=== PATIENT | female | born 1940 | race Caucasian/White ===

== ENCOUNTER → 2017-12-03 11:00 | Outpatient (CLI) | payer MEDICARE, OTHER, SELFPAY | PROVIDERS: PCP Family Medicine; Visit Provider Family Medicine | DX: N39.0 Urinary tract infection, site not specified (principal) | CPT/HCPCS: 87077; 87086; 87147; 87186 ==

== ENCOUNTER → 2017-12-15 13:49 | Outpatient (CLI) | payer MEDICARE, OTHER, SELFPAY ==
[2017-12-15 14:23] LABS: Appearance Urine UA CLEAR; Bilirubin Urine UA NEGATIVE (NEGATIVE); Color Urine UA YELLOW; Glucose Urine UA NEGATIVE (Normal); Ketones Urine UA TRACE (NEGATIVE); Leukocyte Esterase Urine UA 3+ (NEGATIVE); Nitrite Urine UA Negative (Negative); Occult Blood Urine UA 3+ (Negative); Protein Urine UA 2+ (Negative); pH Urine UA 5.5 (4.5-8.0)
[2017-12-15 14:34] LABS: Bacteria Urine Many (>30); Culture Indicated Urine Specimen Cultured; RBC Urine 10-30/HPF (0-5/HPF); WBC Urine >100/HPF (0-5/HPF)
== END ==
PROVIDERS: PCP Family Medicine; Visit Provider Family Medicine
DX: R39.9 Unspecified symptoms and signs involving the genitourinary system (principal); Z87.440 Personal history of urinary (tract) infections
CPT/HCPCS: 81001; 87077; 87086; 87186

== ENCOUNTER → 2018-01-12 11:16 | Outpatient (CLI) | payer MEDICARE, OTHER, SELFPAY ==
[2018-01-12 12:25] LABS: Appearance Urine UA CLOUDY; Bilirubin Urine UA NEGATIVE (NEGATIVE); Color Urine UA YELLOW; Glucose Urine UA NEGATIVE (Normal); Ketones Urine UA NEGATIVE (NEGATIVE); Leukocyte Esterase Urine UA 3+ (NEGATIVE); Nitrite Urine UA POSITIVE (Negative); Occult Blood Urine UA 1+ (Negative); Protein Urine UA 1+ (Negative); Specific Gravity Urine UA 1.015 (1.000-1.035)
[2018-01-12 12:37] LABS: RBC Urine 1-5/HPF (0-5/HPF)
[2018-01-12 12:38] LABS: Amorphous Sediment Urine 1+; Bacteria Urine Many (>30); Culture Indicated Urine Specimen Cultured; Squamous Epithelial Cell Urine 0-1 /HPF; WBC Urine >100/HPF (0-5/HPF)
== END ==
PROVIDERS: PCP Family Medicine; Visit Provider Family Medicine
DX: R30.0 Dysuria (principal)
CPT/HCPCS: 81001; 87077; 87086; 87186

== ENCOUNTER → 2018-01-22 10:24 | Outpatient (CLI) | payer MEDICARE, OTHER, SELFPAY ==
[2018-01-22 10:34] LABS: Bacteria Urine None Seen
[2018-01-22 11:56] LABS: Appearance Urine UA CLEAR; Bilirubin Urine UA NEGATIVE (NEGATIVE); Color Urine UA YELLOW; Glucose Urine UA NEGATIVE (Normal); Ketones Urine UA NEGATIVE (NEGATIVE); Leukocyte Esterase Urine UA TRACE (NEGATIVE); Nitrite Urine UA NEGATIVE (Negative); Occult Blood Urine UA TRACE-LYSED (Negative); Protein Urine UA NEGATIVE (Negative); Specific Gravity Urine UA 1.025 (1.000-1.035); Urobilinogen Urine UA 0.2 E.U./dL (0.2); pH Urine UA 5.5 (4.5-8.0)
[2018-01-22 12:06] LABS: Culture Indicated Urine Specimen Cultured; RBC Urine 1-5/HPF (0-5/HPF); Squamous Epithelial Cell Urine 1-5 /HPF; WBC Urine 5-10/HPF (0-5/HPF)
== END ==
PROVIDERS: PCP Family Medicine; Visit Provider Family Medicine
DX: R30.0 Dysuria (principal)
CPT/HCPCS: 81001; 87077; 87086; 87186

== ENCOUNTER → 2018-01-29 09:13 | Outpatient (CLI) | payer MEDICARE, OTHER, SELFPAY ==
--- NOTE | 2018-01-29 | DI.MG.S_ITS ---
BILATERAL DIGITAL SCREENING MAMMOGRAM 3D/2D WITH CAD: 01/29/2018 Comparison is made to exams dated: 01/18/2017 mammogram and 05/16/2015 mammogram - [facility]. There are scattered fibroglandular elements in both breasts. Current study was also evaluated with a Computer Aided Detection (CAD) system. No significant masses, calcifications, or other findings are seen in either breast. There has been no significant interval change. IMPRESSION: NEGATIVE There is no mammographic evidence of malignancy. A 1 year screening mammogram is recommended. This exam was interpreted at Station ID: [id number]. NOTE: For mammograms, a report in lay terms will be sent to the patient. Approximately 15% of breast malignancies will not be visualized mammographically. In the management of a palpable breast mass, a negative mammogram must not discourage biopsy of a clinically suspicious lesion. Electronically Signed By: Lesly [email or web address]/[email or web address]:01/29/2018 09:56:18 copy to: Maine Sim M.D., [facility] [employer], ph: [phone], fax: [phone] letter sent: Normal Exam ACR BI-RADS Category 1: Negative [id number]
== END ==
PROVIDERS: PCP Family Medicine; Visit Provider Internal Medicine Hematology & Oncology
DX: Z12.31 Encounter for screening mammogram for malignant neoplasm of breast (principal)
CPT/HCPCS: 77063; 77067

== ENCOUNTER → 2018-01-31 16:24 | Outpatient (CLI) | payer MEDICARE, OTHER, SELFPAY ==
[2018-01-31 17:04] LABS: Bilirubin Urine UA NEGATIVE (NEGATIVE); Color Urine UA YELLOW; Glucose Urine UA NEGATIVE (Normal); Ketones Urine UA TRACE (NEGATIVE); Leukocyte Esterase Urine UA 1+ (NEGATIVE); Nitrite Urine UA POSITIVE (Negative); Occult Blood Urine UA 3+ (Negative); Protein Urine UA 2+ (Negative); Specific Gravity Urine UA 1.025 (1.000-1.035); pH Urine UA 5.5 (4.5-8.0)
[2018-01-31 17:12] LABS: Appearance Urine UA Slightly Cloudy
[2018-01-31 17:13] LABS: Bacteria Urine Many (>30); Culture Indicated Urine Specimen Cultured; RBC Urine 30-100/HPF (0-5/HPF); Squamous Epithelial Cell Urine 0-1 /HPF; WBC Urine >100/HPF (0-5/HPF)
== END ==
PROVIDERS: PCP Family Medicine; Visit Provider Family Medicine
DX: N39.0 Urinary tract infection, site not specified (principal)
CPT/HCPCS: 81001; 87077; 87086; 87186

== ENCOUNTER → 2018-02-21 19:01 | Outpatient (CLI) | payer MEDICARE, OTHER, SELFPAY | PROVIDERS: PCP Family Medicine; Visit Provider Physician Assistant | DX: N39.41 Urge incontinence (principal) | CPT/HCPCS: 87077; 87086; 87186 ==

== ENCOUNTER 2018-07-07 09:00 | Outpatient (RCR) | payer MEDICARE, OTHER, SELFPAY ==
--- NOTE | 2018-05-26 13:13 | PT.OIE ---
Current Diagnoses Urge incontinence (05/26/18) Past Medical History (Last Reviewed 12/03/17 @ 10:37 by Maine Sim MD) Lymphoma (Chronic) Heart murmur, systolic (Chronic) Cataract (Chronic) Fecal incontinence (Chronic 2004) Frequent UTI (Chronic) GERD (gastroesophageal reflux disease) (Chronic) Hearing loss (Chronic) Hypertension (Chronic) Migraines (Chronic) Urinary incontinence (Chronic 2013) Chicken pox (Resolved) Past Surgical History (Last Reviewed 12/03/17 @ 10:37 by Maine Sim MD) History of dilation and curettage (Resolved) Provider Visit Care Team Role Provider Type Maine Sim MD Primary Care Provider Physician Specialty: Family Practice Address: [address] [place] [address], [id number] Email: [email or web address] Tina Andre MD Attending Provider Non-Staff Specialty: Urology Address: [address] [place] [address], [id number] Email: Physical Therapy Initial Evaluation PT-OP-A Visit Information Start: 05/26/18 10:43 Freq: Status: Active Protocol: Document 05/26/18 10:44 [facility] (Rec: 05/26/18 11:14 [facility] [email or web address]) Out-Patient Physical Therapy Visit Information Visit Information Visit Type Initial Evaluation Visit Note 78 year old female who presents with urinary urgency and incontinence. She has a hx of frequent UTI's but from November to 2017 had 6 UTI's. She have been treated with different anitbiotics. She has had urinary urgency and incontinence in the past and has done PT which helped at that time. Visit Start Time 09:45 Visit Stop Time 10:30 Total Visit Minutes 45 Visit Number 1 Evaluation Information Evaluation Date 05/26/18 PT-OP-B Current Condition Start: 05/26/18 10:43 Freq: Status: Active Protocol: Document 05/26/18 10:44 [facility] (Rec: 05/26/18 11:14 [facility] [email or web address]) Current Condition History of Current Condition Onset Date December 04 2007 Current Complaints urinary urgency and urinary leakage without warning History of Current Condition 78 year old female who presents with urinary urgency and incontinence. She has a hx of frequent UTI's but from November to January 2018 had 6 UTI's. She has been treated with different antibiotics each incident. She has had urinary urgency and incontinence in the past and has done PT which helped at that time. Pt wears pads and changes them 1-2 xms per day, wakes up 2 xms at night to void. Drinks 1 diet coke per day, 3 cups of tea, 2-3 glasses of water. Hx of urethral burning but after this last antibiotic and with estrogen cream this has been gone now for approximatly 2 weeks. 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 Treatment Goals Patient/Caregiver Goals Goals include eliminating urge incontinence Current Functional Impairments (Reported) Functional Limitations- Recreation/ limited in recreational Hobbies activities as she feels she needs to be near a bathroom PT-OP-F Manual Assessment Start: 05/26/18 10:43 Freq: Status: Active Protocol: Document 05/26/18 10:44 [facility] (Rec: 05/26/18 11:14 [facility] [email or web address]) Manual Assessments Soft Tissue Assessment Soft Tissue Mobility Assessment levator ani tightness on the left lateral wall, piriformis tightness L>R, gluteal tightness L>R, paraspinal tightness B PT-OP-I Pelvic Floor Start: 05/26/18 10:43 Freq: Status: Active Protocol: Document 05/26/18 10:44 [facility] (Rec: 05/26/18 11:14 [facility] [email or web address]) Pelvic Floor Assessment Urine Pelvic Floor Surgery No Urinary Symptoms Urge Sensation Hesitancy Dribbling After Urination Incomplete Emptying Leakage Size Medium Leakage Cause Urge Leaks Per Day 1-3 Voiding Frequency every 2 hours Nocturia yes wakes 2 times per night Pads Used In 24 Hours 3 Urine Pad Type Maxi Pad Pelvic Clock Pelvic Clock 12-3 Atrophy Pelvic Clock 3-6 Guarding Tightness Pelvic Clock 6-9 Atrophy Pelvic Clock 9-12 Atrophy Pelvic Clock Other tightness and guarding on the left lateral wall of the levator ani Contraction Ability Voluntary Contraction Weak Voluntary Relaxation Moderate Manual Muscle Testing Left 3 Manual Muscle Testing Right 3 Manual Muscle Testing Anterior 3 Manual Muscle Testing Posterior 3 Muscle Endurance (Seconds) 5 Comments Pelvic Floor Comments difficutly fully relaxing the left lateral wall of the levator ani PT-OP-Q Treatments Start: 05/26/18 10:43 Freq: Status: Active Protocol: Document 05/26/18 10:44 [facility] (Rec: 05/26/18 11:14 [facility] [email or web address]) Self-Care/Home Management Treatment Education Patient Education Home Exercise Program Other Education Bladder retraining and urge deference technique began today, discussed bladder irritants and toileting strategies to help fully empty the bladder with voiding. PT-OP-T Assessment and Plan Start: 05/26/18 10:43 Freq: Status: Active Protocol: Document 05/26/18 10:44 [facility] (Rec: 05/26/18 11:14 [facility] [email or web address]) Physical Therapy Assessment Rehab Potential Rehabilitation Potential Good Evaluation Complexity Number of Personal Factors/Comorbidities 0 Number of Body Systems Impaired 1-2 Clinical Presentation at Evaluation Stable Impairments Impairments Activity Tolerance Soft Tissue Mobility Strength Other Impairments urinary urgency and incontinence Goals Three Impairment tightness in the left lateral wall of the levator ani and L> R hip muscles Short Term Goal (STG) Ami is educated on stretches for the hip ER and educated on relaxed tone of the pelvic floor musculature to help fully empty her bladder with voiding STG Duration 4 weeks Two Impairment urininary urgency and urge incontinence Short Term Goal (STG) Ami is instruced in the urge deferance technique and bladder retraining to help reduce urgency STG Duration 2 weeks Hospitality Associate Goal (LTG) reduce leakage from 3-4 times per day to 1 or less LTG Duration 8 weeks One Impairment pelvic floor weakness and decreased endurance Alf Goal (LTG) Improve strength of the levator ani from 3/5 to 4/5 or better on MMT and increase endurance contractions to 10 second hold in supine LTG Duration 8 weeks Assessment Summary Assessment Ami is a 78 year old female who presents with onset of urinary urgency and incontinence following a 3 month period where she was being treated for UTI's. She had 6 UTI's from November - January and was treated with several different antibiotics. She began experiencing urethral buring as well during this time but this has subsided. She has had PT in the past for urinary urgency which helped but since having her infections her symptoms have returned. With examination she is able to facilitate all parts of her levator ani but is limited in strength and endurance. She also has muscle guarding on the left lateral wall of the levator ani. She reports hip and LBP and is tight with her hip rotators L>R. We discussed toileting strategies today to improve her ability to fully empty her bladder, she was educated with bladder retraining and urge deference technique, and reviewed bladder irritants. Treatment will emphasize endurance training for her levator ani, relaxed awareness of the pelvic floor expecially with toileting, hip stretches, EMG biofeedback, bladder retraining. Ami is a good candidate for PT Physical Therapy Plan Frequency and Duration Frequency of Treatment 1x/Week Duration of Treatment 8 weeks Plan of Care Start Date 05/26/18 Plan of Care End Date 07/21/18 Therapeutic Interventions Therapeutic Interventions Home Exercise Program Manual Therapy Neuromuscular Re-education Self-Care/Home Management Therapeutic Exercises
--- NOTE | 2018-05-26 13:13 | PT.OPPOC ---
Current Diagnoses Urge incontinence (05/26/18) Provider Visit Care Team Role Provider Type Maine Sim MD Primary Care Provider Physician Specialty: Family Practice Address: [address] [place] [address], [id number] Email: [email or web address] Tina Andre MD Attending Provider Non-Staff Specialty: Urology Address: [address] [place] [address], [address] Email: Plan Of Care PT-OP-T Assessment and Plan Start: 05/26/18 10:43 Freq: Status: Active Protocol: Document 05/26/18 10:44 [facility] (Rec: 05/26/18 11:14 [facility] [email or web address]) Physical Therapy Assessment Rehab Potential Rehabilitation Potential Good Evaluation Complexity Number of Personal Factors/Comorbidities 0 Number of Body Systems Impaired 1-2 Clinical Presentation at Evaluation Stable Impairments Impairments Activity Tolerance Soft Tissue Mobility Strength Other Impairments urinary urgency and incontinence Goals Three Impairment tightness in the left lateral wall of the levator ani and L> R hip muscles Short Term Goal (STG) Ami is educated on stretches for the hip ER and educated on relaxed tone of the pelvic floor musculature to help fully empty her bladder with voiding STG Duration 4 weeks Two Impairment urininary urgency and urge incontinence Short Term Goal (STG) Ami is instruced in the urge deferance technique and bladder retraining to help reduce urgency STG Duration 2 weeks Penitentiary Goal (LTG) reduce leakage from 3-4 times per day to 1 or less LTG Duration 8 weeks One Impairment pelvic floor weakness and decreased endurance Warehouse Insulation Worker Goal (LTG) Improve strength of the levator ani from 3/5 to 4/5 or better on MMT and increase endurance contractions to 10 second hold in supine LTG Duration 8 weeks Assessment Summary Assessment Ami is a 78 year old female who presents with onset of urinary urgency and incontinence following a 3 month period where she was being treated for UTI's. She had 6 UTI's from November - January and was treated with several different antibiotics. She began experiencing urethral buring as well during this time but this has subsided. She has had PT in the past for urinary urgency which helped but since having her infections her symptoms have returned. With examination she is able to facilitate all parts of her levator ani but is limited in strength and endurance. She also has muscle guarding on the left lateral wall of the levator ani. She reports hip and LBP and is tight with her hip rotators L>R. We discussed toileting strategies today to improve her ability to fully empty her bladder, she was educated with bladder retraining and urge deference technique, and reviewed bladder irritants. Treatment will emphasize endurance training for her levator ani, relaxed awareness of the pelvic floor expecially with toileting, hip stretches, EMG biofeedback, bladder retraining. Ami is a good candidate for PT Physical Therapy Plan Frequency and Duration Frequency of Treatment 1x/Week Duration of Treatment 8 weeks Plan of Care Start Date 05/26/18 Plan of Care End Date 07/21/18 Therapeutic Interventions Therapeutic Interventions Home Exercise Program Manual Therapy Neuromuscular Re-education Self-Care/Home Management Therapeutic Exercises Plan of Care Dates Plan of Care Start Date 05/26/18 Plan of Care End Date 07/21/18 Please Sign and Return: I have reviewed this Plan of Care and certify that the skilled therapy services above are required to meet the patient?s needs. Physician Signature Date Printed Name and Credentials Clinical Instructor Signature Printed Name and Credentials
--- NOTE | 2018-06-02 11:41 | PT.OTN ---
Current Diagnoses Urge incontinence (06/02/18) Physical Therapy Treatment Note PT-OP-A Visit Information Start: 05/26/18 10:43 Freq: Status: Active Protocol: Document 05/31/18 13:00 [facility] (Rec: 06/02/18 11:40 [facility] [email or web address]) Out-Patient Physical Therapy Visit Information Visit Information Visit Type Treatment Note Visit Note pt reports she had a really busy day yesterday and did experience a lot of urgency Visit Start Time 13:00 Visit Stop Time 13:45 Total Visit Minutes 45 Visit Number 2 Evaluation Information Evaluation Date 05/26/18 PT-OP-B Current Condition Start: 05/26/18 10:43 Freq: Status: Active Protocol: Document 05/26/18 10:44 [facility] (Rec: 05/26/18 11:14 [facility] [email or web address]) Current Condition History of Current Condition Onset Date December 04 2007 Current Complaints urinary urgency and urinary leakage without warning History of Current Condition 78 year old female who presents with urinary urgency and incontinence. She has a hx of frequent UTI's but from November to January 2018 had 6 UTI's. She has been treated with different antibiotics each incident. She has had urinary urgency and incontinence in the past and has done PT which helped at that time. Pt wears pads and changes them 1-2 xms per day, wakes up 2 xms at night to void. Drinks 1 diet coke per day, 3 cups of tea, 2-3 glasses of water. Hx of urethral burning but after this last antibiotic and with estrogen cream this has been gone now for approximatly 2 weeks. 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 Treatment Goals Patient/Caregiver Goals Goals include eliminating urge incontinence Current Functional Impairments (Reported) Functional Limitations- Recreation/ limited in recreational Hobbies activities as she feels she needs to be near a bathroom PT-OP-F Manual Assessment Start: 05/26/18 10:43 Freq: Status: Active Protocol: Document 05/26/18 10:44 [facility] (Rec: 05/26/18 11:14 [facility] [email or web address]) Manual Assessments Soft Tissue Assessment Soft Tissue Mobility Assessment levator ani tightness on the left lateral wall, piriformis tightness L>R, gluteal tightness L>R, paraspinal tightness B PT-OP-I Pelvic Floor Start: 05/26/18 10:43 Freq: Status: Active Protocol: Document 05/26/18 10:44 [facility] (Rec: 05/26/18 11:14 [facility] [email or web address]) Pelvic Floor Assessment Urine Pelvic Floor Surgery No Urinary Symptoms Urge Sensation Hesitancy Dribbling After Urination Incomplete Emptying Leakage Size Medium Leakage Cause Urge Leaks Per Day 1-3 Voiding Frequency every 2 hours Nocturia yes wakes 2 times per night Pads Used In 24 Hours 3 Urine Pad Type Maxi Pad Pelvic Clock Pelvic Clock 12-3 Atrophy Pelvic Clock 3-6 Guarding Tightness Pelvic Clock 6-9 Atrophy Pelvic Clock 9-12 Atrophy Pelvic Clock Other tightness and guarding on the left lateral wall of the levator ani Contraction Ability Voluntary Contraction Weak Voluntary Relaxation Moderate Manual Muscle Testing Left 3 Manual Muscle Testing Right 3 Manual Muscle Testing Anterior 3 Manual Muscle Testing Posterior 3 Muscle Endurance (Seconds) 5 Comments Pelvic Floor Comments difficutly fully relaxing the left lateral wall of the levator ani PT-OP-Q Treatments Start: 05/26/18 10:43 Freq: Status: Active Protocol: Document 05/31/18 13:00 [facility] (Rec: 06/02/18 11:40 [facility] [email or web address]) Therapeutic Exercises Supine Exercises 5 Supine Exercise Name pelvic floor relaxation on EMG biofeedback 4 Supine Exercise Name ball squeeze Reps/Minutes 3 x 10 reps 3 Supine Exercise Name roll outs with theraband Reps/Minutes 3 x 10 2 Supine Exercise Name quick flicks Reps/Minutes x 10 reps 1 Supine Exercise Name pelvic floor long holds 10 second hold 10 second relaxation Reps/Minutes 3 x 10 reps Sidelying Exercises 1 Sidelying Exercise Name sidelying clam shells Self-Care/Home Management Treatment Education Patient Education Home Exercise Program Other Education urge deference technique, bladder retraining, pelvic floor relaxation PT-OP-T Assessment and Plan Start: 05/26/18 10:43 Freq: Status: Active Protocol: Document 05/31/18 13:00 [facility] (Rec: 06/02/18 11:40 [facility] [email or web address]) Physical Therapy Assessment Assessment Summary Assessment good tolerance today for additional exercises, reviewed urge deference technique, and bladder irritants Physical Therapy Plan Frequency and Duration Frequency of Treatment 1x/Week Duration of Treatment 8 weeks Plan of Care Start Date 05/26/18 Plan of Care End Date 07/21/18 Therapeutic Interventions Therapeutic Interventions Home Exercise Program Manual Therapy Neuromuscular Re-education Self-Care/Home Management Therapeutic Exercises Next Visit Focus/Plan Next Note Type Treatment Note Next Visit Plan work on progressing exercises and begin low back relaxation exercises next visit
--- NOTE | 2018-06-02 11:48 | PT.OTN ---
Current Diagnoses Urge incontinence (06/02/18) Physical Therapy Treatment Note PT-OP-A Visit Information Start: 05/26/18 10:43 Freq: Status: Active Protocol: Document 06/02/18 11:41 [facility] (Rec: 06/02/18 11:46 [facility] [email or web address]) Out-Patient Physical Therapy Visit Information Visit Information Visit Type Treatment Note Visit Note Junior reports yesterday she had no leaks or urgency. She is not sure what the difference is between the two days Visit Start Time 09:45 Visit Stop Time 10:30 Total Visit Minutes 45 Visit Number 3 Evaluation Information Evaluation Date 05/26/18 PT-OP-B Current Condition Start: 05/26/18 10:43 Freq: Status: Active Protocol: Document 05/26/18 10:44 [facility] (Rec: 05/26/18 11:14 [facility] [email or web address]) Current Condition History of Current Condition Onset Date December 04 2007 Current Complaints urinary urgency and urinary leakage without warning History of Current Condition 78 year old female who presents with urinary urgency and incontinence. She has a hx of frequent UTI's but from November to January 2018 had 6 UTI's. She has been treated with different antibiotics each incident. She has had urinary urgency and incontinence in the past and has done PT which helped at that time. Pt wears pads and changes them 1-2 xms per day, wakes up 2 xms at night to void. Drinks 1 diet coke per day, 3 cups of tea, 2-3 glasses of water. Hx of urethral burning but after this last antibiotic and with estrogen cream this has been gone now for approximatly 2 weeks. 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 Treatment Goals Patient/Caregiver Goals Goals include eliminating urge incontinence Current Functional Impairments (Reported) Functional Limitations- Recreation/ limited in recreational Hobbies activities as she feels she needs to be near a bathroom PT-OP-C Subjective Start: 05/26/18 10:43 Freq: Status: Active Protocol: Document 06/02/18 11:41 [facility] (Rec: 06/02/18 11:46 [facility] [email or web address]) OP-PT Subjective Patient Comments Patient Comments junior reports yesterday she experienced no leaks or urgency. She is not sure what the difference is between the two days. PT-OP-F Manual Assessment Start: 05/26/18 10:43 Freq: Status: Active Protocol: Document 05/26/18 10:44 [facility] (Rec: 05/26/18 11:14 [facility] [email or web address]) Manual Assessments Soft Tissue Assessment Soft Tissue Mobility Assessment levator ani tightness on the left lateral wall, piriformis tightness L>R, gluteal tightness L>R, paraspinal tightness B PT-OP-I Pelvic Floor Start: 05/26/18 10:43 Freq: Status: Active Protocol: Document 05/26/18 10:44 [facility] (Rec: 05/26/18 11:14 [facility] [email or web address]) Pelvic Floor Assessment Urine Pelvic Floor Surgery No Urinary Symptoms Urge Sensation Hesitancy Dribbling After Urination Incomplete Emptying Leakage Size Medium Leakage Cause Urge Leaks Per Day 1-3 Voiding Frequency every 2 hours Nocturia yes wakes 2 times per night Pads Used In 24 Hours 3 Urine Pad Type Maxi Pad Pelvic Clock Pelvic Clock 12-3 Atrophy Pelvic Clock 3-6 Guarding Tightness Pelvic Clock 6-9 Atrophy Pelvic Clock 9-12 Atrophy Pelvic Clock Other tightness and guarding on the left lateral wall of the levator ani Contraction Ability Voluntary Contraction Weak Voluntary Relaxation Moderate Manual Muscle Testing Left 3 Manual Muscle Testing Right 3 Manual Muscle Testing Anterior 3 Manual Muscle Testing Posterior 3 Muscle Endurance (Seconds) 5 Comments Pelvic Floor Comments difficutly fully relaxing the left lateral wall of the levator ani PT-OP-Q Treatments Start: 05/26/18 10:43 Freq: Status: Active Protocol: Document 06/02/18 11:41 [facility] (Rec: 06/02/18 11:46 [facility] [email or web address]) Therapeutic Exercises Supine Exercises 5 Supine Exercise Name pelvic floor relaxation on EMG biofeedback 4 Supine Exercise Name ball squeeze Reps/Minutes 3 x 10 reps 3 Supine Exercise Name roll outs with theraband Reps/Minutes 3 x 10 2 Supine Exercise Name quick flicks Reps/Minutes x 10 reps 1 Supine Exercise Name pelvic floor long holds 10 second hold 10 second relaxation Reps/Minutes 3 x 10 reps Sidelying Exercises 1 Sidelying Exercise Name sidelying clam shells Reps/Minutes 2 x 15 Other Exercises 3 Other Exercise Name TA facilitation and relaxation Reps/Minutes 10 second holds with 10 second relaxation 2 Other Exercise Name atlib pose 1 Other Exercise Name quadraped cat cow Reps/Minutes x 10 reps PT-OP-T Assessment and Plan Start: 05/26/18 10:43 Freq: Status: Active Protocol: Document 06/02/18 11:41 [facility] (Rec: 06/02/18 11:46 [facility] [email or web address]) Physical Therapy Assessment Assessment Summary Assessment much improved facilitation of the pelvic floor to 10.6 uv average and 46.7 uv max. Resting tone initially is at 0 .0 uv Physical Therapy Plan Frequency and Duration Frequency of Treatment 1x/Week Duration of Treatment 8 Plan of Care Start Date 05/26/18 Plan of Care End Date 07/21/18 Therapeutic Interventions Therapeutic Interventions Home Exercise Program Manual Therapy Neuromuscular Re-education Self-Care/Home Management Therapeutic Exercises Next Visit Focus/Plan Next Note Type Treatment Note Next Visit Plan continue to progress exercises as tolerated, work on diaphragmatic breathing
--- NOTE | 2018-06-07 14:57 | PT.OTN ---
Current Diagnoses Urge incontinence (06/07/18) Physical Therapy Treatment Note PT-OP-A Visit Information Start: 05/26/18 10:43 Freq: Status: Active Protocol: Document 06/07/18 10:40 [facility] (Rec: 06/07/18 10:41 [facility] [id number]) Out-Patient Physical Therapy Visit Information Visit Information Visit Type Treatment Note Visit Start Time 09:45 Visit Stop Time 10:30 Total Visit Minutes 45 Visit Number 4 PT-OP-B Current Condition Start: 05/26/18 10:43 Freq: Status: Active Protocol: Document 05/26/18 10:44 [facility] (Rec: 05/26/18 11:14 [facility] [email or web address]) Current Condition History of Current Condition Onset Date December 04 2007 Current Complaints urinary urgency and urinary leakage without warning History of Current Condition 78 year old female who presents with urinary urgency and incontinence. She has a hx of frequent UTI's but from November to January 2018 had 6 UTI's. She has been treated with different antibiotics each incident. She has had urinary urgency and incontinence in the past and has done PT which helped at that time. Pt wears pads and changes them 1-2 xms per day, wakes up 2 xms at night to void. Drinks 1 diet coke per day, 3 cups of tea, 2-3 glasses of water. Hx of urethral burning but after this last antibiotic and with estrogen cream this has been gone now for approximatly 2 weeks. 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 Treatment Goals Patient/Caregiver Goals Goals include eliminating urge incontinence Current Functional Impairments (Reported) Functional Limitations- Recreation/ limited in recreational Hobbies activities as she feels she needs to be near a bathroom PT-OP-C Subjective Start: 05/26/18 10:43 Freq: Status: Active Protocol: Document 06/07/18 10:41 [facility] (Rec: 06/07/18 10:41 [facility] [id number]) OP-PT Subjective Patient Comments Patient Comments pt reports she has had no urinary leakage or urgency symptoms this past week Patient Reported Progress Improving PT-OP-F Manual Assessment Start: 05/26/18 10:43 Freq: Status: Active Protocol: Document 05/26/18 10:44 [facility] (Rec: 05/26/18 11:14 [facility] [email or web address]) Manual Assessments Soft Tissue Assessment Soft Tissue Mobility Assessment levator ani tightness on the left lateral wall, piriformis tightness L>R, gluteal tightness L>R, paraspinal tightness B PT-OP-I Pelvic Floor Start: 05/26/18 10:43 Freq: Status: Active Protocol: Document 05/26/18 10:44 [facility] (Rec: 05/26/18 11:14 [facility] [email or web address]) Pelvic Floor Assessment Urine Pelvic Floor Surgery No Urinary Symptoms Urge Sensation Hesitancy Dribbling After Urination Incomplete Emptying Leakage Size Medium Leakage Cause Urge Leaks Per Day 1-3 Voiding Frequency every 2 hours Nocturia yes wakes 2 times per night Pads Used In 24 Hours 3 Urine Pad Type Maxi Pad Pelvic Clock Pelvic Clock 12-3 Atrophy Pelvic Clock 3-6 Guarding Tightness Pelvic Clock 6-9 Atrophy Pelvic Clock 9-12 Atrophy Pelvic Clock Other tightness and guarding on the left lateral wall of the levator ani Contraction Ability Voluntary Contraction Weak Voluntary Relaxation Moderate Manual Muscle Testing Left 3 Manual Muscle Testing Right 3 Manual Muscle Testing Anterior 3 Manual Muscle Testing Posterior 3 Muscle Endurance (Seconds) 5 Comments Pelvic Floor Comments difficutly fully relaxing the left lateral wall of the levator ani PT-OP-Q Treatments Start: 05/26/18 10:43 Freq: Status: Active Protocol: Document 06/07/18 09:45 [facility] (Rec: 06/07/18 14:57 [facility] [email or web address]) Therapeutic Exercises Supine Exercises 5 Supine Exercise Name pelvic floor relaxation on EMG biofeedback 4 Supine Exercise Name ball squeeze Reps/Minutes 3 x 10 reps 3 Supine Exercise Name roll outs with theraband Reps/Minutes 3 x 10 2 Supine Exercise Name quick flicks Reps/Minutes x 10 reps 1 Supine Exercise Name pelvic floor long holds 10 second hold 10 second relaxation Reps/Minutes 3 x 10 reps Sidelying Exercises 1 Sidelying Exercise Name sidelying clam shells Reps/Minutes 2 x 15 Other Exercises 3 Other Exercise Name TA facilitation and relaxation Reps/Minutes 10 second holds with 10 second relaxation 2 Other Exercise Name talib pose 1 Other Exercise Name quadraped cat cow Reps/Minutes x 10 reps PT-OP-T Assessment and Plan Start: 05/26/18 10:43 Freq: Status: Active Protocol: Document 06/07/18 09:45 [facility] (Rec: 06/07/18 14:57 [facility] [email or web address]) Physical Therapy Assessment Assessment Summary Assessment decreased symptoms overall , today she seemed tired and pelvic floor was not as strong with contractions as it was last week. She had mentioned she stayed up all night to get ready for her dinner green party. Ami is doing well with her home program. Begin working on sit-stand with pelvic floor contraction next visit Physical Therapy Plan Frequency and Duration Frequency of Treatment 1x/Week Duration of Treatment 8 Plan of Care Start Date 05/26/18 Plan of Care End Date 07/21/18 Therapeutic Interventions Therapeutic Interventions Home Exercise Program Manual Therapy Neuromuscular Re-education Self-Care/Home Management Therapeutic Exercises Next Visit Focus/Plan Next Note Type Treatment Note Next Visit Plan continue to progress exercises as tolerated, work on diaphragmatic breathing, progress to sit-stand
--- NOTE | 2018-06-09 13:35 | PT.OTN ---
Current Diagnoses Urge incontinence (06/09/18) Physical Therapy Treatment Note PT-OP-A Visit Information Start: 05/26/18 10:43 Freq: Status: Active Protocol: Document 06/09/18 13:31 [facility] (Rec: 06/09/18 13:35 [facility] [email or web address]) Out-Patient Physical Therapy Visit Information Visit Information Visit Type Treatment Note Visit Start Time 09:00 Visit Stop Time 09:45 Total Visit Minutes 45 Visit Number 5 Evaluation Information Evaluation Date 05/26/18 PT-OP-B Current Condition Start: 05/26/18 10:43 Freq: Status: Active Protocol: Document 05/26/18 10:44 AM[facility] (Rec: 05/26/18 11:14 [facility] [email or web address]) Current Condition History of Current Condition Onset Date December 04 2007 Current Complaints urinary urgency and urinary leakage without warning History of Current Condition 78 year old female who presents with urinary urgency and incontinence. She has a hx of frequent UTI's but from November to January 2018 had 6 UTI's. She has been treated with different antibiotics each incident. She has had urinary urgency and incontinence in the past and has done PT which helped at that time. Pt wears pads and changes them 1-2 xms per day, wakes up 2 xms at night to void. Drinks 1 diet coke per day, 3 cups of tea, 2-3 glasses of water. Hx of urethral burning but after this last antibiotic and with estrogen cream this has been gone now for approximatly 2 weeks. 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 PT-OP-F Manual Assessment Start: 05/26/18 10:43 Freq: Status: Active Protocol: Document 05/26/18 10:44 [facility] (Rec: 03/07/19 11:14 [facility] [email or web address]) Manual Assessments Soft Tissue Assessment Soft Tissue Mobility Assessment levator ani tightness on the left lateral wall, piriformis tightness L>R, gluteal tightness L>R, paraspinal tightness B PT-OP-I Pelvic Floor Start: 05/26/18 10:43 Freq: Status: Active Protocol: Document 05/26/18 10:44 [facility] (Rec: 05/26/18 11:14 [facility] [email or web address]) Pelvic Floor Assessment Urine Pelvic Floor Surgery No Urinary Symptoms Urge Sensation Hesitancy Dribbling After Urination Incomplete Emptying Leakage Size Medium Leakage Cause Urge Leaks Per Day 1-3 Voiding Frequency every 2 hours Nocturia yes wakes 2 times per night Pads Used In 24 Hours 3 Urine Pad Type Maxi Pad Pelvic Clock Pelvic Clock 12-3 Atrophy Pelvic Clock 3-6 Guarding Tightness Pelvic Clock 6-9 Atrophy Pelvic Clock 9-12 Atrophy Pelvic Clock Other tightness and guarding on the left lateral wall of the levator ani Contraction Ability Voluntary Contraction Weak Voluntary Relaxation Moderate Manual Muscle Testing Left 3 Manual Muscle Testing Right 3 Manual Muscle Testing Anterior 3 Manual Muscle Testing Posterior 3 Muscle Endurance (Seconds) 5 Comments Pelvic Floor Comments difficutly fully relaxing the left lateral wall of the levator ani PT-OP-Q Treatments Start: 05/26/18 10:43 Freq: Status: Active Protocol: Document 06/09/18 13:31 AM[facility] (Rec: 06/09/18 13:35 [facility] [email or web address]) Therapeutic Exercises Supine Exercises 5 Supine Exercise Name pelvic floor relaxation on EMG biofeedback 4 Supine Exercise Name ball squeeze Reps/Minutes 3 x 10 reps 3 Supine Exercise Name roll outs with theraband Reps/Minutes 3 x 10 2 Supine Exercise Name quick flicks Reps/Minutes x 10 reps 1 Supine Exercise Name pelvic floor long holds 10 second hold 10 second relaxation Reps/Minutes 3 x 10 reps Sidelying Exercises 1 Sidelying Exercise Name sidelying clam shells Reps/Minutes 2 x 15 Standing Exercises 2 Standing Exercise Name sit to stand Reps/Minutes 2 x 10 reps 1 Standing Exercise Name standing hip abduction Reps/Minutes 2 x 10 reps Other Exercises 3 Other Exercise Name TA facilitation and relaxation Reps/Minutes 10 second holds with 10 second relaxation 2 Other Exercise Name talib pose 1 Other Exercise Name quadraped cat cow Reps/Minutes x 10 reps PT-OP-T Assessment and Plan Start: 05/26/18 10:43 Freq: Status: Active Protocol: Document 06/09/18 13:31 AM[facility] (Rec: 06/09/18 13:35 [facility] [email or web address]) Physical Therapy Assessment Assessment Summary Assessment Good tolerance today for adding in standing hip exercises. No leaks other than a few drops in a week or sudden urges so Ami is making steady progress Physical Therapy Plan Frequency and Duration Frequency of Treatment 1x/Week Duration of Treatment 8 Plan of Care Start Date 05/26/18 Plan of Care End Date 07/21/18 Therapeutic Interventions Therapeutic Interventions Home Exercise Program Manual Therapy Neuromuscular Re-education Self-Care/Home Management Therapeutic Exercises Next Visit Focus/Plan Next Note Type Treatment Note Next Visit Plan continue working on diaphragmatic breathing and relaxation exercises for the bladder as well as pelvic floor strengthening
--- NOTE | 2018-06-20 15:25 | PT.OTN ---
Current Diagnoses Urge incontinence (06/20/18) Physical Therapy Treatment Note PT-OP-A Visit Information Start: 05/26/18 10:43 Freq: Status: Active Protocol: Document 06/20/18 08:45 BS (Rec: 06/20/18 12:20 BS [email or web address]) Out-Patient Physical Therapy Visit Information Visit Information Visit Type Treatment Note Visit Start Time 08:15 Visit Stop Time 09:05 Total Visit Minutes 50 Visit Number 6 PT-OP-B Current Condition Start: 05/26/18 10:43 Freq: Status: Active Protocol: Document 05/26/18 10:44 [facility] (Rec: 05/26/18 11:14 [facility] [email or web address]) Current Condition History of Current Condition Onset Date December 04 2007 Current Complaints urinary urgency and urinary leakage without warning History of Current Condition 78 year old female who presents with urinary urgency and incontinence. She has a hx of frequent UTI's but from November to January 2018 had 6 UTI's. She has been treated with different antibiotics each incident. She has had urinary urgency and incontinence in the past and has done PT which helped at that time. Pt wears pads and changes them 1-2 xms per day, wakes up 2 xms at night to void. Drinks 1 diet coke per day, 3 cups of tea, 2-3 glasses of water. Hx of urethral burning but after this last antibiotic and with estrogen cream this has been gone now for approximatly 2 weeks. 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 Will see urologist 06/21/18. PT-OP-F Manual Assessment Start: 05/26/18 10:43 Freq: Status: Active Protocol: Document 05/26/18 10:44 [facility] (Rec: 05/26/18 11:14 [facility] [email or web address]) Manual Assessments Soft Tissue Assessment Soft Tissue Mobility Assessment levator ani tightness on the left lateral wall, piriformis tightness L>R, gluteal tightness L>R, paraspinal tightness B PT-OP-I Pelvic Floor Start: 05/26/18 10:43 Freq: Status: Active Protocol: Document 05/26/18 10:44 AMH (Rec: 05/26/18 11:14 [facility] [email or web address]) Pelvic Floor Assessment Urine Pelvic Floor Surgery No Urinary Symptoms Urge Sensation Hesitancy Dribbling After Urination Incomplete Emptying Leakage Size Medium Leakage Cause Urge Leaks Per Day 1-3 Voiding Frequency every 2 hours Nocturia yes wakes 2 times per night Pads Used In 24 Hours 3 Urine Pad Type Maxi Pad Pelvic Clock Pelvic Clock 12-3 Atrophy Pelvic Clock 3-6 Guarding Tightness Pelvic Clock 6-9 Atrophy Pelvic Clock 9-12 Atrophy Pelvic Clock Other tightness and guarding on the left lateral wall of the levator ani Contraction Ability Voluntary Contraction Weak Voluntary Relaxation Moderate Manual Muscle Testing Left 3 Manual Muscle Testing Right 3 Manual Muscle Testing Anterior 3 Manual Muscle Testing Posterior 3 Muscle Endurance (Seconds) 5 Comments Pelvic Floor Comments difficutly fully relaxing the left lateral wall of the levator ani PT-OP-Q Treatments Start: 05/26/18 10:43 Freq: Status: Active Protocol: Document 06/20/18 08:45 BS (Rec: 06/20/18 12:20 BS [email or web address]) Therapeutic Exercises Supine Exercises 5 Supine Exercise Name pelvic floor relaxation on EMG biofeedback 4 Supine Exercise Name ball squeeze Reps/Minutes 3 x 10 reps Comments Hooklying 2 Supine Exercise Name quick flicks Reps/Minutes x15 reps 1 Supine Exercise Name pelvic floor long holds 5 second hold 10 second relaxation Reps/Minutes x20 reps Sidelying Exercises 1 Sidelying Exercise Name sidelying clam shells Reps/Minutes x20 each side Standing Exercises 2 Standing Exercise Name sit to stand Reps/Minutes 2x10 Other Exercises 1 Other Exercise Name quadraped cat cow Reps/Minutes x5 Comments VCs for correct form PT-OP-T Assessment and Plan Start: 05/26/18 10:43 Freq: Status: Active Protocol: Document 06/20/18 08:45 BS (Rec: 06/20/18 12:20 BS [email or web address]) Physical Therapy Assessment Assessment Summary Assessment Pt tolerated session well. She has difficulty maintaining pelvic floor contraction >5 seconds as shown on Biofeedback. Pt is making progress with no reports of leakage episodes since last visit. Physical Therapy Plan Frequency and Duration Frequency of Treatment 1x/Week Duration of Treatment 8 Plan of Care Start Date 05/26/18 Plan of Care End Date 07/21/18 Therapeutic Interventions Therapeutic Interventions Home Exercise Program Manual Therapy Neuromuscular Re-education Self-Care/Home Management Therapeutic Exercises Next Visit Focus/Plan Next Note Type Treatment Note Next Visit Plan Continue progress of pelvic floor strengthening in standing and with movement.
--- NOTE | 2018-06-22 14:38 | PT.OTN ---
Current Diagnoses Urge incontinence (06/22/18) Physical Therapy Treatment Note PT-OP-A Visit Information Start: 05/26/18 10:43 Freq: Status: Active Protocol: Document 06/22/18 08:22 BS (Rec: 06/22/18 08:25 BS [id number]) Out-Patient Physical Therapy Visit Information Visit Information Visit Type Treatment Note Visit Start Time 08:20 Visit Stop Time 09:00 Total Visit Minutes 40 Visit Number 7 PT-OP-B Current Condition Start: 05/26/18 10:43 Freq: Status: Active Protocol: Document 05/26/18 10:44 AM[facility] (Rec: 05/26/18 11:14 [facility] [email or web address]) Current Condition History of Current Condition Onset Date December 04 2007 Current Complaints urinary urgency and urinary leakage without warning History of Current Condition 78 year old female who presents with urinary urgency and incontinence. She has a hx of frequent UTI's but from November to January 2018 had 6 UTI's. She has been treated with different antibiotics each incident. She has had urinary urgency and incontinence in the past and has done PT which helped at that time. Pt wears pads and changes them 1-2 xms per day, wakes up 2 xms at night to void. Drinks 1 diet coke per day, 3 cups of tea, 2-3 glasses of water. Hx of urethral burning but after this last antibiotic and with estrogen cream this has been gone now for approximatly 2 weeks. 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 She continues to notice improvements and feels that she is almost back to normal. PT-OP-F Manual Assessment Start: 05/26/18 10:43 Freq: Status: Active Protocol: Document 05/26/18 10:44 AMH (Rec: 05/26/18 11:14 [facility] [email or web address]) Manual Assessments Soft Tissue Assessment Soft Tissue Mobility Assessment levator ani tightness on the left lateral wall, piriformis tightness L>R, gluteal tightness L>R, paraspinal tightness B PT-OP-I Pelvic Floor Start: 05/26/18 10:43 Freq: Status: Active Protocol: Document 05/26/18 10:44 AMH (Rec: 05/26/18 11:14 [facility] [email or web address]) Pelvic Floor Assessment Urine Pelvic Floor Surgery No Urinary Symptoms Urge Sensation Hesitancy Dribbling After Urination Incomplete Emptying Leakage Size Medium Leakage Cause Urge Leaks Per Day 1-3 Voiding Frequency every 2 hours Nocturia yes wakes 2 times per night Pads Used In 24 Hours 3 Urine Pad Type Maxi Pad Pelvic Clock Pelvic Clock 12-3 Atrophy Pelvic Clock 3-6 Guarding Tightness Pelvic Clock 6-9 Atrophy Pelvic Clock 9-12 Atrophy Pelvic Clock Other tightness and guarding on the left lateral wall of the levator ani Contraction Ability Voluntary Contraction Weak Voluntary Relaxation Moderate Manual Muscle Testing Left 3 Manual Muscle Testing Right 3 Manual Muscle Testing Anterior 3 Manual Muscle Testing Posterior 3 Muscle Endurance (Seconds) 5 Comments Pelvic Floor Comments difficutly fully relaxing the left lateral wall of the levator ani PT-OP-Q Treatments Start: 05/26/18 10:43 Freq: Status: Active Protocol: Document 06/22/18 08:22 BS (Rec: 06/22/18 08:36 BS [id number]) Therapeutic Exercises Supine Exercises 6 Supine Exercise Name pelvic floor hold 10, relax 10 Reps/Minutes x10 reps 5 Supine Exercise Name pelvic floor relaxation on EMG biofeedback 2 Supine Exercise Name quick flicks Reps/Minutes x15 reps 1 Supine Exercise Name pelvic floor long holds 5 second hold 10 second relaxation Reps/Minutes x 15 reps Standing Exercises 2 Standing Exercise Name sit to stand Reps/Minutes x15 1 Standing Exercise Name standing hip abduction Reps/Minutes x12 each side PT-OP-T Assessment and Plan Start: 05/26/18 10:43 Freq: Status: Active Protocol: Document 06/22/18 08:22 BS (Rec: 06/22/18 11:37 BS [id number]) Physical Therapy Assessment Assessment Summary Assessment Pt continues to make improvements and has not had an incontinent epsiode for 2 weeks. Discussed incorporating pelvic floor contractions with daily activity. Physical Therapy Plan Frequency and Duration Frequency of Treatment 1x/Week Duration of Treatment 8 Plan of Care Start Date 05/26/18 Plan of Care End Date 07/21/18 Therapeutic Interventions Therapeutic Interventions Home Exercise Program Manual Therapy Neuromuscular Re-education Self-Care/Home Management Therapeutic Exercises Next Visit Focus/Plan Next Note Type Progress Note Next Visit Plan Continue pelvic floor progression with sitting, standing, dynamic activities.
--- NOTE | 2018-06-28 14:02 | PT.OTN ---
Current Diagnoses Urge incontinence (06/28/18) Physical Therapy Treatment Note PT-OP-A Visit Information Start: 05/26/18 10:43 Freq: Status: Active Protocol: Document 06/28/18 13:55 [facility] (Rec: 06/28/18 14:01 [facility] [email or web address]) Out-Patient Physical Therapy Visit Information Visit Information Visit Type Progress Note Visit Start Time 09:00 Visit Stop Time 09:45 Total Visit Minutes 45 Visit Number 8 Evaluation Information Evaluation Date 05/26/18 PT-OP-B Current Condition Start: 05/26/18 10:43 Freq: Status: Active Protocol: Document 05/26/18 10:44 [facility] (Rec: 05/26/18 11:14 [facility] [email or web address]) Current Condition History of Current Condition Onset Date December 04 2007 Current Complaints urinary urgency and urinary leakage without warning History of Current Condition 78 year old female who presents with urinary urgency and incontinence. She has a hx of frequent UTI's but from November to January 2018 had 6 UTI's. She has been treated with different antibiotics each incident. She has had urinary urgency and incontinence in the past and has done PT which helped at that time. Pt wears pads and changes them 1-2 xms per day, wakes up 2 xms at night to void. Drinks 1 diet coke per day, 3 cups of tea, 2-3 glasses of water. Hx of urethral burning but after this last antibiotic and with estrogen cream this has been gone now for approximatly 2 weeks. 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 Patient Reported Progress Improving PT-OP-F Manual Assessment Start: 05/26/18 10:43 Freq: Status: Active Protocol: Document 05/26/18 10:44 [facility] (Rec: 05/26/18 11:14 [facility] [email or web address]) Manual Assessments Soft Tissue Assessment Soft Tissue Mobility Assessment levator ani tightness on the left lateral wall, piriformis tightness L>R, gluteal tightness L>R, paraspinal tightness B PT-OP-I Pelvic Floor Start: 05/26/18 10:43 Freq: Status: Active Protocol: Document 05/26/18 10:44 [facility] (Rec: 05/26/18 11:14 [facility] [email or web address]) Pelvic Floor Assessment Urine Pelvic Floor Surgery No Urinary Symptoms Urge Sensation Hesitancy Dribbling After Urination Incomplete Emptying Leakage Size Medium Leakage Cause Urge Leaks Per Day 1-3 Voiding Frequency every 2 hours Nocturia yes wakes 2 times per night Pads Used In 24 Hours 3 Urine Pad Type Maxi Pad Pelvic Clock Pelvic Clock 12-3 Atrophy Pelvic Clock 3-6 Guarding Tightness Pelvic Clock 6-9 Atrophy Pelvic Clock 9-12 Atrophy Pelvic Clock Other tightness and guarding on the left lateral wall of the levator ani Contraction Ability Voluntary Contraction Weak Voluntary Relaxation Moderate Manual Muscle Testing Left 3 Manual Muscle Testing Right 3 Manual Muscle Testing Anterior 3 Manual Muscle Testing Posterior 3 Muscle Endurance (Seconds) 5 Comments Pelvic Floor Comments difficutly fully relaxing the left lateral wall of the levator ani PT-OP-Q Treatments Start: 05/26/18 10:43 Freq: Status: Active Protocol: Document 06/28/18 13:55 [facility] (Rec: 06/28/18 14:01 [facility] [email or web address]) Therapeutic Exercises Supine Exercises 7 Supine Exercise Name templates for eccentric control and coordination Comments with EMG biofeedback game for home exercise program 6 Supine Exercise Name pelvic floor hold 10, relax 10 Reps/Minutes x10 reps 5 Supine Exercise Name pelvic floor relaxation on EMG biofeedback 3 Supine Exercise Name roll outs with theraband Reps/Minutes 3 x 10 2 Supine Exercise Name quick flicks Reps/Minutes x15 reps Self-Care/Home Management Treatment Education Patient Education Home Exercise Program PT-OP-T Assessment and Plan Start: 05/26/18 10:43 Freq: Status: Active Protocol: Document 06/28/18 13:55 [facility] (Rec: 06/28/18 14:01 [facility] [email or web address]) Physical Therapy Assessment Assessment Summary Assessment Good overall improvements with decreased leakage and ability to discontinue her medication for bladder urgency. We worked today on eccentric control and coordination and incorporating pelvic floor into daily activities. Physical Therapy Plan Frequency and Duration Frequency of Treatment 1x/Week Duration of Treatment 8 Plan of Care Start Date 05/26/18 Plan of Care End Date 07/21/18 Therapeutic Interventions Therapeutic Interventions Home Exercise Program Manual Therapy Neuromuscular Re-education Self-Care/Home Management Therapeutic Exercises Next Visit Focus/Plan Next Note Type Treatment Note Next Visit Plan work on strengthening in upright positions and pelvic floor progression
--- NOTE | 2018-06-28 14:03 | PT.OTN ---
Current Diagnoses Urge incontinence (06/28/18) Physical Therapy Treatment Note PT-OP-A Visit Information Start: 05/26/18 10:43 Freq: Status: Active Protocol: Document 06/28/18 13:55 [facility] (Rec: 06/28/18 14:01 [facility] [email or web address]) Out-Patient Physical Therapy Visit Information Visit Information Visit Type Progress Note Visit Start Time 09:00 Visit Stop Time 09:45 Total Visit Minutes 45 Visit Number 8 Evaluation Information Evaluation Date 05/26/18 PT-OP-B Current Condition Start: 05/26/18 10:43 Freq: Status: Active Protocol: Document 05/26/18 10:44 [facility] (Rec: 05/26/18 11:14 [facility] [email or web address]) Current Condition History of Current Condition Onset Date December 04 2007 Current Complaints urinary urgency and urinary leakage without warning History of Current Condition 78 year old female who presents with urinary urgency and incontinence. She has a hx of frequent UTI's but from November to January 2018 had 6 UTI's. She has been treated with different antibiotics each incident. She has had urinary urgency and incontinence in the past and has done PT which helped at that time. Pt wears pads and changes them 1-2 xms per day, wakes up 2 xms at night to void. Drinks 1 diet coke per day, 3 cups of tea, 2-3 glasses of water. Hx of urethral burning but after this last antibiotic and with estrogen cream this has been gone now for approximatly 2 weeks. 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 Patient Reported Progress Improving PT-OP-F Manual Assessment Start: 05/26/18 10:43 Freq: Status: Active Protocol: Document 05/26/18 10:44 [facility] (Rec: 05/26/18 11:14 [facility] [email or web address]) Manual Assessments Soft Tissue Assessment Soft Tissue Mobility Assessment levator ani tightness on the left lateral wall, piriformis tightness L>R, gluteal tightness L>R, paraspinal tightness B PT-OP-I Pelvic Floor Start: 05/26/18 10:43 Freq: Status: Active Protocol: Document 05/26/18 10:44 [facility] (Rec: 05/26/18 11:14 [facility] [email or web address]) Pelvic Floor Assessment Urine Pelvic Floor Surgery No Urinary Symptoms Urge Sensation Hesitancy Dribbling After Urination Incomplete Emptying Leakage Size Medium Leakage Cause Urge Leaks Per Day 1-3 Voiding Frequency every 2 hours Nocturia yes wakes 2 times per night Pads Used In 24 Hours 3 Urine Pad Type Maxi Pad Pelvic Clock Pelvic Clock 12-3 Atrophy Pelvic Clock 3-6 Guarding Tightness Pelvic Clock 6-9 Atrophy Pelvic Clock 9-12 Atrophy Pelvic Clock Other tightness and guarding on the left lateral wall of the levator ani Contraction Ability Voluntary Contraction Weak Voluntary Relaxation Moderate Manual Muscle Testing Left 3 Manual Muscle Testing Right 3 Manual Muscle Testing Anterior 3 Manual Muscle Testing Posterior 3 Muscle Endurance (Seconds) 5 Comments Pelvic Floor Comments difficutly fully relaxing the left lateral wall of the levator ani PT-OP-Q Treatments Start: 05/26/18 10:43 Freq: Status: Active Protocol: Document 06/28/18 13:55 [facility] (Rec: 06/28/18 14:01 [facility] [email or web address]) Therapeutic Exercises Supine Exercises 7 Supine Exercise Name templates for eccentric control and coordination Comments with EMG biofeedback game for home exercise program 6 Supine Exercise Name pelvic floor hold 10, relax 10 Reps/Minutes x10 reps 5 Supine Exercise Name pelvic floor relaxation on EMG biofeedback 3 Supine Exercise Name roll outs with theraband Reps/Minutes 3 x 10 2 Supine Exercise Name quick flicks Reps/Minutes x15 reps Self-Care/Home Management Treatment Education Patient Education Home Exercise Program PT-OP-T Assessment and Plan Start: 05/26/18 10:43 Freq: Status: Active Protocol: Document 06/28/18 13:55 [facility] (Rec: 06/28/18 14:01 [facility] [email or web address]) Physical Therapy Assessment Assessment Summary Assessment Good overall improvements with decreased leakage and ability to discontinue her medication for bladder urgency. We worked today on eccentric control and coordination and incorporating pelvic floor into daily activities. Physical Therapy Plan Frequency and Duration Frequency of Treatment 1x/Week Duration of Treatment 8 Plan of Care Start Date 05/26/18 Plan of Care End Date 07/21/18 Therapeutic Interventions Therapeutic Interventions Home Exercise Program Manual Therapy Neuromuscular Re-education Self-Care/Home Management Therapeutic Exercises Next Visit Focus/Plan Next Note Type Treatment Note Next Visit Plan work on strengthening in upright positions and pelvic floor progression
--- NOTE | 2018-07-05 09:54 | PT.OTN ---
Current Diagnoses Urge incontinence (07/05/18) Physical Therapy Treatment Note PT-OP-A Visit Information Start: 05/26/18 10:43 Freq: Status: Active Protocol: Document 07/05/18 09:51 [facility] (Rec: 07/05/18 09:54 [facility] [email or web address]) Out-Patient Physical Therapy Visit Information Visit Information Visit Type Treatment Note Visit Start Time 09:00 Visit Stop Time 09:45 Total Visit Minutes 45 Visit Number 10 PT-OP-B Current Condition Start: 05/26/18 10:43 Freq: Status: Active Protocol: Document 05/26/18 10:44 [facility] (Rec: 05/26/18 11:14 [facility] [email or web address]) Current Condition History of Current Condition Onset Date December 04 2007 Current Complaints urinary urgency and urinary leakage without warning History of Current Condition 78 year old female who presents with urinary urgency and incontinence. She has a hx of frequent UTI's but from November to January 2018 had 6 UTI's. She has been treated with different antibiotics each incident. She has had urinary urgency and incontinence in the past and has done PT which helped at that time. Pt wears pads and changes them 1-2 xms per day, wakes up 2 xms at night to void. Drinks 1 diet coke per day, 3 cups of tea, 2-3 glasses of water. Hx of urethral burning but after this last antibiotic and with estrogen cream this has been gone now for approximatly 2 weeks. 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 Treatment Goals Patient/Caregiver Goals Goals include eliminating urge incontinence Current Functional Impairments (Reported) Functional Limitations- Recreation/ limited in recreational Hobbies activities as she feels she needs to be near a bathroom PT-OP-C Subjective Start: 05/26/18 10:43 Freq: Status: Active Protocol: Document 07/05/18 09:51 [facility] (Rec: 07/05/18 09:54 [facility] [email or web address]) OP-PT Subjective Patient Comments Patient Comments Continues to do well, eccentric control exercises are difficult to perform but she is working on them for home Patient Reported Progress Improving PT-OP-F Manual Assessment Start: 05/26/18 10:43 Freq: Status: Active Protocol: Document 05/26/18 10:44 [facility] (Rec: 05/26/18 11:14 [facility] [email or web address]) Manual Assessments Soft Tissue Assessment Soft Tissue Mobility Assessment levator ani tightness on the left lateral wall, piriformis tightness L>R, gluteal tightness L>R, paraspinal tightness B PT-OP-I Pelvic Floor Start: 05/26/18 10:43 Freq: Status: Active Protocol: Document 05/26/18 10:44 [facility] (Rec: 05/26/18 11:14 [facility] [email or web address]) Pelvic Floor Assessment Urine Pelvic Floor Surgery No Urinary Symptoms Urge Sensation Hesitancy Dribbling After Urination Incomplete Emptying Leakage Size Medium Leakage Cause Urge Leaks Per Day 1-3 Voiding Frequency every 2 hours Nocturia yes wakes 2 times per night Pads Used In 24 Hours 3 Urine Pad Type Maxi Pad Pelvic Clock Pelvic Clock 12-3 Atrophy Pelvic Clock 3-6 Guarding Tightness Pelvic Clock 6-9 Atrophy Pelvic Clock 9-12 Atrophy Pelvic Clock Other tightness and guarding on the left lateral wall of the levator ani Contraction Ability Voluntary Contraction Weak Voluntary Relaxation Moderate Manual Muscle Testing Left 3 Manual Muscle Testing Right 3 Manual Muscle Testing Anterior 3 Manual Muscle Testing Posterior 3 Muscle Endurance (Seconds) 5 Comments Pelvic Floor Comments difficutly fully relaxing the left lateral wall of the levator ani PT-OP-Q Treatments Start: 05/26/18 10:43 Freq: Status: Active Protocol: Document 07/05/18 09:51 [facility] (Rec: 07/05/18 09:54 [facility] [email or web address]) Therapeutic Exercises Supine Exercises 7 Supine Exercise Name templates for eccentric control and coordination Comments with EMG biofeedback game for home exercise program 6 Supine Exercise Name pelvic floor hold 10, relax 10 Reps/Minutes x10 reps 5 Supine Exercise Name pelvic floor relaxation on EMG biofeedback 4 Supine Exercise Name ball squeeze Reps/Minutes 3 x 10 reps Comments Hooklying 3 Supine Exercise Name roll outs with theraband Reps/Minutes 3 x 10 2 Supine Exercise Name quick flicks Reps/Minutes x15 reps 1 Supine Exercise Name pelvic floor long holds 5 second hold 10 second relaxation Reps/Minutes x 15 reps Standing Exercises 2 Standing Exercise Name sit to stand Reps/Minutes x15 1 Standing Exercise Name standing hip abduction Reps/Minutes x12 each side Other Exercises 3 Other Exercise Name TA facilitation and relaxation Reps/Minutes 10 second holds with 10 second relaxation 2 Other Exercise Name talib pose 1 Other Exercise Name quadraped cat cow Reps/Minutes x5 Comments VCs for correct form PT-OP-T Assessment and Plan Start: 05/26/18 10:43 Freq: Status: Active Protocol: Document 07/05/18 09:51 [facility] (Rec: 07/05/18 09:54 [facility] [email or web address]) Physical Therapy Assessment Assessment Summary Assessment continues to demonstrate improved endurance of the pelvic floor with decreased symptoms overall. Physical Therapy Plan Frequency and Duration Frequency of Treatment 2x/Week Duration of Treatment 8 Plan of Care Start Date 05/26/18 Plan of Care End Date 07/21/18 Therapeutic Interventions Therapeutic Interventions Home Exercise Program Manual Therapy Neuromuscular Re-education Self-Care/Home Management Therapeutic Exercises Next Visit Focus/Plan Next Note Type Treatment Note Next Visit Plan continue for 1 additional treatment and then DC home. Review all established ther ex
--- NOTE | 2018-07-07 10:02 | PT.OTN ---
Current Diagnoses Urge incontinence (07/07/18) Physical Therapy Treatment Note PT-OP-A Visit Information Start: 05/26/18 10:43 Freq: Status: Active Protocol: Document 07/07/18 09:52 [facility] (Rec: 07/07/18 10:01 [facility] [email or web address]) Out-Patient Physical Therapy Visit Information Visit Information Visit Type Treatment Note Visit Start Time 09:10 Visit Stop Time 09:45 Total Visit Minutes 35 Visit Number 11 Evaluation Information Evaluation Date 05/26/18 PT-OP-B Current Condition Start: 05/26/18 10:43 Freq: Status: Active Protocol: Document 05/26/18 10:44 [facility] (Rec: 05/26/18 11:14 [facility] [email or web address]) Current Condition History of Current Condition Onset Date December 04 2007 Current Complaints urinary urgency and urinary leakage without warning History of Current Condition 78 year old female who presents with urinary urgency and incontinence. She has a hx of frequent UTI's but from November to January 2018 had 6 UTI's. She has been treated with different antibiotics each incident. She has had urinary urgency and incontinence in the past and has done PT which helped at that time. Pt wears pads and changes them 1-2 xms per day, wakes up 2 xms at night to void. Drinks 1 diet coke per day, 3 cups of tea, 2-3 glasses of water. Hx of urethral burning but after this last antibiotic and with estrogen cream this has been gone now for approximatly 2 weeks. 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 Treatment Goals Patient/Caregiver Goals Goals include eliminating urge incontinence Current Functional Impairments (Reported) Functional Limitations- Recreation/ limited in recreational Hobbies activities as she feels she needs to be near a bathroom PT-OP-C Subjective Start: 05/26/18 10:43 Freq: Status: Active Protocol: Document 07/05/18 09:51 [facility] (Rec: 07/05/18 09:54 [facility] [email or web address]) OP-PT Subjective Patient Comments Patient Comments Continues to do well, eccentric control exercises are difficult to perform but she is working on them for home Patient Reported Progress Improving PT-OP-F Manual Assessment Start: 05/26/18 10:43 Freq: Status: Active Protocol: Document 05/26/18 10:44 [facility] (Rec: 03/07/19 11:14 [facility] [email or web address]) Manual Assessments Soft Tissue Assessment Soft Tissue Mobility Assessment levator ani tightness on the left lateral wall, piriformis tightness L>R, gluteal tightness L>R, paraspinal tightness B PT-OP-I Pelvic Floor Start: 05/26/18 10:43 Freq: Status: Active Protocol: Document 07/07/18 09:52 [facility] (Rec: 07/07/18 10:01 [facility] [email or web address]) Pelvic Floor Assessment Urine Pelvic Floor Surgery No Other Leakage Causes No longer experiencing leakage Leaks Per Day 0 Voiding Frequency every 2 hours Nocturia 1 Pads Used In 24 Hours 0 Pelvic Clock Pelvic Clock Other no longer tightness or guarding and improved muscle tone Contraction Ability Voluntary Contraction Moderate Voluntary Relaxation Moderate Manual Muscle Testing Left 4 Manual Muscle Testing Right 4 Manual Muscle Testing Anterior 4 Manual Muscle Testing Posterior 4 Muscle Endurance (Seconds) 10 Comments Pelvic Floor Comments Able to fully relax the levator ani now for improved voiding ability PT-OP-Q Treatments Start: 05/26/18 10:43 Freq: Status: Active Protocol: Document 07/07/18 09:52 [facility] (Rec: 07/07/18 10:01 [facility] [email or web address]) Therapeutic Exercises Supine Exercises 7 Supine Exercise Name templates for eccentric control and coordination Comments with EMG biofeedback game for home exercise program 1 Supine Exercise Name pelvic floor long holds 5 second hold 10 second relaxation Reps/Minutes x 15 reps Sidelying Exercises 1 Sidelying Exercise Name sidelying clam shells Reps/Minutes x20 each side Standing Exercises 2 Standing Exercise Name sit to stand Reps/Minutes x15 1 Standing Exercise Name standing hip abduction Reps/Minutes x12 each side Other Exercises 2 Other Exercise Name talib pose 1 Other Exercise Name quadraped cat cow Reps/Minutes x5 Comments VCs for correct form PT-OP-T Assessment and Plan Start: 05/26/18 10:43 Freq: Status: Active Protocol: Document 07/07/18 09:52 [facility] (Rec: 07/07/18 10:01 [facility] [email or web address]) Physical Therapy Assessment Assessment Summary Assessment Overall Ami has made great progress with pelvic floor strengthening and relaxed awareness of the pelvic floor. She has been able to tolerate strengthening her pelvic floor in upright positions for dynamic stabilization. She is no longer experiencing urgency or leakage. At this point in time she will be discharged to a independent home program. Physical Therapy Plan Discharge Physical Therapy Discharge Reasons Goals Met Discharge Comments DC to a independent home exercise program
== END 2018-07-08 12:11 ==
LOC: PHYS 09:00
PROVIDERS: PCP Family Medicine; Visit Provider Urology
DX: N39.41 Urge incontinence (principal)
CPT/HCPCS: 97110; 97161; 97535

== ENCOUNTER → 2018-07-20 15:55 | Outpatient (CLI) | payer MEDICARE, OTHER, SELFPAY | PROVIDERS: PCP Family Medicine; Visit Provider Nurse Practitioner Family | DX: N39.0 Urinary tract infection, site not specified (principal) | CPT/HCPCS: 87077; 87086; 87186 ==

== ENCOUNTER → 2018-07-29 11:27 | Outpatient (CLI) | payer MEDICARE, OTHER, SELFPAY | PROVIDERS: PCP Family Medicine; Visit Provider Nurse Practitioner | DX: R30.0 Dysuria (principal) | CPT/HCPCS: 87077; 87086; 87186 ==

== ENCOUNTER → 2018-08-25 10:19 | Outpatient (CLI) | payer MEDICARE, OTHER, SELFPAY | PROVIDERS: PCP Family Medicine; Visit Provider Nurse Practitioner | DX: N39.0 Urinary tract infection, site not specified (principal) | CPT/HCPCS: 87077; 87086 ==

== ENCOUNTER → 2018-09-27 09:51 | Outpatient (CLI) | payer MEDICARE, OTHER, SELFPAY | PROVIDERS: PCP Family Medicine; Visit Provider Obstetrics & Gynecology | DX: N39.0 Urinary tract infection, site not specified (principal) | CPT/HCPCS: 87077; 87086; 87186 ==

== ENCOUNTER → 2018-10-11 08:54 | Outpatient (CLI) | payer MEDICARE, OTHER, SELFPAY | PROVIDERS: PCP Family Medicine; Visit Provider Obstetrics & Gynecology | DX: N39.0 Urinary tract infection, site not specified (principal) | CPT/HCPCS: 87077; 87086; 87186 ==

== ENCOUNTER → 2018-11-01 13:42 | Outpatient (CLI) | payer MEDICARE, OTHER, SELFPAY ==
--- NOTE | 2018-11-01 | DI.ECHO.S_ITS ---
[facility] +---------+ : : [address] : [address] : : : : [id number] : : : : Phone: [phone]+ Echocardiogram Report + + :Name: SHERIN PACHECO Study Date: 11/01/2018 Height: 65 in : :[facility] Weight: 183 lb : : Gender: Female BSA: 1.9 m2 : :: 1940 Age: 78 yrs BP: 120/62 mmHg: :Reason For Study: Aortic valve stenosis : : Performed By: Josefina Barker : :Referring: ABDIRASHID OLSEN : + + Interpretation Summary 1) Normal left ventricular thickness, size, wall motion, diastolic function, and systolic function (EF 60-65%). 2) Mildly increased right ventricular size with borderline reduced function. 3) There is moderate to severe aortic stenosis (valve area 1.0cm2, mean gradient 23mmHg, severity ratio 0.25). 4) Compared to the Echo done 05/31/2017, aortic stenosis has progressed from moderate to moderate-severe on this study. Procedure: A two-dimensional transthoracic echocardiogram with color flow and Doppler was performed. The study quality was technically adequate. Comparison is made with the echocardiogram of 05-31-17. The patient was in normal sinus rhythm during the exam. Left Ventricle: The left ventricle is normal in size, wall thickness, and systolic function without any focal wall motion abnormalities. The ejection fraction is estimated to be 60-65%. Diastolic parameters suggest a relaxation abnormality of the left ventricle, consistent with probable normal filling pressures. Right Ventricle: The right ventricle is mildly dilated. Right ventricular systolic function is borderline reduced. Atria: The left atrial size is normal. Right atrial size is normal. The interatrial septum is intact with no evidence for an atrial septal defect. Mitral Valve: The mitral valve is normal in structure and function. There is trace mitral regurgitation. Aortic Valve: The calculated aortic valve area is 1.0 cm2. The peak aortic velocity is 3.2 m/sec. The peak aortic velocity on the previous exam was 1.9 m/sec. The aortic valve mean gradient is 23 mmHg. Severity ratio is 0.25. There is moderate to severe aortic stenosis. There is trace aortic regurgitation. Tricuspid Valve: The tricuspid valve leaflets are thin and pliable. There is mild tricuspid regurgitation. The right ventricular systolic pressure is estimated to be at least 30 mmHg based on an estimated right atrial pressure of 3 mm Hg. Pulmonic Valve: The pulmonic valve is not well seen, but is grossly normal. There is trace pulmonic regurgitation. Great Vessels: The aortic root is normal size. The dimensions of the ascending aorta are normal. The aortic arch is normal in size. The IVC is of normal diameter and collapses greater than 50% with a sniff. This suggests a low right atrial pressure of 3 mm Hg. Pericardium/ Pleura There is no pericardial effusion. There is no pleural effusion. MMode/2D Measurements & Calculations LVIDd: 4.5 cm LVOT diam: 2.2 cm LVIDs: 2.7 cm Ao root diam: 2.7 cm FS: 41.5 % Aortic Jxn: 2.3 cm IVSd: 0.93 cm asc Aorta Diam: 3.3 cm LVPWd: 0.84 cm Ao Arch Diam (Prox Trans): 2.5 cm LV beasley. diameter/BSA (cm/m^2): 2.4 LV sys. diameter/BSA (cm/m^2): 1.4 LA dimension: 4.2 cm RA long axis: 4.8 cm LA A2 area: 17.4 cm2 RA area: 15.9 cm2 LA A4 area: 16.9 cm2 RA vol: 44.5 ml LA length (vol): 5.0 cm RA : 23.4 ml/m2 LA vol: 50.0 ml IVC diam: 1.8 cm LA vol index: 26.3 ml/m2 RVDd major: 5.8 cm RVD1 (basal): 4.4 cm RVD2 (mid): 4.0 cm Doppler Measurements & Calculations Ao V2 max: 325.3 cm/sec LVOT Max Cuate: 83.3 cm/sec Ao V2 mean: 221.8 cm/sec LV V1 max P.8 mmHg Ao max P.3 mmHg LV V1 VTI: 19.6 cm Ao mean P.9 mmHg AGUILAR(I,D): 0.94 cm2 Ao V2 VTI: 78.7 cm AGUILAR(V,D): 0.97 cm2 sev ratio: 0.25 AGUILAR indexed to BSA (cm^2/m^2): 0.49 MV E max cuate: 64.2 cm/sec TR max cuate: 258.1 cm/sec MV A max cuate: 101.5 cm/sec TR max P.6 mmHg MV E/A: 0.63 PA V2 max: 100.9 cm/sec Med Peak E' Cuate: 4.5 cm/sec PA V2 mean: 58.0 cm/sec E/E' med: 14.2 PA mean P.7 mmHg Lat Peak E' Cuate: 4.5 cm/sec PA Accel Time: 0.11 sec E/E' lat: 14.2 E/e' average: 14.2 MV dec time: 0.16 sec MV P1/2t: 49.4 msec MV P1/2t max cuate: 64.5 cm/sec SV(LVOT): 74.1 ml MVA(P1/2t): 4.5 cm2 Reading Physician:05:17 PM
== END ==
PROVIDERS: PCP Family Medicine; Visit Provider Internal Medicine Cardiovascular Disease
DX: I08.2 Rheumatic disorders of both aortic and tricuspid valves (principal)
CPT/HCPCS: 93306

== ENCOUNTER → 2018-12-03 13:28 | Outpatient (CLI) | payer MEDICARE, OTHER, SELFPAY | PROVIDERS: PCP Family Medicine; Visit Provider Physician Assistant | DX: N30.01 Acute cystitis with hematuria (principal) | CPT/HCPCS: 87077; 87086; 87186 ==

== ENCOUNTER → 2018-12-16 16:55 | Outpatient (CLI) | payer MEDICARE, OTHER, SELFPAY | PROVIDERS: PCP Family Medicine; Visit Provider Obstetrics & Gynecology | DX: N39.0 Urinary tract infection, site not specified (principal) | CPT/HCPCS: 87077; 87086; 87186 ==

== ENCOUNTER → 2018-12-20 12:13 | Outpatient (CLI) | payer MEDICARE, OTHER, SELFPAY | PROVIDERS: PCP Family Medicine; Visit Provider Obstetrics & Gynecology | DX: N39.0 Urinary tract infection, site not specified (principal); R82.90 Unspecified abnormal findings in urine | CPT/HCPCS: 87086 ==

== ENCOUNTER → 2019-02-09 09:51 | Outpatient (CLI) | payer MEDICARE, OTHER, SELFPAY ==
--- NOTE | 2019-02-09 | DI.MG.S_ITS ---
BILATERAL DIGITAL SCREENING MAMMOGRAM 3D/2D WITH CAD: 02/09/2019 CLINICAL: Routine screening. Family history of breast cancer. Comparison is made to exams dated: 01/29/2018 mammogram, 01/18/2017 mammogram - [facility], 04/07/2017 breast MRI - [facility], and 05/16/2015 mammogram - [facility]. There are scattered fibroglandular elements in both breasts. Current study was also evaluated with a Computer Aided Detection (CAD) system. There are benign post operative findings in the right breast. No significant masses, calcifications, or other findings are seen in either breast. There has been no significant interval change. IMPRESSION: There is no mammographic evidence of malignancy. A 1 year screening mammogram is recommended. This exam was interpreted at Station ID: [id number]. NOTE: For mammograms, a report in lay terms will be sent to the patient. Approximately 15% of breast malignancies will not be visualized mammographically. In the management of a palpable breast mass, a negative mammogram must not discourage biopsy of a clinically suspicious lesion. Electronically Signed By: Florencio Meier M.D. [facility] [place]inda[place]02/09/2019 13:34:32 copy to: Maine Sim M.D., [facility] [employer], ph: [phone], fax: [phone] letter sent: Normal Exam ACR BI-RADS Category 2: Benign Finding(s) 3342I
[2019-02-09 12:07] LABS: Appearance Urine UA CLOUDY; Bilirubin Urine UA NEGATIVE (NEGATIVE); Color Urine UA YELLOW; Glucose Urine UA NEGATIVE (Negative); Ketones Urine UA TRACE (NEGATIVE); Leukocyte Esterase Urine UA 2+ (NEGATIVE); Nitrite Urine UA NEGATIVE (Negative); Occult Blood Urine UA 2+ (Negative); Protein Urine UA TRACE (Negative); Urobilinogen Urine UA 0.2 E.U./dL (0.2)
[2019-02-09 12:08] LABS: pH Urine UA 5.5 (4.5-8.0)
[2019-02-09 12:29] LABS: Bacteria Urine Many (>30); Culture Indicated Urine Specimen Cultured; RBC Urine 5-10/HPF (0-5/HPF); WBC Urine >100/HPF (0-5/HPF)
== END ==
PROVIDERS: Obstetrics & Gynecology; PCP Family Medicine; Visit Provider Internal Medicine Hematology & Oncology
DX: Z12.31 Encounter for screening mammogram for malignant neoplasm of breast (principal); Z80.3 Family history of malignant neoplasm of breast; N39.41 Urge incontinence; R30.0 Dysuria; R30.9 Painful micturition, unspecified
CPT/HCPCS: 77063; 77067; 81001; 87077; 87086; 87186

== ENCOUNTER → 2019-03-23 15:05 | Outpatient (CLI) | payer MEDICARE, OTHER, SELFPAY ==
[2019-03-23 19:10] LABS: Appearance Urine UA SL CLOUDY; Bilirubin Urine UA NEGATIVE (NEGATIVE); Color Urine UA YELLOW; Glucose Urine UA NEGATIVE (Negative); Ketones Urine UA NEGATIVE (NEGATIVE); Leukocyte Esterase Urine UA 2+ (NEGATIVE); Nitrite Urine UA NEGATIVE (Negative); Occult Blood Urine UA TRACE-LYSED (Negative); Protein Urine UA NEGATIVE (Negative); Specific Gravity Urine UA <=1.005 (1.000-1.035); Urobilinogen Urine UA 0.2 E.U./dL (0.2)
[2019-03-23 19:13] LABS: pH Urine UA 6.5 (4.5-8.0)
[2019-03-23 19:19] LABS: Bacteria Urine Many (>30); Culture Indicated Urine Specimen Cultured; RBC Urine 1-5/HPF (0-5/HPF); WBC Urine 1-5/HPF (0-5/HPF)
== END ==
PROVIDERS: PCP Family Medicine; Visit Provider Obstetrics & Gynecology
DX: N39.0 Urinary tract infection, site not specified (principal)
CPT/HCPCS: 81001; 87077; 87086; 87186

== ENCOUNTER → 2019-11-20 12:13 | Outpatient (CLI) | payer MEDICARE, OTHER, SELFPAY ==
--- NOTE | 2019-11-20 | DI.US.S_ITS ---
PROCEDURE: US RENAL COMPLETE INDICATIONS: chronic cystitis TECHNIQUE: Real-time scanning was performed of the kidneys and bladder, with image documentation. COMPARISON: None. FINDINGS: Kidneys: Kidneys are normal in size. Right kidney measures 11.4 cm long; left kidney measures 11.3 cm long. Right renal cortical thickness is 1.6 cm; left renal cortical thickness is 1.5 cm. Renal cortical echotexture is normal. No hydronephrosis or nephrolithiasis. No suspicious solid mass lesions. Bladder: Pre-void bladder volume is 149 mL. Post-void residual is 21 mL. Pre-void images demonstrate no intraluminal masses or stones. On pre-void images, bilateral ureteral jets are noted with color Doppler interrogation. (Of note, ureteral jets may not be detectable in up to 25% of cases due to insufficient differences in specific gravity between ureteral and bladder urine). Miscellaneous: No free pelvic fluid. IMPRESSION: Normal appearance of the kidneys. Dictated by: Marcos CAMERON Interpreted: Antoni Ly MD on 11/20/2019 at 16:56 Approved by: Antoni Ly M.D. on 11/20/2019 at 17:14
== END ==
PROVIDERS: PCP Family Medicine; Referring Provider Urology; Visit Provider Urology
DX: N30.20 Other chronic cystitis without hematuria (principal)
CPT/HCPCS: 76770

== ENCOUNTER → 2019-12-31 16:00 | Outpatient (CLI) | payer MEDICARE, OTHER, SELFPAY | PROVIDERS: PCP Family Medicine; Visit Provider Physician Assistant | DX: R30.0 Dysuria (principal) | CPT/HCPCS: 87077; 87086; 87186 ==

== ENCOUNTER → 2020-02-20 16:17 | Outpatient (CLI) | payer MEDICARE, OTHER, SELFPAY ==
--- NOTE | 2020-02-20 | DI.MG.S_ITS ---
BILATERAL DIGITAL SCREENING MAMMOGRAM 3D/2D WITH CAD: 02/20/2020 CLINICAL: Routine screening. Family history of breast cancer. Comparison is made to exams dated: 02/09/2019 mammogram, 01/29/2018 mammogram, 01/18/2017 mammogram, and 05/16/2015 mammogram - [facility]. There are scattered fibroglandular elements in both breasts. Current study was also evaluated with a Computer Aided Detection (CAD) system. There are benign post operative findings in the right breast. No significant masses, calcifications, or other findings are seen in either breast. There has been no significant interval change. IMPRESSION: BENIGN There is no mammographic evidence of malignancy. A 1 year screening mammogram is recommended. This exam was interpreted at Station ID: [id number]. NOTE: For mammograms, a report in lay terms will be sent to the patient. Approximately 15% of breast malignancies will not be visualized mammographically. In the management of a palpable breast mass, a negative mammogram must not discourage biopsy of a clinically suspicious lesion. Electronically Signed By: Florencio hummel/linda:02/20/2020 18:07:04 copy to: SANDRO FERRARA letter sent: Normal Exam ACR BI-RADS Category 2: Benign Finding(s) 3342F
== END ==
PROVIDERS: PCP Family Medicine; Referring Provider Family Medicine; Visit Provider Family Medicine
DX: Z12.31 Encounter for screening mammogram for malignant neoplasm of breast (principal); Z80.3 Family history of malignant neoplasm of breast
CPT/HCPCS: 77063; 77067

== ENCOUNTER 2020-05-18 12:18 | Emergency (ER) | payer MEDICARE, OTHER, SELFPAY ==
[2020-05-18] VITALS (28 sets, daily range): BP systolic 124–149; BP diastolic 53–70; PULSE 78–99; RESP 10–26; TEMP 37.4; O2SAT 92–96; BMI 28.6
--- NOTE | 2020-05-18 12:42 | DI.RAD.S_ITS ---
PROCEDURE: XR CHEST 1V INDICATIONS: Flu like symptoms TECHNIQUE: One view of the chest was acquired. COMPARISON: [facility], , CHEST 2 VIEW, 08/20/2011, 12:32. FINDINGS: Surgical changes and devices: None. Lungs and pleura: Lungs are clear. No pleural effusions or pneumothorax. Mediastinum: Mediastinal contours appear normal. Heart size is normal. Bones and chest wall: No suspicious bony lesions. Overlying soft tissues appear unremarkable. IMPRESSION: No acute process. Dictated by: Nelly Wall M.D. on 05/18/2020 at 12:15 Approved by: Nelly Wall M.D. on 05/18/2020 at 12:15
--- NOTE | 2020-05-18 12:50 | ED_ITS ---
HPI - Nausea/Vomiting/Diarrhea General Chief complaint: Nausea/Vomiting/Diarrhea Stated complaint: vomitting, throwing up, headache, Time Seen by Provider: 05/18/20 12:30 Source: patient Mode of arrival: Ambulatory Limitations: no limitations History of Present Illness HPI Narrative: Patient is an 80-year-old female. Here for evaluation of headache, nausea, vomiting this morning, diarrhea and generally not feeling well for the past 4 days. She states that 7 days ago she received her 1st dose of the COVID vaccine however the symptoms and brought her in today started 2 days later. She states she has been very fatigued and tired for the past couple days and spent most of the time in bed. Has had decreased oral intake. No recent travel. Related Data Home Medications Medication Instructions Recorded Confirmed ASPIRIN (Aspirin EC) 81 mg PO Q DAY #0 11/05/10 01/29/20 VITAMIN D (Vitamin D3) 1,000 unit PO QDAY #0 12/21/11 01/29/20 estradiol VAG 2XW #43 gram 07/29/18 01/29/20 omeprazole magnesium 20 mg 10 mg PO DAILY tab 08/25/18 01/29/20 tablet,delayed release systane See Rx Instructions .ROUTE 08/25/18 01/29/20 .COMPLEX PRN rosuvastatin 20 mg tablet 40 mg PO DAILY tab 11/25/18 01/29/20 gabapentin 300 mg capsule 300 mg PO BEDTIME 12/31/19 01/29/20 nitrofurantoin macrocrystal 50 mg 50 mg PO BEDTIME 01/29/20 01/29/20 capsule prednisone 1 mg tablet 2 mg PO DAILY 01/29/20 01/29/20 Previous Rx's Medication Instructions Recorded clobetasol 0.025 % topical cream 1 applictn TOP QAM AND QPM PRN #60 08/25/18 gram lisinopril 20 mg tablet See Rx Instructions .ROUTE 03/25/20 .COMPLEX #15 tab Allergies Allergy/AdvReac Type Severity Reaction Status Date / Time codeine AdvReac Mild NAUSEA Verified 05/18/20 12:28 Review of Systems Constitutional Constitutional: Reports chills, Reports fatigue, Denies fever(s) and Reports headache(s) ENT Ears, Nose, Mouth, and Throat: Reports headache(s) Cardiovascular Cardiovascular: Denies chest pain and Reports dyspnea Respiratory Respiratory: Reports cough and Reports dyspnea Gastrointestinal Gastrointestinal: Denies abdominal pain, Reports diarrhea, Reports nausea and Denies vomiting Genitourinary Genitourinary: Denies dysuria Genitourinary: Denies dysuria Musculoskeletal Musculoskeletal: Denies arthralgias, Denies back pain, Reports myalgias and Reports myalgias Integumentary/Breasts Skin/Breast: Denies rash Neurologic Neurologic: Denies behavioral changes and Reports headache(s) Psychiatric Psychiatric: Denies behavioral changes Endocrine Endocrine: Reports fatigue Hematologic/Lymphatic On Anticoagulants: No Allergic/Immunologic Allergic/Immunologic: Denies urticaria Patient History Medical History Aortic stenosis B-cell lymphoma Cataract Chicken pox Fecal incontinence (2004) Frequent UTI GERD (gastroesophageal reflux disease) Hearing loss Heart murmur, systolic Hypertension Migraines Pelvic relaxation Polymyalgia rheumatica Urinary incontinence (2013) Surgical History (Updated 01/29/20 @ 13:37 by Maine Sim MD) History of dilation and curettage S/P implantation of urinary electronic stimulator device Family History Father Luigi's disease, pulmonary Mother Heart disease Sister No problems noted. Grandmother No problems noted. Social History marital status: number of children: 2 household members: spouse lives independently: Yes caregiver/support person: No housing: house pets and animals: Yes education level: college occupational status: employed current occupational exposures/hazards: No seatbelt use: always working smoke detector in home: Yes fire extinguisher in home: Yes carbon monox detector in home: Yes Smoking Status: Never smoker second hand exposure: No alcohol intake: current substance use type: does not use during the past year weight has: increased > 10 lbs well-balanced diet: daily or most days caffeine: Yes eating out: 1-3 times/week Smoking Status: Never smoker Substance Use Type: does not use Exam Initial Vital Signs Initial Vital Signs: Vital Signs Temperature 99.4 F 05/18/20 12:26 Pulse Rate 94 H 05/18/20 12:26 Respiratory Rate 20 05/18/20 12:26 Blood Pressure 149/70 H 05/18/20 12:26 Pulse Oximetry 94 05/18/20 12:26 Const General: cooperative and comfortable Limitations: mental status not altered HENMT Head: normal to inspection and normocephalic Resp Effort & Inspection: normal respiratory effort Auscultation: clear to auscultation bilaterally Cardio Rate: regular rate Heart Sounds: murmur GI Inspection: non-distended Palpation: soft Skin Lesions: no lesions Rashes: no rashes Neuro General: patient alert and patient awake Cognition: normal cognition Speech: speech normal Extrem General: normal to inspection and capillary refill normal Psych Appearance: grossly normal and well kempt Scores GCS Luther coma scale eye opening: Spontaneous Luther coma scale verbal response: Orientated Luther coma scale motor response: Obey commands [place] coma scale total score: 15 Course Orders Ordered: ED Orders 05/18/20 12:36 COVID19 Stat Complete Blood Count AUTO DIFF Stat Comprehensive Metabolic Panel Stat Lipase Stat NT-proBNP (BNP-Adult 18+) Stat Troponin & CK Cardiac Panel Stat 05/18/20 12:42 XR chest 1V Stat 05/18/20 13:57 Partial Thromboplastin Time Stat Prothrombin Time INR Stat 05/18/20 16:45 Urine Microscopic Stat Discontinued Medications Sodium Chloride (Normal Saline 0.9%) 1,000 mls @ 250 mls/hr IV BOLUS ONE Stop: 05/18/20 16:42 Last Infusion: 05/18/20 16:24 Dose: 0 mls/hr Documented by: FRANCISCO JAVIER Infusion: 05/18/20 14:59 Dose: 250 mls/hr Documented by: Infusion: 05/18/20 14:27 Dose: 1,000 mls/hr Documented by: FRANCISCO JAVIER Admin: 05/18/20 13:12 Dose: 250 mls/hr Documented by: FRANCISCO JAVIER Sodium Chloride (Normal Saline 0.9%) 500 mls @ 1,000 mls/hr IV BOLUS ONE Stop: 05/18/20 16:54 Last Infusion: 05/18/20 18:32 Dose: 0 mls/hr Documented by: FRANCISCO JAVIER Admin: 05/18/20 16:28 Dose: 1,000 mls/hr Documented by: FRANCISCO JAVIER Ondansetron HCl (Ondansetron 4 Mg/2 Ml Inj) 4 mg IV NOW ONE Stop: 05/18/20 12:40 Last Admin: 05/18/20 13:12 Dose: 4 mg Documented by: FRANCISCO JAVIER Vital Signs Vital signs: Vital Signs - 8 hr 05/18/20 12:26 05/18/20 12:30 05/18/20 12:31 Temperature 99.4 F Pulse Rate 94 H 92 H Respiratory Rate 20 17 Blood Pressure 149/70 H 135/62 Pulse Oximetry 94 93 05/18/20 12:45 05/18/20 13:00 05/18/20 13:15 Temperature Pulse Rate 85 82 81 Respiratory Rate 13 13 14 Blood Pressure 134/63 Pulse Oximetry 92 94 94 05/18/20 13:30 05/18/20 13:45 05/18/20 14:00 Temperature Pulse Rate 79 80 79 Respiratory Rate 13 18 13 Blood Pressure 124/58 L 135/65 Pulse Oximetry 93 95 94 05/18/20 14:15 05/18/20 14:30 05/18/20 14:45 Temperature Pulse Rate 87 83 81 Respiratory Rate 26 H 13 12 Blood Pressure 138/62 133/61 Pulse Oximetry 95 94 95 05/18/20 15:00 05/18/20 15:15 05/18/20 15:30 Temperature Pulse Rate 84 83 80 Respiratory Rate 14 23 20 Blood Pressure 136/62 124/53 L Pulse Oximetry 95 95 93 05/18/20 15:45 05/18/20 16:00 05/18/20 16:15 Temperature Pulse Rate 80 84 78 Respiratory Rate 15 23 13 Blood Pressure 142/62 H Pulse Oximetry 93 96 96 05/18/20 16:30 05/18/20 16:45 05/18/20 17:00 Temperature Pulse Rate 79 90 99 H Respiratory Rate 10 L 20 14 Blood Pressure 132/60 Pulse Oximetry 95 94 95 05/18/20 17:01 05/18/20 17:15 05/18/20 17:30 Temperature Pulse Rate 98 H 84 84 Respiratory Rate 20 12 12 Blood Pressure 132/61 139/63 Pulse Oximetry 95 96 93 MDM - Nausea/Vomiting/Diarrhea Medical Records Attestation: I reviewed the patient's medical records. Lab Data Attestation: I reviewed the patient's lab results. Result diagrams: 05/18/20 12:36 05/18/20 12:36 Labs: Lab Results 05/18/20 05/18/20 05/18/20 Range/Units 12:36 12:36 12:36 WBC 5.0 (4.5-11.0) X10^3/uL RBC 4.17 (4.0-5.2) X10^6/uL Hgb 13.0 (12.0-16.0) g/dL Hct 38.7 (36-46) % MCV 92.8 (80-100) fL MCH 31.2 (26-34) PG MCHC 33.7 (30-36) % RDW 14.5 (11.6-14.8) % Plt Count 117 L (150-400) X10^3/uL Neut % (Auto) 77.5 H (50-75) % Lymph % (Auto) 14.4 L (25-40) % Hudspeth % (Auto) 7.6 (3-14) % Eos % (Auto) 0.0 L (2-4) % Baso % (Auto) 0.5 (0-2) % Neut # (Auto) 3900 (8520-9376) /uL Lymph # (Auto) 700 L (3118-0884) /uL [place]ud[place] # (Auto) 400 (0-900) /uL Eos # (Auto) 0 (0-450) /uL Baso # (Auto) 0 (0-100) /uL PT (10.1-12.7) SECONDS INR (0.9-1.3) APTT (26.4-36.2) SECONDS Sodium 133 L (137-145) mmol/L Potassium 4.0 (3.4-5.1) mmol/L Chloride 104 (98-107) mmol/L Carbon Dioxide 17 L (22-32) mmol/L BUN 15 (7-17) mg/dL Creatinine 0.49 L (0.52-1.04) mg/dL Estimated GFR > 60.0 (>60) mL/min BUN/Creatinine Ratio 30.6 H (6-22) Glucose 107 (80-110) mg/dL Calcium 8.9 (8.4-10.2) mg/dL Total Bilirubin 0.9 (0.2-1.3) mg/dL AST 63 H (14-36) IU/L ALT 45 H (<35) IU/L Alkaline Phosphatase 59 (38-126) U/L Total Creatine Kinase 63 (30-135) U/L CK-MB (CK-2) TNP CK-MB (CK-2) Rel Index TNP Troponin I < 0.012 (0.01-0.034) ng/mL NT-Pro-B Natriuret Pep 112 (<450) pg/mL Total Protein 7.4 (6.3-8.2) g/dL Albumin 4.3 (3.5-5.0) g/dL Globulin 3.1 (1.7-4.1) g/dL Albumin/Globulin Ratio 1.4 (1.0-2.8) Lipase 51 (23-300) U/L Urine RBC (0-5/HPF) Urine WBC (0-5/HPF) Ur Squamous Epith Cells (0-5/HPF) Urine Bacteria (None) Urine Mucus (Negative) Ur Culture Indicated? SARS-CoV-2 (PCR) (Negative) 05/18/20 05/18/20 05/18/20 Range/Units 12:36 13:57 16:45 WBC (4.5-11.0) X10^3/uL RBC (4.0-5.2) X10^6/uL Hgb (12.0-16.0) g/dL Hct (36-46) % MCV (80-100) fL MCH (26-34) PG MCHC (30-36) % RDW (11.6-14.8) % Plt Count (150-400) X10^3/uL Neut % (Auto) (50-75) % Lymph % (Auto) (25-40) % [place]udspeth % (Auto) (3-14) % Eos % (Auto) (2-4) % Baso % (Auto) (0-2) % Neut # (Auto) (0704-5012) /uL Lymph # (Auto) (9130-8495) /uL [place]speth # (Auto) (0-900) /uL Eos # (Auto) (0-450) /uL Baso # (Auto) (0-100) /uL PT 14.0 H (10.1-12.7) SECONDS INR 1.2 (0.9-1.3) APTT 31 (26.4-36.2) SECONDS Sodium (137-145) mmol/L Potassium (3.4-5.1) mmol/L Chloride (98-107) mmol/L Carbon Dioxide (22-32) mmol/L BUN (7-17) mg/dL Creatinine (0.52-1.04) mg/dL Estimated GFR (>60) mL/min BUN/Creatinine Ratio (6-22) Glucose (80-110) mg/dL Calcium (8.4-10.2) mg/dL Total Bilirubin (0.2-1.3) mg/dL AST (14-36) IU/L ALT (<35) IU/L Alkaline Phosphatase (38-126) U/L Total Creatine Kinase (30-135) U/L CK-MB (CK-2) CK-MB (CK-2) Rel Index Troponin I (0.01-0.034) ng/mL NT-Pro-B Natriuret Pep (<450) pg/mL Total Protein (6.3-8.2) g/dL Albumin (3.5-5.0) g/dL Globulin (1.7-4.1) g/dL Albumin/Globulin Ratio (1.0-2.8) Lipase (23-300) U/L Urine RBC 5-10/hpf H (0-5/HPF) Urine WBC 0-1/hpf (0-5/HPF) Ur Squamous Epith Cells 1-5 /hpf (0-5/HPF) Urine Bacteria None seen (None) Urine Mucus 1+ H (Negative) Ur Culture Indicated? Cult not indicated SARS-CoV-2 (PCR) Positive H (Negative) Urine Dip Bedside Urine Glucose Negative Bedside Urine Bilirubin - Negative Bedside Urine Ketone +/- 5 Urine Specific Horton 1.025 Bedside Urine Occult Blood ++ Bedside Urine pH 6.0 Bedside Urine Protein + 30 Bedside Urine Urobilinogen +/- 1mg Bedside Urine Nitrite - Negative Bedside Urine Leukocytes - Negative Esterase Imaging Data Chest x-ray: Radiologist's Impression: [address] [id number] ReportSigned Patient: Ami Johnson MMR#: [id number]: 9Acct:[id number]/Sex: 80 / FDate of Service: 05/18/20Loc: EDAccession Number: [id number] Procedure: XR chest 1V Ordering Provider: Lanker,Cesar D.O. PROCEDURE: XR CHEST 1V INDICATIONS: Flu like symptoms TECHNIQUE: One view of the chest was acquired. COMPARISON: [facility], , CHEST 2 VIEW, 08/20/2011, 12:32. FINDINGS: Surgical changes and devices: None. Lungs and pleura: Lungs are clear. No pleural effusions or pneumothorax. Mediastinum: Mediastinal contours appear normal. Heart size is normal. Bones and chest wall: No suspicious bony lesions. Overlying soft tissues appear unremarkable. IMPRESSION: No acute process. Dictated by: Nelly Wall M.D. on 05/18/2020 at 12:15 Approved by: Nelly Wall M.D. on 05/18/2020 at 12:15 ECG Data Attestation: I personally reviewed and interpreted this ECG as follows: Prior ECG tracings: not available for review Interpretation: Sinus rhythm Ventricular rate of 91 Normal axis Normal QRS Normal QTC Nonspecific ST T wave changes MDM Narrative Medical decision making narrative: Patient arrived with multiple symptoms started 2 days after receiving her COVID-19 vaccination. Her chest x-ray shows no infiltrates. Patient was not tachypneic. Not in respiratory distress. Oxyg en saturations above 93%. Her COVID-19 test was positive today. I explained to them that this was unlikely related to the vaccine that she received at the beginning of the week. I suspect that she was exposed sometime prior to that. The rest of her workup here in the ER was unremarkable. I do feel that discharge home is appropriate for her although she was given strict return precautions about chest pain and shortness of breath. We did discuss quarantine. I also had a discussion with her regarding this as well. They expressed understanding agreement. Discharge Plan Departure Patient Disposition: Home Clinical Impression: COVID-19 Instructions: DI for COVID-19 (Suspected or Confirmed ), How to Care for Someone with COVID-19 Activity Restrictions/Additional Instructions: Continue all of your medications as directed. Recommend you contact your primary provider on Wednesday for follow-up. Return to the emergency department for any chest pain or shortness of breath or any other worsening symptoms. Current guidelines are is that your to quarantine herself for the next 10 days and be symptom-free for 24 hours. Prescriptions: No Action prednisone 1 mg tablet 2 mg PO DAILY RF: 0 nitrofurantoin macrocrystal 50 mg capsule 50 mg PO BEDTIME RF: 0 gabapentin 300 mg capsule 300 mg PO BEDTIME RF: 0 ASPIRIN (Aspirin EC) 81 mg PO Q DAY Qty: 0 RF: 0 VITAMIN D (Vitamin D3) 1,000 unit PO QDAY Qty: 0 RF: 0 lisinopril 20 mg tablet See Rx Instructions .ROUTE .COMPLEX Qty: 15 RF: 0 estradiol 0.01 % (0.1 mg/gram) cream VAG 2XW Qty: 43 RF: 0 rosuvastatin 20 mg tablet 40 mg PO DAILY RF: 0 Prilosec OTC 20 mg tablet,delayed release (DR/EC) 10 mg PO DAILY RF: 0 systane See Rx Instructions .ROUTE .COMPLEX PRNRF: 0 clobetasol 0.025 % cream 1 applictn TOP QAM AND QPM PRN (Reason: dermatitis versus psoraisis) Qty: 60 RF: 2 Referrals: Maine Sim MD [Primary Care Provider] -
[2020-05-18 12:57] LABS: Add Manual Diff / Slide Review NO; Basophils Absolute Auto 0 /uL (0-100); Basophils Percent Auto 0.5 % (0-2); Eosinophils Absolute Auto 0 /uL (0-450); Hematocrit 38.7 % (36-46); Lymphocytes Absolute Auto 700 /uL (1100-4500); Lymphocytes Percent Auto 14.4 % (25-40); Mean Corpuscular HGB Conc 33.7 % (30-36); Mean Corpuscular Hemoglobin 31.2 PG (26-34); Mean Corpuscular Volume 92.8 fL (80-100); Monocytes Absolute Auto 400 /uL (0-900); Monocytes Percent Auto 7.6 % (3-14); Neutrophils Absolute Auto 3900 /uL (1500-7000); Neutrophils Percent Auto 77.5 % (50-75); Platelet Count 117 X10^3/uL (150-400); Red Blood Cell Count 4.17 X10^6/uL (4.0-5.2); Red Cell Distribution Width 14.5 % (11.6-14.8)
[2020-05-18 13:00] LABS: Creatine Kinase 63 U/L (30-135)
[2020-05-18 13:01] LABS: Alanine Aminotransferase 45 IU/L (<35); Albumin 4.3 g/dL (3.5-5.0); Albumin Globulin Ratio 1.4 (1.0-2.8); Alkaline Phosphatase 59 U/L (38-126); Aspartate Aminotransferase 63 IU/L (14-36); BUN Creatinine Ratio 30.6 (6-22); Bilirubin Total 0.9 mg/dL (0.2-1.3); Blood Urea Nitrogen 15 mg/dL (7-17); Calcium 8.9 mg/dL (8.4-10.2); Carbon Dioxide 17 mmol/L (22-32); Chloride 104 mmol/L (98-107); Estimated Glomerular Filt Rate > 60.0 mL/min (>60); Globulin 3.1 g/dL (1.7-4.1); Glucose 107 mg/dL (80-110); Lipase 51 U/L (23-300); Sodium 133 mmol/L (137-145); Total Protein 7.4 g/dL (6.3-8.2)
[2020-05-18 13:03] LABS: HEMOLYSIS 61 (0-50)
[2020-05-18 13:06] LABS: COVID19 -Nasal RAPID POSITIVE (Negative)
[2020-05-18] MEDS: ONDANSETRON 4 MG/2 ML INJ IV (13:12)
[2020-05-18] MEDS: SODIUM CHLORIDE 0.9% 1,000 ML 250 ML IV (13:12)
[2020-05-18 13:13] LABS: NT-proBNP (BNP-Adult 18+) 112 pg/mL (<450); Troponin I < 0.012 ng/mL (0.01-0.034)
[2020-05-18 14:13] LABS: INR 1.2 (0.9-1.3)
[2020-05-18 14:15] LABS: PTT Partial Thromboplastin Tim 31 SECONDS (26.4-36.2)
--- NOTE | 2020-05-18 14:26 | PC.NURSE ---
patient attempted to give urine sample. unable to uninate. provider nitified and gave verbal to increase NS to 1000ml\hr for half hour to total 500ml bolus then continue at 250/hr
[2020-05-18] MEDS: SODIUM CHLORIDE 0.9% 500 ML 1000 ML IV (16:28)
[2020-05-18 17:19] LABS: Bacteria Urine None Seen
[2020-05-18 17:38] LABS: Culture Indicated Urine Cult Not Indicated; Mucus Urine 1+ (Negative); RBC Urine 5-10/HPF (0-5/HPF); Squamous Epithelial Cell Urine 1-5 /HPF (0-5/HPF); WBC Urine 0-1/HPF (0-5/HPF)
== END 2020-05-18 18:52 | disposition home or self-care (01) ==
PROVIDERS: Emergency Provider Emergency Medicine; PCP Family Medicine
DX: U07.1 COVID-19 (principal); R11.2 Nausea with vomiting, unspecified; R51.9 Headache, unspecified
CPT/HCPCS: 36415; 71045; 80053; 81003; 81015; 82550; 83690; 83880; 84484; 85025; 85610; 85730; 87635; 93005; 99283; C9803; J2405

== ENCOUNTER 2020-05-20 12:52 | Inpatient (IN) | payer MEDICARE, OTHER, SELFPAY ==
[2020-05-20] VITALS (8 sets, daily range): BP systolic 121–143; BP diastolic 58–65; PULSE 76–82; RESP 14–30; TEMP 36.2–36.3; O2SAT 87–96; BMI 29.1; BMI 27.6
--- NOTE | 2020-05-20 13:10 | DI.RAD.S_ITS ---
PROCEDURE: XR CHEST 1V INDICATIONS: SHORTNESS OF BREATH COVID+ TECHNIQUE: One view of the chest was acquired. COMPARISON: [facility], CR, XR CHEST 1V, 05/18/2020, 12:54. FINDINGS: Surgical changes and devices: None. Lungs and pleura: Mild pulmonary vascular congestion is seen. Ill-defined airspace opacities are seen scattered in bilateral mid to lower lung jiménez concerning for developing infiltrates. No pleural effusions or pneumothorax. Mediastinum: Tortuous thoracic aorta is seen. Heart size is enlarged. Bones and chest wall: No suspicious bony lesions. Overlying soft tissues appear unremarkable. IMPRESSION: Findings are suggestive of scattered bilateral pulmonary infiltrates. No pneumothorax. Dictated by: Presley Calles M.D. on 05/20/2020 at 14:12 Approved by: Presley Calles M.D. on 05/20/2020 at 14:13
[2020-05-20 13:34] LABS: Add Manual Diff / Slide Review NO; Basophils Absolute Auto 0 /uL (0-100); Basophils Percent Auto 0.4 % (0-2); Eosinophils Absolute Auto 0 /uL (0-450); Hematocrit 36.8 % (36-46); Hemoglobin 12.5 g/dL (12.0-16.0); Lymphocytes Absolute Auto 900 /uL (1100-4500); Lymphocytes Percent Auto 27.7 % (25-40); Mean Corpuscular HGB Conc 34.1 % (30-36); Mean Corpuscular Hemoglobin 31.2 PG (26-34); Mean Corpuscular Volume 91.6 fL (80-100); Monocytes Absolute Auto 300 /uL (0-900); Neutrophils Absolute Auto 2100 /uL (1500-7000); Neutrophils Percent Auto 62.9 % (50-75); Platelet Count 116 X10^3/uL (150-400); Red Blood Cell Count 4.02 X10^6/uL (4.0-5.2); Red Cell Distribution Width 14.4 % (11.6-14.8); White Blood Cell Count 3.4 X10^3/uL (4.5-11.0)
[2020-05-20] MEDS: SODIUM CHLORIDE 0.9% 1,000 ML 125 ML IV (13:37)
[2020-05-20 13:41] LABS: D Dimer 226 ng/mL (<230)
[2020-05-20 13:43] LABS: Lactate (Lactic Acid) 1.2 mmol/L (0.7-2.1)
--- NOTE | 2020-05-20 13:52 | ED.GENADULT ---
HPI - General Adult General Chief complaint: Upper Respiratory Symptoms Stated complaint: COVID+ Time Seen by Provider: 05/20/20 13:09 Source: patient and family Mode of arrival: Ambulatory Limitations: no limitations History of Present Illness HPI narrative: Patient is an 80-year-old female. I evaluated her here in the emergency department approximately 48 hours ago where she was diagnosed with COVID. At that time she was not hypoxic. Her chest x-ray was unremarkable. Patient was discharged home with return precautions. She states that since she was here she feels like she has gone downhill. She does report shortness of breath. States she has not been able to eat or drink because of nausea. Denies any chest pain. States she is very fatigued and cannot get up and walk around. She is here with her to his asymptomatic. One week ago she did receive her 1st dose of COVID-19 vaccine. Related Data Home Medications Medication Instructions Recorded Confirmed ASPIRIN (Aspirin EC) 81 mg PO Q DAY #0 11/05/10 01/29/20 VITAMIN D (Vitamin D3) 1,000 unit PO QDAY #0 12/21/11 01/29/20 estradiol VAG 2XW #43 gram 07/29/18 01/29/20 omeprazole magnesium 20 mg 10 mg PO DAILY tab 08/25/18 01/29/20 tablet,delayed release systane See Rx Instructions .ROUTE 08/25/18 01/29/20 .COMPLEX PRN rosuvastatin 20 mg tablet 40 mg PO DAILY tab 11/25/18 01/29/20 gabapentin 300 mg capsule 300 mg PO BEDTIME 12/31/19 01/29/20 nitrofurantoin macrocrystal 50 mg 50 mg PO BEDTIME 01/29/20 01/29/20 capsule prednisone 1 mg tablet 2 mg PO DAILY 01/29/20 01/29/20 Previous Rx's Medication Instructions Recorded clobetasol 0.025 % topical cream 1 applictn TOP QAM AND QPM PRN #60 08/25/18 gram lisinopril 20 mg tablet See Rx Instructions .ROUTE 03/25/20 .COMPLEX #15 tab Allergies Allergy/AdvReac Type Severity Reaction Status Date / Time codeine AdvReac Mild NAUSEA Verified 05/18/20 12:28 Review of Systems Constitutional Constitutional: Reports chills, Reports fatigue, Reports fever(s) (Subjective) and Reports headache(s) ENT Ears, Nose, Mouth, and Throat: Denies dizziness and Reports headache(s) Cardiovascular Cardiovascular: Denies chest pain and Reports dyspnea Respiratory Respiratory: Reports cough and Reports dyspnea Gastrointestinal Gastrointestinal: Denies abdominal pain, Reports nausea and Denies vomiting Genitourinary Genitourinary: Denies dysuria Genitourinary: Denies dysuria Musculoskeletal Musculoskeletal: Denies arthralgias, Reports myalgias and Denies myalgias Integumentary/Breasts Skin/Breast: Denies rash Neurologic Neurologic: Denies behavioral changes, Denies confusion, Denies vertigo, Denies dizziness and Reports headache(s) Psychiatric Psychiatric: Denies behavioral changes and Denies confusion Endocrine Endocrine: Reports fatigue Hematologic/Lymphatic On Anticoagulants: No Allergic/Immunologic Allergic/Immunologic: Denies urticaria Patient History Medical History Aortic stenosis B-cell lymphoma Cataract Chicken pox Fecal incontinence (2004) Frequent UTI GERD (gastroesophageal reflux disease) Hearing loss Heart murmur, systolic Hypertension Migraines Pelvic relaxation Polymyalgia rheumatica Urinary incontinence (2013) Surgical History History of dilation and curettage S/P implantation of urinary electronic stimulator device Family History Father Luigi's disease, pulmonary Mother Heart disease Sister No problems noted. Grandmother No problems noted. Social History marital status: number of children: 2 household members: spouse lives independently: Yes caregiver/support person: No housing: house pets and animals: Yes education level: college occupational status: employed current occupational exposures/hazards: No seatbelt use: always working smoke detector in home: Yes fire extinguisher in home: Yes carbon monox detector in home: Yes Smoking Status: Never smoker second hand exposure: No alcohol intake: current substance use type: does not use during the past year weight has: increased > 10 lbs well-balanced diet: daily or most days caffeine: Yes eating out: 1-3 times/week Smoking Status: Never smoker Substance Use Type: does not use Exam Initial Vital Signs Initial Vital Signs: Vital Signs Pulse Rate 80 05/20/20 13:07 Respiratory Rate 14 05/20/20 13:07 Pulse Oximetry 88 L 05/20/20 13:07 Const General: ill appearing Limitations: mental status not altered HENMT Head: normal to inspection and normocephalic Resp Effort & Inspection: not labored and tachypneic Auscultation: clear to auscultation bilaterally Cardio Rate: regular rate Rhythm: regular rhythm GI Inspection: non-distended Palpation: soft Skin Lesions: no lesions Rashes: no rashes Neuro General: patient alert and patient awake Cognition: normal cognition Speech: speech normal Extrem General: capillary refill normal Psych Appearance: grossly normal and well kempt Course Orders Ordered: ED Orders 05/20/20 13:10 XR chest 1V Stat EKG-12 Lead Stat 05/20/20 13:25 C-Reactive Protein Quant Stat Complete Blood Count AUTO DIFF Stat Comprehensive Metabolic Panel Stat D Dimer Stat Ferritin Stat Lactate (Lactic Acid) Stat Lactate Dehydrogenase Stat NT-proBNP (BNP-Adult 18+) Stat Procalcitonin Stat Troponin & CK Cardiac Panel Stat 05/20/20 13:40 Arterial Blood Gas Stat Acetaminophen (Acetaminophen 325 Mg Tablet) 650 mg PO Q6HR PRN PRN Reason: Fever/Mild Pain (1-3) Aspirin (Aspirin Ec 81 Mg Tablet) 81 mg PO DAILY [facility] Bisacodyl (Bisacodyl 5 Mg Tablet) 10 mg PO DAILY PRN PRN Reason: Constipation Clopidogrel Bisulfate (Clopidogrel 75 Mg Tablet) 75 mg PO DAILY [facility] Dexamethasone (Dexamethasone 10 Mg/Ml Vial) 6 mg IV DAILY [facility] Enoxaparin Sodium (Enoxaparin 40 Mg/0.4 Ml Syringe) 40 mg SUBCUT BID [facility] Gabapentin (Gabapentin 300 Mg Capsule) 300 mg PO BEDTIME [facility] Dextrose/Sodium Chloride (Dextrose 5%-0.45% Ns) 1,000 mls @ 100 mls/hr IV CONT [facility] Remdesivir 100 mg/ Sodium (Chloride) 250 mls @ 250 mls/hr IV 1700 [facility] Remdesivir 200 mg/ Sodium (Chloride) 250 mls @ 250 mls/hr IV NOW ONE Stop: 05/20/20 18:14 Lisinopril (Lisinopril 10 Mg Tablet) 10 mg PO DAILY [facility] Oxycodone HCl (Oxycodone Ir 5 Mg Tablet) 5 mg PO Q6HR PRN PRN Reason: Pain, Moderate (4-6) Pantoprazole Sodium (Pantoprazole 40 Mg Vial) 40 mg IV DAILY [facility] Rosuvastatin Calcium (Rosuvastatin 10 Mg Tablet) 40 mg PO DAILY [facility] Sennosides (Sennosides 8.6 Mg Tablet) 17.2 mg PO BEDTIME [facility]IAG[facility] Discontinued Medications Dexamethasone (Dexamethasone 10 Mg/Ml Vial) 6 mg IV DAILY [facility] Enoxaparin Sodium (Enoxaparin 40 Mg/0.4 Ml Syringe) 40 mg SUBCUT DAILY [facility] Enoxaparin Sodium (Enoxaparin 40 Mg/0.4 Ml Syringe) 40 mg SUBCUT BID [facility] Sodium Chloride (Normal Saline 0.9%) 1,000 mls @ 125 mls/hr IV CONT THIAGO Last Admin: 05/20/20 13:37 Dose: 125 mls/hr Documented by: IRMA Remdesivir 200 mg/ Sodium (Chloride) 250 mls @ 250 mls/hr IV NOW ONE Stop: 05/20/20 16:15 Prednisone (Prednisone 1 Mg Tablet) 2 mg PO DAILY [facility] Vital Signs Vital signs: Vital Signs - 8 hr 05/20/20 13:07 05/20/20 13:16 05/20/20 13:24 Temperature 97.4 F L Pulse Rate 80 82 76 Respiratory Rate 14 24 16 Blood Pressure 142/65 H 133/60 Pulse Oximetry 88 L 87 L 93 05/20/20 13:30 05/20/20 14:00 Temperature Pulse Rate 77 76 Respiratory Rate 18 15 Blood Pressure Pulse Oximetry 93 96 Medical Decision Making Medical Records Medical records reviewed: Yes I reviewed the patient's medical records. Lab Data Lab results reviewed: Yes I reviewed the patient's lab results. Result diagrams: 05/20/20 13:25 05/20/20 13:25 Labs: Lab Results 05/20/20 05/20/20 05/20/20 Range/Units 13:25 13:25 13:25 WBC 3.4 L (4.5-11.0) X10^3/uL RBC 4.02 (4.0-5.2) X10^6/uL Hgb 12.5 (12.0-16.0) g/dL Hct 36.8 (36-46) % MCV 91.6 (80-100) fL MCH 31.2 (26-34) PG MCHC 34.1 (30-36) % RDW 14.4 (11.6-14.8) % Plt Count 116 L (150-400) X10^3/uL Neut % (Auto) 62.9 (50-75) % Lymph % (Auto) 27.7 (25-40) % Mccracken % (Auto) 9.0 (3-14) % Eos % (Auto) 0.0 L (2-4) % Baso % (Auto) 0.4 (0-2) % Neut # (Auto) 2100 (9433-8910) /uL Lymph # (Auto) 900 L (3396-4749) /uL Mccracken # (Auto) 300 (0-900) /uL Eos # (Auto) 0 (0-450) /uL Baso # (Auto) 0 (0-100) /uL PT (10.1-12.7) SECONDS INR (0.9-1.3) D-Dimer 226 (<230) ng/mL ABG pH (7.35-7.45) ABG pCO2 (35-45) mmHg ABG pO2 (80-100) mmHg ABG HCO3 (22-26) mmol/L ABG Total CO2 (21-31) mmol/L ABG O2 Saturation (95-100) % ABG Base Excess (-2-2) mmol/L FiO2 Sodium (137-145) mmol/L Potassium (3.4-5.1) mmol/L Chloride (98-107) mmol/L Carbon Dioxide (22-32) mmol/L BUN (7-17) mg/dL Creatinine (0.52-1.04) mg/dL Estimated GFR (>60) mL/min BUN/Creatinine Ratio (6-22) Glucose (80-110) mg/dL Lactate (0.7-2.1) mmol/L Calcium (8.4-10.2) mg/dL Ferritin (11-264) ng/mL Total Bilirubin (0.2-1.3) mg/dL AST (14-36) IU/L ALT (<35) IU/L Alkaline Phosphatase (38-126) U/L Lactate Dehydrogenase (313-618) U/L Total Creatine Kinase (30-135) U/L CK-MB (CK-2) CK-MB (CK-2) Rel Index Troponin I (0.01-0.034) ng/mL C-Reactive Protein (<1.0) mg/dL NT-Pro-B Natriuret Pep (<450) pg/mL Total Protein (6.3-8.2) g/dL Albumin (3.5-5.0) g/dL Globulin (1.7-4.1) g/dL Albumin/Globulin Ratio (1.0-2.8) Procalcitonin 0.06 (<0.5) ng/mL 05/20/20 05/20/20 05/20/20 Range/Units 13:25 13:25 13:25 WBC (4.5-11.0) X10^3/uL RBC (4.0-5.2) X10^6/uL Hgb (12.0-16.0) g/dL Hct (36-46) % MCV (80-100) fL MCH (26-34) PG MCHC (30-36) % RDW (11.6-14.8) % Plt Count (150-400) X10^3/uL Neut % (Auto) (50-75) % Lymph % (Auto) (25-40) % Mccracken % (Auto) (3-14) % Eos % (Auto) (2-4) % Baso % (Auto) (0-2) % Neut # (Auto) (3926-0422) /uL Lymph # (Auto) (1156-4822) /uL Mccracken # (Auto) (0-900) /uL Eos # (Auto) (0-450) /uL Baso # (Auto) (0-100) /uL PT 14.2 H (10.1-12.7) SECONDS INR 1.2 (0.9-1.3) D-Dimer (<230) ng/mL ABG pH (7.35-7.45) ABG pCO2 (35-45) mmHg ABG pO2 (80-100) mmHg ABG HCO3 (22-26) mmol/L ABG Total CO2 (21-31) mmol/L ABG O2 Saturation (95-100) % ABG Base Excess (-2-2) mmol/L FiO2 Sodium 132 L (137-145) mmol/L Potassium 4.6 (3.4-5.1) mmol/L Chloride 103 (98-107) mmol/L Carbon Dioxide 18 L (22-32) mmol/L BUN 14 (7-17) mg/dL Creatinine 0.46 L (0.52-1.04) mg/dL Estimated GFR > 60.0 (>60) mL/min BUN/Creatinine Ratio 30.4 H (6-22) Glucose 95 (80-110) mg/dL Lactate 1.2 (0.7-2.1) mmol/L Calcium 8.2 L (8.4-10.2) mg/dL Ferritin 248 (11-264) ng/mL Total Bilirubin 1.1 (0.2-1.3) mg/dL AST 71 H (14-36) IU/L ALT 40 H (<35) IU/L Alkaline Phosphatase 52 (38-126) U/L Lactate Dehydrogenase 996 H (313-618) U/L Total Creatine Kinase 86 (30-135) U/L CK-MB (CK-2) TNP CK-MB (CK-2) Rel Index TNP Troponin I 0.014 (0.01-0.034) ng/mL C-Reactive Protein 2.5 H (<1.0) mg/dL NT-Pro-B Natriuret Pep 221 (<450) pg/mL Total Protein 7.0 (6.3-8.2) g/dL Albumin 4.1 (3.5-5.0) g/dL Globulin 2.9 (1.7-4.1) g/dL Albumin/Globulin Ratio 1.4 (1.0-2.8) Procalcitonin (<0.5) ng/mL 05/20/20 05/20/20 Range/Units 13:25 13:40 WBC (4.5-11.0) X10^3/uL RBC (4.0-5.2) X10^6/uL Hgb (12.0-16.0) g/dL Hct (36-46) % MCV (80-100) fL MCH (26-34) PG MCHC (30-36) % RDW (11.6-14.8) % Plt Count (150-400) X10^3/uL Neut % (Auto) (50-75) % Lymph % (Auto) (25-40) % Mccracken % (Auto) (3-14) % Eos % (Auto) (2-4) % Baso % (Auto) (0-2) % Neut # (Auto) (3846-6294) /uL Lymph # (Auto) (7108-5121) /uL Mccracken # (Auto) (0-900) /uL Eos # (Auto) (0-450) /uL Baso # (Auto) (0-100) /uL PT (10.1-12.7) SECONDS INR (0.9-1.3) D-Dimer (<230) ng/mL ABG pH 7.47 H (7.35-7.45) ABG pCO2 28.7 L (35-45) mmHg ABG pO2 56 L (80-100) mmHg ABG HCO3 21 L (22-26) mmol/L ABG Total CO2 22 (21-31) mmol/L ABG O2 Saturation 91 L (95-100) % ABG Base Excess -3.0 L (-2-2) mmol/L FiO2 21 Sodium (137-145) mmol/L Potassium (3.4-5.1) mmol/L Chloride (98-107) mmol/L Carbon Dioxide (22-32) mmol/L BUN (7-17) mg/dL Creatinine (0.52-1.04) mg/dL Estimated GFR (>60) mL/min BUN/Creatinine Ratio (6-22) Glucose (80-110) mg/dL Lactate (0.7-2.1) mmol/L Calcium (8.4-10.2) mg/dL Ferritin 256 (11-264) ng/mL Total Bilirubin (0.2-1.3) mg/dL AST (14-36) IU/L ALT (<35) IU/L Alkaline Phosphatase (38-126) U/L Lactate Dehydrogenase (313-618) U/L Total Creatine Kinase (30-135) U/L CK-MB (CK-2) CK-MB (CK-2) Rel Index Troponin I (0.01-0.034) ng/mL C-Reactive Protein (<1.0) mg/dL NT-Pro-B Natriuret Pep (<450) pg/mL Total Protein (6.3-8.2) g/dL Albumin (3.5-5.0) g/dL Globulin (1.7-4.1) g/dL Albumin/Globulin Ratio (1.0-2.8) Procalcitonin (<0.5) ng/mL Imaging Data Chest x-ray: Radiologist's Impression: [address] [id number] ReportSigned Patient: Ami Johnson MMR#: [id number]: 9Acct:[id number]/Sex: 80 / FDate of Service: 05/20/20Loc: EDAccession Number: [id number] Procedure: XR chest 1V Ordering Provider: Cesar Chadwick D.O. PROCEDURE: XR CHEST 1V INDICATIONS: SHORTNESS OF BREATH COVID+ TECHNIQUE: One view of the chest was acquired. COMPARISON: [facility], , XR CHEST 1V, 05/18/2020, 12:54. FINDINGS: Surgical changes and devices: None. Lungs and pleura: Mild pulmonary vascular congestion is seen. Ill-defined airspace opacities are seen scattered in bilateral mid to lower lung jiménez concerning for developing infiltrates. No pleural effusions or pneumothorax. Mediastinum: Tortuous thoracic aorta is seen. Heart size is enlarged. Bones and chest wall: No suspicious bony lesions. Overlying soft tissues appear unremarkable. IMPRESSION: Findings are suggestive of scattered bilateral pulmonary infiltrates. No pneumothorax. Dictated by: Presley Calles M.D. on 05/20/2020 at 14:12 Approved by: Presley Calles M.D. on 05/20/2020 at 14:13 ECG Data Attestation: I personally reviewed and interpreted this ECG as follows: Prior ECG tracings: not available for review Interpretation: Sinus rhythm Ventricular rate is 77 Normal axis Normal QRS Normal QTC No ST T wave changes MDM Narrative Medical decision making narrative: Patient is noted to be COVID positive. She is hypoxic upon arrival in this improved with 2 L of oxygen by nasal cannula. She feels very weak. She now has infiltrates on her chest x-ray that were not there a couple days ago. She denies any chest pain. Patient is elderly is asymptomatic. She is 1 week status post her 1st COVID-19 vaccine. Given her hypoxia and respiratory distress and H and chest x-ray findings patient does require admission to the hospital for further evaluation and treatment. Discussed the case with Dr. Tello who is on-call for her primary provider who will admit for further evaluation treatment. I did discuss the admission with the patient her . They expressed understanding and agreement. Discharge Plan Departure Patient Disposition: Admitted As Inpatient Clinical Impression: COVID-19, Hypoxia Admit Date/Time: 05/20/20 14:45 Admit Provider: Dada Tello
[2020-05-20 13:58] LABS: Alanine Aminotransferase 40 IU/L (<35); Albumin 4.1 g/dL (3.5-5.0); Albumin Globulin Ratio 1.4 (1.0-2.8); Alkaline Phosphatase 52 U/L (38-126); Aspartate Aminotransferase 71 IU/L (14-36); BUN Creatinine Ratio 30.4 (6-22); Bilirubin Total 1.1 mg/dL (0.2-1.3); Blood Urea Nitrogen 14 mg/dL (7-17); C-Reactive Protein Quant 2.5 mg/dL (<1.0); Calcium 8.2 mg/dL (8.4-10.2); Carbon Dioxide 18 mmol/L (22-32); Chloride 103 mmol/L (98-107); Creatine Kinase 86 U/L (30-135); Estimated Glomerular Filt Rate > 60.0 mL/min (>60); Globulin 2.9 g/dL (1.7-4.1); Glucose 95 mg/dL (80-110); Lactate Dehydrogenase 996 U/L (313-618); Sodium 132 mmol/L (137-145)
[2020-05-20 13:59] LABS: HEMOLYSIS 110 (0-50)
[2020-05-20 14:00] LABS: Potassium 4.6 mmol/L (3.4-5.1); Procalcitonin 0.06 ng/mL (<0.5)
[2020-05-20 14:04] LABS: NT-proBNP (BNP-Adult 18+) 221 pg/mL (<450)
[2020-05-20 14:16] LABS: Troponin I 0.014 ng/mL (0.01-0.034)
[2020-05-20 14:30] LABS: Ferritin 248 ng/mL (11-264)
[2020-05-20 14:35] LABS: Fractionated Inspired Oxygen 21; HCO3 ABG 21 mmol/L (22-26); Oxygen Saturation ABG 91 % (95-100); PCO2 ABG 28.7 mmHg (35-45); TCO2 ABG 22 mmol/L (21-31); pH ABG 7.47 (7.35-7.45)
[2020-05-20 14:36] LABS: PO2 ABG 56 mmHg (80-100)
--- NOTE | 2020-05-20 15:44 | PC.NURSE ---
patient report was given at 1447 to elroy in acute care and stated that the next nurse would call down when ready in 15 minutes. At 1545 Mallory called down to the ER and requested report for the patient. Report was given to WILIAM Tejada and the patient was taken upstairs.
--- NOTE | 2020-05-20 16:31 | P.HP_ITS ---
History of Present Illness History of Present Illness Date Patient Seen: 05/20/20 Time Patient Seen: 17:12 Chief complaint: COVID+ Narrative: 80-year-old female with a history of coronary artery disease aortic stenosis hypertension B-cell lymphoma and hyperlipidemia presents to the hospital with shortness of breath and COVID positive. Patient states she got her COVID vaccine on Wednesday last week. On Wednesday she began to feel little bit ill with achiness in flu like symptoms such as fatigue tiredness. She was not sure why she was feeling so crummy. As she did not expect to have much of a reaction with her 1st vaccine. Patient's symptom progressed worse and then she began to have increasing weakness. Lack of appetite had a number of days of diarrhea chills achiness and began to have a cough and shortness of breath. Patient was seen and evaluated in the emergency department on the patient workup included laboratory testing x-ray testing and COVID testing. Patient was COVID positive within normal x-ray normal oxygenation and was discharged home and encouraged to follow-up symptoms worsened. Patient presented again to the emergency department today. Patient states she has not had anything to eat or drink for 48 hours. She is weak and tired. She is having shortness of breath and cough. She is no longer having diarrhea. She says she is so weak she has a hard time getting out of bed. She feels chills. She is not sure she has had fevers. She says it has been a number of days that she has had any of her home medication. Patient denies any acute chest pain. Patient denies any lower extremity edema. In the emergency department she had a reward cup and evaluation. She had normal laboratory testing as far as cardiac enzymes go electrolyte panel liver panel. Patient had procalcitonin negative was elevated CRP which was elevated elevated LDH. Ferritin is normal COVID test is positive. Chest x-ray was change from previous chest x-ray which shows bilateral pulmonary infiltrates scattered. Patient was hypoxic and had saturations of 86-88% on room air. ABG was done which will showed a slightly elevated pH which is 7.47 pCO2 28.7 and PO2 56. Patient was admitted to the hospital for further workup and management of her COVID infection. Patient History Medical History Aortic stenosis B-cell lymphoma Cataract Chicken pox Fecal incontinence (2004) Frequent UTI GERD (gastroesophageal reflux disease) Hearing loss Heart murmur, systolic Hypertension Migraines Pelvic relaxation Polymyalgia rheumatica Urinary incontinence (2013) Surgical History History of dilation and curettage S/P implantation of urinary electronic stimulator device Family & Social History Family History Father Luigi's disease, pulmonary Mother Heart disease Sister No problems noted. Grandmother No problems noted. Social History: household members spouse lives independently Yes caregiver/support person No Safety & Behavioral: Feels Safe in Current Yes Environment Been Physically Hurt or No Threatened By a Person Tobacco & Substance use: Smoking Status Never smoker alcohol intake current Substance Use Type does not use Meds Home Medications and Allergies Home Medications Medication Instructions Recorded Confirmed Type ASPIRIN (Aspirin EC) 81 mg PO Q DAY #0 11/05/10 01/29/20 History VITAMIN D (Vitamin D3) 1,000 unit PO QDAY #0 12/21/11 01/29/20 History estradiol VAG 2XW #43 gram 07/29/18 01/29/20 History clobetasol 0.025 % topical cream 1 applictn TOP QAM AND QPM PRN #60 08/25/18 01/29/20 Rx gram omeprazole magnesium 20 mg 10 mg PO DAILY tab 08/25/18 01/29/20 History tablet,delayed release systane See Rx Instructions .ROUTE 08/25/18 01/29/20 History .COMPLEX PRN rosuvastatin 20 mg tablet 40 mg PO DAILY tab 11/25/18 01/29/20 History gabapentin 300 mg capsule 300 mg PO BEDTIME 12/31/19 01/29/20 History nitrofurantoin macrocrystal 50 mg 50 mg PO BEDTIME 01/29/20 01/29/20 History capsule prednisone 1 mg tablet 2 mg PO DAILY 01/29/20 01/29/20 History lisinopril 20 mg tablet See Rx Instructions .ROUTE 03/25/20 Rx .COMPLEX #15 tab Allergies Allergy/AdvReac Type Severity Reaction Status Date / Time codeine AdvReac Mild NAUSEA Verified 05/18/20 12:28 Exam Vital Signs (past 8 hours): - 05/20/20 13:07 05/20/20 13:16 05/20/20 13:24 Temperature 97.4 F L Pulse Rate 80 82 76 Respiratory Rate 14 24 16 Blood Pressure 142/65 H 133/60 Pulse Oximetry 88 L 87 L 93 05/20/20 13:30 05/20/20 14:00 Temperature Pulse Rate 77 76 Respiratory Rate 18 15 Blood Pressure Pulse Oximetry 93 96 Oxygen Delivery Method Room Air Narrative Exam Narrative: Gen.: Alert good historian quite weak and tell HEENT: Pupils equal round and reactive or mucosa is dry neck is supple Cardio: S1-S2 regular rate and rhythm systolic murmur present Respiratory: Mild increased work of breathing no respiratory rhonchi or wheezes Abdomen: Soft nontender no rebound or guarding no liver spleen enlargement no ap preciable hernias Extremities: Full range of motion no appreciable weakness no cyanosis or edema. Neurologic: Grossly intact. Objective Labs Result Diagrams: 05/20/20 13:25 05/20/20 13:25 Labs: Laboratory Results - last 24 hr 05/20/20 05/20/20 05/20/20 13:25 13:25 13:25 WBC 3.4 L RBC 4.02 Hgb 12.5 Hct 36.8 MCV 91.6 MCH 31.2 MCHC 34.1 RDW 14.4 Plt Count 116 L Neut % (Auto) 62.9 Lymph % (Auto) 27.7 [place] % (Auto) 9.0 Eos % (Auto) 0.0 L Baso % (Auto) 0.4 Neut # (Auto) 2100 Lymph # (Auto) 900 L [place] # (Auto) 300 Eos # (Auto) 0 Baso # (Auto) 0 D-Dimer 226 ABG pH ABG pCO2 ABG pO2 ABG HCO3 ABG Total CO2 ABG O2 Saturation ABG Base Excess FiO2 Sodium Potassium Chloride Carbon Dioxide BUN Creatinine Estimated GFR BUN/Creatinine Ratio Glucose Lactate Calcium Ferritin Total Bilirubin AST ALT Alkaline Phosphatase Lactate Dehydrogenase Total Creatine Kinase CK-MB (CK-2) CK-MB (CK-2) Rel Index Troponin I C-Reactive Protein NT-Pro-B Natriuret Pep Total Protein Albumin Globulin Albumin/Globulin Ratio Procalcitonin 0.06 05/20/20 05/20/20 05/20/20 13:25 13:25 13:40 WBC RBC Hgb Hct MCV MCH MCHC RDW Plt Count Neut % (Auto) Lymph % (Auto) [place] % (Auto) Eos % (Auto) Baso % (Auto) Neut # (Auto) Lymph # (Auto) [place] # (Auto) Eos # (Auto) Baso # (Auto) D-Dimer ABG pH 7.47 H ABG pCO2 28.7 L ABG pO2 56 L ABG HCO3 21 L ABG Total CO2 22 ABG O2 Saturation 91 L ABG Base Excess -3.0 L FiO2 21 Sodium 132 L Potassium 4.6 Chloride 103 Carbon Dioxide 18 L BUN 14 Creatinine 0.46 L Estimated GFR > 60.0 BUN/Creatinine Ratio 30.4 H Glucose 95 Lactate 1.2 Calcium 8.2 L Ferritin 248 Total Bilirubin 1.1 AST 71 H ALT 40 H Alkaline Phosphatase 52 Lactate Dehydrogenase 996 H Total Creatine Kinase 86 CK-MB (CK-2) TNP CK-MB (CK-2) Rel Index TNP Troponin I 0.014 C-Reactive Protein 2.5 H NT-Pro-B Natriuret Pep 221 Total Protein 7.0 Albumin 4.1 Globulin 2.9 Albumin/Globulin Ratio 1.4 Procalcitonin Assessment & Plan Assessment & Plan narrative: COVID pneumonia severe. Patient meets criteria for severe COVID pneumonia. Patient has saturations below 88% on room air. She has an elevated LDH increased respiratory rate and decreased PO2 on ABG patient also has an elevated CRP and a chest x-ray showing diffuse pulmonary infiltrates. Patient will be admitted to the ICU negative pressure flow room with contact precautions. We will proceed with initial laboratory workup including CBC CMP PT INR procalcitonin CRP ferritin and LDH cardiac enzymes because of her risk factors. D-dimer PT and INR. She will be placed on remdesivir 200 mg IV initially and 100 mg daily after that. Patient will be placed on IV dexamethasone 6 mg a day. Patient had initial ABG on presentation to the hospital. Will hold off on further ABGs in this is a decline in respiratory sta tus. She will be placed on 2 L of oxygen to maintain saturations greater than 90%. Will go gentle on IV fluids I think she is quite dry she has not had anything to eat or drink for at least the past 48 hours and before that had significant amount of diarrhea. Will try to keep her a little bit dry as per the recommendations. Will order CBC and basic metabolic profile tomorrow. Will hold off on further diagnostic imaging unless is a significant decline. She will be placed on high risk DVT prophylaxis of 0.5 milligram/kilogram twice a day. We will hold off on convalescent plasma at this point as the data and information on this is controversial. Her current Linda score is 22 which puts her at low risk for intubation. Coronary artery disease with recent stenting. Patient had a stent placed in March of this year. She is currently on aspirin and Plavix. These will be continued she will also be on Lovenox for DVT prophylaxis. Have to keep a close eye on her risk of bleeding. She will be placed on a proton pump inhibitor prophylactically. Her cardiac enzyme troponin are normal at this point will monitor her for closely further cardiac decline. Aortic stenosis mild. Patient has a long history of breathlessness. Recent echocardiogram shows no significant worsening of her could aortic stenosis and this is stable. Hyperlipidemia. Patient will be continued on her Crestor due to recent 8 angiogram and cardiac catheterization and stent placement this medication is important we will continue this Hypertension. Patient's blood pressure is currently normal. She is on lisinopril at home we will continue with this medication. She is not on a beta- celeste despite being on coronary artery disease and that would be something we would want to consider placing her on while she is here in the hospital. Code status. Patient states she is a do not intubate and do not resuscitate. This was reviewed in detail at the beginning of this hospital admission. Patient states that she does not want advanced life saving measures if the COVID virus progresses to significant pneumonia requiring mechanical intubation she would prefer not to be intubated. Approximately 1 hour and 40 minutes was spent evaluating patient reviewing chart medical records laboratory testing writing orders and documenting patient care.
[2020-05-20 16:33] LABS: INR 1.2 (0.9-1.3); Prothrombin Time 14.2 SECONDS (10.1-12.7)
[2020-05-20 17:10] LABS: Ferritin 256 ng/mL (11-264)
[2020-05-20] MEDS: DEXTROSE 5%-0.45% NS 1,000 ML 100 ML IV (17:47)
[2020-05-20] MEDS: REMDESIVIR 200 MG in SODIUM CHLORIDE 0.9% 210 ML 250 ML IV (17:47)
[2020-05-20] MEDS: DEXAMETHASONE 10 MG/ML VIAL 6 MG IV (17:47)
--- NOTE | 2020-05-20 19:11 | PC.NURSE ---
Admission Note: Pt is A and O x4. Pt reports generalized achiness, rates her pain as mild. Resistant to rating pain on a pain scale.Pt arrives on 2 L NC with SPO2 94%. Unable to deep breathe without triggering coughing. Pt with RR mid 20s on arrival, up to 30s with exertion. Pt helped OOB to commode with O2 requirements up to 5 L NC. Pt with desaturation to 84%, but quickly recovered to 90% with increased NC O2. Eventually O2 recovered to 95%. MD notified, RT consulted. Pt arrives in SR with occasional PVCs. Pt with strong murmur. Pt reports that murmur is not new. Pt states that she had 2 stents placed this March at [facility]. Pt denies chest pain or pressure. Pt denies nausea, reports that she has poor appetite. Pt reports that she had diarrhea for 3 days last week, ending on Wednesday, but has not had a bowel movement. Pt voided 300 ml dark maria ines urine this shift. Call light in reach. Pt is using appropriately to call for assistance. Bed alarm on and functioning. Will continue to monitor, notify MD with changes.
[2020-05-20] MEDS: DEXTROSE 5%-0.9% NS 1,000 ML 100 ML IV (20:49)
[2020-05-20] MEDS: ENOXAPARIN 40 MG/0.4 ML SYRINGE SUBCUT (20:49)
[2020-05-20] MEDS: GABAPENTIN 300 MG CAPSULE PO (20:49)
[2020-05-21] VITALS (10 sets, daily range): BP systolic 113–133; BP diastolic 55–60; PULSE 61–70; RESP 16–33; TEMP 36.1–37; O2SAT 92–95
[2020-05-21] MEDS: ACETAMINOPHEN 325 MG TABLET 650 MG PO ×2 (03:20→08:22)
--- NOTE | 2020-05-21 03:31 | PC.NURSE ---
Pt alert and oriented x4. Voiding to bed au without issues. Pt on 5L O2 NC with sats of 92%. Pt becomes short of breath and desats to mid 80's with activity. Dry cough. Pt reports shortness of breath when trying to take deep breaths. Pt proning for three hours overnight at this time, o2 sats running at 96-98% on 5L while proning. Pt reports proning is very uncomfortable at this time and will try again later. Educated pt on the importance of proning, pt verbalized understanding. Mild generalized pain, administered tylenol.
[2020-05-21] MEDS: DEXTROSE 5%-0.9% NS 1,000 ML 100 ML IV (06:21)
--- NOTE | 2020-05-21 07:27 | PM.PN.1 ---
Subjective Subjective Date Patient Seen: 05/21/20 Time Patient Seen: 08:05 Interval history: The pt reports that she slept relatively well overnight. She feels minimally improved this morning. She was able to sleep prone for around 3 hours last night, but found she had significant back pain when doing so. As per nursing, the pt had great difficulty getting the bedside commode due to fatigue and SOB, and so she used a bedpan overnight. Exam Vital Signs (past 8 hours): - 05/21/20 00:30 05/21/20 04:00 05/21/20 05:14 Temperature 97.6 F 98.6 F Pulse Rate 63 66 62 Respiratory Rate 26 H 33 H 21 Blood Pressure 119/56 L 116/55 L Pulse Oximetry 93 95 94 Oxygen Delivery Method Nasal Cannula Oxygen Flow Rate 5 Narrative Exam Narrative: Gen: NAD, laying comfortably in bed, breathing easily at rest Neck: no LAD CV: RRR, grade 2/6 systolic murmur Resp: clear to auscultation bilaterally, no wheezes or crackles, after one deep breath with brief tachypnea Abd: soft, nontender, nondistended Ext: no edema Objective Labs Result Diagrams: 05/20/20 13:25 05/20/20 13:25 Labs: Laboratory Results - last 24 hr 05/20/20 05/20/20 05/20/20 13:25 13:25 13:25 WBC 3.4 L RBC 4.02 Hgb 12.5 Hct 36.8 MCV 91.6 MCH 31.2 MCHC 34.1 RDW 14.4 Plt Count 116 L Neut % (Auto) 62.9 Lymph % (Auto) 27.7 [place] % (Auto) 9.0 Eos % (Auto) 0.0 L Baso % (Auto) 0.4 Neut # (Auto) 2100 Lymph # (Auto) 900 L [place] # (Auto) 300 Eos # (Auto) 0 Baso # (Auto) 0 PT INR D-Dimer 226 ABG pH ABG pCO2 ABG pO2 ABG HCO3 ABG Total CO2 ABG O2 Saturation ABG Base Excess FiO2 Sodium Potassium Chloride Carbon Dioxide BUN Creatinine Estimated GFR BUN/Creatinine Ratio Glucose Lactate Calcium Ferritin Total Bilirubin AST ALT Alkaline Phosphatase Lactate Dehydrogenase Total Creatine Kinase CK-MB (CK-2) CK-MB (CK-2) Rel Index Troponin I C-Reactive Protein NT-Pro-B Natriuret Pep Total Protein Albumin Globulin Albumin/Globulin Ratio Procalcitonin 0.06 05/20/20 05/20/20 05/20/20 13:25 13:25 13:25 WBC RBC Hgb Hct MCV MCH MCHC RDW Plt Count Neut % (Auto) Lymph % (Auto) [place] % (Auto) Eos % (Auto) Baso % (Auto) Neut # (Auto) Lymph # (Auto) [place] # (Auto) Eos # (Auto) Baso # (Auto) PT 14.2 H INR 1.2 D-Dimer ABG pH ABG pCO2 ABG pO2 ABG HCO3 ABG Total CO2 ABG O2 Saturation ABG Base Excess FiO2 Sodium 132 L Potassium 4.6 Chloride 103 Carbon Dioxide 18 L BUN 14 Creatinine 0.46 L Estimated GFR > 60.0 BUN/Creatinine Ratio 30.4 H Glucose 95 Lactate 1.2 Calcium 8.2 L Ferritin 248 Total Bilirubin 1.1 AST 71 H ALT 40 H Alkaline Phosphatase 52 Lactate Dehydrogenase 996 H Total Creatine Kinase 86 CK-MB (CK-2) TNP CK-MB (CK-2) Rel Index TNP Troponin I 0.014 C-Reactive Protein 2.5 H NT-Pro-B Natriuret Pep 221 Total Protein 7.0 Albumin 4.1 Globulin 2.9 Albumin/Globulin Ratio 1.4 Procalcitonin 05/20/20 05/20/20 13:25 13:40 WBC RBC Hgb Hct MCV MCH MCHC RDW Plt Count Neut % (Auto) Lymph % (Auto) [place] % (Auto) Eos % (Auto) Baso % (Auto) Neut # (Auto) Lymph # (Auto) [place] # (Auto) Eos # (Auto) Baso # (Auto) PT INR D-Dimer ABG pH 7.47 H ABG pCO2 28.7 L ABG pO2 56 L ABG HCO3 21 L ABG Total CO2 22 ABG O2 Saturation 91 L ABG Base Excess -3.0 L FiO2 21 Sodium Potassium Chloride Carbon Dioxide BUN Creatinine Estimated GFR BUN/Creatinine Ratio Glucose Lactate Calcium Ferritin 256 Total Bilirubin AST ALT Alkaline Phosphatase Lactate Dehydrogenase Total Creatine Kinase CK-MB (CK-2) CK-MB (CK-2) Rel Index Troponin I C-Reactive Protein NT-Pro-B Natriuret Pep Total Protein Albumin Globulin Albumin/Globulin Ratio Procalcitonin [facility] Medical History Aortic stenosis B-cell lymphoma Cataract Chicken pox Fecal incontinence (2004) Frequent UTI GERD (gastroesophageal reflux disease) Hearing loss Heart murmur, systolic Hypertension Migraines Pelvic relaxation Polymyalgia rheumatica Urinary incontinence (2013) Surgical History History of dilation and curettage S/P implantation of urinary electronic stimulator device Family History Father Luigi's disease, pulmonary Mother Heart disease Sister No problems noted. Grandmother No problems noted. Social History marital status: number of children: 2 household members: spouse lives independently: Yes caregiver/support person: No housing: house pets and animals: Yes education level: college occupational status: employed current occupational exposures/hazards: No seatbelt use: always working smoke detector in home: Yes fire extinguisher in home: Yes carbon monox detector in home: Yes Smoking Status: Never smoker second hand exposure: No alcohol intake: current substance use type: does not use during the past year weight has: increased > 10 lbs well-balanced diet: daily or most days caffeine: Yes eating out: 1-3 times/week Assessment & Plan Assessment & Plan narrative: 80yo woman with PMR, aortic stenosis, HTN, urinary incontinence, B-cell lymphoma, CAD s/p cardiac stenting 03/2019 here with worsening SOB and fatigue in the setting of being COVID+. Pt with acute respiratory failure with hypoxia requiring oxygen supplementation. 1) COVID pneumonia: Meeting criteria for severe infection due to SaO2 < 94 on room air - currently maintaining around 94% on 5L O2, RR up to 33 this morning. ABG last completed yesterday showed decresaed PO2. CXR yesterday showed diffuse pulmonary infiltrates but no localized consolidation suggestive of overlying bacterial pneumonia. LDH and CRP initially elevated, with normal d-dimer. - Lab work from this morning pending - Continue daily CBC and BMP, with additional labs if worsening symptoms - Continue ICU care with negative pressure room and contact precautions - Continue Remdesivir 100mg daily, Dexamethasone 6mg daily - Continue oxygen, titrate as needed to keep saturations > 90% - Proning as able - Continue gentle mIVF at 100cc/hr until improved PO intake - High risk DVT prophylaxis with Lovenox BID dosing - Will continue to hold convalescent plasma for now 2) CAD with recent stenting: - Continue ASA and Plavix - Continue PPI due to addition of Lovenox as above and risk for bleed - Monitor closely for cardiac symptoms 3) Aortic stenosis: Recent echo stable 4) Hyperlipidemia: - Continue Rosuvastatin 5) HTN: Normotensive - Continue Lisinopril 6) PMR: - Hold prednisone for now, on dexamethasone as above DVT PPX: Lovenox as above Diet: Regular Code: discussed with the pt again today. Pt desires DNR status. Dispo: Pending improvement in respiratory status, stabilization. Anticipate after hospitalization may need brief stay in SNF to help regain strength.
[2020-05-21] MEDS: PANTOPRAZOLE 40 MG VIAL IV (08:20)
[2020-05-21] MEDS: ENOXAPARIN 40 MG/0.4 ML SYRINGE SUBCUT ×2 (08:22→21:12)
[2020-05-21] MEDS: ASPIRIN EC 81 MG TABLET PO (08:23)
[2020-05-21] MEDS: lisinopriL 10 MG TABLET PO (08:23)
[2020-05-21] MEDS: ROSUVASTATIN 10 MG TABLET 40 MG PO (08:23)
[2020-05-21] MEDS: CLOPIDOGREL 75 MG TABLET PO (08:23)
[2020-05-21] MEDS: DEXAMETHASONE 10 MG/ML VIAL 6 MG IV (08:24)
--- NOTE | 2020-05-21 08:29 | DIET.PN ---
Dietary Progress Note RD sending ONS Ensure Max c lunches to support PRO needs c low sugar, low carb formula until d/c
--- NOTE | 2020-05-21 09:06 | CM.DANOTE ---
DCP/Assessment: Reviewed chart. Patient is a 80yr old female admitted to [facility] with symptoms related to recent COVID positive diagnosis. PCP listed is Dr. Sim. Primary payor is 1)Medicare 2)[facility]. Patient currently with COVID and in precautions. Per notes, patient resides with spouse in [place]. Patient I in ADL's prior to admit. Currently, patient requiring 02 and appears weak due to respiratory status. CM team to follow closely throughout hospitalization. P: Pending. EMMA Patel Discharge Planning/Care Management CM Discharge Assessment Start: 05/21/20 08:53 Freq: Status: Active Protocol: Document 05/21/20 08:54 KJS (Rec: 05/21/20 09:06 KJS [id number]) Discharge Planning Assessment Assigned Assistant Auditor EMMA Patel Contact Information Reji De La Rosa (spouse) #[phone] Advance Directives? Yes Advance Directives on File No History Provided By Medical Record Prior Living Arrangements House Household Members spouse Type of transporation used prior to Drives own vehicle admit Comment Per records patient is I in ADL's prior to admit. Independent with ADL's Yes Is patient alert and oriented? Yes Caregiver for Another No Comment No DME used prior to admit per EMR Comment D/C needs currently pending. Transportation Arrangement TBD Review Status In Process Next Review Type Continued Stay Review
[2020-05-21 11:03] LABS: Hematocrit 34.6 % (36-46); Hemoglobin 11.7 g/dL (12.0-16.0); Mean Corpuscular HGB Conc 33.8 % (30-36); Mean Corpuscular Hemoglobin 30.7 PG (26-34); Mean Corpuscular Volume 90.9 fL (80-100); Platelet Count 114 X10^3/uL (150-400); Red Cell Distribution Width 14.3 % (11.6-14.8)
[2020-05-21 11:07] LABS: Add Manual Diff / Slide Review YES; White Blood Cell Count 1.7 X10^3/uL (4.5-11.0)
[2020-05-21 11:20] LABS: BUN Creatinine Ratio 31.4 (6-22); Blood Urea Nitrogen 11 mg/dL (7-17); Calcium 8.1 mg/dL (8.4-10.2); Carbon Dioxide 21 mmol/L (22-32); Chloride 109 mmol/L (98-107); Estimated Glomerular Filt Rate > 60.0 mL/min (>60); Glucose 225 mg/dL (80-110); HEMOLYSIS < 15 (0-50); Potassium 3.4 mmol/L (3.4-5.1); Sodium 136 mmol/L (137-145)
[2020-05-21 11:36] LABS: Neutrophils Absolute Manual 1122 /uL (3000-5900); Total Cells Counted 50
[2020-05-21 11:38] LABS: Anisocytosis 1+
--- NOTE | 2020-05-21 11:50 | CM.DANOTE ---
DCP ASSESSMENT: Patient is an 80 year-old female admitted to the hospital for COVID-19. PCP is [place] Sim. Primary payer is Medicare and [facility]. Patient is a DNR status. Daughter Marilynn Salas is her DPOA. CATERING ATTENDANT student met with patient telephonically this date due to COVID restrictions. She reported she lives at home independently with her Estrella Mendoza . She is independent with ADL?s: Mobility and driving at base-line. She reported both her and her are very independent. Patient anticipates returning home at time of D/C if she returns to base-line functioning and prefers to be COVID negative. will be able to provide transportation at time of D/C at this time unclear at this time if is COVID positive, per patient he has not been able to reach today. PLAN: Potential D/C home when patient is medically stable and if close to baseline ADL function. CM Team to continue to follow patient closely. EMMA Patel MSW Student Discharge Planning/Care Management CM Discharge Assessment Start: 05/21/20 08:53 Freq: Status: Active Protocol: Document 05/21/20 08:54 KJS (Rec: 05/21/20 09:06 KJS [id number]) Discharge Planning Assessment Assigned Decorative Greens Cutter EMMA Patel Contact Information Reji De La Rosa (spouse) ph# Advance Directives? Yes Advance Directives on File No History Provided By Medical Record Prior Living Arrangements House Household Members spouse Type of transporation used prior to Drives own vehicle admit Comment Per records patient is I in ADL's prior to admit. Independent with ADL's Yes Is patient alert and oriented? Yes Caregiver for Another No Comment No DME used prior to admit per EMR Comment D/C needs currently pending. Transportation Arrangement TBD Review Status In Process Next Review Type Continued Stay Review
[2020-05-21] MEDS: REMDESIVIR 100 MG in SODIUM CHLORIDE 0.9% 230 ML 250 ML IV (16:06)
[2020-05-21] MEDS: SODIUM CHLORIDE 0.9% 1,000 ML 100 ML IV (17:43)
[2020-05-21] MEDS: GABAPENTIN 300 MG CAPSULE PO (21:12)
[2020-05-21] MEDS: SENNOSIDES 8.6 MG TABLET 17.2 MG PO (21:12)
[2020-05-22] VITALS (14 sets, daily range): BP systolic 106–175; BP diastolic 54–86; PULSE 61–81; RESP 22–35; TEMP 36.1–36.7; O2SAT 87–96
--- NOTE | 2020-05-22 01:18 | PC.NURSE ---
Evening/Bulk Tank Driver Note Patient A&O, VSS, 93% 5L NC. Patient encouraged to prone through out evening shift and declined, O2 sats maintained through out shift. Patient intolerant to activity and becomes SOB with minimal activity and hypoxic at 87% and tachypneic with RR in the 30's. Is able to raise hips in bed and lower briefs for use of bedpan. Recovers from SOB after a few minutes to 93% on 5L NC. At 0100 able to left semi prone patient, unable to tolerate prone position. This RN at bedside with patient for 15min post repositioning for comfort and deep breathing cues. Pillows placed for comfort and patient tolerant of semi prone position, O2 sats 93% 5L NC, RR 20. Will continue to monitor and update oncoming RN Ronda.
[2020-05-22] MEDS: SODIUM CHLORIDE 0.9% 1,000 ML 100 ML IV (03:25)
[2020-05-22 05:00] LABS: Add Manual Diff / Slide Review NO; Basophils Absolute Auto 0 /uL (0-100); Basophils Percent Auto 0.1 % (0-2); Eosinophils Absolute Auto 0 /uL (0-450); Hematocrit 35.4 % (36-46); Hemoglobin 11.9 g/dL (12.0-16.0); Lymphocytes Absolute Auto 900 /uL (1100-4500); Lymphocytes Percent Auto 17.8 % (25-40); Mean Corpuscular HGB Conc 33.6 % (30-36); Mean Corpuscular Hemoglobin 30.9 PG (26-34); Mean Corpuscular Volume 91.8 fL (80-100); Monocytes Absolute Auto 400 /uL (0-900); Monocytes Percent Auto 7.6 % (3-14); Neutrophils Absolute Auto 3900 /uL (1500-7000); Neutrophils Percent Auto 74.5 % (50-75); Platelet Count 125 X10^3/uL (150-400); Red Blood Cell Count 3.85 X10^6/uL (4.0-5.2); White Blood Cell Count 5.2 X10^3/uL (4.5-11.0)
[2020-05-22 05:12] LABS: BUN Creatinine Ratio 31.7 (6-22); Blood Urea Nitrogen 13 mg/dL (7-17); Calcium 8.1 mg/dL (8.4-10.2); Carbon Dioxide 23 mmol/L (22-32); Chloride 112 mmol/L (98-107); Estimated Glomerular Filt Rate > 60.0 mL/min (>60); Glucose 108 mg/dL (80-110); HEMOLYSIS < 15 (0-50); Potassium 3.4 mmol/L (3.4-5.1); Sodium 139 mmol/L (137-145)
--- NOTE | 2020-05-22 08:52 | PM.PN.1 ---
Subjective Subjective Date Patient Seen: 05/22/20 Time Patient Seen: 07:55 Interval history: The pt reports that she is still feeling very SOB. She denies any additional complaints this morning. She is frustrated that she is not improving. She was able to tolerate small amounts of PO yesterday. She is primarily concerned about the health of her . He is older, and she is concerned that he has COVID as well. As per nursing, the pt has been more tachypneic this morning. She desats with any movement, including getting onto the bedpan. She was placed on high flow NC oxygen this morning as a result, currently at 5L on such. She did not tolerate proning last night. This morning, she was able to move to prone position which did help her O2 saturation significantly. Exam Vital Signs (past 8 hours): - 05/22/20 04:00 05/22/20 07:30 05/22/20 08:15 Temperature 97.5 F L 97.8 F Pulse Rate 68 73 68 Respiratory Rate 26 H 35 H 22 Blood Pressure 106/54 L 175/76 H 132/63 Pulse Oximetry 93 88 L 96 05/22/20 08:40 Temperature Pulse Rate Respiratory Rate Blood Pressure Pulse Oximetry 92 Oxygen Delivery Method High Flow Nasal Cannula Oxygen Flow Rate 5 Narrative Exam Narrative: Gen: laying prone in bed, speaking minimally, is tachypneic with speech CV: RRR, grade 2/6 systolic murmur Resp: breath sounds diffusely more coarse than yesterday without defined crackles, no wheezes Ext: no edema Objective Labs Result Diagrams: 05/22/20 04:10 05/22/20 04:10 Labs: Laboratory Results - last 24 hr 05/21/20 05/21/20 05/22/20 10:30 10:30 01:00 WBC 1.7 L* RBC 3.80 L Hgb 11.7 L Hct 34.6 L MCV 90.9 MCH 30.7 MCHC 33.8 RDW 14.3 Plt Count 114 L Neut % (Auto) Not Reportable Lymph % (Auto) Not Reportable [place] % (Auto) Not Reportable Eos % (Auto) Not Reportable Baso % (Auto) Not Reportable Neut # (Auto) Lymph # (Auto) Not Reportable [place] # (Auto) Not Reportable Eos # (Auto) Baso # (Auto) Not Reportable Total Counted 50 Seg Neutrophils % 58.0 Band Neutrophils % 8.0 H Lymphocytes % (Manual) 26.0 Atypical Lymphs % 6.0 H Monocytes % (Manual) 2.0 Neutrophils # (Manual) 1122 L RBC Morphology See below Anisocytosis 1+ H Sodium 136 L Potassium 3.4 D Chloride 109 H Carbon Dioxide 21 L BUN 11 Creatinine 0.35 L Estimated GFR > 60.0 BUN/Creatinine Ratio 31.4 H Glucose 225 H D Calcium 8.1 L Nasal Screen MRSA (PCR) Negative for mrsa 05/22/20 05/22/20 04:10 04:10 WBC 5.2 D RBC 3.85 L Hgb 11.9 L Hct 35.4 L MCV 91.8 MCH 30.9 MCHC 33.6 RDW 14.0 Plt Count 125 L Neut % (Auto) 74.5 Lymph % (Auto) 17.8 L [place] % (Auto) 7.6 Eos % (Auto) 0.0 L Baso % (Auto) 0.1 Neut # (Auto) 3900 Lymph # (Auto) 900 L [place] # (Auto) 400 Eos # (Auto) 0 Baso # (Auto) 0 Total Counted Seg Neutrophils % Band Neutrophils % Lymphocytes % (Manual) Atypical Lymphs % Monocytes % (Manual) Neutrophils # (Manual) RBC Morphology Anisocytosis Sodium 139 Potassium 3.4 Chloride 112 H Carbon Dioxide 23 BUN 13 Creatinine 0.41 L Estimated GFR > 60.0 BUN/Creatinine Ratio 31.7 H Glucose 108 D Calcium 8.1 L Nasal Screen MRSA (PCR) [facility] Medical History Aortic stenosis B-cell lymphoma Cataract Chicken pox Fecal incontinence (2004) Frequent UTI GERD (gastroesophageal reflux disease) Hearing loss Heart murmur, systolic Hypertension Migraines Pelvic relaxation Polymyalgia rheumatica Urinary incontinence (2013) Surgical History History of dilation and curettage S/P implantation of urinary electronic stimulator device Family History Father Luigi's disease, pulmonary Mother Heart disease Sister No problems noted. Grandmother No problems noted. Social History marital status: number of children: 2 household members: spouse lives independently: Yes caregiver/support person: No housing: house pets and animals: Yes education level: college occupational status: employed current occupational exposures/hazards: No seatbelt use: always working smoke detector in home: Yes fire extinguisher in home: Yes carbon monox detector in home: Yes Smoking Status: Never smoker second hand exposure: No alcohol intake: current substance use type: does not use during the past year weight has: increased > 10 lbs well-balanced diet: daily or most days caffeine: Yes eating out: 1-3 times/week Assessment & Plan Assessment & Plan narrative: 80yo woman with PMR, aortic stenosis, HTN, urinary incontinence, B-cell lymphoma, CAD s/p cardiac stenting 03/2019 here with worsening SOB and fatigue in the setting of being COVID+. Pt with acute respiratory failure with hypoxia requiring oxygen supplementation. 1) COVID pneumonia: Meeting criteria for severe infection due to SaO2 < 94 on room air - currently maintaining around 92% on 5L high flow NC O2, still quite tachypneic with talking or any movement. CXR at admission showed diffuse pulmonary infiltrates but no localized consolidation suggestive of overlying bacterial pneumonia. LDH and CRP initially elevated, with normal d-dimer. - Continue daily CBC, BMP. If not able to wean down further off high flow NC this morning, will obtain LFTs, CPK, LDH, CRP, and d-dimer. - Continue ICU care with negative pressure room and contact precautions - Continue Remdesivir 100mg daily, Dexamethasone 6mg daily - Continue oxygen, titrate as needed to keep saturations > 90% - Proning as able - Lidocaine patch today to help with back pain with proning - D/C IVF as lung sounds more coarse, concerning for developing fluid overload. Goal to keep pt more on the dry side. - High risk DVT prophylaxis with Lovenox BID dosing - Will continue to hold convalescent plasma for now 2) CAD with recent stenting: - Continue ASA and Plavix - Continue PPI due to addition of Lovenox as above and risk for bleed - Monitor closely for cardiac symptoms 3) Aortic stenosis: Recent echo stable 4) Hyperlipidemia: - Continue Rosuvastatin 5) HTN: Normotensive - Continue Lisinopril 6) PMR: - Hold prednisone for now, on dexamethasone as above DVT PPX: Lovenox as above Diet: Regular Code: DNR. Pt does not desire intubation. Dispo: Pending improvement in respiratory status, stabilization. Anticipate after hospitalization may need brief stay in SNF to help regain strength.
[2020-05-22] MEDS: PANTOPRAZOLE 40 MG VIAL IV (08:57)
[2020-05-22] MEDS: ENOXAPARIN 40 MG/0.4 ML SYRINGE SUBCUT ×2 (08:57→21:46)
[2020-05-22] MEDS: ROSUVASTATIN 10 MG TABLET 40 MG PO (08:57)
[2020-05-22] MEDS: DEXAMETHASONE 10 MG/ML VIAL 6 MG IV (08:57)
[2020-05-22] MEDS: CLOPIDOGREL 75 MG TABLET PO (08:57)
[2020-05-22] MEDS: ACETAMINOPHEN 325 MG TABLET 650 MG PO (08:57)
[2020-05-22] MEDS: LIDOCAINE PATCH 1 EACH ADH..PATCH TOP (08:58)
[2020-05-22] MEDS: lisinopriL 10 MG TABLET PO (08:58)
[2020-05-22] MEDS: ASPIRIN EC 81 MG TABLET PO (08:58)
--- NOTE | 2020-05-22 14:37 | PC.NURSE ---
Pt desatted to 82% on 5L NC. Transitioned to high flow nasal cannula. Highest titration was 12L but able to quickly wean to 5L. Pt unable to tolerate minimal activity without significant shortness of breath and desats. Placed mullins catheter. Pt has tolerated proning well and able to do so with min 1PA. Placed lidocaine patch to back and administered tylenol this AM for pt c/o discomfort with proning. SPO2 on 5L while prone 92-95%. Call light in easy reach.
[2020-05-22] MEDS: REMDESIVIR 100 MG in SODIUM CHLORIDE 0.9% 230 ML 250 ML IV (17:17)
[2020-05-22] MEDS: GABAPENTIN 300 MG CAPSULE PO (21:46)
[2020-05-22] MEDS: SENNOSIDES 8.6 MG TABLET 17.2 MG PO (21:46)
--- NOTE | 2020-05-22 22:21 | PC.NURSE ---
Patient prone from [id number], supine for dinner and declined to return to prone directly after. Patient spO2 90-92% on 5L HFNC while supine, HOB elevated 30. 2130 patient agreed to prone for bedtime. Turning was poorly tolerated, RR in upper 40's for several minutes, but spO2 remained >90%. Once settled, spO2 95%.
[2020-05-23] VITALS (11 sets, daily range): BP systolic 126–172; BP diastolic 60–70; PULSE 56–70; RESP 19–30; TEMP 35.5–36.4; O2SAT 91–98
--- NOTE | 2020-05-23 01:44 | PC.NURSE ---
04/24/2020 0040 At 0000 pt repositioned self with 2 RN assist from prone to supine in order to have BM on bedpan. Pt was anxious, tachypneic (RR 35) and SpO2 dropped to 83% at lowest on 5L high flow NC. Coughing initiated with exertion. With 15 min of rest and verbal reassurance from RN, pt became calm, RR 22 and Spo2 return to 87%. After small BM at 0040, per pt request, pt placed in supine right laying position. High flow O2 increased from 5L to 6L resulting in an increased SpO2 from 87% to 95%. Pt is calm and resting quietly now.
[2020-05-23] MEDS: PANTOPRAZOLE 40 MG TABLET PO (04:19)
[2020-05-23 05:11] LABS: Add Manual Diff / Slide Review NO; Basophils Absolute Auto 0 /uL (0-100); Basophils Percent Auto 0.1 % (0-2); Eosinophils Absolute Auto 0 /uL (0-450); Hematocrit 35.6 % (36-46); Hemoglobin 12.4 g/dL (12.0-16.0); Lymphocytes Absolute Auto 1100 /uL (1100-4500); Lymphocytes Percent Auto 17.4 % (25-40); Mean Corpuscular HGB Conc 34.8 % (30-36); Mean Corpuscular Hemoglobin 31.3 PG (26-34); Monocytes Absolute Auto 500 /uL (0-900); Monocytes Percent Auto 8.1 % (3-14); Neutrophils Absolute Auto 4600 /uL (1500-7000); Neutrophils Percent Auto 74.4 % (50-75); Platelet Count 152 X10^3/uL (150-400); Red Blood Cell Count 3.95 X10^6/uL (4.0-5.2); White Blood Cell Count 6.2 X10^3/uL (4.5-11.0)
[2020-05-23 05:32] LABS: BUN Creatinine Ratio 36.4 (6-22); Blood Urea Nitrogen 16 mg/dL (7-17); Calcium 8.5 mg/dL (8.4-10.2); Carbon Dioxide 26 mmol/L (22-32); Chloride 109 mmol/L (98-107); Estimated Glomerular Filt Rate > 60.0 mL/min (>60); Glucose 102 mg/dL (80-110); HEMOLYSIS < 15 (0-50); Potassium 3.3 mmol/L (3.4-5.1); Sodium 138 mmol/L (137-145)
--- NOTE | 2020-05-23 05:43 | PC.NURSE ---
0430: Pt SpO2 83% and tachypneic post repositioning from R supine to L supine. 0445: RT called to bedside b/c pt does not return to >90% after rest. Increased O2 from 6L to 10L NC and non-rebreather applied. RT instructs RN to pre oxygenate pt prior to any movement of pt. 0455: With 10L and non-rebreather pt's SpO2 increased to 96% and tachypnea resolved. 05:20: With non-rebreather removed, SpO2 at 89% with 10L with pt at rest and sleeping. 0530: Pt proned and SpO2 increased to 97% on 10L.
--- NOTE | 2020-05-23 06:51 | PC.NURSE ---
This shift pt expresses fear and anxiety r/t her SOB with exertion and having an upset stomach throughout the night with partial resolution with BM. Denies pain/CP/chills. Pt slept from 0000 to 0400 on 6L high flow NC. Upon repositioning pt at 0430, pt became more tachypneic (RR 45) and dropped to 83%. Proning resolved the tachynea and SpO2 returned to 96%. Pt sleeping and will continue to monitor.
[2020-05-23] MEDS: ENOXAPARIN 40 MG/0.4 ML SYRINGE SUBCUT ×2 (08:34→20:57)
[2020-05-23] MEDS: DEXAMETHASONE 10 MG/ML VIAL 6 MG IV (08:34)
[2020-05-23] MEDS: ASPIRIN EC 81 MG TABLET PO (08:34)
[2020-05-23] MEDS: ROSUVASTATIN 10 MG TABLET 40 MG PO (08:34)
[2020-05-23] MEDS: lisinopriL 10 MG TABLET PO (08:34)
[2020-05-23] MEDS: CLOPIDOGREL 75 MG TABLET PO (08:34)
[2020-05-23] MEDS: ACETAMINOPHEN 325 MG TABLET 650 MG PO (08:35)
[2020-05-23] MEDS: LIDOCAINE PATCH 1 EACH ADH..PATCH TOP (08:35)
--- NOTE | 2020-05-23 08:57 | DI.RAD.S_ITS ---
PROCEDURE: XR CHEST 1V INDICATIONS: worsening respiratory status with COVID, increased crackles TECHNIQUE: One view of the chest was acquired. COMPARISON: [facility], CR, XR CHEST 1V, 05/20/2020, 13:24. FINDINGS: Surgical changes and devices: None. Lungs and pleura: Bilateral patchy airspace opacities in both lungs appear slightly more prominent when compared to the radiographs from 05/20/2020. No pleural effusions or pneumothorax. Mediastinum: Mediastinal contours appear normal. Heart size is normal. Mild aortic atherosclerotic calcifications. Bones and chest wall: No suspicious bony lesions. Overlying soft tissues appear unremarkable. IMPRESSION: Mild mildly increased patchy bilateral airspace opacities when compared to the prior radiographs. Dictated by: Fer Forrest M.D. on 05/23/2020 at 9:48 Approved by: Fer Forrest M.D. on 05/23/2020 at 9:49
--- NOTE | 2020-05-23 09:14 | P.PN_ITS ---
Subjective Subjective Date Patient Seen: 05/23/20 Time Patient Seen: 08:10 Interval history: The pt reports feeling very concerned about her breathing. She is severely SOB with any movement, which makes her feel very anxious. She denies any other complaints this morning. No chest pain. As per nursing, the pt continues to desat with movement. When prone, she is 92- 94% on 6L high flow NC. When sitting, she requires up to 12L high flow, sometimes with nonrebreather on top as well. The pt tolerated the prone position relatively well yesterday. She had mild nausea overnight. She did have a mild bloody nose this morning. Exam Vital Signs (past 8 hours): - 05/23/20 04:00 05/23/20 07:57 Temperature 96.4 F L Pulse Rate 70 Respiratory Rate 30 H Blood Pressure 138/64 Pulse Oximetry 93 97 Oxygen Delivery Method High Flow Nasal Cannula Oxygen Flow Rate 6 Narrative Exam Narrative: Gen: sitting in bed, speaking minimally and very tachypneic with any speech CV: RRR, grade 2/6 systolic murmur Resp: breath sounds diffusely more coarse than yesterday with fine crackles bilateral bases, no wheezes, tachypneic Ext: no edema Objective Labs Result Diagrams: 05/23/20 04:05 05/23/20 04:05 Labs: Laboratory Results - last 24 hr 05/23/20 05/23/20 04:05 04:05 WBC 6.2 RBC 3.95 L Hgb 12.4 Hct 35.6 L MCV 90.0 MCH 31.3 MCHC 34.8 RDW 14.0 Plt Count 152 Neut % (Auto) 74.4 Lymph % (Auto) 17.4 L [place] % (Auto) 8.1 Eos % (Auto) 0.0 L Baso % (Auto) 0.1 Neut # (Auto) 4600 Lymph # (Auto) 1100 [place] # (Auto) 500 Eos # (Auto) 0 Baso # (Auto) 0 Sodium 138 Potassium 3.3 L Chloride 109 H Carbon Dioxide 26 BUN 16 Creatinine 0.44 L Estimated GFR > 60.0 BUN/Creatinine Ratio 36.4 H Glucose 102 Calcium 8.5 PFSH Medical History Aortic stenosis B-cell lymphoma Cataract Chicken pox Fecal incontinence (2004) Frequent UTI GERD (gastroesophageal reflux disease) Hearing loss Heart murmur, systolic Hypertension Migraines Pelvic relaxation Polymyalgia rheumatica Urinary incontinence (2013) Surgical History History of dilation and curettage S/P implantation of urinary electronic stimulator device Family History Father Luigi's disease, pulmonary Mother Heart disease Sister No problems noted. Grandmother No problems noted. Social History marital status: number of children: 2 household members: spouse lives independently: Yes caregiver/support person: No housing: house pets and animals: Yes education level: college occupational status: employed current occupational exposures/hazards: No seatbelt use: always working smoke detector in home: Yes fire extinguisher in home: Yes carbon monox detector in home: Yes Smoking Status: Never smoker second hand exposure: No alcohol intake: current substance use type: does not use during the past year weight has: increased > 10 lbs well-balanced diet: daily or most days caffeine: Yes eating out: 1-3 times/week Assessment & Plan Assessment & Plan narrative: 80yo woman with PMR, aortic stenosis, HTN, urinary incontinence, B-cell lymphoma, CAD s/p cardiac stenting 03/2019 here with worsening SOB and fatigue in the setting of being COVID+. Pt with acute respiratory failure with hypoxia requiring oxygen supplementation. 1) COVID pneumonia: Meeting criteria for severe infection due to SaO2 < 94 on room air - currently maintaining around 90% on 10L high flow NC O2 when seated and 92-94% on 6L when prone, still quite tachypneic with talking or any movement. CXR at admission showed diffuse pulmonary infiltrates but no localized consolidation suggestive of overlying bacterial pneumonia. Lungs with worsening coarseness and now more defined crackles on exam as well. LDH and CRP initially elevated, with normal d-dimer at admission. - Continue daily CBC, BMP - LFTs, CPK, LDH, CRP, and d-dimer, PT/PTT today due to worsening respiratory status - CXR this morning due to crackles on exam concerning for superimposed bacterial infection - Start empiric treatment with ceftriaxone and azithromycin - Sputum culture if able - Continue ICU care with negative pressure room and contact precautions - Continue Remdesivir 100mg daily, Dexamethasone 6mg daily - Continue oxygen, titrate as needed to keep saturations > 90% - Proning as able - Lidocaine patch today to help with back pain with proning - High risk DVT prophylaxis with Lovenox BID dosing - Will continue to hold convalescent plasma for now - PICC line placement today to help with access - Ativan PRN to help with anxiety from SOB - Discussed BiPAP with the pt today, if needed. She is agreeable to trial if necessary. Again confirmed pt is DNR/DNI. - Zofran PRN for nausea 2) CAD with recent stenting: Pt with slight nose bleed this morning. - Hold Aspirin today due to slight bleed, on multiple blood thinners - Continue Plavix - Continue PPI due to addition of Lovenox as above and risk for bleed - Monitor closely for cardiac symptoms 3) Aortic stenosis: Recent echo stable 4) Hyperlipidemia: - Continue Rosuvastatin 5) HTN: Normotensive - Continue Lisinopril 6) PMR: - Hold prednisone for now, on dexamethasone as above DVT PPX: Lovenox as above Diet: Regular Code: DNR. Pt does not desire intubation. Dispo: Pending improvement in respiratory status, stabilization. Anticipate after hospitalization will likely need stay in SNF to help regain strength.
[2020-05-23 10:28] LABS: INR 1.2 (0.9-1.3); Prothrombin Time 13.3 SECONDS (10.1-12.7)
[2020-05-23 10:31] LABS: D Dimer 240 ng/mL (<230); PTT Partial Thromboplastin Tim 36 SECONDS (26.4-36.2)
[2020-05-23 10:36] LABS: Alanine Aminotransferase 52 IU/L (<35); Albumin 3.3 g/dL (3.5-5.0); Albumin Globulin Ratio 1.3 (1.0-2.8); Alkaline Phosphatase 68 U/L (38-126); Aspartate Aminotransferase 93 IU/L (14-36); Bilirubin Total 0.5 mg/dL (0.2-1.3); Bilirubin Unconjugated 0.6 mg/dL (0.0-1.1); C-Reactive Protein Quant 1.1 mg/dL (<1.0); Creatine Kinase 55 U/L (30-135); Globulin 2.6 g/dL (1.7-4.1); HEMOLYSIS < 15 (0-50); Lactate Dehydrogenase 1032 U/L (313-618); Total Protein 5.9 g/dL (6.3-8.2)
[2020-05-23] MEDS: CEFTRIAXONE 1 GM/50 ML FROZ.PIGGY IV (11:11)
[2020-05-23] MEDS: AZITHROMYCIN 500 MG in DEXTROSE 5% IN WATER 250 ML IV (12:13)
--- NOTE | 2020-05-23 14:19 | PC.NURSE ---
Addendum entered by Caity Arceo R.N. 05/23/20 14:55: Add, Should read HFNC @ 15L, Pt has tolerated weaning a little bit with attempts at proning, tolerating being on side with lidocaine patch to back, declined pain control this shift. Poor PO intake. Doing better with meal shakes. Original Note: Am shift Pt remains anxious, with SOB with any activity. She is using the HFNC @ 5L and Spo2 97% at rest. Lungs are coarse and nonproductive cough persists. Pt not very toleratant of proning, she has been able to tolerate laying to her L side for the latter half of AM shift. Prince remains patent with good output. IV to L hand with some weeping ruthie IV site, and positional for use with IV ABX. PICC to be placed by DI later today.
--- NOTE | 2020-05-23 16:01 | DI.RAD.S_ITS ---
PROCEDURE: XR CHEST FOR PICC 1V INDICATIONS: new PICC placement COMPARISON: [facility], CR, XR CHEST 1V, 05/23/2020, 9:01. [facility], CR, XR CHEST 1V, 05/20/2020, 13:24. FINDINGS: PICC was placed by the intravenous therapy team from the right side. Fluoroscopic spot film demonstrates the tip of PICC projecting to the area of the distal SVC. IMPRESSION: Tip of PICC projects to the area of distal SVC. There currently is a generalized pneumonia pattern, possibly atypical or viral in origin. Dictated by: Antoni Ly M.D. on 05/23/2020 at 16:36 Approved by: Antoni Ly M.D. on 05/23/2020 at 16:36
[2020-05-23] MEDS: INSULIN ASPART 100 UNIT/ML INSULN PEN SUBCUT (17:20)
[2020-05-23] MEDS: POTASSIUM CHLORIDE 40 MEQ in SODIUM CHLORIDE 0.9% 500 ML 130 ML IV (17:21)
[2020-05-23] MEDS: REMDESIVIR 100 MG in SODIUM CHLORIDE 0.9% 230 ML 250 ML IV (17:25)
[2020-05-23] MEDS: SODIUM CHLORIDE 0.9% 250 ML 21 ML IV (17:57)
[2020-05-23] MEDS: SODIUM CHLORIDE 0.9% FLUSH 10 ML IV (18:57)
[2020-05-23 20:58] LABS: PCO2 ABG 32.2 mmHg (35-45); PO2 ABG 88 mmHg (80-100); pH ABG 7.45 (7.35-7.45)
[2020-05-23] MEDS: GABAPENTIN 300 MG CAPSULE PO (20:58)
[2020-05-23] MEDS: SENNOSIDES 8.6 MG TABLET 17.2 MG PO (20:58)
[2020-05-23 20:59] LABS: Fractionated Inspired Oxygen 55; HCO3 ABG 22 mmol/L (22-26); Oxygen Saturation ABG 97 % (95-100); TCO2 ABG 23 mmol/L (21-31)
--- NOTE | 2020-05-23 22:15 | PC.NURSE ---
Pt able to turn side to side but no prone. O2 sats maintained at 94% on 45L 55% heated hiflo. Has non productive cough, encouraged to use IS as tolerated. Poor PO intake.
[2020-05-24] VITALS (46 sets, daily range): BP systolic 128–157; BP diastolic 60–70; PULSE 54–77; RESP 17–37; TEMP 36.1–36.9; O2SAT 89–98
[2020-05-24] MEDS: LORazepam 0.5 MG TABLET PO ×2 (01:05→20:45)
--- NOTE | 2020-05-24 02:08 | PC.NURSE ---
Addendum entered by Gisela Holloway 05/24/20 06:24: 0500: Pt has been sleeping since 0200 and woke up during 0500 blood draw. Pt requests to be supine and quickly her SpO2 drops to 83% and RR 36. Pt pulled up higher in bed and placed L side laying and now maintains SpO2 93%. High flow NC has been at 46L and 56% during this entire shift mechanic. Original Note: 2300: At start of shift pt appears anxious fatigued. Pt denies pain but reports continued difficulty breathing. Pt destats into elver low 80s and becomes tachypneic upon repositioning (Supine L to R side laying at 0030). Pt reports concerns over SOB w/ exertion, needing to set up meals on wheels for her 83y.o. spouse at home and contacting her insurance to manage due payments. Pt verbally reassured through education about her dx and tx. This Rn will inform day shift of possible need for case management to help with pt's non medical needs. 0200: Pt given PO ativan 0.5mg for anxiety and placed into prone position, resulting in SpO2 going from 84% to 98% and pt reports less work to breath.
[2020-05-24 05:10] LABS: Add Manual Diff / Slide Review NO; Basophils Absolute Auto 0 /uL (0-100); Basophils Percent Auto 0.7 % (0-2); Eosinophils Absolute Auto 0 /uL (0-450); Eosinophils Percent Auto 0.1 % (2-4); Hematocrit 33.9 % (36-46); Hemoglobin 11.6 g/dL (12.0-16.0); Lymphocytes Absolute Auto 700 /uL (1100-4500); Lymphocytes Percent Auto 18.7 % (25-40); Mean Corpuscular HGB Conc 34.2 % (30-36); Mean Corpuscular Hemoglobin 31.1 PG (26-34); Monocytes Absolute Auto 300 /uL (0-900); Monocytes Percent Auto 8.7 % (3-14); Neutrophils Absolute Auto 2800 /uL (1500-7000); Neutrophils Percent Auto 71.8 % (50-75); Platelet Count 161 X10^3/uL (150-400); Red Blood Cell Count 3.72 X10^6/uL (4.0-5.2); White Blood Cell Count 3.8 X10^3/uL (4.5-11.0)
[2020-05-24 05:18] LABS: BUN Creatinine Ratio 43.2 (6-22); Blood Urea Nitrogen 16 mg/dL (7-17); Calcium 8.3 mg/dL (8.4-10.2); Carbon Dioxide 27 mmol/L (22-32); Chloride 108 mmol/L (98-107); Estimated Glomerular Filt Rate > 60.0 mL/min (>60); Glucose 115 mg/dL (80-110); HEMOLYSIS < 15 (0-50); Potassium 3.7 mmol/L (3.4-5.1); Sodium 140 mmol/L (137-145)
[2020-05-24] MEDS: PANTOPRAZOLE 40 MG TABLET PO (06:30)
--- NOTE | 2020-05-24 08:49 | RT ---
pt asleep, water level good, no distress noted.
--- NOTE | 2020-05-24 09:14 | DIET.PN ---
Addendum entered by Sangeetha Gamboa 05/24/20 16:35: modified pts diet to Easy Chew per nursing request. Original Note: Dietary Progress Note Pt having increasing difficulty c POs secondary to O2 desaturation. Sending ONS Glucerna at breakfast and dinner, ONS Ensure Max c lunch. Nursing encouraging pt to sip ONS throughout day to support nutrition needs c less work of chewing.
[2020-05-24] MEDS: ROSUVASTATIN 10 MG TABLET 40 MG PO (09:49)
[2020-05-24] MEDS: lisinopriL 10 MG TABLET PO (09:50)
[2020-05-24] MEDS: DEXAMETHASONE 10 MG/ML VIAL 6 MG IV (09:50)
[2020-05-24] MEDS: LIDOCAINE PATCH 1 EACH ADH..PATCH TOP (09:53)
[2020-05-24] MEDS: CEFTRIAXONE 1 GM/50 ML FROZ.PIGGY IV (09:55)
[2020-05-24] MEDS: AZITHROMYCIN 500 MG in DEXTROSE 5% IN WATER 250 ML IV (11:00)
[2020-05-24 11:08] LABS: INR 1.1 (0.9-1.3); Prothrombin Time 13.2 SECONDS (10.1-12.7)
[2020-05-24 11:10] LABS: PTT Partial Thromboplastin Tim 31 SECONDS (26.4-36.2)
--- NOTE | 2020-05-24 11:30 | PM.PN.1 ---
Subjective Subjective Date Patient Seen: 05/24/20 Time Patient Seen: 07:30 Interval history: The pt this morning continues to feel very SOB with any movement. She states that she is feeling more relaxed, however. She denies any chest pain, abdominal pain. She has been having regular BMs. As per nursing, the pt did not tolerate proning very well overnight. She is currently on 45-46L heated high flow NC at 50% FiO2. She seems to tolerate proning better after receiving the Ativan. She did have significant bleeding from her PICC line site under the dressing this morning. Exam Vital Signs (past 8 hours): - 05/24/20 04:16 05/24/20 05:00 05/24/20 06:03 Temperature 98.2 F Pulse Rate 56 L 61 55 L Respiratory Rate 25 H 26 H 28 H Blood Pressure 148/68 H Pulse Oximetry 98 97 91 05/24/20 08:00 05/24/20 08:47 Temperature 97.8 F Pulse Rate 59 L 55 L Respiratory Rate 22 28 H Blood Pressure 134/63 Pulse Oximetry 94 94 Fraction of Inspired Oxygen 0.56 Oxygen Delivery Method Heated High Flow Oxygen Flow Rate 45 Narrative Exam Narrative: Gen: sitting in bed, speaking minimally and very tachypneic with any speech CV: RRR, grade 2/6 systolic murmur Resp: breath sounds improved from yesterday without crackles present, no wheezes, tachypneic Ext: no edema Objective Labs Result Diagrams: 05/24/20 05:00 05/24/20 05:00 Labs: Laboratory Results - last 24 hr 05/23/20 05/24/20 05/24/20 20:46 05:00 05:00 WBC 3.8 L RBC 3.72 L Hgb 11.6 L Hct 33.9 L MCV 91.0 MCH 31.1 MCHC 34.2 RDW 14.0 Plt Count 161 Neut % (Auto) 71.8 Lymph % (Auto) 18.7 L Mayes % (Auto) 8.7 Eos % (Auto) 0.1 L Baso % (Auto) 0.7 Neut # (Auto) 2800 Lymph # (Auto) 700 L Mayes # (Auto) 300 Eos # (Auto) 0 Baso # (Auto) 0 PT INR APTT ABG pH 7.45 ABG pCO2 32.2 L ABG pO2 88 ABG HCO3 22 ABG Total CO2 23 ABG O2 Saturation 97 ABG Base Excess -2.0 FiO2 55 Sodium 140 Potassium 3.7 Chloride 108 H Carbon Dioxide 27 BUN 16 Creatinine 0.37 L Estimated GFR > 60.0 BUN/Creatinine Ratio 43.2 H Glucose 115 H Calcium 8.3 L Magnesium 2.0 05/24/20 10:50 WBC RBC Hgb Hct MCV MCH MCHC RDW Plt Count Neut % (Auto) Lymph % (Auto) Mayes % (Auto) Eos % (Auto) Baso % (Auto) Neut # (Auto) Lymph # (Auto) Mayes # (Auto) Eos # (Auto) Baso # (Auto) PT 13.2 H INR 1.1 APTT 31 ABG pH ABG pCO2 ABG pO2 ABG HCO3 ABG Total CO2 ABG O2 Saturation ABG Base Excess FiO2 Sodium Potassium Chloride Carbon Dioxide BUN Creatinine Estimated GFR BUN/Creatinine Ratio Glucose Calcium Magnesium COUNTS INCLUDE 234 BEDS AT THE [facility] Medical History Aortic stenosis B-cell lymphoma Cataract Chicken pox Fecal incontinence (2004) Frequent UTI GERD (gastroesophageal reflux disease) Hearing loss Heart murmur, systolic Hypertension Migraines Pelvic relaxation Polymyalgia rheumatica Urinary incontinence (2013) Surgical History History of dilation and curettage S/P implantation of urinary electronic stimulator device Family History Father Luigi's disease, pulmonary Mother Heart disease Sister No problems noted. Grandmother No problems noted. Social History marital status: number of children: 2 household members: spouse lives independently: Yes caregiver/support person: No housing: house pets and animals: Yes education level: college occupational status: employed current occupational exposures/hazards: No seatbelt use: always working smoke detector in home: Yes fire extinguisher in home: Yes carbon monox detector in home: Yes Smoking Status: Never smoker second hand exposure: No alcohol intake: current substance use type: does not use during the past year weight has: increased > 10 lbs well-balanced diet: daily or most days caffeine: Yes eating out: 1-3 times/week Assessment & Plan Assessment & Plan narrative: 80yo woman with PMR, aortic stenosis, HTN, urinary incontinence, B-cell lymphoma, CAD s/p cardiac stenting 03/2019 here with worsening SOB and fatigue in the setting of being COVID+. Pt with acute respiratory failure with hypoxia requiring oxygen supplementation. 1) COVID pneumonia: Meeting criteria for severe infection due to SaO2 < 94 on room air - currently maintaining around 94% on 45L heated high flow NC with FiO2 50%. Continues to desat more significantly when not prone. CXR at admission showed diffuse pulmonary infiltrates but no localized consolidation suggestive of overlying bacterial pneumonia, repeat CXR yesterday more concerning for superimposed bacterial pneumonia and antibiotics initiated. Lung sounds improved today. - Continue daily CBC, BMP - Continue ceftriaxone and azithromycin - Sputum culture if able - Continue ICU care with negative pressure room and contact precautions - Continue Remdesivir 100mg daily, Dexamethasone 6mg daily - Continue oxygen, titrate as needed to keep saturations > 90% - Proning as able - Lidocaine patch today to help with back pain with proning - High risk DVT prophylaxis with Lovenox BID dosing. Delayed morning dose due to bleeding from PICC site. - Will continue to hold convalescent plasma for now - PICC line in place - Ativan PRN to help with anxiety from SOB - Discussed BiPAP with the pt again today, if needed. She is agreeable to trial if necessary. Again confirmed pt is DNR/DNI. - Zofran PRN for nausea 2) CAD with recent stenting: Pt with bleeding from PICC site - Hold Aspirin today due to bleed, on multiple blood thinners - Continue Plavix - Continue PPI due to addition of Lovenox as above and risk for bleed - Monitor closely for cardiac symptoms 3) Aortic stenosis: Recent echo stable 4) Hyperlipidemia: - Continue Rosuvastatin 5) HTN: Normotensive - Continue Lisinopril 6) PMR: - Hold prednisone for now, on dexamethasone as above DVT PPX: Lovenox as above Diet: Regular Code: DNR. Pt does not desire intubation. Dispo: Pending improvement in respiratory status, stabilization. Anticipate after hospitalization will likely need stay in SNF to help regain strength.
--- NOTE | 2020-05-24 11:48 | PC.NURSE ---
Am Start of shift Pt noted to be actively bleeding from RUE at insertion site for PICC, saturated through dressing. Pressure wrap applied, and also directed pressure x10 min. Pt appears to have no further bleeding at present. Call to Dr Bourgeois and orders rec'd for Coag panel and hold blood thinner medications this AM. Explained this to Patient, who verbalizes understanding. Pt is side lying at present.
[2020-05-24] MEDS: REMDESIVIR 100 MG in SODIUM CHLORIDE 0.9% 230 ML 250 ML IV (16:43)
[2020-05-24] MEDS: SODIUM CHLORIDE 0.9% FLUSH 10 ML IV (20:44)
[2020-05-24] MEDS: GABAPENTIN 300 MG CAPSULE PO (20:45)
--- NOTE | 2020-05-24 21:47 | PC.NURSE ---
Pt O2 sats maintained >95% on Heated [place] 45L 56%. Has proned for approximately 50% of this shift and tolerating well. Appetite improved with softer foods. PICC line dressing changed, no oozing noted, both ports hep flushed. Allevyn dressing applied to reddened area around the gluteal cleft. Pt denies pain or discomfort at this time. Will continue to closely monitor
[2020-05-25] VITALS (30 sets, daily range): BP systolic 130–167; BP diastolic 60–73; PULSE 45–75; RESP 18–34; TEMP 35.9–36.9; O2SAT 89–99
--- NOTE | 2020-05-25 01:03 | PC.NURSE ---
Patient requesting to reposition to her back. Encouraged continued proning or in the least semi-prone. Patient persistent. Sp02 down to 85% after 10 min. Repositioned back to proning with an increase up to 96%.
[2020-05-25] MEDS: ACETAMINOPHEN 325 MG TABLET 650 MG PO (03:01)
[2020-05-25 06:18] LABS: Add Manual Diff / Slide Review NO; Basophils Absolute Auto 0 /uL (0-100); Basophils Percent Auto 0.2 % (0-2); Eosinophils Absolute Auto 0 /uL (0-450); Hematocrit 35.2 % (36-46); Hemoglobin 12.1 g/dL (12.0-16.0); Lymphocytes Absolute Auto 900 /uL (1100-4500); Lymphocytes Percent Auto 15.4 % (25-40); Mean Corpuscular HGB Conc 34.3 % (30-36); Mean Corpuscular Hemoglobin 30.9 PG (26-34); Mean Corpuscular Volume 90.1 fL (80-100); Monocytes Absolute Auto 600 /uL (0-900); Monocytes Percent Auto 10.2 % (3-14); Neutrophils Absolute Auto 4500 /uL (1500-7000); Neutrophils Percent Auto 74.2 % (50-75); Platelet Count 176 X10^3/uL (150-400); Red Blood Cell Count 3.91 X10^6/uL (4.0-5.2); Red Cell Distribution Width 14.2 % (11.6-14.8)
[2020-05-25 06:20] LABS: INR 1.1 (0.9-1.3); Prothrombin Time 12.8 SECONDS (10.1-12.7)
[2020-05-25 06:22] LABS: PTT Partial Thromboplastin Tim 27 SECONDS (26.4-36.2)
[2020-05-25 06:25] LABS: Blood Urea Nitrogen 18 mg/dL (7-17); Calcium 8.7 mg/dL (8.4-10.2); Carbon Dioxide 28 mmol/L (22-32); Chloride 105 mmol/L (98-107); Estimated Glomerular Filt Rate > 60.0 mL/min (>60); Glucose 100 mg/dL (80-110); HEMOLYSIS < 15 (0-50); Potassium 3.8 mmol/L (3.4-5.1); Sodium 137 mmol/L (137-145)
[2020-05-25] MEDS: lisinopriL 10 MG TABLET PO (08:32)
[2020-05-25] MEDS: ROSUVASTATIN 10 MG TABLET 40 MG PO (08:32)
[2020-05-25] MEDS: DEXAMETHASONE 10 MG/ML VIAL 6 MG IV (08:32)
[2020-05-25] MEDS: CEFTRIAXONE 1 GM/50 ML FROZ.PIGGY IV (08:33)
[2020-05-25] MEDS: LIDOCAINE PATCH 1 EACH ADH..PATCH TOP (08:33)
--- NOTE | 2020-05-25 09:56 | PM.PN.1 ---
Subjective Subjective Date Patient Seen: 05/25/20 Time Patient Seen: 10:08 Interval history: Patient feeling less anxious today. Has had her O2 reduced over the last 24 hours. Energy level is not changed. Still short of breath when she gets up to move at all. Not getting up much. Did prone quite a bit last night which seemed to help. She feels it is hard to do because of her back pain and her inability to put her face in a comfortable position. She has no other changes or complaint. apparently has been getting sick which is making her more anxious. Does not have help at home. His children are out of state. Her 1 daughter who lives here does not want to go into the house does of her risk of getting sick. No other significant complaints for her today. No abdominal pain. Bowel movements have been good. No urinary changes. Exam Vital Signs (past 8 hours): - 05/25/20 02:00 05/25/20 02:30 05/25/20 03:00 Temperature Pulse Rate 65 63 61 Respiratory Rate 29 H 28 H 29 H Blood Pressure Pulse Oximetry 97 96 89 L 05/25/20 03:30 05/25/20 04:00 05/25/20 04:30 Temperature Pulse Rate 61 57 L 55 L Respiratory Rate 26 H 25 H 22 Blood Pressure Pulse Oximetry 98 98 99 05/25/20 05:00 05/25/20 05:30 05/25/20 05:52 Temperature Pulse Rate 54 L 61 68 Respiratory Rate 22 23 24 Blood Pressure 167/73 H Pulse Oximetry 99 99 98 05/25/20 06:00 05/25/20 06:08 05/25/20 06:25 Temperature 97.7 F Pulse Rate 68 56 L Respiratory Rate 21 22 Blood Pressure 167/73 H Pulse Oximetry 98 97 98 05/25/20 08:00 05/25/20 08:50 Temperature 97.5 F L Pulse Rate 67 Respiratory Rate 18 Blood Pressure 151/67 H Pulse Oximetry 98 93 Fraction of Inspired Oxygen 50 Oxygen Delivery Method Heated High Flow Oxygen Flow Rate 40 Narrative Exam Narrative: Alert female short of breath with just speaking. In no acute distress otherwise. Mucous membranes moist. Neck supple without adenopathy. Lungs are clear today. Heart regular rate and rhythm. Abdomen is soft positive bowel sounds nontender. Extremities without significant edema. Neurologic exam appears intact. Objective Labs Result Diagrams: 05/25/20 06:00 05/25/20 06:00 Labs: Laboratory Results - last 24 hr 05/24/20 05/25/20 05/25/20 10:50 06:00 06:00 WBC 6.0 D RBC 3.91 L Hgb 12.1 Hct 35.2 L MCV 90.1 MCH 30.9 MCHC 34.3 RDW 14.2 Plt Count 176 Neut % (Auto) 74.2 Lymph % (Auto) 15.4 L Bill[place] % (Auto) 10.2 Eos % (Auto) 0.0 L Baso % (Auto) 0.2 Neut # (Auto) 4500 Lymph # (Auto) 900 L [place] # (Auto) 600 Eos # (Auto) 0 Baso # (Auto) 0 PT 13.2 H 12.8 H INR 1.1 1.1 APTT 31 27 Sodium Potassium Chloride Carbon Dioxide BUN Creatinine Estimated GFR BUN/Creatinine Ratio Glucose Calcium 05/25/20 06:00 WBC RBC Hgb Hct MCV MCH MCHC RDW Plt Count Neut % (Auto) Lymph % (Auto) Bill[place] % (Auto) Eos % (Auto) Baso % (Auto) Neut # (Auto) Lymph # (Auto) Bill[place] # (Auto) Eos # (Auto) Baso # (Auto) PT INR APTT Sodium 137 Potassium 3.8 Chloride 105 Carbon Dioxide 28 BUN 18 H Creatinine 0.45 L Estimated GFR > 60.0 BUN/Creatinine Ratio 40.0 H Glucose 100 Calcium 8.7 PFSH Medical History Aortic stenosis B-cell lymphoma Cataract Chicken pox Fecal incontinence (2004) Frequent UTI GERD (gastroesophageal reflux disease) Hearing loss Heart murmur, systolic Hypertension Migraines Pelvic relaxation Polymyalgia rheumatica Urinary incontinence (2013) Surgical History History of dilation and curettage S/P implantation of urinary electronic stimulator device Family History Father Luigi's disease, pulmonary Mother Heart disease Sister No problems noted. Grandmother No problems noted. Social History marital status: number of children: 2 household members: spouse lives independently: Yes caregiver/support person: No housing: house pets and animals: Yes education level: college occupational status: employed current occupational exposures/hazards: No seatbelt use: always working smoke detector in home: Yes fire extinguisher in home: Yes carbon monox detector in home: Yes Smoking Status: Never smoker second hand exposure: No alcohol intake: current substance use type: does not use during the past year weight has: increased > 10 lbs well-balanced diet: daily or most days caffeine: Yes eating out: 1-3 times/week Assessment & Plan Assessment & Plan narrative: COVID pneumonia: Meeting criteria for severe infection due to SaO2 < 94 on room air patient with slow improvement. Her FiO2 is down to 42% and she is down to 40 L oxygen heated. No other change. Has been working it being prone. Certainly did a better job last night. We discussed importance of this and she will continue to try. As her uncomfortable for her but she understands the importance. Otherwise seems to be stable. - Continue daily CBC, BMP - Continue ICU care with negative pressure room and contact precautions - Continue Remdesivir 100mg daily, Dexamethasone 6mg daily - Continue oxygen, titrate as needed to keep saturations > 90% - Proning as able - Will continue to hold convalescent plasma for now - PICC line in place - Ativan PRN to help with anxiety from SOB - Discussed BiPAP with the pt again today, if needed. She is agreeable to trial if necessary. Again confirmed pt is DNR/DNI. - Zofran PRN for nausea Superimposed bacterial pneumonia from change in x-ray yesterday. Was placed on Rocephin and. Seems to be tolerating well. No fever and improving change. Will continue IV antibiotics. Awaiting sputum culture has not been obtained at this point Anxiety. Mostly related to her pronating and her concern for her . Will continue benzodiazepine as needed. No other changes at this time. Do not think we need more. Bleeding diathesis. Yesterday had been having some bleeding out her PICC line had a nose bleed. No evidence of further bleeding at this time. Due to her high risk for clotting with severe COVID and her recent stenting will continue her Plavix continue her Lovenox and discontinue her aspirin will watch closely. Certainly concerning but no evidence of bleeding in any other sites. CAD with recent stenting: Seems to be stable. No evidence of cardiac symptoms at this time. Hopefully with Plavix and Lovenox she should be stable. Hold aspirin at this point. Will watch closely - Monitor closely for cardiac symptoms Aortic stenosis: Recent echo stable Hyperlipidemia: - Continue Rosuvastatin HTN: Normotensive - Continue Lisinopril PMR: - Hold prednisone for now, on dexamethasone as above GI prophylaxis. Will continue on PPI. Certainly with bleeding issues would be safest. DVT PPX: Lovenox as above Diet: Regular Code: DNR. Pt does not desire intubation. Dispo: Patient was slow improvement in her respiratory status. Still patient is in pretty severe medical position. Well she slowly improving she still has significant lung disease. We discussed importance of proning. She will do her best. This is going to be a slow process but certainly making positive changes. Expect several more days of treatment needed she understands. Greater than 45 minutes spent with patient and care coordination
[2020-05-25] MEDS: LORazepam 0.5 MG TABLET PO ×2 (10:17→20:09)
[2020-05-25] MEDS: CLOPIDOGREL 75 MG TABLET PO (10:17)
[2020-05-25] MEDS: PANTOPRAZOLE 40 MG TABLET PO (10:17)
[2020-05-25] MEDS: AZITHROMYCIN 500 MG in DEXTROSE 5% IN WATER 250 ML IV (13:22)
--- NOTE | 2020-05-25 14:57 | PC.NURSE ---
AM shift RT working with patient to attempt to wean down off O2, Pt is at 40L and 48% Fio2 and tolerating well. Proning is going a little better today. Tolerating with encouragement. Lungs are dim. Pt is tearful, social work consulting to assist with elderly spouse at home. Given ativan PO and this is helping. PT OT ordered to help prevent further deconditioning. RT to wean further at 1500. PICC patent. Using call light for needs.
--- NOTE | 2020-05-25 16:23 | RT ---
Addendum entered by Washington Mireles, RT 05/25/20 17:45: At appx 1630, pt turned back to supine, and O2 needs increased. I was called to room. While eating dinner, O2 sats consistantly 87% Initially increased flow to 40LPM and 55%, finally titrating up to flow of 55LPM and Fio2 of 60%, O2 sats 91% Original Note: Pt remains on HHFNC. Was able to wean down to 30 LPM and FIO2 to 50%, O2 sats 96%. C/o irritation on ears where strap makes contact; adjusted strap to go over ear auricle. C/O dyspnea with exertion.
[2020-05-25] MEDS: SODIUM CHLORIDE 0.9% 250 ML 21 ML IV (16:44)
[2020-05-25] MEDS: REMDESIVIR 100 MG in SODIUM CHLORIDE 0.9% 230 ML 250 ML IV (16:44)
[2020-05-25] MEDS: GABAPENTIN 300 MG CAPSULE PO (20:08)
[2020-05-25] MEDS: ENOXAPARIN 40 MG/0.4 ML SYRINGE SUBCUT (20:09)
[2020-05-25] MEDS: SODIUM CHLORIDE 0.9% FLUSH 10 ML IV (20:09)
--- NOTE | 2020-05-25 20:40 | PC.NURSE ---
shift note: Pt experienced drop in O2 sats when turning from prone position to supine from 98% to 88%. Breath sounds audible throughout clear but diminished, without crackles or ronchi. FIO2 increased to 60% and O2 sats improved to 94-95%. Remained in high fowlers for dinner then placed in L side lying position. States she wants to wait until later in the evening to prone as shoulders are sore. Declines offer of pain medication.
[2020-05-25] MEDS: ONDANSETRON 4 MG/2 ML INJ IV (21:42)
[2020-05-26] VITALS (21 sets, daily range): BP systolic 108–122; BP diastolic 53–60; PULSE 45–84; RESP 18–32; TEMP 36.2–36.8; O2SAT 92–99
--- NOTE | 2020-05-26 02:12 | PC.NURSE ---
Addendum entered by Katharine Andre R.N. 05/26/20 06:33: Patient prone until approximately 0445. Repositioned right side lying. Sp02 88% with movement but consistently maintaining >93% after. Patient c/o discomfort everywhere when prone but refuses offered medication for pain and anxiety offered X 3. [facility] unchanged since start of shift at 45L/60% Fi02. Original Note: 2330 Care assumed -patient received asleep in NAD right side lying with Sp02 91%. Allowed to rest. 0135 RR up to 42 with Sp02 84%. Patient noted to have turned onto her back. Assited patient to prone with improvement in RR to 27 and Sp02 97%. Patient very resistant to prone position due to back and neck discomfort. Strongly encouraged and educated on it's necessity.
[2020-05-26 05:30] LABS: Add Manual Diff / Slide Review NO; Basophils Absolute Auto 0 /uL (0-100); Basophils Percent Auto 0.4 % (0-2); Eosinophils Absolute Auto 0 /uL (0-450); Eosinophils Percent Auto 0.1 % (2-4); Hematocrit 36.7 % (36-46); Hemoglobin 12.5 g/dL (12.0-16.0); Lymphocytes Absolute Auto 1400 /uL (1100-4500); Lymphocytes Percent Auto 15.2 % (25-40); Mean Corpuscular HGB Conc 34.1 % (30-36); Monocytes Absolute Auto 900 /uL (0-900); Monocytes Percent Auto 9.5 % (3-14); Neutrophils Absolute Auto 7100 /uL (1500-7000); Neutrophils Percent Auto 74.8 % (50-75); Platelet Count 226 X10^3/uL (150-400); Red Blood Cell Count 4.03 X10^6/uL (4.0-5.2); Red Cell Distribution Width 13.9 % (11.6-14.8); White Blood Cell Count 9.5 X10^3/uL (4.5-11.0)
[2020-05-26 05:36] LABS: BUN Creatinine Ratio 38.8 (6-22); Blood Urea Nitrogen 19 mg/dL (7-17); Calcium 8.4 mg/dL (8.4-10.2); Carbon Dioxide 28 mmol/L (22-32); Chloride 104 mmol/L (98-107); Estimated Glomerular Filt Rate > 60.0 mL/min (>60); Glucose 74 mg/dL (80-110); HEMOLYSIS < 15 (0-50); Potassium 3.6 mmol/L (3.4-5.1); Sodium 137 mmol/L (137-145)
[2020-05-26] MEDS: DEXAMETHASONE 10 MG/ML VIAL 6 MG IV (08:22)
[2020-05-26] MEDS: SODIUM CHLORIDE 0.9% 250 ML 21 ML IV (08:22)
[2020-05-26] MEDS: lisinopriL 10 MG TABLET PO (08:31)
[2020-05-26] MEDS: PANTOPRAZOLE 40 MG TABLET PO (08:31)
[2020-05-26] MEDS: CLOPIDOGREL 75 MG TABLET PO (08:32)
[2020-05-26] MEDS: ENOXAPARIN 40 MG/0.4 ML SYRINGE SUBCUT ×2 (08:32→20:14)
[2020-05-26] MEDS: LIDOCAINE PATCH 1 EACH ADH..PATCH TOP (08:32)
[2020-05-26] MEDS: ROSUVASTATIN 10 MG TABLET 40 MG PO (08:32)
[2020-05-26] MEDS: CEFTRIAXONE 1 GM/50 ML FROZ.PIGGY IV (08:32)
--- NOTE | 2020-05-26 08:34 | PM.PN.1 ---
Subjective Subjective Date Patient Seen: 05/26/20 Time Patient Seen: 08:35 Interval history: Patient tired this morning. Feeling like she hurts everywhere. No other changes. Breathing is a little harder. Even talking seems to bother. She is having no chest pain. No other change. Coughing a little bit with deep breath but otherwise no change. Feels like she hurts everywhere. No matter where she lays. Does not like proning but is doing her best. Emotionally just feeling tired. O2 status has decreased. She is requiring 61% O2 and 45 L. was increased evening to nights last night. Exam Vital Signs (past 8 hours): - 05/26/20 01:00 05/26/20 01:30 05/26/20 01:45 Temperature 98.2 F Pulse Rate 68 67 71 Respiratory Rate 29 H 28 H 32 H Blood Pressure Pulse Oximetry 95 94 94 05/26/20 01:55 05/26/20 02:00 05/26/20 02:09 Temperature Pulse Rate 45 L 76 Respiratory Rate 28 H 31 H Blood Pressure Pulse Oximetry 92 96 94 05/26/20 03:36 05/26/20 05:00 05/26/20 05:42 Temperature 97.1 F L Pulse Rate 45 L 84 45 L Respiratory Rate 29 H 26 H 29 H Blood Pressure 120/58 L Pulse Oximetry 99 94 97 Fraction of Inspired Oxygen 60 Oxygen Delivery Method Heated High Flow Oxygen Flow Rate 45 Narrative Exam Narrative: Alert fatigued female lying in bed on side in no acute respiratory distress except when talking. Mucous membranes moist. Neck supple without adenopathy. Lungs actually are quite clear. Heart regular rate and rhythm without murmurs clicks rubs or gallops abdomen is soft positive bowel sounds extremities without significant edema. Skin no rash or other changes Objective Labs Result Diagrams: 05/26/20 05:10 05/26/20 05:10 Labs: Laboratory Results - last 24 hr 05/26/20 05/26/20 05:10 05:10 WBC 9.5 D RBC 4.03 Hgb 12.5 Hct 36.7 MCV 91.0 MCH 31.0 MCHC 34.1 RDW 13.9 Plt Count 226 Neut % (Auto) 74.8 Lymph % (Auto) 15.2 L [place] % (Auto) 9.5 Eos % (Auto) 0.1 L Baso % (Auto) 0.4 Neut # (Auto) 7100 H Lymph # (Auto) 1400 Jackson # (Auto) 900 Eos # (Auto) 0 Baso # (Auto) 0 Sodium 137 Potassium 3.6 Chloride 104 Carbon Dioxide 28 BUN 19 H Creatinine 0.49 L Estimated GFR > 60.0 BUN/Creatinine Ratio 38.8 H Glucose 74 L Calcium 8.4 PFSH Medical History Aortic stenosis B-cell lymphoma Cataract Chicken pox Fecal incontinence (2004) Frequent UTI GERD (gastroesophageal reflux disease) Hearing loss Heart murmur, systolic Hypertension Migraines Pelvic relaxation Polymyalgia rheumatica Urinary incontinence (2013) Surgical History History of dilation and curettage S/P implantation of urinary electronic stimulator device Family History Father Luigi's disease, pulmonary Mother Heart disease Sister No problems noted. Grandmother No problems noted. Social History marital status: number of children: 2 household members: spouse lives independently: Yes caregiver/support person: No housing: house pets and animals: Yes education level: college occupational status: employed current occupational exposures/hazards: No seatbelt use: always working smoke detector in home: Yes fire extinguisher in home: Yes carbon monox detector in home: Yes Smoking Status: Never smoker second hand exposure: No alcohol intake: current substance use type: does not use during the past year weight has: increased > 10 lbs well-balanced diet: daily or most days caffeine: Yes eating out: 1-3 times/week Assessment & Plan Assessment & Plan narrative: COVID pneumonia: Meeting criteria for severe infection due to SaO2 < 94 on room air patient with slow improvement. Slightly worse today. Biggest issue is she struggling with her pain. Her anxiety seems to be slightly improved. I think she is mostly starting to wear out with the isolation. We discussed with her different options. Were going to be more aggressive with pain control and try some low-dose morphine. She is reluctant to take oral medicines. Hoping if we get her pain in better control she will be able to be more comfortable in the different positions. Difficult with the isolation are motion all status but at this point she does not sing she wants to give up. She is is tired. Due to her desire for no intubation and no code which we rediscussed today really have no significant change in care for today. Will continue and see how morphine helps. Re-evaluate in a.m.. - Continue daily CBC, BMP will add D-dimer, LFTs, CRP, LDH 4 tomorrow. - Continue ICU care with negative pressure room and contact precautions - Continue Remdesivir 100mg daily will be over 5 days as of yesterday but will continue for 10 full days., Dexamethasone 6mg daily - Continue oxygen, titrate as needed to keep saturations > 90% - Proning as able - Will continue to hold convalescent plasma for now - PICC line in place - Ativan PRN to help with anxiety from SOB - Discussed BiPAP with the pt again today, if needed. At this point by Paps not needed. She is agreeable to trial if necessary. Again confirmed pt is DNR/DNI. - Zofran PRN for nausea Superimposed bacterial pneumonia from change in x-ray yesterday. White count continues to be stable. She is afebrile. Does not appear to be worsening in this regards. Certainly lung exam is unchanged. Will continue antibiotics. Anxiety. Mostly related to her proning and demands of being isolated and her concern for her . Will continue benzodiazepine as needed. No other changes at this time. Do not think we need more. Concern is becoming a little more related to possible depression with her isolation but will have to watch. Bleeding diathesis. No evidence of recurrence. Will stay off aspirin and continue anticoagulation. CAD with recent stenting: On Plavix. Usual medicine. No evidence of recurrence. Do not believe this is related to any worsening in symptoms. Aortic stenosis: Recent echo stable Hyperlipidemia: - Continue Rosuvastatin HTN: Normotensive - Continue Lisinopril PMR: - Hold prednisone for now, on dexamethasone as above GI prophylaxis. Will continue on PPI. Certainly with bleeding issues would be safest. DVT PPX: Lovenox as above Diet: Regular Code: DNR. Pt does not desire intubation. Dispo: Slight setback today. Still very severe medical position. Could continue to be possibly terminal. Hopefully once we make more comfortable no other changes. See above. Will progress to BiPAP if needed.
[2020-05-26] MEDS: MORPHINE 2 MG/ML INJ 1 MG IV ×3 (08:39→20:13)
--- NOTE | 2020-05-26 09:38 | OT.IPNOTE ---
Chart reviewed and discussed pt with nursing. Per nursing and chart, pt is now requiring more o2. Per nursing, pt is unlikely to tolerate therapy today. Will hold and continue to follow.
--- NOTE | 2020-05-26 10:30 | PT-IP ANOTE ---
Discussed pt at interdisciplinary rounds. She is currently requiring 45L/min HHFNC, 60%FiO2. Per nursing, she is desatting with change in position and will not tolerate therapy today. Hold PT eval and check back 05/27/20.
[2020-05-26] MEDS: AZITHROMYCIN 500 MG in DEXTROSE 5% IN WATER 250 ML IV (10:41)
--- NOTE | 2020-05-26 14:36 | PM.CHAP ---
Noted request for pastoral care visit. Suggested to staff that we begin with a phone conversation at Pt's convenience. Gurinder Nair, Pastoral Care [phone]
--- NOTE | 2020-05-26 14:49 | PC.NURSE ---
AM shift Pt tearful, quite upset this AM. I can't do this Reviewed POC, and options for comfort r/t proning and pt discomfort. Pt declines all pain medication, educated about tolerating proning and improved oxygen outcomes immediately with proning. It hurts, why wont you let me just lay here? Spo2 88% while on back. Pt finally agreeable to proning after seeing Dr Jurado and starting IV morphine for comfort/air hunger. Pt was able to prone, and rest for nearly 2.5hrs. Sitting up for meal, eating, 25-50% of meals with soft foods. Lungs remain quiet diminished. Pt remains on 40L and Fi02 60% Fi02. Spo2 88-97% depend. on position. Strongly enc proning. Update to daughter. Pt is back to proning @ 1415 and asleep before staff exiting room, immediate improvement to Spo2 98%. Call ight in reach and BA active. Offloading pressure and providing protection for fragile skin.
[2020-05-26] MEDS: REMDESIVIR 100 MG in SODIUM CHLORIDE 0.9% 230 ML 250 ML IV (17:05)
[2020-05-26] MEDS: INSULIN ASPART 100 UNIT/ML INSULN PEN SUBCUT (17:09)
[2020-05-26] MEDS: GABAPENTIN 300 MG CAPSULE PO (20:13)
[2020-05-26] MEDS: LORazepam 0.5 MG TABLET PO (20:13)
[2020-05-26] MEDS: SODIUM CHLORIDE 0.9% FLUSH 10 ML IV (20:14)
[2020-05-26] MEDS: SENNOSIDES 8.6 MG TABLET 17.2 MG PO (20:14)
[2020-05-27] VITALS (23 sets, daily range): BP systolic 98–114; BP diastolic 50–55; PULSE 55–77; RESP 14–28; TEMP 36.2–36.5; O2SAT 89–99
[2020-05-27] MEDS: PANTOPRAZOLE 40 MG TABLET PO (05:33)
[2020-05-27] MEDS: SODIUM CHLORIDE 0.9% FLUSH 10 ML IV (05:33)
[2020-05-27 06:27] LABS: Add Manual Diff / Slide Review NO; Basophils Absolute Auto 0 /uL (0-100); Basophils Percent Auto 0.1 % (0-2); Eosinophils Absolute Auto 0 /uL (0-450); Eosinophils Percent Auto 0.1 % (2-4); Lymphocytes Absolute Auto 700 /uL (1100-4500); Lymphocytes Percent Auto 9.2 % (25-40); Mean Corpuscular HGB Conc 34.2 % (30-36); Mean Corpuscular Volume 90.7 fL (80-100); Monocytes Absolute Auto 700 /uL (0-900); Monocytes Percent Auto 8.8 % (3-14); Neutrophils Absolute Auto 6200 /uL (1500-7000); Neutrophils Percent Auto 81.8 % (50-75); Platelet Count 196 X10^3/uL (150-400); Red Blood Cell Count 3.86 X10^6/uL (4.0-5.2); Red Cell Distribution Width 13.8 % (11.6-14.8); White Blood Cell Count 7.6 X10^3/uL (4.5-11.0)
--- NOTE | 2020-05-27 06:34 | PC.NURSE ---
Flavor Maker Note-Patient was able to sleep better overnight, less anxiety, pain, or tachypnea, able to converse easier, RR 20s. Slept on Rt. side from midnight to 0300, then on Lt side until 0630, back to Rt side in am. HHFNC at .60 FIO2/45L, After turning SpO2 would stay 90-92% for about an hour, then increase back to >94% most of the time. SB/SR on monitor, did have cluster of VT at 0235, 5 episodes 6-19 beat runs, see monitor event and strips in chart, patient was sleeping when I went in room to check on her.
[2020-05-27 06:38] LABS: Alanine Aminotransferase 33 IU/L (<35); Albumin 3.2 g/dL (3.5-5.0); Albumin Globulin Ratio 1.4 (1.0-2.8); Alkaline Phosphatase 61 U/L (38-126); Aspartate Aminotransferase 23 IU/L (14-36); BUN Creatinine Ratio 46.7 (6-22); Bilirubin Total 0.6 mg/dL (0.2-1.3); Blood Urea Nitrogen 21 mg/dL (7-17); Calcium 8.5 mg/dL (8.4-10.2); Carbon Dioxide 29 mmol/L (22-32); Chloride 103 mmol/L (98-107); Estimated Glomerular Filt Rate > 60.0 mL/min (>60); Globulin 2.3 g/dL (1.7-4.1); Glucose 119 mg/dL (80-110); HEMOLYSIS < 15 (0-50); Potassium 4.2 mmol/L (3.4-5.1); Sodium 135 mmol/L (137-145); Total Protein 5.5 g/dL (6.3-8.2)
[2020-05-27 06:42] LABS: D Dimer 446 ng/mL (<230)
[2020-05-27 06:47] LABS: C-Reactive Protein Quant 4.3 mg/dL (<1.0); Lactate Dehydrogenase 743 U/L (313-618)
--- NOTE | 2020-05-27 08:04 | P.PN_ITS ---
Subjective Subjective Date Patient Seen: 05/27/20 Time Patient Seen: 07:45 Interval history: This morning the pt reports that she is feeling okay. She states that her breathing is slightly easier. She denies any chest pain. She has not had a BM in the past 4 days, and has mild stomach discomfort as a result. As per nursing, the pt remained stable on her oxygen overnight. She did not tolerate proning, but was able to lay on both of her sides for most of the night. Exam Vital Signs (past 8 hours): - 05/27/20 00:07 05/27/20 00:14 05/27/20 01:44 Temperature Pulse Rate 57 L 55 L Respiratory Rate 21 21 19 Blood Pressure 103/51 L Pulse Oximetry 94 92 95 05/27/20 03:00 05/27/20 03:16 05/27/20 05:31 Temperature Pulse Rate 62 62 Respiratory Rate 21 Blood Pressure Pulse Oximetry 92 91 97 05/27/20 06:21 Temperature 97.7 F Pulse Rate 66 Respiratory Rate 28 H Blood Pressure 114/53 L Pulse Oximetry 93 Fraction of Inspired Oxygen 60 Oxygen Delivery Method Heated High Flow Oxygen Flow Rate 45 Narrative Exam Narrative: Gen: sitting in bed, speaking more easily in complete sentences CV: RRR, grade 2/6 systolic murmur Resp: clear to auscultation bilaterally, no wheezes or crackles Abd: soft, nontender, nondistended, normoactive bowel sounds Ext: no edema Objective Labs Result Diagrams: 05/27/20 06:00 05/27/20 06:00 Labs: Laboratory Results - last 24 hr 05/27/20 05/27/20 05/27/20 06:00 06:00 06:00 WBC 7.6 RBC 3.86 L Hgb 12.0 Hct 35.0 L MCV 90.7 MCH 31.0 MCHC 34.2 RDW 13.8 Plt Count 196 Neut % (Auto) 81.8 H Lymph % (Auto) 9.2 L [place] % (Auto) 8.8 Eos % (Auto) 0.1 L Baso % (Auto) 0.1 Neut # (Auto) 6200 Lymph # (Auto) 700 L [place] # (Auto) 700 Eos # (Auto) 0 Baso # (Auto) 0 D-Dimer 446 H Sodium 135 L Potassium 4.2 Chloride 103 Carbon Dioxide 29 BUN 21 H Creatinine 0.45 L Estimated GFR > 60.0 BUN/Creatinine Ratio 46.7 H Glucose 119 H Calcium 8.5 Total Bilirubin 0.6 AST 23 ALT 33 Alkaline Phosphatase 61 Lactate Dehydrogenase C-Reactive Protein Total Protein 5.5 L Albumin 3.2 L Globulin 2.3 Albumin/Globulin Ratio 1.4 05/27/20 06:00 WBC RBC Hgb Hct MCV MCH MCHC RDW Plt Count Neut % (Auto) Lymph % (Auto) [place] % (Auto) Eos % (Auto) Baso % (Auto) Neut # (Auto) Lymph # (Auto) [place] # (Auto) Eos # (Auto) Baso # (Auto) D-Dimer Sodium Potassium Chloride Carbon Dioxide BUN Creatinine Estimated GFR BUN/Creatinine Ratio Glucose Calcium Total Bilirubin AST ALT Alkaline Phosphatase Lactate Dehydrogenase 743 H C-Reactive Protein 4.3 H Total Protein Albumin Globulin Albumin/Globulin Ratio [facility] Medical History Aortic stenosis B-cell lymphoma Cataract Chicken pox Fecal incontinence (2004) Frequent UTI GERD (gastroesophageal reflux disease) Hearing loss Heart murmur, systolic Hypertension Migraines Pelvic relaxation Polymyalgia rheumatica Urinary incontinence (2013) Surgical History History of dilation and curettage S/P implantation of urinary electronic stimulator device Family History Father Luigi's disease, pulmonary Mother Heart disease Sister No problems noted. Grandmother No problems noted. Social History marital status: number of children: 2 household members: spouse lives independently: Yes caregiver/support person: No housing: house pets and animals: Yes education level: college occupational status: employed current occupational exposures/hazards: No seatbelt use: always working smoke detector in home: Yes fire extinguisher in home: Yes carbon monox detector in home: Yes Smoking Status: Never smoker second hand exposure: No alcohol intake: current substance use type: does not use during the past year weight has: increased > 10 lbs well-balanced diet: daily or most days caffeine: Yes eating out: 1-3 times/week Assessment & Plan Assessment & Plan narrative: 80yo woman with PMR, aortic stenosis, HTN, urinary incontinence, B-cell lymphoma, CAD s/p cardiac stenting 03/2019 here with worsening SOB and fatigue in the setting of being COVID+. Pt with acute respiratory failure with hypoxia requiring oxygen supplementation. 1) COVID pneumonia: Meeting criteria for severe infection due to SaO2 < 94 on room air - currently maintaining around 90% on 45L heated high flow NC with FiO2 60%. O2 requirement stable from yesterday, but increased from the day prior still. Pt has not been tolerating proning, but is tolerating side-lying. Lung sounds remain clear. Anxiety and pain control remain the main issues with proning - pt does report improvement in these with morphine and ativan. - Continue daily CBC, BMP - Continue ICU care with negative pressure room and contact precautions - Continue Remdesivir 100mg daily, will continue for full 10 days - Continue Dexamethasone 6mg daily - Continue oxygen, titrate as needed to keep saturations > 90% - Proning as able - Lidocaine patch today to help with back pain with proning - Morphine PRN to help with pain and anxiety - High risk DVT prophylaxis with Lovenox BID dosing. - Will continue to hold convalescent plasma for now - PICC line in place - Ativan PRN to help with anxiety from SOB - Pt is agreeable to BiPAP if needed - Continue with as much emotional support as possible with ongoing isolation 2) Bacterial pneumonia: Superimposed based on CXR from 05/23 and worsening symptoms at that time. No acute worsening based on stable WBC count, afebrile, lung sounds clear - Continue Ceftriaxone and Azithromycin, currently day #5 3) Bleeding diasthesis: Stable, no evidence of ongoing bleeding. Previously with bloody nose and bleeding from PICC site - Continue to hold daily Aspirin - Continue Lovenox and Plavix - Continue PPI due to addition of Lovenox as above and risk for bleed 4) CAD with recent stenting: Multiple few-beat runs of VT overnight, asymptoma tic - Hold Aspirin - Continue Plavix - Monitor closely for cardiac symptoms 3) Aortic stenosis: Recent echo stable 4) Hyperlipidemia: - Continue Rosuvastatin 5) HTN: Normotensive - Continue Lisinopril 6) PMR: - Hold prednisone for now, on dexamethasone as above 8) Constipation: - Senna daily - Dulcolax PRN DVT PPX: Lovenox as above Diet: Regular Code: DNR. Pt does not desire intubation. Dispo: Pending improvement in respiratory status, stabilization. Anticipate after hospitalization will need stay in SNF to help regain strength.
[2020-05-27] MEDS: DEXAMETHASONE 10 MG/ML VIAL 6 MG IV (08:23)
[2020-05-27] MEDS: ENOXAPARIN 40 MG/0.4 ML SYRINGE SUBCUT ×2 (08:24→21:30)
[2020-05-27] MEDS: CEFTRIAXONE 1 GM/50 ML FROZ.PIGGY IV (08:24)
[2020-05-27] MEDS: LIDOCAINE PATCH 1 EACH ADH..PATCH TOP (08:24)
[2020-05-27] MEDS: ROSUVASTATIN 10 MG TABLET 40 MG PO (08:24)
[2020-05-27] MEDS: lisinopriL 10 MG TABLET PO (08:25)
[2020-05-27] MEDS: ACETAMINOPHEN 325 MG TABLET 650 MG PO (08:25)
[2020-05-27] MEDS: CLOPIDOGREL 75 MG TABLET PO (08:25)
[2020-05-27] MEDS: BISACODYL 5 MG TABLET 10 MG PO (08:26)
--- NOTE | 2020-05-27 09:11 | PT-IP ANOTE ---
Discussed pt with DATA CONTROL CLERK SUPERVISOR who states pt continues to require 45L/min and 60% FiO2 with poor activity tolerance. Will discharge PT orders at this time. PT remains available for re-consult in the context of acute deconditioning if pt becomes more appropriate for skilled therapy.
--- NOTE | 2020-05-27 09:12 | OT.IPNOTE ---
Checked with nursing regarding doing OT eval for pt. Nursing states not appropriate due to her O2 levels and both therapist and nurse agreed best to discharge OT eval orders at this time.
[2020-05-27] MEDS: AZITHROMYCIN 500 MG in DEXTROSE 5% IN WATER 250 ML IV (09:45)
--- NOTE | 2020-05-27 15:14 | PC.NURSE ---
Day Shift Note Pt currently on heated HFNC with FiO2 50% and 45L, SpO2 95% when side-lying at rest, desats to 89% when repositioning. Pt laying side to side when not sitting up in bed eating meals. SR in the 60s. Pt's episodes of overnight V tach (see chart) reported to Dr. Sim, no changes at this time. Dr. Sim updated on pt's current status. Call light within reach, using appropriately to make needs known.
[2020-05-27] MEDS: REMDESIVIR 100 MG in SODIUM CHLORIDE 0.9% 230 ML 250 ML IV (17:27)
--- NOTE | 2020-05-27 18:26 | PC.NURSE ---
Evening Shift Note: Pt is alert and oriented x4. WARNER. Denies pain. Pt remains on heated high flow NC with FiO2 50%, Flow rate is 45 L. SPO2 94-95%. Lungs diminished, pt has difficulty taking deep breaths without coughing. Pt states that she is not currently SOB but is SOB intermittently. Pt in NSR, BP 98/50 (72). MD aware. Denies chest pain or pressure. Pt denies nausea, but has a poor appetite. Pt is drinking meal replacement shakes. Pt with catheter in place. Adequate clear yellow urine. Pt has been side-lying today, maintaining adequate oxygen. Call light in reach, notified to call with concerns. Will notify MD with changes.
[2020-05-27] MEDS: SENNOSIDES 8.6 MG TABLET 17.2 MG PO (21:30)
[2020-05-27] MEDS: GABAPENTIN 300 MG CAPSULE PO (21:30)
[2020-05-28] VITALS (14 sets, daily range): BP systolic 108–140; BP diastolic 55–66; PULSE 56–74; RESP 20–24; TEMP 35.9–36.7; O2SAT 87–96
[2020-05-28] MEDS: ACETAMINOPHEN 325 MG TABLET 650 MG PO (00:12)
[2020-05-28] MEDS: LORazepam 0.5 MG TABLET PO (00:12)
[2020-05-28] MEDS: PANTOPRAZOLE 40 MG TABLET PO (05:56)
--- NOTE | 2020-05-28 06:27 | PC.NURSE ---
Cue Worker Note-Patient slept throughout the night on Rt side, given Tylenol and PO Ativan at midnight. HHFNC at 50% FIO2, 40L, SpO2 remained >94%, RR 16-20s, fine crackles RLL, otherwise clear. Declined to turn in am. says I'm comfortable
--- NOTE | 2020-05-28 08:09 | PM.PN.1 ---
Subjective Subjective Date Patient Seen: 05/28/20 Time Patient Seen: 07:45 Interval history: The pt has no specific complaints/concerns this morning. She reports that her breathing feels about the same. She did not have a BM yesterday. She denies any nausea, abdominal pain. She feels very encouraged that her oxygen requirements have gone down slightly. Her , who is also now hospitalized here with [facility], is stable, and she is also grateful for that. As per nursing, there were no concerns overnight. She slept well on her side, and has been maintaining her sats relatively well. Exam Vital Signs (past 8 hours): - 05/28/20 00:30 05/28/20 01:46 05/28/20 05:27 Temperature 96.7 F L Pulse Rate 65 58 L 56 L Respiratory Rate 24 23 23 Blood Pressure 140/63 Pulse Oximetry 95 94 96 05/28/20 06:05 05/28/20 08:00 Temperature 98.1 F 97.1 F L Pulse Rate 61 63 Respiratory Rate 22 20 Blood Pressure 125/60 130/61 Pulse Oximetry 96 92 Fraction of Inspired Oxygen 0.48 Oxygen Delivery Method Heated High Flow Oxygen Flow Rate 40 Narrative Exam Narrative: Gen: laying in bed, speaking in short complete sentences maintaining sats CV: RRR, grade 2/6 systolic murmur Resp: clear to auscultation bilaterally, no wheezes or crackles Abd: soft, nontender, nondistended, normoactive bowel sounds Ext: no edema Objective Labs Result Diagrams: 05/27/20 06:00 05/27/20 06:00 [facility] Medical History Aortic stenosis B-cell lymphoma Cataract Chicken pox Fecal incontinence (2004) Frequent UTI GERD (gastroesophageal reflux disease) Hearing loss Heart murmur, systolic Hypertension Migraines Pelvic relaxation Polymyalgia rheumatica Urinary incontinence (2013) Surgical History History of dilation and curettage S/P implantation of urinary electronic stimulator device Family History Father Luigi's disease, pulmonary Mother Heart disease Sister No problems noted. Grandmother No problems noted. Social History marital status: number of children: 2 household members: spouse lives independently: Yes caregiver/support person: No housing: house pets and animals: Yes education level: college occupational status: employed current occupational exposures/hazards: No seatbelt use: always working smoke detector in home: Yes fire extinguisher in home: Yes carbon monox detector in home: Yes Smoking Status: Never smoker second hand exposure: No alcohol intake: current substance use type: does not use during the past year weight has: increased > 10 lbs well-balanced diet: daily or most days caffeine: Yes eating out: 1-3 times/week Assessment & Plan Assessment & Plan narrative: 80yo woman with PMR, aortic stenosis, HTN, urinary incontinence, B-cell lymphoma, CAD s/p cardiac stenting 03/2019 here with worsening SOB and fatigue in the setting of being COVID+. Pt with acute respiratory failure with hypoxia requiring oxygen supplementation. 1) COVID pneumonia: Meeting criteria for severe infection due to SaO2 < 94 on room air - currently maintaining around 92% on 40L heated high flow NC with FiO2 50%. O2 requirement down from yesterday morning, with pt maintaining sats well. Pt has not been tolerating proning, but is tolerating side-lying. Lung sounds remain clear. Anxiety and pain control remain the main issues with proning - improved with morphine and ativan. - Continue daily CBC, BMP - Continue ICU care with negative pressure room and contact precautions - Continue Remdesivir 100mg daily (Day 10/29) - Continue Dexamethasone 6mg daily (Day 10/29) - Continue oxygen, titrate as needed to keep saturations > 90% - Proning as able - Lidocaine patch to help with back pain with proning - Morphine PRN to help with pain and anxiety - High risk DVT prophylaxis with Lovenox BID dosing - Will continue to hold convalescent plasma for now - PICC line in place - Ativan PRN to help with anxiety from SOB - Pt is agreeable to BiPAP if needed - Continue with as much emotional support as possible with ongoing isolation - Pt to get OOB to chair today 2) Bacterial pneumonia: Superimposed based on CXR from 05/23 and worsening symptoms at that time. No acute worsening based on stable WBC count, afebrile, lung sounds clear - Continue Ceftriaxone, currently day #6 - D/C Azithromycin today 3) Bleeding diasthesis: Stable, no evidence of ongoing bleeding. Previously with bloody nose and bleeding from PICC site - Continue to hold daily Aspirin - Continue Lovenox and Plavix - Continue PPI due to addition of Lovenox as above and risk for bleed 4) CAD with recent stenting: Multiple few-beat runs of VT overnight, asymptomatic - Hold Aspirin - Continue Plavix - Monitor closely for cardiac symptoms 3) Aortic stenosis: Recent echo stable 4) Hyperlipidemia: - Continue Rosuvastatin 5) HTN: Normotensive - Continue Lisinopril 6) PMR: - Hold prednisone for now, on dexamethasone as above 8) Constipation: - Senna daily - Miralax BID - Dulcolax suppositoryPRN DVT PPX: Lovenox as above Diet: Regular Code: DNR. Pt does not desire intubation. Dispo: Pending improvement in respiratory status, stabilization. Anticipate after hospitalization will need stay in SNF to help regain strength.
[2020-05-28] MEDS: CLOPIDOGREL 75 MG TABLET PO (08:10)
[2020-05-28] MEDS: DEXAMETHASONE 10 MG/ML VIAL 6 MG IV (08:10)
[2020-05-28] MEDS: ROSUVASTATIN 10 MG TABLET 40 MG PO (08:11)
[2020-05-28] MEDS: LIDOCAINE PATCH 1 EACH ADH..PATCH TOP (08:11)
[2020-05-28] MEDS: ENOXAPARIN 40 MG/0.4 ML SYRINGE SUBCUT ×2 (08:11→21:24)
[2020-05-28] MEDS: lisinopriL 10 MG TABLET PO (08:11)
[2020-05-28] MEDS: BISACODYL 5 MG TABLET 10 MG PO (08:12)
[2020-05-28] MEDS: CEFTRIAXONE 1 GM/50 ML FROZ.PIGGY IV (08:12)
[2020-05-28] MEDS: polyethylene glycoL 3350 17 GM POWD.PACK PO ×2 (08:18→21:25)
[2020-05-28 08:58] LABS: Add Manual Diff / Slide Review NO; Basophils Absolute Auto 0 /uL (0-100); Basophils Percent Auto 0.3 % (0-2); Eosinophils Absolute Auto 0 /uL (0-450); Eosinophils Percent Auto 0.2 % (2-4); Hematocrit 37.1 % (36-46); Hemoglobin 12.7 g/dL (12.0-16.0); Lymphocytes Absolute Auto 1100 /uL (1100-4500); Lymphocytes Percent Auto 10.1 % (25-40); Mean Corpuscular HGB Conc 34.2 % (30-36); Mean Corpuscular Hemoglobin 31.1 PG (26-34); Mean Corpuscular Volume 90.7 fL (80-100); Monocytes Absolute Auto 700 /uL (0-900); Monocytes Percent Auto 6.5 % (3-14); Neutrophils Absolute Auto 8900 /uL (1500-7000); Neutrophils Percent Auto 82.9 % (50-75); Platelet Count 268 X10^3/uL (150-400); Red Blood Cell Count 4.09 X10^6/uL (4.0-5.2); Red Cell Distribution Width 14.1 % (11.6-14.8); White Blood Cell Count 10.8 X10^3/uL (4.5-11.0)
[2020-05-28 09:15] LABS: BUN Creatinine Ratio 51.2 (6-22); Blood Urea Nitrogen 22 mg/dL (7-17); Calcium 8.7 mg/dL (8.4-10.2); Carbon Dioxide 28 mmol/L (22-32); Chloride 105 mmol/L (98-107); Estimated Glomerular Filt Rate > 60.0 mL/min (>60); Glucose 93 mg/dL (80-110); HEMOLYSIS < 15 (0-50); Potassium 4.3 mmol/L (3.4-5.1); Sodium 137 mmol/L (137-145)
[2020-05-28] MEDS: INSULIN ASPART 100 UNIT/ML INSULN PEN SUBCUT ×3 (12:34→21:24)
[2020-05-28] MEDS: REMDESIVIR 100 MG in SODIUM CHLORIDE 0.9% 230 ML 250 ML IV (17:06)
--- NOTE | 2020-05-28 18:12 | PC.NURSE ---
Evening shift note: Pt currently on heated HFNC with FiO2 40% and 35L, SpO2 94% when side-lying at rest, desats to 89% when repositioning, at times pt requires 100% O2 bolus prior to repositioning. Pt laying side to side when not sitting up in bed eating meals. SR in the 70s. Dr. Sim updated on pt's current status. Bed low and locked, Call light within reach, able to make needs known, will continue to monitor.
[2020-05-28] MEDS: GABAPENTIN 300 MG CAPSULE PO (21:24)
[2020-05-28] MEDS: SENNOSIDES 8.6 MG TABLET 17.2 MG PO (21:24)
[2020-05-29] VITALS (12 sets, daily range): BP systolic 108–137; BP diastolic 53–97; PULSE 61–90; RESP 20–30; TEMP 36.6–36.8; O2SAT 88–93
[2020-05-29] MEDS: PANTOPRAZOLE 40 MG TABLET PO (05:16)
[2020-05-29] MEDS: SODIUM CHLORIDE 0.9% FLUSH 10 ML IV (05:17)
[2020-05-29 06:03] LABS: Basophils Absolute Auto 0 /uL (0-100); Eosinophils Absolute Auto 0 /uL (0-450); Eosinophils Percent Auto 0.3 % (2-4); Hemoglobin 12.5 g/dL (12.0-16.0); Lymphocytes Absolute Auto 800 /uL (1100-4500); Mean Corpuscular Hemoglobin 30.7 PG (26-34); Red Blood Cell Count 4.07 X10^6/uL (4.0-5.2)
[2020-05-29 06:07] LABS: Add Manual Diff / Slide Review NO; BUN Creatinine Ratio 47.6 (6-22); Basophils Percent Auto 0.3 % (0-2); Blood Urea Nitrogen 20 mg/dL (7-17); Calcium 8.8 mg/dL (8.4-10.2); Carbon Dioxide 27 mmol/L (22-32); Chloride 104 mmol/L (98-107); Estimated Glomerular Filt Rate > 60.0 mL/min (>60); Glucose 96 mg/dL (80-110); HEMOLYSIS < 15 (0-50); Hematocrit 36.8 % (36-46); Lymphocytes Percent Auto 9.2 % (25-40); Mean Corpuscular HGB Conc 33.9 % (30-36); Mean Corpuscular Volume 90.4 fL (80-100); Monocytes Absolute Auto 800 /uL (0-900); Monocytes Percent Auto 8.3 % (3-14); Neutrophils Absolute Auto 7500 /uL (1500-7000); Neutrophils Percent Auto 81.9 % (50-75); Platelet Count 237 X10^3/uL (150-400); Potassium 4.3 mmol/L (3.4-5.1); Red Cell Distribution Width 14.4 % (11.6-14.8); Sodium 135 mmol/L (137-145); White Blood Cell Count 9.2 X10^3/uL (4.5-11.0)
--- NOTE | 2020-05-29 06:41 | PC.NURSE ---
Ore Washer Note-Patient slept on either Rt side or Lt side, SpO2 86-92% after turning, slow to recover, in am when repositioned onto Rt side, she sustained 88-91%, RR 20s while asleep, RT aware. Patient declined need for pain medication or anti-anxiety medication overnight, is tired and appears depressed.
--- NOTE | 2020-05-29 08:03 | P.PN_ITS ---
Subjective Subjective Date Patient Seen: 05/29/20 Time Patient Seen: 07:45 Interval history: The pt today reports that she is feeling about the same. She denies any worsening SOB. She denies any chest pain or abdominal pain. She states she did not have a BM yesterday. She felt exhausted after getting up to the side of the bed to sit briefly yesterday. As per nursing, the pt slept well overnight. Her O2 requirements continue to go down. They have recorded that the pt did have a BM yesterday. She very tired, and seems unmotivated to move. The pt has declined video chats in the past due to concerns about not looking put together for her family. Exam Vital Signs (past 8 hours): - 05/29/20 01:00 05/29/20 04:14 05/29/20 05:20 Temperature 97.8 F Pulse Rate 66 61 90 Respiratory Rate 30 H 23 22 Blood Pressure 117/56 L 108/53 L Pulse Oximetry 90 L 90 L 90 L Fraction of Inspired Oxygen 45 Oxygen Delivery Method Heated High Flow Oxygen Flow Rate 35 Narrative Exam Narrative: Gen: laying in bed, speaking in short complete sentences maintaining sats CV: RRR, grade 2/6 systolic murmur Resp: clear to auscultation bilaterally, no wheezes or crackles Abd: soft, nontender, nondistended, normoactive bowel sounds Ext: no edema Objective Labs Result Diagrams: 05/29/20 05:05 05/29/20 05:05 Labs: Laboratory Results - last 24 hr 05/28/20 05/28/20 05/29/20 08:50 08:50 05:05 WBC 10.8 9.2 RBC 4.09 4.07 Hgb 12.7 12.5 Hct 37.1 36.8 MCV 90.7 90.4 MCH 31.1 30.7 MCHC 34.2 33.9 RDW 14.1 14.4 Plt Count 268 237 Neut % (Auto) 82.9 H 81.9 H Lymph % (Auto) 10.1 L 9.2 L [place] % (Auto) 6.5 8.3 Eos % (Auto) 0.2 L 0.3 L Baso % (Auto) 0.3 0.3 Neut # (Auto) 8900 H 7500 H Lymph # (Auto) 1100 800 L [place] # (Auto) 700 800 Eos # (Auto) 0 0 Baso # (Auto) 0 0 Sodium 137 Potassium 4.3 Chloride 105 Carbon Dioxide 28 BUN 22 H Creatinine 0.43 L Estimated GFR > 60.0 BUN/Creatinine Ratio 51.2 H Glucose 93 Calcium 8.7 05/29/20 05:05 WBC RBC Hgb Hct MCV MCH MCHC RDW Plt Count Neut % (Auto) Lymph % (Auto) [place] % (Auto) Eos % (Auto) Baso % (Auto) Neut # (Auto) Lymph # (Auto) [place] # (Auto) Eos # (Auto) Baso # (Auto) Sodium 135 L Potassium 4.3 Chloride 104 Carbon Dioxide 27 BUN 20 H Creatinine 0.42 L Estimated GFR > 60.0 BUN/Creatinine Ratio 47.6 H Glucose 96 Calcium 8.8 PFSH Medical History Aortic stenosis B-cell lymphoma Cataract Chicken pox Fecal incontinence (2004) Frequent UTI GERD (gastroesophageal reflux disease) Hearing loss Heart murmur, systolic Hypertension Migraines Pelvic relaxation Polymyalgia rheumatica Urinary incontinence (2013) Surgical History History of dilation and curettage S/P implantation of urinary electronic stimulator device Family History Father Luigi's disease, pulmonary Mother Heart disease Sister No problems noted. Grandmother No problems noted. Social History marital status: number of children: 2 household members: spouse lives independently: Yes caregiver/support person: No housing: house pets and animals: Yes education level: college occupational status: employed current occupational exposures/hazards: No seatbelt use: always working smoke detector in home: Yes fire extinguisher in home: Yes carbon monox detector in home: Yes Smoking Status: Never smoker second hand exposure: No alcohol intake: current substance use type: does not use during the past year weight has: increased > 10 lbs well-balanced diet: daily or most days caffeine: Yes eating out: 1-3 times/week Assessment & Plan Assessment & Plan narrative: 80yo woman with PMR, aortic stenosis, HTN, urinary incontinence, B-cell lymphoma, CAD s/p cardiac stenting 03/2019 here with worsening SOB and fatigue in the setting of being COVID+. Pt with acute respiratory failure with hypoxia requiring oxygen supplementation. 1) COVID pneumonia: Meeting criteria for severe infection due to SaO2 < 94 on room air - currently maintaining around 92% on 40L heated high flow NC with FiO2 35%. O2 requirement down further from yesterday, pt maintaining sats well. Pt has not been tolerating proning, but is tolerating side-lying. Lung sounds remain clear. - Continue daily CBC, BMP - Continue ICU care with negative pressure room and contact precautions - Continue Remdesivir 100mg daily (Day 11/29) - Continue Dexamethasone 6mg daily (Day 11/29) - Continue oxygen, titrate as needed to keep saturations > 90% - Proning as able - Lidocaine patch to help with back pain with proning - Morphine PRN to help with pain and anxiety - High risk DVT prophylaxis with Lovenox BID dosing - Will continue to hold convalescent plasma for now - PICC line in place - Ativan PRN to help with anxiety from SOB - Continue with as much emotional support as possible with ongoing isolation. Request pastoral visit today. Encourage pt to do video chat with her daughter. - Will work with nursing today for increased mobility in bed and try to get OOB today again as well 2) Bacterial pneumonia: Superimposed based on CXR from 05/23 and worsening symptoms at that time. No acute worsening based on stable WBC count, afebrile, lung sounds clear - Continue Ceftriaxone, currently day #7 - D/C Azithromycin today 3) Bleeding diasthesis: Stable, no evidence of ongoing bleeding. Previously with bloody nose and bleeding from PICC site - Continue to hold daily Aspirin - Continue Lovenox and Plavix - Continue PPI due to addition of Lovenox as above and risk for bleed 4) CAD with recent stenting: - Hold Aspirin - Continue Plavix - Monitor closely for cardiac symptoms 3) Aortic stenosis: Recent echo stable 4) Hyperlipidemia: - Continue Rosuvastatin 5) HTN: Normotensive - Continue Lisinopril 6) PMR: - Hold prednisone for now, on dexamethasone as above 8) Constipation: Nursing records one BM yesterday, pt denies - Senna daily - Miralax BID - Dulcolax suppository PRN DVT PPX: Lovenox as above Diet: Regular Code: DNR. Pt does not desire intubation. Dispo: Pending improvement in respiratory status, stabilization. Anticipate after hospitalization will need stay in SNF to help regain strength.
[2020-05-29] MEDS: DEXAMETHASONE 10 MG/ML VIAL 6 MG IV (08:51)
[2020-05-29] MEDS: ROSUVASTATIN 10 MG TABLET 40 MG PO (08:51)
[2020-05-29] MEDS: lisinopriL 10 MG TABLET PO (08:51)
[2020-05-29] MEDS: LIDOCAINE PATCH 1 EACH ADH..PATCH TOP (08:51)
[2020-05-29] MEDS: CLOPIDOGREL 75 MG TABLET PO (08:51)
[2020-05-29] MEDS: ENOXAPARIN 40 MG/0.4 ML SYRINGE SUBCUT ×2 (08:52→20:42)
[2020-05-29] MEDS: CEFTRIAXONE 1 GM/50 ML FROZ.PIGGY IV (08:52)
[2020-05-29] MEDS: polyethylene glycoL 3350 17 GM POWD.PACK PO (08:53)
[2020-05-29] MEDS: INSULIN ASPART 100 UNIT/ML INSULN PEN SUBCUT ×3 (13:24→20:41)
--- NOTE | 2020-05-29 15:53 | CM.DANOTE ---
DCP/continued: Reviewed EMR,per RN patient currently staying stable Patient COVID positive and on high flow 02. Patient most likely will d/c home when medically stable. Patient's spouse also hospitalized and most likely will be going home within the next 24hrs with [facility]. P: Recommend home with [facility]. Doubtful patient will want to go to COVID SNF. Face to Face will need to be signed and orders obtained from provider prior to d/c. EMMA Patel
[2020-05-29] MEDS: REMDESIVIR 100 MG in SODIUM CHLORIDE 0.9% 230 ML 250 ML IV (17:20)
[2020-05-29] MEDS: MAGNESIUM HYDROXIDE 30 ML UDC PO (17:20)
[2020-05-29] MEDS: OXYCODONE IR 5 MG TABLET PO (17:20)
[2020-05-29] MEDS: SENNOSIDES 8.6 MG TABLET 17.2 MG PO (20:41)
[2020-05-29] MEDS: GABAPENTIN 300 MG CAPSULE PO (20:41)
[2020-05-29] MEDS: LORazepam 0.5 MG TABLET PO (20:41)
[2020-05-29] MEDS: BISACODYL 5 MG TABLET 10 MG PO (20:42)
[2020-05-29] MEDS: MORPHINE 2 MG/ML INJ 1 MG IV (21:05)
--- NOTE | 2020-05-29 21:36 | PC.NURSE ---
Evening shift note: Pt A/Ox4, sitting up in bed. Pt currently on heated HFNC with FiO2 40% and 35L, SpO2 94% when side-lying at rest, desats to 89% when repositioning, at times pt requires 100% O2 bolus prior to repositioning. SR in the 70s. Dr. Sim updated on pt's current status. Bed low and locked, Call light within reach, able to make needs known, will continue to monitor. Pt OOB to bedside commode, became very diaphoretic, short of breath, administered 100% O2 bolus x4, desat to 76%, administered morphine for work of breathing, pt refusing side lying or proning. Administered Ativan for depression/anxiety. RT change HHF settings to 35L/ FiO2 55%. Pt appears to be comfortable now. Bed low and locked, call light within reach, no further needs at this time, will continue to monitor.
[2020-05-30] VITALS (17 sets, daily range): BP systolic 108–121; BP diastolic 53–57; PULSE 66–88; RESP 18–35; TEMP 35.5–36.6; O2SAT 79–96
[2020-05-30] MEDS: PANTOPRAZOLE 40 MG TABLET PO (05:45)
--- NOTE | 2020-05-30 08:12 | PM.PN.1 ---
Subjective Subjective Date Patient Seen: 05/30/20 Time Patient Seen: 08:12 Interval history: The pt this morning reports that her breathing feels stable. She was up to the bedside commode briefly yesterday, which the pt states was very traumatic for her. She became acutely SOB with significant desaturations. The pt took an extended time to recover. This morning, she is very nervous about moving in bed again. The pt is very anxious about her returning home, and who will care for him. She wants to return home take care of him after discharge, and not go to a SNF. 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 She is concerned that they don't know what they are doing, and has been texting them instructions to help as much as possible. As per nursing, the pt had a very difficult time going to the bedside commode, and did have a prolonged recovery afterwards. Her O2 requirements went up at that time to increase her O2 sats to the upper 80s. She has still not had a BM. Exam Vital Signs (past 8 hours): - 05/30/20 00:33 05/30/20 02:20 05/30/20 04:16 Temperature 97.8 F Pulse Rate 74 66 66 Respiratory Rate 18 22 19 Blood Pressure 114/57 L Pulse Oximetry 92 94 90 L 05/30/20 05:47 05/30/20 05:56 Temperature 96.7 F L Pulse Rate 67 66 Respiratory Rate 25 H 23 Blood Pressure 108/54 L Pulse Oximetry 91 90 L Fraction of Inspired Oxygen 45 Oxygen Delivery Method High Flow Nasal Cannula,Heated High Flow Oxygen Flow Rate 35 Narrative Exam Narrative: Gen: laying in bed, much more talkative this morning speaking in full sentences with O2 sat around 85% when speaking CV: RRR, grade 2/6 systolic murmur Resp: clear to auscultation bilaterally, no wheezes or crackles Abd: soft, nontender, nondistended, normoactive bowel sounds Ext: no edema Objective Labs Result Diagrams: 05/29/20 05:05 05/29/20 05:05 [facility] Medical History Aortic stenosis B-cell lymphoma Cataract Chicken pox Fecal incontinence (2004) Frequent UTI GERD (gastroesophageal reflux disease) Hearing loss Heart murmur, systolic Hypertension Migraines Pelvic relaxation Polymyalgia rheumatica Urinary incontinence (2013) Surgical History History of dilation and curettage S/P implantation of urinary electronic stimulator device Family History Father Luigi's disease, pulmonary Mother Heart disease Sister No problems noted. Grandmother No problems noted. Social History marital status: number of children: 2 household members: spouse lives independently: Yes caregiver/support person: No housing: house pets and animals: Yes education level: college occupational status: employed current occupational exposures/hazards: No seatbelt use: always working smoke detector in home: Yes fire extinguisher in home: Yes carbon monox detector in home: Yes Smoking Status: Never smoker second hand exposure: No alcohol intake: current substance use type: does not use during the past year weight has: increased > 10 lbs well-balanced diet: daily or most days caffeine: Yes eating out: 1-3 times/week Assessment & Plan Assessment & Plan narrative: 80yo woman with PMR, aortic stenosis, HTN, urinary incontinence, B-cell lymphoma, CAD s/p cardiac stenting 03/2019 here with worsening SOB and fatigue in the setting of being COVID+. Pt with acute respiratory failure with hypoxia requiring oxygen supplementation. 1) COVID pneumonia: Meeting criteria for severe infection due to SaO2 < 94 on room air - currently maintaining around 90% on 35L heated high flow NC with FiO2 55%. O2 requirement up slightly since yesterday, primarily due to attempted transfer to commode and significant resultant hypoxia and SOB. Pt has not been tolerating proning, but is tolerating side-lying. Lung sounds remain clear. - Continue daily CBC, BMP - Continue ICU care with negative pressure room and contact precautions - D/C Remdesivir 100mg daily, completed 10 days - D/C Dexamethasone 6mg daily, completed 10 days - Continue oxygen, titrate as needed to keep saturations > 90% - Proning as able - Lidocaine patch to help with back pain with proning - Morphine PRN to help with pain and anxiety - High risk DVT prophylaxis with Lovenox BID dosing - Doppler u/s upper and lower extremities today due to very high risk of clot, no mobility in bed, and limited respiratory improvement. Consider CT PE chest in the future as well. - Will continue to hold convalescent plasma for now - PICC line in place - Ativan PRN to help with anxiety from SOB - Continue with as much emotional support as possible with ongoing isolation. Request pastoral visit today. Encourage pt to do video chat with her daughter. Pt was able to have lunch with her yesterday, also hospitalized with COVID, which was very helpful. - Will work with nursing today for increased mobility in bed 2) Bacterial pneumonia: Superimposed based on CXR from 05/23 and worsening symptoms at that time. No acute worsening based on stable WBC count, afebrile, lung sounds clear - Stop Ceftriaxone, completed 7 day course - Completed 5 days Azithromycin 3) Bleeding diasthesis: Stable, no evidence of ongoing bleeding. Previously with bloody nose and bleeding from PICC site - Continue to hold daily Aspirin - Continue Lovenox and Plavix - Continue PPI due to addition of Lovenox as above and risk for bleed 4) CAD with recent stenting: - Hold Aspirin - Continue Plavix - Monitor closely for cardiac symptoms 3) Aortic stenosis: Recent echo stable 4) Hyperlipidemia: - Continue Rosuvastatin 5) HTN: Normotensive - Continue Lisinopril 6) PMR: - Hold prednisone for now, on dexamethasone as above 8) Constipation: No BM since 05/23 - Senna daily - Miralax BID - Add Docusate BID - Dulcolax suppository PRN, encouraged to use today DVT PPX: Lovenox as above Diet: Regular Code: DNR. Pt does not desire intubation. Dispo: Pending improvement in respiratory status off high flow NC, stabilization. Pt will need stay in SNF at discharge due to severity of weakness, and likely will require oxygen at discharge as well. Discussed with the pt, who is very upset about this. She feels she needs to be home to take care of her . Discussed that if not strong enough, she cannot care for him. Discussed with care management as well today.
--- NOTE | 2020-05-30 08:45 | DI.US.S_ITS ---
PROCEDURE: US PERIPH VENOUS LOW EXTREM BI INDICATIONS: severe COVID, eval for clot TECHNIQUE: Real-time imaging, as well as color and pulse Doppler interrogation, were performed of the deep veins of both legs from the inguinal ligament to the popliteal fossa. COMPARISON: None. FINDINGS: Right: The common femoral, femoral and popliteal veins are normally compressible, and free of intraluminal thrombus. Color and pulse Doppler demonstrate normal phasic intravascular flow. There is normal augmentation response to distal compression maneuver. Left: The common femoral, femoral and popliteal veins are normally compressible, and free of intraluminal thrombus. Color and pulse Doppler demonstrate normal phasic intravascular flow. There is normal augmentation response to distal compression maneuver. IMPRESSION: No lower extremity DVT in either leg. Dictated by: Florencio Meier M.D. on 05/30/2020 at 14:31 Approved by: Florencio Meier M.D. on 05/30/2020 at 14:33
--- NOTE | 2020-05-30 08:45 | DI.US.S_ITS ---
PROCEDURE: US PERIPH VENOUS UP EXTREM MEGHAN INDICATIONS: severe COVID, eval for clot TECHNIQUE: Real-time imaging, as well as color and pulse Doppler interrogation, was performed of both upper extremity deep veins from the inferior neck to the antecubital fossa. COMPARISON: None. FINDINGS: Right: The internal jugular veins, visualized portions of the subclavian veins, axillary veins, and brachial veins are free of intraluminal thrombus. Where physically possible, the veins are normally compressible. Color and pulse Doppler demonstrate normal intraluminal flow, with expected phasicity and pulsatility. Additional scanning of the cephalic and basilic veins of the superficial system demonstrate normal compressibility, without thrombus. A right subclavian catheter is partially imaged. Left: The internal jugular veins, visualized portions of the subclavian veins, axillary veins, and brachial veins are free of intraluminal thrombus. Where physically possible, the veins are normally compressible. Color and pulse Doppler demonstrate normal intraluminal flow, with expected phasicity and pulsatility. Additional scanning of the cephalic and basilic veins of the superficial system demonstrate normal compressibility, without thrombus. IMPRESSION: No sonographic evidence of deep venous thrombosis in the right or left upper extremity. Dictated by: Fer Forrest M.D. on 05/30/2020 at 14:25 Approved by: Fer Forrest M.D. on 05/30/2020 at 14:29
--- NOTE | 2020-05-30 09:33 | PC.NURSE ---
Late Entry-05/29 Pt needing 35L and 40% Fi02 to keep sats >90. Pt is very flat affect today. It's just too hard, I can't do this Enc patient with proning and side laying. Pt is reluctant to take medication but also uncomfortable with repositioning. Encourage PRN use. Pt was side laying all morning, and brought spouse into see Pt to improve socialization/isolation. Significant improvement to oxygenation and overall outlook on care. Pt is cheerful through end of shift, and expresses gratitude for visit.
[2020-05-30] MEDS: LIDOCAINE PATCH 1 EACH ADH..PATCH TOP (10:59)
[2020-05-30] MEDS: CLOPIDOGREL 75 MG TABLET PO (10:59)
[2020-05-30] MEDS: lisinopriL 10 MG TABLET PO (11:00)
[2020-05-30] MEDS: ENOXAPARIN 40 MG/0.4 ML SYRINGE SUBCUT ×2 (11:00→21:06)
[2020-05-30] MEDS: DOCUSATE 100 MG CAPSULE PO ×2 (11:01→21:04)
[2020-05-30] MEDS: polyethylene glycoL 3350 17 GM POWD.PACK PO ×2 (11:01→21:06)
[2020-05-30] MEDS: predniSONE 1 MG TABLET 2 MG PO (11:02)
--- NOTE | 2020-05-30 12:46 | RT ---
Called to bedside for Desat. Pt Fio2 increased to 65% to maintain Sao2, and IS exercises performed with some deep breaths and coughing. Pt placed on her right side with Sao2 improving.
[2020-05-30] MEDS: ROSUVASTATIN 10 MG TABLET 40 MG PO (13:33)
[2020-05-30] MEDS: MORPHINE 2 MG/ML INJ 1 MG IV (14:56)
--- NOTE | 2020-05-30 15:22 | PC.NURSE ---
Am 3/11 Pt is in good spirits today. 35L and 60% Fio2 as Pt attempted to sit at edge of bed and desatting. Continue to enc mobility, Pt is reluctant. U/s done today to r/o clots. extended exam.
--- NOTE | 2020-05-30 17:37 | PC.NURSE ---
Increased Hiflo settings to 45L 70% after pt desatting to 82% with slight movement or turning. Breezy breath sounds ascultated, fine rales noted in the bases. More tachypnic with activity than previously noted. Dr. Milian notified of changes, no new orders received.
[2020-05-30] MEDS: GABAPENTIN 300 MG CAPSULE PO (21:04)
[2020-05-30] MEDS: LORazepam 0.5 MG TABLET PO (21:05)
[2020-05-30] MEDS: BISACODYL 10 MG SUPP PR (21:06)
[2020-05-31] VITALS (19 sets, daily range): BP systolic 102–128; BP diastolic 50–59; PULSE 75–93; RESP 15–30; TEMP 36.2–36.6; O2SAT 72–97
--- NOTE | 2020-05-31 00:11 | PC.NURSE ---
Addendum entered by Joanne Colindres R.N. 05/31/20 05:44: Pt refusing to prone but laying on opposite sides throughout the night. Pt has no complaints. Resting comfortably Original Note: Pt alert and oriented x4. Refusing to prone but sleeping on sides. Pt moved to left side at start of shift. De sats to 84% with movement. Dry cough with movement. Pt back upto 92% after resting. HHFNC at 45L and 70% FIO2. Pt denies any pain at this time. Prince intact. Small urine amounts. Encouraged pt to intake more fluids. Scds on. Bed alarm set and call light within reach. Pt has no complaints
[2020-05-31] MEDS: PANTOPRAZOLE 40 MG TABLET PO (05:22)
--- NOTE | 2020-05-31 07:25 | PM.PN.1 ---
Subjective Subjective Date Patient Seen: 05/31/20 Time Patient Seen: 07:34 Interval history: Pt reports that sitting at the edge of the bed was very challenging last night. She felt excessively SOB when attempting it. She is now more comfortable, laying flat on her back. She did have a BM yesterday, which she is happy about. Exam Vital Signs (past 8 hours): - 05/30/20 23:29 05/30/20 23:59 05/31/20 01:26 Temperature 97.8 F Pulse Rate 87 83 84 Respiratory Rate 28 H 22 30 H Blood Pressure 121/56 L Pulse Oximetry 96 92 93 05/31/20 03:32 05/31/20 04:00 05/31/20 05:35 Temperature 97.8 F Pulse Rate 85 84 85 Respiratory Rate 30 H 22 28 H Blood Pressure 109/53 L Pulse Oximetry 93 90 L 90 L 05/31/20 06:13 Temperature Pulse Rate Respiratory Rate Blood Pressure Pulse Oximetry 92 Fraction of Inspired Oxygen 72 Oxygen Delivery Method Heated High Flow Oxygen Flow Rate 45 Narrative Exam Narrative: Gen: laying in bed, oxygen in place CV: RRR, grade 2/6 systolic murmur Resp: clear to auscultation bilaterally, no wheezes or crackles Abd: soft, nontender, nondistended, normoactive bowel sounds Ext: no edema Objective Labs Result Diagrams: 05/29/20 05:05 05/29/20 05:05 [facility] Medical History Aortic stenosis B-cell lymphoma Cataract Chicken pox Fecal incontinence (2004) Frequent UTI GERD (gastroesophageal reflux disease) Hearing loss Heart murmur, systolic Hypertension Migraines Pelvic relaxation Polymyalgia rheumatica Urinary incontinence (2013) Surgical History History of dilation and curettage S/P implantation of urinary electronic stimulator device Family History Father Luigi's disease, pulmonary Mother Heart disease Sister No problems noted. Grandmother No problems noted. Social History marital status: number of children: 2 household members: spouse lives independently: Yes caregiver/support person: No housing: house pets and animals: Yes education level: college occupational status: employed current occupational exposures/hazards: No seatbelt use: always working smoke detector in home: Yes fire extinguisher in home: Yes carbon monox detector in home: Yes Smoking Status: Never smoker second hand exposure: No alcohol intake: current substance use type: does not use during the past year weight has: increased > 10 lbs well-balanced diet: daily or most days caffeine: Yes eating out: 1-3 times/week Assessment & Plan Assessment & Plan narrative: 80yo woman with PMR, aortic stenosis, HTN, urinary incontinence, B-cell lymphoma, CAD s/p cardiac stenting 03/2019 here with worsening SOB and fatigue in the setting of being COVID+. Pt with acute respiratory failure with hypoxia requiring oxygen supplementation. 1) COVID pneumonia: Meeting criteria for severe infection due to SaO2 < 94 on room air - currently maintaining around 92% on 35L heated high flow NC with FiO2 75%. O2 requirement up significantly since yesterday, continues to desat significantly with any movement. Pt has not been tolerating proning, but is tolerating side-lying. Lung sounds remain clear. - Continue daily CBC, BMP - Repeat CMP, CPK, LDH, D-dimer, CRP today due to increasing oxygen requirement - Continue ICU care with negative pressure room and contact precautions - Completed 10 days Remdesivir - Completed 10 days Dexamethasone - Continue oxygen, titrate as needed to keep saturations > 90% - Proning as able -- highly encourage pt to do this today - Lidocaine patch to help with back pain with proning - Morphine PRN to help with pain and anxiety - High risk DVT prophylaxis with Lovenox BID dosing - Doppler u/s upper and lower extremities negative 05/30/20 - Did not receive convalescent plasma - PICC line in place - Ativan PRN to help with anxiety from SOB - Continue with as much emotional support as possible with ongoing isolation. 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 Encourage pt to do video chat with her daughter. - Will work with nursing today for increased mobility in bed 2) Bacterial pneumonia: Superimposed based on CXR from 05/23 and worsening symptoms at that time. No acute worsening based on stable WBC count, afebrile, lung sounds clear - Completed 7 days Ceftriaxone - Completed 5 days Azithromycin 3) Bleeding diasthesis: Stable, no evidence of ongoing bleeding. Previously with bloody nose and bleeding from PICC site - Continue to hold daily Aspirin - Continue Lovenox and Plavix - Continue PPI due to addition of Lovenox as above and risk for bleed 4) CAD with recent stenting: - Hold Aspirin - Continue Plavix - Monitor closely for cardiac symptoms 3) Aortic stenosis: Recent echo stable 4) Hyperlipidemia: - Continue Rosuvastatin 5) HTN: Normotensive - Continue Lisinopril 6) PMR: - Prednisone 2mg daily restarted yesterday 8) Constipation: BM yesterday - Senna daily - Miralax BID - Docusate BID - Dulcolax suppository PRN, encouraged to use today DVT PPX: Lovenox as above Diet: Regular Code: DNR. Pt does not desire intubation. Dispo: Pending improvement in respiratory status off high flow NC, stabilization. Pt will need stay in SNF at discharge due to severity of weakness, and likely will require oxygen at discharge as well. Discussed with the pt, who is very upset about this. She feels she needs to be home to take care of her . Discussed that if not strong enough, she cannot care for him.
--- NOTE | 2020-05-31 07:31 | PC.NURSE ---
Notified Dr Sim of T this AM. Updated labs to be drawn this am.
[2020-05-31] MEDS: polyethylene glycoL 3350 17 GM POWD.PACK PO ×2 (08:14→20:09)
[2020-05-31] MEDS: LIDOCAINE PATCH 1 EACH ADH..PATCH TOP (08:14)
[2020-05-31] MEDS: lisinopriL 10 MG TABLET PO (08:15)
[2020-05-31] MEDS: LORazepam 0.5 MG TABLET PO ×2 (08:15→20:09)
[2020-05-31] MEDS: CLOPIDOGREL 75 MG TABLET PO (08:15)
[2020-05-31] MEDS: ROSUVASTATIN 10 MG TABLET 40 MG PO (08:15)
[2020-05-31] MEDS: ENOXAPARIN 40 MG/0.4 ML SYRINGE SUBCUT ×2 (08:15→21:18)
[2020-05-31] MEDS: predniSONE 1 MG TABLET 2 MG PO (08:15)
[2020-05-31] MEDS: DOCUSATE 100 MG CAPSULE PO ×2 (08:15→20:09)
--- NOTE | 2020-05-31 09:21 | RT ---
Pt sitting up in bed and eating breakfast, looks comfortable with mild sob noted.
[2020-05-31 09:47] LABS: Add Manual Diff / Slide Review NO; Basophils Absolute Auto 0 /uL (0-100); Basophils Percent Auto 0.3 % (0-2); Eosinophils Absolute Auto 400 /uL (0-450); Eosinophils Percent Auto 2.7 % (2-4); Hematocrit 42.1 % (36-46); Hemoglobin 14.2 g/dL (12.0-16.0); Lymphocytes Absolute Auto 1200 /uL (1100-4500); Lymphocytes Percent Auto 8.9 % (25-40); Mean Corpuscular HGB Conc 33.7 % (30-36); Mean Corpuscular Hemoglobin 30.7 PG (26-34); Mean Corpuscular Volume 91.2 fL (80-100); Monocytes Absolute Auto 700 /uL (0-900); Monocytes Percent Auto 5.4 % (3-14); Neutrophils Absolute Auto 11300 /uL (1500-7000); Neutrophils Percent Auto 82.7 % (50-75); Platelet Count 240 X10^3/uL (150-400); Red Blood Cell Count 4.61 X10^6/uL (4.0-5.2); Red Cell Distribution Width 14.4 % (11.6-14.8); White Blood Cell Count 13.6 X10^3/uL (4.5-11.0)
[2020-05-31 09:56] LABS: D Dimer 653 ng/mL (<230)
[2020-05-31] MEDS: ALTEPLASE 2 MG/2 ML VIAL IV (09:57)
[2020-05-31 09:58] LABS: Alanine Aminotransferase 34 IU/L (<35); Albumin 3.6 g/dL (3.5-5.0); Albumin Globulin Ratio 1.3 (1.0-2.8); Alkaline Phosphatase 72 U/L (38-126); Aspartate Aminotransferase 30 IU/L (14-36); BUN Creatinine Ratio 44.8 (6-22); Bilirubin Total 1.5 mg/dL (0.2-1.3); Blood Urea Nitrogen 26 mg/dL (7-17); Calcium 8.8 mg/dL (8.4-10.2); Carbon Dioxide 22 mmol/L (22-32); Chloride 100 mmol/L (98-107); Creatine Kinase 37 U/L (30-135); Estimated Glomerular Filt Rate > 60.0 mL/min (>60); Globulin 2.7 g/dL (1.7-4.1); Glucose 128 mg/dL (80-110); HEMOLYSIS 15 (0-50); Potassium 3.9 mmol/L (3.4-5.1); Sodium 130 mmol/L (137-145); Total Protein 6.3 g/dL (6.3-8.2)
[2020-05-31 10:06] LABS: C-Reactive Protein Quant 2.6 mg/dL (<1.0); Lactate Dehydrogenase 702 U/L (313-618)
[2020-05-31] MEDS: MORPHINE 2 MG/ML INJ 1 MG IV (10:23)
--- NOTE | 2020-05-31 11:35 | DI.RAD.S_ITS ---
PROCEDURE: XR CHEST 1V INDICATIONS: COVID+ deteriorating TECHNIQUE: One view of the chest was acquired. COMPARISON: [facility], CR, XR CHEST 1V, 05/23/2020, 9:01. [facility], CR, XR CHEST FOR PICC 1V, 05/23/2020, 16:05. FINDINGS: Surgical changes and devices: The previous seen right PICC has been pulled back with tip now projecting over the right subclavian vein. Lungs and pleura: Diffuse patchy airspace opacities in both lungs appear mildly worse when compared to the radiographs from 05/23/2020. No pleural effusion or pneumothorax. Mediastinum: Mediastinal contours appear normal. Heart size is normal. Moderate atherosclerotic calcifications are seen in the aorta. Bones and chest wall: No suspicious bony lesions. Overlying soft tissues appear unremarkable. IMPRESSION: 1. Diffuse patchy airspace opacities in both lungs appear mildly worse when compared to the prior radiographs. 2. Right PICC has been pulled back, with tip projecting over the region of the right subclavian vein. Dictated by: Fer Forrest M.D. on 05/31/2020 at 13:35 Approved by: Fer Forrest M.D. on 05/31/2020 at 13:37
--- NOTE | 2020-05-31 11:59 | PC.NURSE ---
Addendum entered by Caity Arceo R.N. 05/31/20 14:52: During bathing, noted erythema to R axillary folds. Dried well Original Note: Am Shift Pt is A/o x4. Flat affect. Pt expresses frustration with lack of improvement. Discussed the plan for proning this shift, and enc. Pt to ambulate and move self in bed. Currently on 45L 72% Fio2 heated high flow. Pt struggles with proning, pain and discomfort. Premedicated with PO Ativan. During attempt to prone, Pt was very anxious tachy, RR in 30's, This RN at bedside for 30-40 min enc deep breathing and getting RR down. Given IV Morphine for SOB. Placed proning pillow for comfort, as tubing a barrier to keeping Pt in this position. Spo2 with previous settings, up to 98%. RT into adjust settings. Unable to draw on PICC, flushable, but resistance noted. Order obtained for Alteplase, given to PICC per protocol. Aspiration successful at 30 minutes. Good blood return.
[2020-05-31 12:22] LABS: Magnesium 2.3 mg/dL (1.6-2.3)
--- NOTE | 2020-05-31 12:58 | RT ---
HFNC Fio2 decreased to 65%, pt vee well. In prone position and H2O bag changed
[2020-05-31] MEDS: SODIUM CHLORIDE 0.9% 250 ML 21 ML IV (17:41)
[2020-05-31] MEDS: PIPERACILLIN-TAZO 3.375 GM/50 ML FROZ.PIGGY IV (17:41)
[2020-05-31] MEDS: SODIUM CHLORIDE 0.9% FLUSH 10 ML IV (17:42)
[2020-05-31] MEDS: levoFLOXacin 750 MG/150 ML PIGGYBACK 100 MG IV (18:17)
[2020-05-31] MEDS: SENNOSIDES 8.6 MG TABLET 17.2 MG PO (20:09)
[2020-05-31] MEDS: GABAPENTIN 300 MG CAPSULE PO (20:09)
[2020-05-31] MEDS: NYSTATIN OINTMENT 15 APPLIC/TUBE OINT...G. TOP (20:10)
[2020-06-01] VITALS (25 sets, daily range): BP systolic 96–114; BP diastolic 51–56; PULSE 77–96; RESP 16–32; TEMP 30.9–37.1; O2SAT 90–98
[2020-06-01] MEDS: PIPERACILLIN-TAZO 3.375 GM/50 ML FROZ.PIGGY IV ×5 (00:30→23:29)
[2020-06-01] MEDS: PANTOPRAZOLE 40 MG TABLET PO (05:00)
[2020-06-01 05:36] LABS: Add Manual Diff / Slide Review NO; Basophils Absolute Auto 0 /uL (0-100); Basophils Percent Auto 0.3 % (0-2); Eosinophils Absolute Auto 300 /uL (0-450); Eosinophils Percent Auto 2.6 % (2-4); Hematocrit 39.4 % (36-46); Hemoglobin 13.3 g/dL (12.0-16.0); Lymphocytes Absolute Auto 1000 /uL (1100-4500); Mean Corpuscular HGB Conc 33.9 % (30-36); Mean Corpuscular Hemoglobin 30.9 PG (26-34); Mean Corpuscular Volume 91.2 fL (80-100); Monocytes Absolute Auto 600 /uL (0-900); Monocytes Percent Auto 6.8 % (3-14); Neutrophils Absolute Auto 7600 /uL (1500-7000); Neutrophils Percent Auto 79.3 % (50-75); Platelet Count 184 X10^3/uL (150-400); Red Blood Cell Count 4.32 X10^6/uL (4.0-5.2); Red Cell Distribution Width 14.2 % (11.6-14.8); White Blood Cell Count 9.5 X10^3/uL (4.5-11.0)
[2020-06-01 05:40] LABS: BUN Creatinine Ratio 31.4 (6-22); Blood Urea Nitrogen 16 mg/dL (7-17); Calcium 8.2 mg/dL (8.4-10.2); Carbon Dioxide 29 mmol/L (22-32); Chloride 100 mmol/L (98-107); Estimated Glomerular Filt Rate > 60.0 mL/min (>60); Glucose 93 mg/dL (80-110); HEMOLYSIS < 15 (0-50); Potassium 4.1 mmol/L (3.4-5.1); Sodium 131 mmol/L (137-145)
--- NOTE | 2020-06-01 06:20 | PC.NURSE ---
Patient had an uneventful night. Proned until 0300, O2 sats in the high 90s on 45L and 65% FiO2 HFNC. Turned onto right side at 0300, O2 sats maintained above 90% during turn in bed. No distress noted, adequate urine output, patient alert and oriented. Shortness of breath upon movement in bed, but does not have shortness of breath with talking. Offered fluids and encouraged patient to drink plenty of fluids. Bilateral SCDs in place.
[2020-06-01] MEDS: NYSTATIN OINTMENT 15 APPLIC/TUBE OINT...G. TOP ×3 (08:49→20:01)
[2020-06-01] MEDS: ROSUVASTATIN 10 MG TABLET 40 MG PO (08:50)
[2020-06-01] MEDS: DOCUSATE 100 MG CAPSULE PO ×2 (08:50→20:00)
[2020-06-01] MEDS: lisinopriL 10 MG TABLET PO (08:50)
[2020-06-01] MEDS: predniSONE 1 MG TABLET 2 MG PO (08:51)
[2020-06-01] MEDS: LACTOBACILLUS ACIDOPHILUS TABLET 1 EACH PO ×3 (08:51→17:56)
[2020-06-01] MEDS: SODIUM CHLORIDE 0.9% 250 ML 21 ML IV (08:51)
[2020-06-01] MEDS: CLOPIDOGREL 75 MG TABLET PO (08:51)
[2020-06-01] MEDS: polyethylene glycoL 3350 17 GM POWD.PACK PO ×2 (08:51→20:00)
[2020-06-01] MEDS: ENOXAPARIN 40 MG/0.4 ML SYRINGE SUBCUT ×2 (08:51→20:00)
--- NOTE | 2020-06-01 08:52 | P.PN_ITS ---
Subjective Subjective Date Patient Seen: 06/01/20 Time Patient Seen: 07:30 Interval history: The pt this morning is very fatigued. She denies any abdominal pain. She feels that her breathing is stable. She was trying to sleep during our encounter this morning. As per nursing, no acute concerns overnight. She was able to prone for several hours. Exam Vital Signs (past 8 hours): - 06/01/20 01:53 06/01/20 03:18 06/01/20 05:00 Temperature 97.3 F L Pulse Rate 77 Respiratory Rate 24 Blood Pressure 97/54 L Pulse Oximetry 96 95 98 06/01/20 05:26 06/01/20 08:00 06/01/20 08:42 Temperature 98.0 F Pulse Rate 77 96 H 84 Respiratory Rate 28 H 18 31 H Blood Pressure 97/55 L 104/54 L 104/55 L Pulse Oximetry 98 92 90 L Fraction of Inspired Oxygen 0.67 Oxygen Delivery Method Heated High Flow Oxygen Flow Rate 45 Narrative Exam Narrative: Gen: laying in bed, oxygen in place, speaking softly today CV: RRR, grade 2/6 systolic murmur Resp: clear to auscultation bilaterally, no wheezes or crackles Abd: soft, nontender, nondistended, normoactive bowel sounds Ext: no edema Objective Labs Result Diagrams: 06/01/20 05:15 06/01/20 05:15 Labs: Laboratory Results - last 24 hr 05/31/20 05/31/20 05/31/20 09:40 09:40 09:40 WBC 13.6 H RBC 4.61 Hgb 14.2 Hct 42.1 MCV 91.2 MCH 30.7 MCHC 33.7 RDW 14.4 Plt Count 240 Neut % (Auto) 82.7 H Lymph % (Auto) 8.9 L [place] % (Auto) 5.4 Eos % (Auto) 2.7 Baso % (Auto) 0.3 Neut # (Auto) 89691 H Lymph # (Auto) 1200 [place] # (Auto) 700 Eos # (Auto) 400 Baso # (Auto) 0 D-Dimer 653 H Sodium 130 L Potassium 3.9 Chloride 100 Carbon Dioxide 22 BUN 26 H Creatinine 0.58 Estimated GFR > 60.0 BUN/Creatinine Ratio 44.8 H Glucose 128 H Calcium 8.8 Magnesium Total Bilirubin 1.5 H AST 30 ALT 34 Alkaline Phosphatase 72 Lactate Dehydrogenase 702 H Total Creatine Kinase 37 C-Reactive Protein 2.6 H Total Protein 6.3 Albumin 3.6 Globulin 2.7 Albumin/Globulin Ratio 1.3 05/31/20 06/01/20 06/01/20 09:40 05:15 05:15 WBC 9.5 RBC 4.32 Hgb 13.3 Hct 39.4 MCV 91.2 MCH 30.9 MCHC 33.9 RDW 14.2 Plt Count 184 Neut % (Auto) 79.3 H Lymph % (Auto) 11.0 L [place] % (Auto) 6.8 Eos % (Auto) 2.6 Baso % (Auto) 0.3 Neut # (Auto) 7600 H Lymph # (Auto) 1000 L [place] # (Auto) 600 Eos # (Auto) 300 Baso # (Auto) 0 D-Dimer Sodium 131 L Potassium 4.1 Chloride 100 Carbon Dioxide 29 BUN 16 Creatinine 0.51 L Estimated GFR > 60.0 BUN/Creatinine Ratio 31.4 H Glucose 93 Calcium 8.2 L Magnesium 2.3 Total Bilirubin AST ALT Alkaline Phosphatase Lactate Dehydrogenase Total Creatine Kinase C-Reactive Protein Total Protein Albumin Globulin Albumin/Globulin Ratio [facility] Medical History Aortic stenosis B-cell lymphoma Cataract Chicken pox Fecal incontinence (2004) Frequent UTI GERD (gastroesophageal reflux disease) Hearing loss Heart murmur, systolic Hypertension Migraines Pelvic relaxation Polymyalgia rheumatica Urinary incontinence (2013) Surgical History History of dilation and curettage S/P implantation of urinary electronic stimulator device Family History Father Luigi's disease, pulmonary Mother Heart disease Sister No problems noted. Grandmother No problems noted. Social History marital status: number of children: 2 household members: spouse lives independently: Yes caregiver/support person: No housing: house pets and animals: Yes education level: college occupational status: employed current occupational exposures/hazards: No seatbelt use: always working smoke detector in home: Yes fire extinguisher in home: Yes carbon monox detector in home: Yes Smoking Status: Never smoker second hand exposure: No alcohol intake: current substance use type: does not use during the past year weight has: increased > 10 lbs well-balanced diet: daily or most days caffeine: Yes eating out: 1-3 times/week Assessment & Plan Assessment & Plan narrative: 80yo woman with PMR, aortic stenosis, HTN, urinary incontinence, B-cell lymphoma, CAD s/p cardiac stenting 03/2019 here with worsening SOB and fatigue in the setting of being COVID+. Pt with acute respiratory failure with hypoxia requiring oxygen supplementation. 1) COVID pneumonia: Meeting criteria for severe infection due to SaO2 < 94 on room air - currently maintaining around 92% on 45L heated high flow NC with FiO2 65%. O2 requirement stable from yesterday afternoon. Pt was able to prone yesterday for several hours at a time. Lung sounds remain clear. - Continue daily CBC, BMP - Continue ICU care with negative pressure room and contact precautions - Completed 10 days Remdesivir 05/30 - Completed 10 days Dexamethasone 05/30 - Continue oxygen, titrate as needed to keep saturations > 90% - Proning as able -- highly encourage pt to do this today - Lidocaine patch to help with back pain with proning - Morphine PRN to help with pain and anxiety - High risk DVT prophylaxis with Lovenox BID dosing - Doppler u/s upper and lower extremities negative 05/30/20 - Did not receive convalescent plasma - PICC line in place - Ativan PRN to help with anxiety from SOB - Continue with as much emotional support as possible with ongoing isolation. 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 Encourage pt to do video chat with her daughter. - PT consulted today to help with bed exercises, or instruct nursing on bed exercises 2) Bacterial pneumonia: Superimposed based on CXR from 05/23 and worsening symptoms at that time. Completed abx course for community-acquired pneumonia. Increasing oxygen demand yesterday, elevated WBC count, and CXR with increased infiltrates. Therefore, antibiotics initiated for hospital-acquired pneumonia. - Completed 7 days Ceftriaxone 05/30 - Completed 5 days Azithromycin 05/28 - Continue Levofloxacin, day 2 - Continue Zosyn, day 2 3) Bleeding diasthesis: Stable, no evidence of ongoing bleeding. Previously with bloody nose and bleeding from PICC site - Continue to hold daily Aspirin - Continue Lovenox and Plavix - Continue PPI due to addition of Lovenox as above and risk for bleed 4) CAD with recent stenting: - Hold Aspirin - Continue Plavix - Monitor closely for cardiac symptoms 3) Aortic stenosis: Recent echo stable 4) Hyperlipidemia: - Continue Rosuvastatin 5) HTN: Normotensive - Continue Lisinopril 6) PMR: - Prednisone 2mg daily restarted yesterday 8) Constipation: BM 05/30 - Senna daily - Miralax BID - Docusate BID - Dulcolax suppository PRN, encouraged to use today DVT PPX: Lovenox as above Diet: Regular Code: DNR. Pt does not desire intubation. Dispo: Pending improvement in respiratory status off high flow NC, stabilization. Pt will need stay in SNF at discharge due to severity of w eakness, and likely will require oxygen at discharge as well.
--- NOTE | 2020-06-01 09:50 | PT-IP ANOTE ---
Per MD order: bed exercises only, instructions for nursing. Talked with nurse and stated that pt is not doing too great and MD order for bed exercises. Nurse stated that she told the doctor that she will do the bed exercises and that PT cannot just do exercises in bed but the doctor stated that she will just put in the order. Informed nurse that PT has to do a functional assessment and cannot just do exercises in bed without assessment. Asked nurse if she knows and will be able to do bed exercises with pt and nurse acknowledged and knows how to do bed exercises in bed. nurse formed PT that PT eval order can be d/c. informed OT to address PT d/c order during rounds. OT informed that during rounds meeting, everybody in agreement to d/c PT order.
--- NOTE | 2020-06-01 14:52 | PC.NURSE ---
Day Shift Note Alert and oriented x3, fatigued. Able to sit up in bed for meals, poor appetite but taking in ensure and juice. On heated HFNC with FiO2 65% and 50L. sPo2 92-96% depending on activity, side lying when not eating. Denies pain. Coarse lungs bilaterally. Range of motion/bed exercises done with pt per MD order, pt tolerated well. Dr. Sim updated on oxygenation requirements. Call light within reach, using appropriately to make needs known.
[2020-06-01] MEDS: GABAPENTIN 300 MG CAPSULE PO (20:00)
[2020-06-01] MEDS: SENNOSIDES 8.6 MG TABLET 17.2 MG PO (20:00)
[2020-06-01] MEDS: LORazepam 0.5 MG TABLET PO (20:00)
--- NOTE | 2020-06-01 22:43 | PC.NURSE ---
Evening shift note Patient alert and oriented x3. Patient on heated HFNC with FiO2 65% and 50L, spo2 >90%. Denies any pain. Patient does not have much appetite but is sitting up in bed for meals, drinking juice. Around 0 patient was placed on bipap to try and promote lung movement, settings 65% 02/24. Dr. Sim at bedside to speak with patient regarding trying the bipap. Patients call light in reach, patient uses call light appropriately and is able to make her needs known.
[2020-06-01] MEDS: MORPHINE 2 MG/ML INJ 1 MG IV (23:30)
[2020-06-02] VITALS (48 sets, daily range): BP systolic 99–121; BP diastolic 53–77; PULSE 75–111; RESP 10–42; TEMP 31.6–36.9; O2SAT 89–98
[2020-06-02] MEDS: PANTOPRAZOLE 40 MG TABLET PO (06:01)
[2020-06-02] MEDS: PIPERACILLIN-TAZO 3.375 GM/50 ML FROZ.PIGGY IV ×4 (06:01→23:35)
[2020-06-02 07:00] LABS: Add Manual Diff / Slide Review NO; Basophils Absolute Auto 100 /uL (0-100); Basophils Percent Auto 0.5 % (0-2); Eosinophils Absolute Auto 200 /uL (0-450); Eosinophils Percent Auto 1.9 % (2-4); Hematocrit 38.3 % (36-46); Lymphocytes Absolute Auto 1400 /uL (1100-4500); Lymphocytes Percent Auto 12.7 % (25-40); Mean Corpuscular HGB Conc 33.8 % (30-36); Mean Corpuscular Hemoglobin 30.8 PG (26-34); Monocytes Absolute Auto 600 /uL (0-900); Monocytes Percent Auto 5.9 % (3-14); Neutrophils Absolute Auto 8500 /uL (1500-7000); Platelet Count 185 X10^3/uL (150-400); Red Blood Cell Count 4.21 X10^6/uL (4.0-5.2); Red Cell Distribution Width 14.4 % (11.6-14.8); White Blood Cell Count 10.8 X10^3/uL (4.5-11.0)
[2020-06-02 07:08] LABS: Alanine Aminotransferase 25 IU/L (<35); Albumin 3.2 g/dL (3.5-5.0); Albumin Globulin Ratio 1.2 (1.0-2.8); Alkaline Phosphatase 66 U/L (38-126); Aspartate Aminotransferase 26 IU/L (14-36); BUN Creatinine Ratio 28.8 (6-22); Bilirubin Total 1.3 mg/dL (0.2-1.3); Blood Urea Nitrogen 15 mg/dL (7-17); Calcium 8.2 mg/dL (8.4-10.2); Carbon Dioxide 26 mmol/L (22-32); Chloride 103 mmol/L (98-107); Estimated Glomerular Filt Rate > 60.0 mL/min (>60); Globulin 2.6 g/dL (1.7-4.1); Glucose 90 mg/dL (80-110); HEMOLYSIS 15 (0-50); Potassium 4.1 mmol/L (3.4-5.1); Sodium 131 mmol/L (137-145); Total Protein 5.8 g/dL (6.3-8.2)
[2020-06-02] MEDS: ENOXAPARIN 40 MG/0.4 ML SYRINGE SUBCUT ×2 (09:26→20:29)
[2020-06-02] MEDS: CLOPIDOGREL 75 MG TABLET PO (09:26)
[2020-06-02] MEDS: lisinopriL 10 MG TABLET PO (09:26)
[2020-06-02] MEDS: predniSONE 1 MG TABLET 2 MG PO (09:26)
[2020-06-02] MEDS: LACTOBACILLUS ACIDOPHILUS TABLET 1 EACH PO ×3 (09:26→16:43)
[2020-06-02] MEDS: SODIUM CHLORIDE 0.9% 250 ML 21 ML IV (09:27)
[2020-06-02] MEDS: ROSUVASTATIN 10 MG TABLET 40 MG PO (09:27)
--- NOTE | 2020-06-02 11:33 | PM.PN.1 ---
Subjective Subjective Date Patient Seen: 06/02/20 Time Patient Seen: 09:00 Interval history: The pt this morning reports that her breathing feels slightly improved from prior days. She is sitting up in bed this morning, and appears brighter and with more energy than previously. She denies any chest pain. She is mainly concerned that she is now having very frequent BMs. As per nursing, no concerns from overnight. She was on BiPAP for a few hours overnight, and tolerated it well. Exam Vital Signs (past 8 hours): - 06/02/20 04:27 06/02/20 06:02 06/02/20 08:00 Temperature 98.5 F 98.4 F Pulse Rate 77 83 Respiratory Rate 22 18 Blood Pressure 100/58 L 106/77 Pulse Oximetry 95 94 94 06/02/20 09:00 06/02/20 09:20 Temperature Pulse Rate 90 Respiratory Rate 27 H Blood Pressure 106/77 Pulse Oximetry 96 93 Fraction of Inspired Oxygen 0.65 Oxygen Delivery Method Heated High Flow Oxygen Flow Rate 50 Narrative Exam Narrative: Gen: sitting comfortably in bed, oxygen in place, much more perky than prior days, speaking in complete sentences CV: RRR, grade 2/6 systolic murmur Resp: clear to auscultation bilaterally, no wheezes or crackles Abd: soft, nontender, nondistended, normoactive bowel sounds Ext: no edema Objective Labs Result Diagrams: 06/02/20 06:45 06/02/20 06:45 Labs: Laboratory Results - last 24 hr 06/02/20 06/02/20 06:45 06:45 WBC 10.8 RBC 4.21 Hgb 13.0 Hct 38.3 MCV 91.0 MCH 30.8 MCHC 33.8 RDW 14.4 Plt Count 185 Neut % (Auto) 79.0 H Lymph % (Auto) 12.7 L [place] % (Auto) 5.9 Eos % (Auto) 1.9 L Baso % (Auto) 0.5 Neut # (Auto) 8500 H Lymph # (Auto) 1400 [place] # (Auto) 600 Eos # (Auto) 200 Baso # (Auto) 100 Sodium 131 L Potassium 4.1 Chloride 103 Carbon Dioxide 26 BUN 15 Creatinine 0.52 Estimated GFR > 60.0 BUN/Creatinine Ratio 28.8 H Glucose 90 Calcium 8.2 L Total Bilirubin 1.3 AST 26 ALT 25 Alkaline Phosphatase 66 Total Protein 5.8 L Albumin 3.2 L Globulin 2.6 Albumin/Globulin Ratio 1.2 PFSH Medical History Aortic stenosis B-cell lymphoma Cataract Chicken pox Fecal incontinence (2004) Frequent UTI GERD (gastroesophageal reflux disease) Hearing loss Heart murmur, systolic Hypertension Migraines Pelvic relaxation Polymyalgia rheumatica Urinary incontinence (2013) Surgical History History of dilation and curettage S/P implantation of urinary electronic stimulator device Family History Father Luigi's disease, pulmonary Mother Heart disease Sister No problems noted. Grandmother No problems noted. Social History marital status: number of children: 2 household members: spouse lives independently: Yes caregiver/support person: No housing: house pets and animals: Yes education level: college occupational status: employed current occupational exposures/hazards: No seatbelt use: always working smoke detector in home: Yes fire extinguisher in home: Yes carbon monox detector in home: Yes Smoking Status: Never smoker second hand exposure: No alcohol intake: current substance use type: does not use during the past year weight has: increased > 10 lbs well-balanced diet: daily or most days caffeine: Yes eating out: 1-3 times/week Assessment & Plan Assessment & Plan narrative: 80yo woman with PMR, aortic stenosis, HTN, urinary incontinence, B-cell lymphoma, CAD s/p cardiac stenting 03/2019 here with worsening SOB and fatigue in the setting of being COVID+. Pt with acute respiratory failure with hypoxia requiring oxygen supplementation. 1) COVID pneumonia: Meeting criteria for severe infection due to SaO2 < 94 on room air - currently maintaining around 95% on 40L heated high flow NC with FiO2 60%. O2 requirement decreased from yesterday, and pt still with excellent O2 saturations. Lung sounds remain clear. - Continue daily CBC, BMP - Continue ICU care with negative pressure room and contact precautions - Completed 10 days Remdesivir 05/30 - Completed 10 days Dexamethasone 05/30 - Continue oxygen, titrate as needed to keep saturations > 90% - Doing intermittent BiPAP to help pt rest more, and also to hopefully help open airways further - Proning as able -- highly encourage pt to do this today - Lidocaine patch to help with back pain with proning - Morphine PRN to help with pain and anxiety - High risk DVT prophylaxis with Lovenox BID dosing - Doppler u/s upper and lower extremities negative 05/30/20 - Did not receive convalescent plasma - PICC line in place - Ativan PRN to help with anxiety from SOB - Continue with as much emotional support as possible with ongoing isolation. Pt has number for . Encourage pt to do video chat with her daughter. - Nursing to continue bed exercises to help promote muscle strength 2) Bacterial pneumonia: Superimposed based on CXR from 05/23 and worsening symptoms at that time. Completed abx course for community-acquired pneumonia. Increasing oxygen demand 05/31, elevated WBC count, and CXR with increased infiltrates. Therefore, antibiotics initiated for hospital-acquired pneumonia. - Completed 7 days Ceftriaxone 05/30 - Completed 5 days Azithromycin 05/28 - Continue Levofloxacin, day 05/26 - Continue Zosyn, day 05/26 3) Bleeding diasthesis: Stable, no evidence of ongoing bleeding. Previously with bloody nose and bleeding from PICC site - Continue to hold daily Aspirin - Continue Lovenox and Plavix - Continue PPI due to addition of Lovenox as above and risk for bleed 4) CAD with recent stenting: - Hold Aspirin - Continue Plavix - Monitor closely for cardiac symptoms 3) Aortic stenosis: Recent echo stable 4) Hyperlipidemia: - Continue Rosuvastatin 5) HTN: Normotensive - Continue Lisinopril 6) PMR: - Prednisone 2mg daily 8) Constipation: Resolved. Okay to utilize medications as needed. - Senna daily - Miralax BID - Docusate BID - Dulcolax suppository PRN, encouraged to use today DVT PPX: Lovenox as above Diet: Regular Code: DNR. Pt does not desire intubation. Dispo: Pending improvement in respiratory status off high flow NC, stabilization. Pt will need stay in SNF at discharge due to severity of weakness, and likely will require oxygen at discharge as well.
--- NOTE | 2020-06-02 14:30 | CM.DPC ---
DCP Cont: Per MD, pt continues to remain stable yet also slowly decompensating and still requiring heated highflow 50L 65% and will likely need SNF at d/c. SW discussed that for pt to be accepted at SNF she will need to be on 10L NC oxygen or less and discussed possible [facility] if pt cannot be weaned. agreeable with determining if pt would meet criteria for LTAC and will be on her IV-Abx until 06/06/20. [facility] called [facility] but on-yard caller covering the phone and unable to give a sense of if pt would meet criteria but suggested SW fax referral and then regular Liaison Yvrose will be back in the office tomorrow Wed06/03/20. [facility] faxed referral packet to the requested fax [phone]. [facility] called following SNF's known to accept COVID+ patients: [facility]: no admissions today but provided fax number and SW faxed referral today. [facility]: left msg on admissions phone inquiring if they have openings, did not fax yet. Janie Harvey: left msg [facility]: left msg Plan: SW to follow closely for further discussion with [facility] after review in the morning to determine if they could accept pt. SW to follow for calling and making additional referrals to COVID SNF's when more admission staff available on Wednesday. EMMA [place]
[2020-06-02] MEDS: NYSTATIN OINTMENT 15 APPLIC/TUBE OINT...G. TOP (14:41)
[2020-06-02] MEDS: OXYCODONE IR 5 MG TABLET PO (16:43)
[2020-06-02] MEDS: levoFLOXacin 750 MG/150 ML PIGGYBACK 100 MG IV (16:44)
[2020-06-02] MEDS: GABAPENTIN 300 MG CAPSULE PO (20:28)
[2020-06-02] MEDS: LORazepam 0.5 MG TABLET PO (20:28)
--- NOTE | 2020-06-02 21:30 | PC.NURSE ---
Addendum entered by Rizwana Ambriz R.N. 06/02/20 22:32: 2145 Dr Smi called for update on pt status, provider had noted that pt has become slightly tachy. This nurse noted that pt has had 2 episodes of loose stools on this shift and 1-2 episodes of loose stools for day shift so she is probably slightly dry. Provider agreed that this is most likely the case and will continue to follow, no new orders at this time. 2154 Pt placed on BiPap for 1-3 hours as tolerated. Settings currently 16/6 RR 10 FiO2 of 55%, pt tolerating well at this time, will continue to monitor. Original Note: Evening shift note: A/O x3, sitting up in bed, agreeable to repositioning right to left side lying every few hours. Currently on heated HFNC at 35L and 55% FiO2. Pt attempts to eat meals, but did not have much appetite for dinner, notes that every thing she puts in comes right back out with loose stools. Pt agreeable to being placed on Bipap tonight for 1-3 hours as it seemed to help her O2 saturations today. Bed low and locked, call light within reach, able to use call light to make needs known, will continue to monitor.
[2020-06-03] VITALS (20 sets, daily range): BP systolic 103–130; BP diastolic 51–60; PULSE 80–101; RESP 10–32; TEMP 31–37; O2SAT 91–96
[2020-06-03] MEDS: PANTOPRAZOLE 40 MG TABLET PO (05:14)
[2020-06-03] MEDS: PIPERACILLIN-TAZO 3.375 GM/50 ML FROZ.PIGGY IV ×3 (05:14→17:14)
[2020-06-03 05:59] LABS: Add Manual Diff / Slide Review NO; Basophils Absolute Auto 0 /uL (0-100); Basophils Percent Auto 0.4 % (0-2); Eosinophils Absolute Auto 200 /uL (0-450); Eosinophils Percent Auto 1.7 % (2-4); Hematocrit 34.1 % (36-46); Hemoglobin 11.5 g/dL (12.0-16.0); Lymphocytes Absolute Auto 1300 /uL (1100-4500); Lymphocytes Percent Auto 14.3 % (25-40); Mean Corpuscular HGB Conc 33.8 % (30-36); Mean Corpuscular Hemoglobin 31.1 PG (26-34); Mean Corpuscular Volume 92.1 fL (80-100); Monocytes Absolute Auto 700 /uL (0-900); Monocytes Percent Auto 7.6 % (3-14); Neutrophils Absolute Auto 6800 /uL (1500-7000); Platelet Count 161 X10^3/uL (150-400); Red Cell Distribution Width 14.5 % (11.6-14.8)
[2020-06-03 06:05] LABS: Blood Urea Nitrogen 11 mg/dL (7-17); Carbon Dioxide 21 mmol/L (22-32); Chloride 90 mmol/L (98-107); Estimated Glomerular Filt Rate > 60.0 mL/min (>60); Glucose 126 mg/dL (80-110); HEMOLYSIS < 15 (0-50); Potassium 3.5 mmol/L (3.4-5.1); Sodium 135 mmol/L (137-145)
[2020-06-03] MEDS: ROSUVASTATIN 10 MG TABLET 40 MG PO (08:34)
[2020-06-03] MEDS: CLOPIDOGREL 75 MG TABLET PO (08:35)
[2020-06-03] MEDS: lisinopriL 10 MG TABLET PO (08:35)
[2020-06-03] MEDS: predniSONE 1 MG TABLET 2 MG PO (08:35)
[2020-06-03] MEDS: ENOXAPARIN 40 MG/0.4 ML SYRINGE SUBCUT ×2 (08:35→20:34)
[2020-06-03] MEDS: LACTOBACILLUS ACIDOPHILUS TABLET 1 EACH PO ×3 (08:48→17:14)
--- NOTE | 2020-06-03 09:06 | PM.PN.1 ---
Subjective Subjective Date Patient Seen: 06/03/20 Time Patient Seen: 07:30 Interval history: The pt reports that earlier this morning she was feeling more SOB, but this is now improved. She continues to have frequent loose stools, but they are improving slightly. She is very anxious about sitting at the side of the bed, or any movement really, stating it causes her to panic. She believes this is due to how SOB she got with these activities earlier in her hospitalization. She remains frustrated with her slow progress. She is very anxious about her , who is currently hospitalized at [facility] with COVID, pneumonia, and likely NSTEMI. She is also anxious about ensuring her bills are payed at home and house is taken care of. Her daughter, who lives locally, won't go in their home right now as she has to attest at work daily that she has had no COVID contacts. On further discussion, the pt does endorse feeling more depressed recently as well, simply from her isolation and being in the hospital for > 2 weeks now. As per nursing, the pt tolerated around 2hrs of BiPAP well overnight. Her respiratory status seemed improved after this. Exam Vital Signs (past 8 hours): - 06/03/20 02:30 06/03/20 02:52 06/03/20 04:00 Temperature Pulse Rate 82 84 Respiratory Rate 24 Blood Pressure Pulse Oximetry 96 93 95 06/03/20 05:08 06/03/20 05:44 06/03/20 05:50 Temperature 96.5 F L Pulse Rate 85 80 Respiratory Rate 27 H Blood Pressure 106/51 L Pulse Oximetry 96 92 91 06/03/20 08:00 Temperature 98.2 F Pulse Rate 80 Respiratory Rate 15 Blood Pressure 103/56 L Pulse Oximetry 93 Fraction of Inspired Oxygen 0.54 Oxygen Delivery Method Heated High Flow Oxygen Flow Rate 35 Narrative Exam Narrative: Gen: sitting comfortably in bed, oxygen in place, speaking more easily in normal fluent conversation, somewhat tearful when discussing mood CV: RRR, grade 2/6 systolic murmur Resp: clear to auscultation bilaterally, no wheezes or crackles Abd: soft, nontender, nondistended, normoactive bowel sounds Ext: no edema Objective Labs Result Diagrams: 06/03/20 05:15 06/03/20 05:15 Labs: Laboratory Results - last 24 hr 06/03/20 06/03/20 05:15 05:15 WBC 9.0 RBC 3.70 L Hgb 11.5 L Hct 34.1 L MCV 92.1 MCH 31.1 MCHC 33.8 RDW 14.5 Plt Count 161 Neut % (Auto) 76.0 H Lymph % (Auto) 14.3 L [place] % (Auto) 7.6 Eos % (Auto) 1.7 L Baso % (Auto) 0.4 Neut # (Auto) 6800 Lymph # (Auto) 1300 [place] # (Auto) 700 Eos # (Auto) 200 Baso # (Auto) 0 Sodium 135 L Potassium 3.5 Chloride 90 L Carbon Dioxide 21 L BUN 11 Creatinine 0.50 L Estimated GFR > 60.0 BUN/Creatinine Ratio 22.0 Glucose 126 H Calcium 7.0 L PFSH Medical History Aortic stenosis B-cell lymphoma Cataract Chicken pox Fecal incontinence (2004) Frequent UTI GERD (gastroesophageal reflux disease) Hearing loss Heart murmur, systolic Hypertension Migraines Pelvic relaxation Polymyalgia rheumatica Urinary incontinence (2013) Surgical History History of dilation and curettage S/P implantation of urinary electronic stimulator device Family History Father Luigi's disease, pulmonary Mother Heart disease Sister No problems noted. Grandmother No problems noted. Social History marital status: number of children: 2 household members: spouse lives independently: Yes caregiver/support person: No housing: house pets and animals: Yes education level: college occupational status: employed current occupational exposures/hazards: No seatbelt use: always working smoke detector in home: Yes fire extinguisher in home: Yes carbon monox detector in home: Yes Smoking Status: Never smoker second hand exposure: No alcohol intake: current substance use type: does not use during the past year weight has: increased > 10 lbs well-balanced diet: daily or most days caffeine: Yes eating out: 1-3 times/week Assessment & Plan Assessment & Plan narrative: 80yo woman with PMR, aortic stenosis, HTN, urinary incontinence, B-cell lymphoma, CAD s/p cardiac stenting 03/2019 here with worsening SOB and fatigue in the setting of being COVID+. Pt with acute respiratory failure with hypoxia requiring oxygen supplementation. Hospital day #15. 1) COVID pneumonia: Meeting criteria for severe infection due to SaO2 < 94 on room air - currently maintaining around 95% on 35L heated high flow NC with FiO2 55%. O2 requirement stable from yesterday, however pt now without profound desaturations with movement.. Lung sounds remain clear. - Continue daily CBC, BMP - Continue ICU care with negative pressure room and contact precautions - Completed 10 days Remdesivir 05/30 - Completed 10 days Dexamethasone 05/30 - Continue oxygen, titrate as needed to keep saturations > 90% - Doing intermittent BiPAP to help pt rest more, and also to hopefully help open airways further - Proning as able -- highly encourage pt to do this today - Lidocaine patch to help with back pain with proning - Morphine PRN to help with pain and anxiety - High risk DVT prophylaxis with Lovenox BID dosing - Doppler u/s upper and lower extremities negative 05/30/20 - Did not receive convalescent plasma - PICC line in place - Continue with as much emotional support as possible with ongoing isolation. 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 - Nursing to continue bed exercises to help promote muscle strength. Will attempt more feet dangling/bedside sitting today. If able to tolerate PT may be able to better work with the pt tomorrow. 2) Bacterial pneumonia: Superimposed based on CXR from 05/23 and worsening symptoms at that time. Completed abx course for community-acquired pneumonia. Increasing oxygen demand 05/31, elevated WBC count, and CXR with increased infiltrates. Therefore, antibiotics initiated for hospital-acquired pneumonia. - Completed 7 days Ceftriaxone 05/30 - Completed 5 days Azithromycin 05/28 - Continue Levofloxacin, day 06/26 - Continue Zosyn, day 06/26 3) Bleeding diasthesis: Stable, no evidence of ongoing bleeding. Previously with bloody nose and bleeding from PICC site - Continue to hold daily Aspirin - Continue Lovenox and Plavix - Continue PPI due to addition of Lovenox as above and risk for bleed 4) CAD with recent stenting: - Hold Aspirin - Continue Plavix - Monitor closely for cardiac symptoms 3) Aortic stenosis: Recent echo stable 4) Hyperlipidemia: - Continue Rosuvastatin 5) HTN: Normotensive - Continue Lisinopril 6) PMR: - Prednisone 2mg daily 8) Constipation: Resolved, now with more frequent loose stools - Hold all stool softeners for now 9) Anxiety/Depression: Pt overall with significant anxiety regarding taking care of basics from home such as paying bills, her 's health, and SOB she had with movement recently. Mood overall also declining, with depressive symptoms from isolation. - Ativan PRN to help with anxiety from SOB - After discussion with the pt, agreeable to trial of antidepressant/anxiolytic. Will initiate Mirtazapine 15mg nightly today. Can decreased to 7.5mg if pt has adverse effects. This agent was chosen for slightly more rapid onset, and also hopefully with added benefit of appetite stimulation. 10) Nutritional status: Pt has been tolerated meals moderately well. - Continue to monitor intake closely - Nursing will continue to work with pt to find foods she enjoys eating - Consider Nutrition consult if PO intake not adequate today - Does not need TPN at this point, but may need to consider in the near future DVT PPX: Lovenox as above Diet: Regular Code: DNR. Pt does not desire intubation. Dispo: Pending improvement in respiratory status off high flow NC, stabilization. Pt will need stay in SNF at discharge due to severity of weakness, and likely will require oxygen at discharge as well.
--- NOTE | 2020-06-03 11:14 | PC.NURSE ---
PT ENCOURAGED TO DANGLE ON EDGE OF BED- SHE WAS ANXIOUS IN DOING SO AND REQUESTED TWO STAFF MEMBERS TO ASSIST. SHE DID VERY WELL WITH MINIMAL ASSIST TO EDGE OF BED TOLERATING IT FAIR (WITH INCREASED RR/DECREASED SPO2 86%) STOOD UP AND TOOK 2 STEPS TO THE RIGHT TO ASSIST IN BED ALIGNMENT- MUCH VERBAL ENCOURAGEMENT GIVEN - APPROX 4-5 MINUTES UPRIGHT SUPPORTING HERSELF AND 4-5 MINUTES FOR RECOVERY TIME AFTER LYING BACK DOWN- PT REFUSING TO PRONE AT THIS TIME
--- NOTE | 2020-06-03 11:19 | CM.DPC ---
DCP/continued: Reviewed chart. Placed call to Yvrose at [facility] left voicemail at phone# [phone] re: whether or not they can accept? In addition, received call from Nell at [facility] phone# [phone] ext# [phone] she reports that they most likely can accept when medically stable? At this time unclear on whether or not patient will be accepted at [facility] or will d/c to SNF. Awaiting call back from [facility]. P: Pending. EMMA Patel
[2020-06-03] MEDS: SODIUM CHLORIDE 0.9% 250 ML 21 ML IV (11:40)
[2020-06-03] MEDS: NYSTATIN OINTMENT 15 APPLIC/TUBE OINT...G. TOP (14:19)
[2020-06-03] MEDS: MIRTAZAPINE 15 MG TABLET PO (20:33)
[2020-06-03] MEDS: LORazepam 0.5 MG TABLET PO (20:34)
[2020-06-03] MEDS: GABAPENTIN 300 MG CAPSULE PO (20:34)
--- NOTE | 2020-06-03 22:34 | PC.NURSE ---
Patient A/O4, no complaints of pain. Patient had minimal appetite and no BMs during evening shift. Initial HHF settings were 35L 55% NS were decreased to 35L 50% by RT. Patient was able to sustain spO2 in mid 90's on 8L HFNC for over an hour but is back on HHF for bedtime. Patient is anxious but willing to work with PT tomorrow. Ativan PRN was given for bedtime to help the patient calm down for sleep.
[2020-06-04] VITALS (20 sets, daily range): BP systolic 103–127; BP diastolic 54–59; PULSE 80–120; RESP 15–30; TEMP 36.4–37.1; O2SAT 90–96
[2020-06-04] MEDS: PIPERACILLIN-TAZO 3.375 GM/50 ML FROZ.PIGGY IV ×4 (00:12→20:06)
--- NOTE | 2020-06-04 00:39 | PC.NURSE ---
Pt alert and oriented x4. Denies any pain at this time. Heated high flow at 35L and 50% Fio2. O2 sats running stable at 92-95%. Pt slight SOB with movement. Pt refuses to prone at this time but side proning. Will continue to encourage. Scds applied. Call light within reach
[2020-06-04] MEDS: PANTOPRAZOLE 40 MG TABLET PO (06:09)
--- NOTE | 2020-06-04 08:33 | CM.DANOTE ---
DCP/continued: Received message from Yvrose at [facility] re: acceptance. She reports that patient is being considered for acute [facility]. Yvrose reports that [facility] physician is requesting to speak with patient's physician at [facility] before acceptance. Dr. Shay is [facility] physician and can be reached at [phone]. P: CM team following closely. Anticipate COVID SNF vs. [facility] (residential acute). EMMA Patel
[2020-06-04] MEDS: ENOXAPARIN 40 MG/0.4 ML SYRINGE SUBCUT ×2 (08:41→21:23)
[2020-06-04] MEDS: LACTOBACILLUS ACIDOPHILUS TABLET 1 EACH PO ×3 (08:41→16:20)
[2020-06-04] MEDS: DOCUSATE 100 MG CAPSULE PO (08:41)
[2020-06-04] MEDS: lisinopriL 10 MG TABLET PO (08:42)
[2020-06-04] MEDS: predniSONE 1 MG TABLET 2 MG PO (08:42)
[2020-06-04] MEDS: CLOPIDOGREL 75 MG TABLET PO (08:42)
[2020-06-04] MEDS: ROSUVASTATIN 10 MG TABLET 40 MG PO (08:44)
[2020-06-04 09:07] LABS: Add Manual Diff / Slide Review NO; Basophils Absolute Auto 100 /uL (0-100); Basophils Percent Auto 0.9 % (0-2); Eosinophils Absolute Auto 200 /uL (0-450); Hematocrit 34.1 % (36-46); Hemoglobin 11.7 g/dL (12.0-16.0); Lymphocytes Absolute Auto 1100 /uL (1100-4500); Lymphocytes Percent Auto 16.8 % (25-40); Mean Corpuscular HGB Conc 34.4 % (30-36); Mean Corpuscular Hemoglobin 31.3 PG (26-34); Monocytes Absolute Auto 600 /uL (0-900); Neutrophils Absolute Auto 4800 /uL (1500-7000); Neutrophils Percent Auto 70.3 % (50-75); Platelet Count 145 X10^3/uL (150-400); Red Blood Cell Count 3.74 X10^6/uL (4.0-5.2); Red Cell Distribution Width 14.1 % (11.6-14.8); White Blood Cell Count 6.8 X10^3/uL (4.5-11.0)
[2020-06-04 09:19] LABS: BUN Creatinine Ratio 19.3 (6-22); Blood Urea Nitrogen 11 mg/dL (7-17); Carbon Dioxide 27 mmol/L (22-32); Chloride 104 mmol/L (98-107); Estimated Glomerular Filt Rate > 60.0 mL/min (>60); Glucose 85 mg/dL (80-110); HEMOLYSIS < 15 (0-50); Potassium 3.7 mmol/L (3.4-5.1); Sodium 135 mmol/L (137-145)
--- NOTE | 2020-06-04 09:34 | PM.PN.1 ---
Subjective Subjective Date Patient Seen: 06/04/20 Time Patient Seen: 09:00 Interval history: This morning the pt is pleased with her progress. She was happy to have risen from the bed yesterday. She feels her SOB is stable. She knows she needs to work on taking deeper breaths. She denies any chest pain, abdominal pain. Her stools are becoming more formed again. As per nursing, the pt did well overnight. They did a trial on high flow NC at 6L, and the pt did well overall but tired out after approximately 1 hour. The pt was able to rise from the bed for a brief period of time yesterday, and take a few steps. She only desat to 86%, and recovered within 10 minutes once seated again. Exam Vital Signs (past 8 hours): - 06/04/20 02:27 06/04/20 04:00 06/04/20 04:15 Temperature 97.8 F Pulse Rate 80 80 Respiratory Rate 24 Blood Pressure 103/54 L Pulse Oximetry 93 92 93 06/04/20 05:03 06/04/20 07:32 06/04/20 08:55 Temperature 97.6 F Pulse Rate 80 84 80 Respiratory Rate 20 29 H Blood Pressure 108/57 L Pulse Oximetry 94 94 94 Fraction of Inspired Oxygen 0.45 Oxygen Delivery Method Heated High Flow Oxygen Flow Rate 35 Narrative Exam Narrative: Gen: sitting comfortably in bed, oxygen in place, speaking easily in normal fluent conversation CV: RRR, grade 2/6 systolic murmur Resp: clear to auscultation bilaterally, no wheezes or crackles Abd: soft, nontender, nondistended, normoactive bowel sounds Ext: no edema Objective Labs Result Diagrams: 06/04/20 09:00 06/04/20 09:00 Labs: Laboratory Results - last 24 hr 06/04/20 06/04/20 09:00 09:00 WBC 6.8 RBC 3.74 L Hgb 11.7 L Hct 34.1 L MCV 91.0 MCH 31.3 MCHC 34.4 RDW 14.1 Plt Count 145 L Neut % (Auto) 70.3 Lymph % (Auto) 16.8 L [place] % (Auto) 9.0 Eos % (Auto) 3.0 Baso % (Auto) 0.9 Neut # (Auto) 4800 Lymph # (Auto) 1100 [place] # (Auto) 600 Eos # (Auto) 200 Baso # (Auto) 100 Sodium 135 L Potassium 3.7 Chloride 104 Carbon Dioxide 27 BUN 11 Creatinine 0.57 Estimated GFR > 60.0 BUN/Creatinine Ratio 19.3 Glucose 85 Calcium 8.0 L PFSH Medical History Aortic stenosis B-cell lymphoma Cataract Chicken pox Fecal incontinence (2004) Frequent UTI GERD (gastroesophageal reflux disease) Hearing loss Heart murmur, systolic Hypertension Migraines Pelvic relaxation Polymyalgia rheumatica Urinary incontinence (2013) Surgical History History of dilation and curettage S/P implantation of urinary electronic stimulator device Family History Father Luigi's disease, pulmonary Mother Heart disease Sister No problems noted. Grandmother No problems noted. Social History marital status: number of children: 2 household members: spouse lives independently: Yes caregiver/support person: No housing: house pets and animals: Yes education level: college occupational status: employed current occupational exposures/hazards: No seatbelt use: always working smoke detector in home: Yes fire extinguisher in home: Yes carbon monox detector in home: Yes Smoking Status: Never smoker second hand exposure: No alcohol intake: current substance use type: does not use during the past year weight has: increased > 10 lbs well-balanced diet: daily or most days caffeine: Yes eating out: 1-3 times/week Assessment & Plan Assessment & Plan narrative: 80yo woman with PMR, aortic stenosis, HTN, urinary incontinence, B-cell lymphoma, CAD s/p cardiac stenting 03/2019 here with worsening SOB and fatigue in the setting of being COVID+. Pt with acute respiratory failure with hypoxia requiring oxygen supplementation. Hospital day #15. 1) COVID pneumonia: Meeting criteria for severe infection due to SaO2 < 94 on room air - currently maintaining around 92% on 35L heated high flow NC with FiO2 45%. Was able to tolerate a brief trial of normal high flow overnight reasonable well. Hoping to be able to wean further today. Lung sounds remain clear. - Continue daily CBC, BMP - Continue ICU care with negative pressure room and contact precautions - Completed 10 days Remdesivir 05/30 - Completed 10 days Dexamethasone 05/30 - Continue oxygen, titrate as needed to keep saturations > 90% - Did intermittent BiPAP for a few nights, now due to improvements tentatively not continuing - Proning as able -- highly encourage pt to do this today - Lidocaine patch to help with back pain with proning - Morphine PRN to help with pain and anxiety - High risk DVT prophylaxis with Lovenox BID dosing - Doppler u/s upper and lower extremities negative 05/30/20 - Did not receive convalescent plasma - PICC line in place - Continue with as much emotional support as possible with ongoing isolation. Pt has number for carbonator. - Will have PT work with the pt formally today. Believe getting the pt moving with deeper breathing will be very beneficial. - Encourage IS today 2) Bacterial pneumonia: Superimposed based on CXR from 05/23 and worsening symptoms at that time. Completed abx course for community-acquired pneumonia. Increasing oxygen demand 05/31, elevated WBC count, and CXR with increased infiltrates. Therefore, antibiotics initiated for hospital-acquired pneumonia. - Completed 7 days Ceftriaxone 05/30 - Completed 5 days Azithromycin 05/28 - Continue Levofloxacin, day 07/26 - Continue Zosyn, day 07/26 3) Bleeding diasthesis: Stable, no evidence of ongoing bleeding. Previously with bloody nose and bleeding from PICC site - Continue to hold daily Aspirin - Continue Lovenox and Plavix - Continue PPI due to addition of Lovenox as above and risk for bleed 4) CAD with recent stenting: - Hold Aspirin - Continue Plavix - Monitor closely for cardiac symptoms 3) Aortic stenosis: Recent echo stable 4) Hyperlipidemia: - Continue Rosuvastatin 5) HTN: Normotensive - Continue Lisinopril 6) PMR: - Prednisone 2mg daily 8) Constipation: Resolved, now with more frequent loose stools - Hold all stool softeners for now 9) Anxiety/Depression: Pt overall with significant anxiety regarding taking care of basics from home such as paying bills, her 's health, and SOB she had with movement recently. Mood overall also declining, with depressive symptoms from isolation. - Ativan PRN to help with anxiety from SOB - Continue Mirtazapine 15mg nightly today. Can decreased to 7.5mg if pt has adverse effects. This agent was chosen for slightly more rapid onset, and also hopefully with added benefit of appetite stimulation. 10) Nutritional status: Pt has been tolerated meals moderately well. Appetite improving slightly. - Continue to monitor intake closely - Nursing will continue to work with pt to find foods she enjoys eating - Consider Nutrition consult if PO intake not adequate 11) Hypocalcemia: - Calcium supplement today DVT PPX: Lovenox as above Diet: Regular Code: DNR. Pt does not desire intubation. Dispo: Pending improvement in respiratory status off high flow NC, stabilization. Pt will need stay in SNF at discharge due to severity of weakness, and likely will require oxygen at discharge as well. Considered [facility], but do not believe pt will meet acuity requirements at this point.
--- NOTE | 2020-06-04 11:35 | PT.IIE ---
Current Diagnoses COVID-19 (05/20/20) Surgical History (Last Reviewed 05/20/20 @ 17:19 by Dada Tello MD) History of dilation and curettage S/P implantation of urinary electronic stimulator device Medical History (Last Reviewed 05/20/20 @ 17:19 by Dada Tello MD) Aortic stenosis B-cell lymphoma Cataract Chicken pox Fecal incontinence (2004) Frequent UTI GERD (gastroesophageal reflux disease) Hearing loss Heart murmur, systolic Hypertension Migraines Pelvic relaxation Polymyalgia rheumatica Urinary incontinence (2013) Physical Therapy Inpatient Evaluation/Re-Eval M1 PT/OT-IP Prior Functional Status Start: 05/26/20 08:28 Freq: NEEDED Status: Active Protocol: Document 06/04/20 11:36 AB (Rec: 06/04/20 13:07 AB [id number]) Medical Review Prior Functional Status Medical History Reviewed Yes Communication able to make needs known Mobility and Gait pt stated that she is independent with all mobilities and ambulation without AD Social History Household Members spouse Living Arrangements House Number of Floors (Floors) One Floor Number of Stairs To Enter/Railing? 2 steps L rail to enter Home Environment Standard Height Toilet,Walk in Shower Home Equipment Grab Bars In Shower M2 PT-IP Current Condition Start: 05/26/20 08:28 Freq: NEEDED Status: Active Protocol: Document 06/04/20 11:36 AB (Rec: 06/04/20 13:07 AB [email or web address]) Physical Therapy Current Condition Current Condition Evaluation Date 06/04/20 Treatment Diagnosis Covid (+); generalized weakness Onset Date 05/20/20 Precautions Other Precautions covid (+) precautions M3 PT-IP Subjective Start: 05/26/20 08:28 Freq: NEEDED Status: Active Protocol: Document 06/04/20 11:36 AB (Rec: 06/04/20 13:07 AB [email or web address]) Subjective Physical Therapy Visit Type Type Initial Evaluation Visit Start Time 11:36 Visit Stop Time 12:08 Total Visit Minutes 32 Number of MOLD INSPECTOR Visits 0 Physical Therapy Visit Comments Patient Comments pt agreed to do PT Therapy Pain Assessment Pain Present Pain Present Denied Pain M4 PT-IP Mobility and Gait Start: 05/26/20 08:28 Freq: NEEDED Status: Active Protocol: Document 06/04/20 11:36 AB (Rec: 06/04/20 13:07 AB [email or web address]) PT-Bed Mobility Assessment Supine to Sit Supine to Sit Minimal Assistance,1 Person Assistance,Head of Bed Elevated PT-Transfer Assessment Sit to and From Stand Sit to and from Stand Minimal Assistance,1 Person Assistance,Use of Upper Extremities Equipment Transfer Assistive Device Gait Belt,Front Wheeled Walker Orthotic/Prosthetic Devices or Brace: No Transfers Transfer Destination Chair Transfer Technique Stand Step Pivot Transfer Ability Level of Assist Minimal Assistance,1 Person Assistance,Use of Upper Extremities Comments Mobility Comments nurse and RT in room. completed supine to sit min A with HOB elevated. requiring initial min A for sitting balance but able to hold self up SBA after repositioning. RT monitoring O2 sat and readjusting O2 for pt. O2 sat upon sittin-97%. pt with (+) SOB and needed a seated rest break. completed sit to stand min A and cues. completed step transfer to chair using FWW min A. required increase time to complete task with increase standing rest break. O2 sat after transfer: 86-88%. pt declined further PT. Left pt with nurse and RT. Gait Assessment Comments Gait Comments pt was able to take steps using FWW to get on the chair. PT-Balance Assessment Sitting Balance and Reactions Static Sitting Balance Ability Good Dynamic Sitting Balance Ability Fair Standing Balance and Reactions Static Standing Balance Ability Fair Dynamic Standing Balance Ability Fair Device Used FWW M5 PT-IP Objective Assessments Start: 05/26/20 08:28 Freq: NEEDED Status: Active Protocol: Document 06/04/20 11:36 AB (Rec: 06/04/20 13:07 AB [email or web address]) Orientation Orientation/Cognition Level of Alertness Alert Orientation Name,Place,Situation Safety Awareness Decreased Safety Awareness Gross Range of Motion Lower Extremity ROM Assessment Within Functional Limits Strength Lower Extremity Strength Assessment Within Functional Limits Muscle Tone Muscle Tone WNL Yes M6 PT-IP Treatment Start: 05/26/20 08:28 Freq: NEEDED Status: Active Protocol: Document 06/04/20 11:36 AB (Rec: 06/04/20 13:07 AB [email or web address]) Physical Therapy Treatment Education Education Provided Safety M7 PT-IP Assessment and Plan Start: 05/26/20 08:28 Freq: NEEDED Status: Active Protocol: Document 06/04/20 11:36 AB (Rec: 06/04/20 13:07 AB [email or web address]) PT Summary Assessment and Plan Potential Rehabilitation Potential Fair Status of Condition at Evaluation Evolving Summary Impairments Pain,ROM,Strength,Balance, Cognition,Bed Mobility, Transfers,Gait,Activity Tolerance Assessment Summary pt requiring min A with mobility but unable to tolerance much activity with c /o SOB and O2 sat decreased to ~ 86-88% after transfers with 15L/min high flow (nurse and RT in room and adjusting O2 during mobility). at this time, pt will need SNF rehab to improve strength and mobility. will continue to assess progress. Goals Bed Mobility Goal Independent Transfer Goal Independent,Front Wheeled Walker Gait Goal Contact Guard Assistance,Front Wheel Walker Gait Distance 50 Other Goals improve transfter without AD SBA improve ambulation using FWW/ without AD 200 ft SBA Days to Meet Goals 10 Frequency of Treatment Frequency Of Treatment Once a Day Treatment Plan Physical Therapy Treatment Plan Bed Mobility Training,Transfer Training,Gait Training, Therapeutic Exercise,Balance Retraining,Discharge Planning, Neuromuscular Re-ed, Coordination Retraining Precautions Other Precautions Covid (+) precautions Recommendations To Nursing Amount of Assist Needed 1 Person Assist Discharge Recommendations PT Discharge Recommendations SNF Rehab Transportation Needs at Discharge Wheelchair/Cabulance
[2020-06-04] MEDS: CALCIUM CARBONATE 600 MG TABLET PO (11:41)
--- NOTE | 2020-06-04 11:48 | CM.DPNOTE ---
Addendum entered by Christine Jerome 06/04/20 12:54: Spoke to Oscar at facility and he said he received information. Christine Jerome CM Asst. Original Note: Faxed clinicals to Man[facility] Sauceda [phone] on 06/04/20. Received fax confirmation. Christine Jerome CM Asst.
[2020-06-04] MEDS: MORPHINE 2 MG/ML INJ 1 MG IV ×2 (12:28→20:41)
--- NOTE | 2020-06-04 12:49 | DIET.PN ---
Dietary Progress Note Assessment: 80y F admitted 15d ago for covid19 pneumonia, pt reports gaining >10# during pandemic. Pt has spent the majority of her stay in the hospital bed including to eat meals. Pt concerned re: full feeling after eating, likely sx from eating not at 90 degrees and several weeks of poor POs. Pt has anxiety regarding her health status, health status of her spouse, and home. Pt started receiving ONS Ensure Max once daily to support protein needs at admission. RD added on ONS Glucerna BID on day 7 with easy chew diet secondary to low POs. These lower carbohydrate ONS were chosen to support respiratory status in this overweight female. POs recorded around 25% for each meal, however, ONS not often counted in total. Per nursing, pt generally drinks 100% ONS. ONS/day provides: 530kcals (30% of needs) and 50g PRO (65% of needs) in addition to meal trays. Pt able to tolerate PO intake, consuming 100% ONS and 25% of meal trays consistently. Pt has some loose stools which is common c Covid19 pneumonia. HT: 165.1cm WT: 77kg UBW: 79kg BMI: 27.0 Nutrition Diagnosis: difficulty eating r/t increased work of breathing aeb pt on hospital stay day 15 for covid19 pneumonia, pt able to consume 100% liquid nutrition supplements but only 25% meal trays, pt on heated high flow oxygen, deconditioned pt laying in hospital bed x15d. Interventions: 1. Recc continued encouragement for pt to sit in chair for meals. 2. Recc continued ONS and General easy chew meals. Diet Order: General easy chew c ONS Ensure Max c lunch, ONS Glucerna bid EER: 1900kcal (25kcal/kg), 77g PRO (1g/kg) Monitoring/Evaluations: POs, ONS tolerance, weight
--- NOTE | 2020-06-04 14:40 | PC.NURSE ---
Day Shift Note Pt up to chair today with PT, 2 person assist with FWW to transfer, RT in room. On 15L HFNC for transfer. Short of breath with RR in the upper 30s, SpO2 87-89%, HR in the 120s, pt appearing anxious. Pt encouraged to take slow, deep breaths and was placed back on heated HFNC by RT. Heated HFNC settings increased to 55L and FIO2 100% for pt's recovery. Morphine IV administered per emar for work of breathing. Pt able to eat small sips/bites of lunch sitting up. Dr. Sim updated on increased oxygen needs post-transfer. Heated HFNC decreased to 40L and 45% FiO2 at about 1345, took pt about 1.5 hrs to recover from transfer. Currently reclining in chair, resting quietly, ST in the low 100s, RR 18-20 bpm, SpO2 93-94%. Call light within reach, using appropriately to make needs known.
--- NOTE | 2020-06-04 15:54 | CM.DPC ---
DCP/continued: Reviewed chart. BUSINESS RULES DEVELOPER spoke with Dr. Sim this AM. She reports that patient is slowly showing signs of improvement. Patient currently up in chair on 40 liters 02. Nursing reports patient improvement over the last day. Dr. Sim requesting CM team look into SNF when patient medically stable. BUSINESS RULES DEVELOPER received call from [facility] in [place]. They report they are no longer accepting COVID paient's. Therefore, [facility] no [facility] accepts [facility] patients however, [facility]. Spoke with Oscar in admit at [facility] cell# [phone] clinical faxed for review. Received return phone call from Oscar indicating they can accept once patient on 5 liters 02 per minute continuos. Notified Oscar that at this time unsure when that will be? Oscar in agreement to follow. P: [facility] when medically appropriate. Oscar reports that if needed they can accommodate spouse as well. Spouse currently at [facility]. BUSINESS RULES DEVELOPER/Lilia notified. EMMA Patel
[2020-06-04] MEDS: levoFLOXacin 750 MG/150 ML PIGGYBACK 100 MG IV (16:20)
[2020-06-04] MEDS: LORazepam 0.5 MG TABLET PO (20:40)
--- NOTE | 2020-06-04 20:46 | PC.NURSE ---
patient was resting in chair at start of shift on heated high flow nasal cannula satting in the mid 90s. Patient said she was not short of breath and had no complaints of pain, asked patient if she was okay to stay in the chair for dinner, patient had no problem staying in the chair for dinner. Plan was made with patient that this RN along with RT would assist her back to bed with her nightly meds, she was okay with this plan, staff went in at 191 to reposition her in the chair and get a set of vitals, patient did not ask to go back to bed at this time, RT and this RN went into room at 1999 to assist patient back to bed and patient was very upset and said she wanted to write a formal complaint for being left in the chair, apologized to the patient for the misunderstanding and said staff were not aware that she wanted to go back to the bed earlier and that I did not know she was uncomfortable in the chair. Patient was very anxious about getting back to bed and was premedicated with pain medication and anxiety medication. Patient was able to stand and pivot using 2 staff assist and the gait belt. RT preoxygenated patient with 100% O2. Patient was placed in bed with call davis in reach, states she is comfortable at this time.
[2020-06-04] MEDS: GABAPENTIN 300 MG CAPSULE PO (21:23)
[2020-06-04] MEDS: MIRTAZAPINE 15 MG TABLET PO (21:23)
[2020-06-04] MEDS: SENNOSIDES 8.6 MG TABLET 17.2 MG PO (21:23)
[2020-06-05] VITALS (17 sets, daily range): BP systolic 94–106; BP diastolic 52–56; PULSE 81–109; RESP 10–28; TEMP 32–37.3; O2SAT 91–97
[2020-06-05] MEDS: PIPERACILLIN-TAZO 3.375 GM/50 ML FROZ.PIGGY IV ×5 (01:00→23:37)
[2020-06-05] MEDS: SODIUM CHLORIDE 0.9% FLUSH 10 ML IV (03:02)
[2020-06-05] MEDS: SODIUM CHLORIDE 0.9% 250 ML 21 ML IV ×2 (03:02→17:03)
--- NOTE | 2020-06-05 05:53 | PC.NURSE ---
Addendum entered by Caity Arceo R.N. 06/05/20 06:43: Unable to pull labs from PICC, some flow, but not enough to complete lab draws. Flush and TKO continued. Lab to draw. Original Note: NOC shift 2300 Pt in bed, side laying at present. Reports , with smile and significant pride, about ambulation today and sitting in chair. Pt aware of continued need to work on IS and deep breathing. Verbalizes understanding of goal to be on HFNC to allow for DC to SNF when medically cleared. Lungs remain diminished, heated hi flow with 40L and 43% Fio2 at present. Pt is tolerating this with bed mobility and repositioning. Spo2 >88%, as high as 98% with these settings. VSS, PICC remains to RUE with TKO. Niki patent. Denies pain discussed plan to premedicate prior to moving OOB later today. Will update on coming RN of POC. Call light in reach. 0600-Labs drawn from PICC. Sent to lab. Assist to side laying with assist of 1 person.
[2020-06-05 07:13] LABS: Add Manual Diff / Slide Review NO; Basophils Absolute Auto 100 /uL (0-100); Basophils Percent Auto 0.9 % (0-2); Eosinophils Absolute Auto 200 /uL (0-450); Eosinophils Percent Auto 3.4 % (2-4); Hematocrit 33.1 % (36-46); Hemoglobin 11.4 g/dL (12.0-16.0); Lymphocytes Absolute Auto 1200 /uL (1100-4500); Lymphocytes Percent Auto 16.9 % (25-40); Mean Corpuscular HGB Conc 34.5 % (30-36); Mean Corpuscular Hemoglobin 31.4 PG (26-34); Monocytes Absolute Auto 700 /uL (0-900); Monocytes Percent Auto 10.1 % (3-14); Neutrophils Absolute Auto 5000 /uL (1500-7000); Neutrophils Percent Auto 68.7 % (50-75); Platelet Count 135 X10^3/uL (150-400); Red Blood Cell Count 3.64 X10^6/uL (4.0-5.2); Red Cell Distribution Width 14.4 % (11.6-14.8); White Blood Cell Count 7.3 X10^3/uL (4.5-11.0)
[2020-06-05 07:22] LABS: BUN Creatinine Ratio 26.5 (6-22); Blood Urea Nitrogen 13 mg/dL (7-17); Calcium 8.1 mg/dL (8.4-10.2); Carbon Dioxide 25 mmol/L (22-32); Chloride 105 mmol/L (98-107); Estimated Glomerular Filt Rate > 60.0 mL/min (>60); Glucose 89 mg/dL (80-110); HEMOLYSIS < 15 (0-50); Potassium 3.7 mmol/L (3.4-5.1); Sodium 132 mmol/L (137-145)
[2020-06-05] MEDS: DOCUSATE 100 MG CAPSULE PO (08:35)
[2020-06-05] MEDS: ENOXAPARIN 40 MG/0.4 ML SYRINGE SUBCUT ×2 (08:35→20:16)
[2020-06-05] MEDS: CLOPIDOGREL 75 MG TABLET PO (08:35)
[2020-06-05] MEDS: predniSONE 1 MG TABLET 2 MG PO (08:36)
[2020-06-05] MEDS: lisinopriL 10 MG TABLET PO (08:36)
[2020-06-05] MEDS: LACTOBACILLUS ACIDOPHILUS TABLET 1 EACH PO ×3 (08:36→17:02)
[2020-06-05] MEDS: ROSUVASTATIN 10 MG TABLET 40 MG PO (08:36)
[2020-06-05] MEDS: LIDOCAINE PATCH 1 EACH ADH..PATCH TOP (09:04)
[2020-06-05] MEDS: PANTOPRAZOLE 40 MG TABLET PO (09:04)
--- NOTE | 2020-06-05 09:33 | PM.PN.1 ---
Subjective Subjective Date Patient Seen: 06/05/20 Time Patient Seen: 08:00 Interval history: The pt reports being very angry this morning about being up in the chair for so long yesterday. She felt good being out of the bed, but states her tailbone started to hurt from being seated for too long. She does want to try it again today, just for a shorter period of time. She denies any abdominal pain or chest pain. She feels her SOB is stable. She did not have worsening SOB in the chair yesterday, only when transferring. As per nursing, the pt did well overnight. She took around 1.5 hours to recover after transferring back into bed from the chair. Exam Vital Signs (past 8 hours): - 06/05/20 01:35 06/05/20 03:33 06/05/20 04:00 Temperature Pulse Rate 105 H 99 H 82 Respiratory Rate 25 H 24 25 H Blood Pressure Pulse Oximetry 95 94 94 06/05/20 05:13 06/05/20 08:00 06/05/20 08:18 Temperature 99.1 F Pulse Rate 82 82 81 Respiratory Rate 21 20 22 Blood Pressure 94/52 L 94/52 L Pulse Oximetry 93 94 93 06/05/20 09:10 Temperature Pulse Rate Respiratory Rate Blood Pressure Pulse Oximetry 92 Fraction of Inspired Oxygen 0.42 Oxygen Delivery Method Heated High Flow Oxygen Flow Rate 45 Narrative Exam Narrative: Gen: laying comfortably in bed, oxygen in place, speaking easily in normal fluent conversation, more animated than prior days CV: RRR, grade 2/6 systolic murmur Resp: clear to auscultation bilaterally, no wheezes or crackles Abd: soft, nontender, nondistended, normoactive bowel sounds Ext: no edema Objective Labs Result Diagrams: 06/05/20 06:55 06/05/20 06:55 Labs: Laboratory Results - last 24 hr 06/05/20 06/05/20 06:55 06:55 WBC 7.3 RBC 3.64 L Hgb 11.4 L Hct 33.1 L MCV 91.0 MCH 31.4 MCHC 34.5 RDW 14.4 Plt Count 135 L Neut % (Auto) 68.7 Lymph % (Auto) 16.9 L [place] % (Auto) 10.1 Eos % (Auto) 3.4 Baso % (Auto) 0.9 Neut # (Auto) 5000 Lymph # (Auto) 1200 [place] # (Auto) 700 Eos # (Auto) 200 Baso # (Auto) 100 Sodium 132 L Potassium 3.7 Chloride 105 Carbon Dioxide 25 BUN 13 Creatinine 0.49 L Estimated GFR > 60.0 BUN/Creatinine Ratio 26.5 H Glucose 89 Calcium 8.1 L PFS Medical History Aortic stenosis B-cell lymphoma Cataract Chicken pox Fecal incontinence (2004) Frequent UTI GERD (gastroesophageal reflux disease) Hearing loss Heart murmur, systolic Hypertension Migraines Pelvic relaxation Polymyalgia rheumatica Urinary incontinence (2013) Surgical History History of dilation and curettage S/P implantation of urinary electronic stimulator device Family History Father Luigi's disease, pulmonary Mother Heart disease Sister No problems noted. Grandmother No problems noted. Social History marital status: number of children: 2 household members: spouse lives independently: Yes caregiver/support person: No housing: house pets and animals: Yes education level: college occupational status: employed current occupational exposures/hazards: No seatbelt use: always working smoke detector in home: Yes fire extinguisher in home: Yes carbon monox detector in home: Yes Smoking Status: Never smoker second hand exposure: No alcohol intake: current substance use type: does not use during the past year weight has: increased > 10 lbs well-balanced diet: daily or most days caffeine: Yes eating out: 1-3 times/week Assessment & Plan Assessment & Plan narrative: 80yo woman with PMR, aortic stenosis, HTN, urinary incontinence, B-cell lymphoma, CAD s/p cardiac stenting 03/2019 here with worsening SOB and fatigue in the setting of being COVID+. Pt with acute respiratory failure with hypoxia requiring oxygen supplementation. Hospital day #17. 1) COVID pneumonia: Meeting criteria for severe infection due to SaO2 < 94 on room air - currently maintaining around 92% on 45L heated high flow NC with FiO2 43%. Oxygen requirement stable from yesterday overall, however was able to get up to the chair for many hours yesterday, which is a big improvement. Lung sounds remain clear. - Continue daily CBC, BMP - Continue ICU care with negative pressure room and contact precautions - Completed 10 days Remdesivir 05/30 - Completed 10 days Dexamethasone 05/30 - Continue oxygen, titrate as needed to keep saturations > 90% - Did intermittent BiPAP for a few nights. Will briefly use again today, as pt with very poor IS result this morning to help open airways further. - Proning as able -- highly encourage pt to do this today - Lidocaine patch to help with back pain with proning - Morphine PRN to help with pain and anxiety - High risk DVT prophylaxis with Lovenox BID dosing - Doppler u/s upper and lower extremities negative 05/30/20 - Did not receive convalescent plasma - PICC line in place - Continue with as much emotional support as possible with ongoing isolation. 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 - Will have PT work with the pt formally again today. Believe getting the pt moving with deeper breathing will be very beneficial. Plan for up to chair for only 1-2 hours. - Encourage IS today 2) Bacterial pneumonia: Superimposed based on CXR from 05/23 and worsening symptoms at that time. Completed abx course for community-acquired pneumonia. Increasing oxygen demand 05/31, elevated WBC count, and CXR with increased infiltrates. Therefore, antibiotics initiated for hospital-acquired pneumonia. - Completed 7 days Ceftriaxone 05/30 - Completed 5 days Azithromycin 05/28 - Continue Levofloxacin, day 6/ - Continue Zosyn, day 6/7 3) Bleeding diasthesis: Stable, no evidence of ongoing bleeding. Previously with bloody nose and bleeding from PICC site - Continue to hold daily Aspirin - Continue Lovenox and Plavix - Continue PPI due to addition of Lovenox as above and risk for bleed 4) CAD with recent stenting: - Hold Aspirin - Continue Plavix - Monitor closely for cardiac symptoms 3) Aortic stenosis: Recent echo stable 4) Hyperlipidemia: - Continue Rosuvastatin 5) HTN: Normotensive - Continue Lisinopril 6) PMR: - Prednisone 2mg daily 8) Constipation: Resolved, now with more frequent loose stools - Hold all stool softeners for now 9) Anxiety/Depression: Pt overall with significant anxiety regarding taking care of basics from home such as paying bills, her 's health, and SOB she had with movement recently. Mood overall also declining, with depressive symptoms from isolation. - Ativan PRN to help with anxiety from SOB - Continue Mirtazapine 15mg nightly, initiated 06/03. Can decreased to 7.5mg if pt has adverse effects. This agent was chosen for slightly more rapid onset, and also hopefully with added benefit of appetite stimulation. 10) Nutritional status: Pt has been tolerated meals moderately well. Appetite continues to gradually improve. - Continue to monitor intake closely - Nursing will continue to work with pt to find foods she enjoys eating - Consider Nutrition consult if PO intake not adequate 11) Hypocalcemia: Minimally improved today. - Calcium supplement today DVT PPX: Lovenox as above Diet: Regular Code: DNR. Pt does not desire intubation. Dispo: Pending improvement in respiratory status off high flow NC, stabilization. Pt will need stay in SNF at discharge due to severity of weakness, and likely will require oxygen at discharge as well. Considered [facility], but do not believe pt will meet acuity requirements at this point. Plan for d/c to the same SNF as her , currently hospitalized at [facility].
--- NOTE | 2020-06-05 11:17 | PT-IP ANOTE ---
Attempted to see pt at 1015 but pt is on BiPAP treatment. RN recommended to see her at 1230 pm.
[2020-06-05] MEDS: CALCIUM CARBONATE 600 MG TABLET PO (12:08)
[2020-06-05] MEDS: LORazepam 0.5 MG TABLET PO ×2 (12:08→20:16)
[2020-06-05] MEDS: MORPHINE 2 MG/ML INJ 1 MG IV (12:09)
--- NOTE | 2020-06-05 13:07 | PC.NURSE ---
Addendum entered by Jeni Wilson R.N. 06/05/20 14:54: Patient still sitting up to chair, offered to help her back into bed before shift change but she wants to stay in chair for now. Looks comfortable. Dr. Sim updated on patient status. Original Note: Patient stood and pivoted up to chair with Rajat PT. On heated high flow at 50L and 55% FiO2 for transfer, and 50 and 60% after transfer. HR no greater than 111 during transfer, O2 sat maintained above 90%.
--- NOTE | 2020-06-05 13:32 | PT.IPTN ---
Current Diagnoses COVID-19 (05/20/20) Physical Therapy Treatment Note M2 PT-IP Current Condition Start: 05/26/20 08:28 Freq: NEEDED Status: Active Protocol: Document 06/04/20 11:36 AB (Rec: 06/04/20 13:07 AB [id number]) Physical Therapy Current Condition Current Condition Evaluation Date 06/04/20 Treatment Diagnosis Covid (+); generalized weakness Onset Date 05/20/20 Precautions Other Precautions covid (+) precautions M3 PT-IP Subjective Start: 05/26/20 08:28 Freq: NEEDED Status: Active Protocol: Document 06/05/20 13:23 HH (Rec: 06/05/20 13:32 HH [id number]) Subjective Physical Therapy Visit Type Type Treatment Note Visit Start Time 12:30 Visit Stop Time 13:00 Total Visit Minutes 30 Notes 2 RNs provided assistance. Number of PRIZE FIGHTER Visits 0 Physical Therapy Visit Comments Patient Comments pt agreed to do PT Therapy Pain Assessment Pain Present Pain Present Denied Pain M4 PT-IP Mobility and Gait Start: 05/26/20 08:28 Freq: NEEDED Status: Active Protocol: Document 06/05/20 13:23 HH (Rec: 06/05/20 13:32 HH [id number]) PT-Bed Mobility Assessment Supine to Sit Supine to Sit Contact Guard Assistance,1 Person Assistance,Head of Bed Elevated Scooting Scooting to Edge of Bed Contact Guard Assistance PT-Transfer Assessment Sit to and From Stand Sit to and from Stand Minimal Assistance,1 Person Assistance,Use of Upper Extremities Equipment Transfer Assistive Device Gait Belt,Front Wheeled Walker Orthotic/Prosthetic Devices or Brace: No Transfers Transfer Destination Chair Transfer Technique Stand Step Pivot Transfer Ability Level of Assist Minimal Assistance,1 Person Assistance,Use of Upper Extremities Comments Mobility Comments Pt was in bed upon PT arrival. 2 RNs here to assist. RN stated pt has been SOB with 93 % SpO2 ,HR high 90s this morning so she has been using high flow O2 45L/min. RN Increased her intake to 50L/ min prior to mobility and waited 5 mins to reach to 95%. Pt was able to push with UEs from supine to seated position from elevated HOB today with CGA. She then slowly scooted to her R EOB CGA. Pt then sat there for 4 mins whose SpO2 reached to 97% and HR 105s. Pt was SOB but able to maintain conversation. She then stood up with min A with FWW followed by stand step pivot transfer to chair on her L side. She did need assistance to manage her walker. She got to chair safely but appeared to SOB afterward. Her SpO2 maintained at 93-95%, HR 110s. She was able to recover to 100s within 4 mins. She was also able to maintain conversation but appeared to be fatigue afterwards. Handed pt off to RN. Gait Assessment Comments Gait Comments pt was able to take steps using FWW to get on the chair. PT-Balance Assessment Sitting Balance and Reactions Static Sitting Balance Ability Good Dynamic Sitting Balance Ability Fair Standing Balance and Reactions Static Standing Balance Ability Fair Dynamic Standing Balance Ability Fair Device Used FWW M5 PT-IP Objective Assessments Start: 05/26/20 08:28 Freq: NEEDED Status: Active Protocol: Document 06/04/20 11:36 AB (Rec: 06/04/20 13:07 AB [email or web address]) Orientation Orientation/Cognition Level of Alertness Alert Orientation Name,Place,Situation Safety Awareness Decreased Safety Awareness Gross Range of Motion Lower Extremity ROM Assessment Within Functional Limits Strength Lower Extremity Strength Assessment Within Functional Limits Muscle Tone Muscle Tone WNL Yes M6 PT-IP Treatment Start: 05/26/20 08:28 Freq: NEEDED Status: Active Protocol: Document 06/04/20 11:36 AB (Rec: 06/04/20 13:07 AB [email or web address]) Physical Therapy Treatment Education Education Provided Safety M7 PT-IP Assessment and Plan Start: 05/26/20 08:28 Freq: NEEDED Status: Active Protocol: Document 06/05/20 13:23 (Rec: 06/05/20 13:32 [id number]) PT Summary Assessment and Plan Potential Rehabilitation Potential Fair Status of Condition at Evaluation Evolving Summary Impairments Pain,ROM,Strength,Balance, Cognition,Bed Mobility, Transfers,Gait,Activity Tolerance Progress Towards Goals Slow Progress due to Medical Issues,Slow Progress due to Activity Tolerance,Slow Progress - Other Assessment Summary pt cont to show slow progress who is only able to transfer from bed to chair with CGA/ min A with FWW 2pa. However, her vital signs are more stable today with better recovery since it took her approx 1.5 hours to recover yesterday per nursing staff. Will cont closely monitor pt's progress. SNF is still the ideal option for her upon DC once she is medically stable. Goals Bed Mobility Goal Independent Transfer Goal Independent,Front Wheeled Walker Gait Goal Contact Guard Assistance,Front Wheel Walker Gait Distance 50 Other Goals improve transfter without AD SBA improve ambulation using FWW/ without AD 200 ft SBA Days to Meet Goals 10 Frequency of Treatment Frequency Of Treatment Once a Day Treatment Plan Physical Therapy Treatment Plan Bed Mobility Training,Transfer Training,Gait Training, Therapeutic Exercise,Balance Retraining,Discharge Planning, Neuromuscular Re-ed, Coordination Retraining Precautions Other Precautions Covid (+) precautions Recommendations To Nursing Amount of Assist Needed 1 Person Assist Discharge Recommendations PT Discharge Recommendations SNF Rehab Transportation Needs at Discharge Wheelchair/Cabulance
[2020-06-05] MEDS: MIRTAZAPINE 15 MG TABLET PO (20:16)
[2020-06-05] MEDS: GABAPENTIN 300 MG CAPSULE PO (20:16)
--- NOTE | 2020-06-05 22:25 | PC.NURSE ---
Addendum entered by Eliana Armijo R.N. 06/05/20 23:09: Correction: patient is on 45L, 50% HHF Original Note: Patient is A/Ox4. Moderately hypotensive but asymptomatic. Afebrile, NSR on tele. No reports of pain. Appetite seems slightly increased, patient ate 50% of dinner tray. Patient was on HHF 50L, 50% for until after dinner when she agreed to be on Bipap for a few hours. Patient was premedicated with PRN Ativan prior to Bipap for optimal tolerance. Bed alarm on, call light within reach.
[2020-06-06] VITALS (17 sets, daily range): BP systolic 92–136; BP diastolic 42–66; PULSE 75–118; RESP 10–40; TEMP 36.9–37.1; O2SAT 90–96
[2020-06-06] MEDS: PIPERACILLIN-TAZO 3.375 GM/50 ML FROZ.PIGGY IV ×2 (04:39→12:21)
[2020-06-06 04:48] LABS: Hematocrit 35.4 % (36-46); Hemoglobin 11.9 g/dL (12.0-16.0); Mean Corpuscular HGB Conc 33.6 % (30-36); Mean Corpuscular Volume 92.3 fL (80-100); Platelet Count 125 X10^3/uL (150-400); Red Blood Cell Count 3.83 X10^6/uL (4.0-5.2); Red Cell Distribution Width 14.5 % (11.6-14.8); White Blood Cell Count 6.9 X10^3/uL (4.5-11.0)
[2020-06-06 04:50] LABS: Add Manual Diff / Slide Review YES
[2020-06-06 04:56] LABS: Alanine Aminotransferase 19 IU/L (<35); Albumin 3.2 g/dL (3.5-5.0); Albumin Globulin Ratio 1.3 (1.0-2.8); Alkaline Phosphatase 61 U/L (38-126); Aspartate Aminotransferase 21 IU/L (14-36); BUN Creatinine Ratio 17.3 (6-22); Bilirubin Total 0.9 mg/dL (0.2-1.3); Blood Urea Nitrogen 9 mg/dL (7-17); Calcium 8.3 mg/dL (8.4-10.2); Carbon Dioxide 28 mmol/L (22-32); Chloride 104 mmol/L (98-107); Estimated Glomerular Filt Rate > 60.0 mL/min (>60); Globulin 2.5 g/dL (1.7-4.1); Glucose 88 mg/dL (80-110); HEMOLYSIS < 15 (0-50); Potassium 3.9 mmol/L (3.4-5.1); Sodium 134 mmol/L (137-145); Total Protein 5.7 g/dL (6.3-8.2)
[2020-06-06 06:45] LABS: Total Cells Counted 100
[2020-06-06 06:46] LABS: Neutrophils Absolute Manual 5037 /uL (3000-5900)
[2020-06-06 06:47] LABS: RBC Morphology Normal Morphology
[2020-06-06] MEDS: ROSUVASTATIN 10 MG TABLET 40 MG PO (08:51)
[2020-06-06] MEDS: CLOPIDOGREL 75 MG TABLET PO (08:52)
[2020-06-06] MEDS: predniSONE 1 MG TABLET 2 MG PO (08:52)
[2020-06-06] MEDS: LACTOBACILLUS ACIDOPHILUS TABLET 1 EACH PO ×3 (08:52→16:28)
[2020-06-06] MEDS: PANTOPRAZOLE 40 MG TABLET PO (08:55)
--- NOTE | 2020-06-06 09:00 | PM.PN.1 ---
Subjective Subjective Date Patient Seen: 06/06/20 Time Patient Seen: 08:30 Interval history: The pt this morning was very sleepy during our encounter. She states that she felt good getting up to the chair for a brief period of time yesterday. No chest pain, LE edema. She feels relatively strong when rising from the bed. As per nursing, the pt did well overnight. She tolerated a short period with BiPAP. When up to the chair yesterday, she recovered quickly. Exam Vital Signs (past 8 hours): - 06/06/20 04:00 06/06/20 08:00 06/06/20 08:05 Temperature 98.7 F 98.6 F Pulse Rate 80 75 Respiratory Rate 23 22 Blood Pressure 109/53 L 105/51 L Pulse Oximetry 95 94 95 Fraction of Inspired Oxygen 0.48 Oxygen Delivery Method Heated High Flow Oxygen Flow Rate 45 Narrative Exam Narrative: Gen: laying comfortably in bed, oxygen in place CV: RRR, grade 2/6 systolic murmur Resp: clear to auscultation bilaterally, no wheezes or crackles Abd: soft, nontender, nondistended, normoactive bowel sounds Ext: no edema Objective Labs Result Diagrams: 06/06/20 04:30 06/06/20 04:30 Labs: Laboratory Results - last 24 hr 06/06/20 06/06/20 04:30 04:30 WBC 6.9 RBC 3.83 L Hgb 11.9 L Hct 35.4 L MCV 92.3 MCH 31.0 MCHC 33.6 RDW 14.5 Plt Count 125 L Neut % (Auto) Not Reportable Lymph % (Auto) Not Reportable Mora % (Auto) Not Reportable Eos % (Auto) Not Reportable Baso % (Auto) Not Reportable Lymph # (Auto) Not Reportable Mora # (Auto) Not Reportable Baso # (Auto) Not Reportable Total Counted 100 Seg Neutrophils % 71.0 H Band Neutrophils % 2.0 L Lymphocytes % (Manual) 16.0 L Monocytes % (Manual) 6.0 Eosinophils % (Manual) 3.0 Basophils % (Manual) 2.0 H Neutrophils # (Manual) 5037 RBC Morphology Normal morphology Sodium 134 L Potassium 3.9 Chloride 104 Carbon Dioxide 28 BUN 9 Creatinine 0.52 Estimated GFR > 60.0 BUN/Creatinine Ratio 17.3 Glucose 88 Calcium 8.3 L Total Bilirubin 0.9 AST 21 ALT 19 Alkaline Phosphatase 61 Total Protein 5.7 L Albumin 3.2 L Globulin 2.5 Albumin/Globulin Ratio 1.3 FOR[facility]LY [facility], [facility] Medical History Aortic stenosis B-cell lymphoma Cataract Chicken pox Fecal incontinence (2004) Frequent UTI GERD (gastroesophageal reflux disease) Hearing loss Heart murmur, systolic Hypertension Migraines Pelvic relaxation Polymyalgia rheumatica Urinary incontinence (2013) Surgical History History of dilation and curettage S/P implantation of urinary electronic stimulator device Family History Father Luigi's disease, pulmonary Mother Heart disease Sister No problems noted. Grandmother No problems noted. Social History marital status: number of children: 2 household members: spouse lives independently: Yes caregiver/support person: No housing: house pets and animals: Yes education level: college occupational status: employed current occupational exposures/hazards: No seatbelt use: always working smoke detector in home: Yes fire extinguisher in home: Yes carbon monox detector in home: Yes Smoking Status: Never smoker second hand exposure: No alcohol intake: current substance use type: does not use during the past year weight has: increased > 10 lbs well-balanced diet: daily or most days caffeine: Yes eating out: 1-3 times/week Assessment & Plan Assessment & Plan narrative: 80yo woman with PMR, aortic stenosis, HTN, urinary incontinence, B-cell lymphoma, CAD s/p cardiac stenting 03/2019 here with worsening SOB and fatigue in the setting of being COVID+. Pt with acute respiratory failure with hypoxia requiring oxygen supplementation. Hospital day #18. 1) COVID pneumonia: Meeting criteria for severe infection due to SaO2 < 94 on room air - currently maintaining around 94% on 45L heated high flow NC with FiO2 50%. Oxygen requirement stable from yesterday, however able to rise to the chair yesterday with minimal desat, which is an improvement. Lung sounds remain clear. - Continue daily CBC, BMP - Continue ICU care with negative pressure room and contact precautions - Completed 10 days Remdesivir 05/30 - Completed 10 days Dexamethasone 05/30 - Continue oxygen, titrate as needed to keep saturations > 90% - Did intermittent BiPAP for a few nights. Will briefly use again today. - Attempt trial with normal high flow NC again today - Proning as able -- highly encourage pt to do this today - Lidocaine patch to help with back pain with proning - Morphine PRN to help with pain and anxiety - Platelet count gradually falling, will transition to once/day Lovenox dosing - Doppler u/s upper and lower extremities negative 05/30/20, repeat again today - Did not receive convalescent plasma - PICC line in place - Continue with as much emotional support as possible with ongoing isolation. 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 - Will have PT work with the pt formally again today. Believe getting the pt moving with deeper breathing will be very beneficial. Plan for up to chair for only 1-2 hours. - Encourage IS today 2) Bacterial pneumonia: Superimposed based on CXR from 05/23 and worsening symptoms at that time. Completed abx course for community-acquired pneumonia. Increasing oxygen demand 05/31, elevated WBC count, and CXR with increased infiltrates. Therefore, antibiotics initiated for hospital-acquired pneumonia. - Completed 7 days Ceftriaxone 05/30 - Completed 5 days Azithromycin 05/28 - Continue Levofloxacin, day 09/25 - Continue Zosyn, day 09/25 3) Bleeding diasthesis: Stable, no evidence of ongoing bleeding. Previously with bloody nose and bleeding from PICC site - Continue to hold daily Aspirin - Continue Lovenox and Plavix - Continue PPI due to addition of Lovenox as above and risk for bleed 4) CAD with recent stenting: - Hold Aspirin - Continue Plavix - Monitor closely for cardiac symptoms 3) Aortic stenosis: Recent echo stable 4) Hyperlipidemia: - Continue Rosuvastatin 5) HTN: Borderline hypotensive - Hold Lisinopril 6) PMR: - Prednisone 2mg daily 8) Constipation: Resolved, now with more frequent loose stools - Hold all stool softeners for now 9) Anxiety/Depression: Pt overall with significant anxiety regarding taking care of basics from home such as paying bills, her 's health, and SOB she had with movement recently. Mood overall also declining, with depressive symptoms from isolation. - Ativan PRN to help with anxiety from SOB - Continue Mirtazapine 15mg nightly, initiated 06/03. Can decreased to 7.5mg if pt has adverse effects. This agent was chosen for slightly more rapid onset, and also hopefully with added benefit of appetite stimulation. 10) Nutritional status: Pt has been tolerated meals moderately well. Appetite continues to gradually improve. - Continue to monitor intake closely - Nursing will continue to work with pt to find foods she enjoys eating 11) Hypocalcemia: Improved. Corrected calcium with albumin 8.9. - Continue to monitor DVT PPX: Lovenox as above Diet: Regular Code: DNR. Pt does not desire intubation. Dispo: Pending improvement in respiratory status off high flow NC, stabilization. Pt will need stay in SNF at discharge due to severity of weakness, and likely will require oxygen at discharge as well. Considered [place], but do not believe pt will meet acuity requirements at this point. Plan for d/c to the same SNF as her , currently hospitalized at [facility]. Quality MIPS - Admit Advanced Care Plan / Current Medications Measures: #47 ? Advanced Care Plan Clinician documentation instruction: document at admission. [] I confirmed that the patient's Advance Care Plan is present, code status is documented, or surrogate decision maker is listed in the patient?s medical record. [SATISFIES MIPS PERFORMANCE] If Yes, Stop Here [] The patient?s Advance Care plan is not present because: (select) [MIPS PERFORMANCE EXCEPTION/EXCLUSION] [] I confirmed today that the patient does not wish or was not able to name a surrogate decision maker or provide an Advance Care Plan. [] Hospice care is currently being provided or has been provided this calendar year [] I did NOT confirm today the presence of an Advance Care Plan or surrogate decision maker documented within the patient's medical record. [DOES NOT SATISFY MIPS PERFORMANCE] #130 - Documentation of Current Medications in the Medical Record Clinician documentation instruction: use macro the first time you see a patient. [] I have utilized all available immediate resources to obtain, update, or review the patient?s current medications. [SATISFIES MIPS PERFORMANCE] If Yes, Stop Here [] The patient is not eligible for medication reconciliation; the patient is in an emergent medical situation where delaying treatment would jeopardize the patient?s health. [MIPS PERFORMANCE EXCEPTION/EXCLUSION] [] I did NOT confirm, update or review the patient's current list of medications today. [DOES NOT SATISFY MIPS PERFORMANCE] MIPS - CL Central Venous Catheter Placement Measure: #76 ? Prevention of Central Venous Catheter (CVC) ? Related Bloodstream Infection Clinician documentation instruction: use macro every time you place a central line. [] All elements of Maximal Sterile Barrier Technique, including hand hygiene, skin prep, and sterile ultrasound technique (if used) were followed. [SATISFIES MIPS PERFORMANCE] If Yes, Stop Here [] If ?No?, the medical reason all elements were NOT used for medical reason [] (ex. emergent condition). [] Maximal Sterile Barrier Technique was not followed, no reason provided [DOES NOT SATISFY MIPS PERFORMANCE] MIPS - DC Heart Failure Measures: #5 - Heart Failure (HF): Angiotensin-Converting Enzyme (RUIZ) Inhibitor or Angiotensin Receptor Rita (ARB) Therapy for Left Ventricular Systolic Dysfunction (LVSD) and #8 - Heart Failure (HF): Beta-Rita Therapy for Left Ventricular Systolic Dysfunction (LVSD) Clinician documentation instruction: use macro at every CHF discharge. [] The patient has current or prior documentation of left ventricular ejection fraction (LVEF) less than 40%, or moderate or severely depressed left ventricular systolic function. Answer both: [SATISFIES MIPS PERFORMANCE] [] The patient was prescribed or already taking an Angiotensin-Converting Enzyme (RUIZ) Inhibitor, or Angiotensin Receptor Rita (ARB). [] The patient was prescribed or already taking a beta-rita. If Yes to Both, Stop Here [] Patient not prescribed/taking: [MIPS PERFORMANCE EXCEPTION/EXCLUSION] [] RUIZ or ARB for medical/patient/system reason(s) including [] (ex. allergy, intolerance, contraindication) [] Beta-rita for medical/patient/system reason(s) including [] (ex. allergy, intolerance, contraindication) [] Patient not prescribed/taking: [DOES NOT SATISFY MIPS PERFORMANCE] [] RUIZ or ARB, no reason given [] Beta-rita, no reason given
[2020-06-06] MEDS: MORPHINE 2 MG/ML INJ 1 MG IV (09:14)
[2020-06-06] MEDS: LIDOCAINE PATCH 1 EACH ADH..PATCH TOP (09:39)
--- NOTE | 2020-06-06 09:56 | PT.IPTN ---
Current Diagnoses COVID-19 (05/20/20) Physical Therapy Treatment Note M2 PT-IP Current Condition Start: 05/26/20 08:28 Freq: NEEDED Status: Active Protocol: Document 06/04/20 11:36 AB (Rec: 06/04/20 13:07 AB [id number]) Physical Therapy Current Condition Current Condition Evaluation Date 06/04/20 Treatment Diagnosis Covid (+); generalized weakness Onset Date 05/20/20 Precautions Other Precautions covid (+) precautions M3 PT-IP Subjective Start: 05/26/20 08:28 Freq: NEEDED Status: Active Protocol: Document 06/06/20 09:34 AW (Rec: 06/06/20 09:56 AW [id number]) Subjective Physical Therapy Visit Type Type Treatment Note Visit Start Time 08:59 Visit Stop Time 09:30 Total Visit Minutes 31 Notes WILIAM Ngo provided assist Number of CADASTRAL ENGINEER Visits 0 Physical Therapy Visit Comments Patient Comments pt agreed to do PT Therapy Pain Assessment Pain When Pain Assessed During Mobility Pain Present Pain Present Denied Pain M4 PT-IP Mobility and Gait Start: 05/26/20 08:28 Freq: NEEDED Status: Active Protocol: Document 06/06/20 09:34 AW (Rec: 06/06/20 09:56 AW [id number]) PT-Bed Mobility Assessment Rolling Type of Rolling Bilateral Level of Assist Minimal Assistance,1 Person Assistance Supine to Sit Supine to Sit Contact Guard Assistance,1 Person Assistance Sit to Supine Sit to Supine Minimal Assistance,1 Person Assistance Scooting Scooting to Edge of Bed Contact Guard Assistance Scooting Up and Down in Bed Maximum Assistance PT-Transfer Assessment Comments Mobility Comments Pt was in bed as PT arrived. Pt was on 45 L/min HHFNC and 50% FiO2. In supine, SpO2 was 93% and HR low 90's. With HOB at ~15 degrees elevation, pt completed supine to sit CGA and sat EOB. SpO2 dropped to 88-90% in sitting as pt scooted toward EOB. Pt was coughing. SpO2 continued to drop. RN changed HHF settings to 50 L/min and 55% FiO2 with brief bursts at 100% FiO2. Pt sat 8 minutes with deteriorating sats in spite of postural and breathing cues. SpO2 dropped to 82% and did not improve. PT assisted pt back to supine and RN adjusted to 60% FiO2. SpO2 recovered to 95% within 4 minutes. Pt required min assist for rolling side to side to adjust pad and to place waffle cushion. She was able to briefly bridge her hips as PT and RN provided max assist to boost her up in the bed. Pt was repositioned with pillows and HOB elevated. PT left as RN remained in the room and RT was arriving. Gait Assessment Comments Gait Comments Pt did not ambulate this date. PT-Balance Assessment Sitting Balance and Reactions Static Sitting Balance Ability Good Dynamic Sitting Balance Ability Fair M5 PT-IP Objective Assessments Start: 05/26/20 08:28 Freq: NEEDED Status: Active Protocol: Document 06/04/20 11:36 AB (Rec: 06/04/20 13:07 AB [id number]) Orientation Orientation/Cognition Level of Alertness Alert Orientation Name,Place,Situation Safety Awareness Decreased Safety Awareness Gross Range of Motion Lower Extremity ROM Assessment Within Functional Limits Strength Lower Extremity Strength Assessment Within Functional Limits Muscle Tone Muscle Tone WNL Yes M6 PT-IP Treatment Start: 05/26/20 08:28 Freq: NEEDED Status: Active Protocol: Document 06/06/20 09:34 AW (Rec: 06/06/20 09:56 AW [id number]) Physical Therapy Treatment Education Education Provided Safety M7 PT-IP Assessment and Plan Start: 05/26/20 08:28 Freq: NEEDED Status: Active Protocol: Document 06/06/20 09:34 AW (Rec: 06/06/20 09:56 AW [id number]) PT Summary Assessment and Plan Potential Rehabilitation Potential Fair Status of Condition at Evaluation Evolving Summary Impairments Pain,ROM,Strength,Balance, Cognition,Bed Mobility, Transfers,Gait,Activity Tolerance Progress Towards Goals Slow Progress due to Medical Issues,Slow Progress due to Activity Tolerance,Slow Progress - Other Assessment Summary Pt presents with heightened anxiety today which is limiting her progress. She could only tolerate sitting EOB ~8 minutes and SpO2 continued to drop in spite of increased oxygen support. PT will coordinate with nursing pre-medication for anxiety before next session. SNF remains the ideal option for her upon DC once she is medically stable. Goals Bed Mobility Goal Independent Transfer Goal Independent,Front Wheeled Walker Gait Goal Contact Guard Assistance,Front Wheel Walker Gait Distance 50 Other Goals improve transfter without AD SBA improve ambulation using FWW/ without AD 200 ft SBA Days to Meet Goals 10 Frequency of Treatment Frequency Of Treatment Once a Day Treatment Plan Physical Therapy Treatment Plan Bed Mobility Training,Transfer Training,Gait Training, Therapeutic Exercise,Balance Retraining,Discharge Planning, Neuromuscular Re-ed, Coordination Retraining Other Recommendations and Next Treatment coordinate with RN for ativan Focus and morphine admin prior to tx Precautions Other Precautions Covid (+) precautions Recommendations To Nursing Amount of Assist Needed 1 Person Assist Discharge Recommendations PT Discharge Recommendations SNF Rehab Transportation Needs at Discharge Wheelchair/Cabulance
--- NOTE | 2020-06-06 11:24 | PC.NURSE ---
Addendum entered by Jeni Wilson R.N. 06/06/20 11:29: PRN morphine given after placed back in bed. Patient did not want PO ativan at that time. Original Note: 929: attempted to get up to chair with physical therapy. Bumped up heated high flow to 50L and 55%, pt HR stayed <100 but O2 dipped down into low 80s. patient became very anxious. Sat on edge of bed for about 5 minutes, did not tolerate extremely well (SaO2 only up to 90% with bursts of FiO2 at 100%). Went back into laying position with heated high flow cannula at 60L 60%.
--- NOTE | 2020-06-06 14:48 | CM.DPNOTE ---
DCP Cont Reviewed chart. Placed call into patient's room to review DCP... per patient's request. Explained that [facility] is accepting COVID+ patients and had accepted patient for admission as long as patient is on 5L O2 per minute (continuous), explained to patient that she still required ICU care and DC date was unknown at this time. Then explained that her Reji would be considered as well if SNF was required. Patient asks what will happen if he returns home? Explained to patient that this HOSE BUILDER would not receive updates from [facility] however she and/or patient's dtrs could. Patient continues to be very concerned about the safety and health of her and does not ask many questions about her own safety and/or plan. Patient concerned about her animals at home, family have been caring for them. Suggested that a family member take the animals with them temporarily while patient and spouse recover? Patient rejected this idea and stated she would not let her animals go and is not sure anyone in her family could do this. Patient agreeable to SNF plan for she and her spouse (if he requires this). Discussed SNF benefit using MCR. 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 Patient awaiting update re: 's status, from his dtr Celestina. WILIAM Falcon aware that patient is struggling w/anxiety and concern re: ' status, she has kindly connected spouse Reji w/patient just now. Plan: DC expected to [facility] when medically appropriate for lower level of care ..5L O2 per minute (continuous). Will follow closely. NICOLLE
[2020-06-06] MEDS: SODIUM CHLORIDE 0.9% 250 ML 21 ML IV (16:28)
[2020-06-06] MEDS: levoFLOXacin 750 MG/150 ML PIGGYBACK 100 MG IV (16:29)
--- NOTE | 2020-06-06 18:33 | PC.NURSE ---
Pt tachycardic for last 2 hours, rate 115-120 with frequent PVC's. BP 132/65, RR 24. Dr. Milian notified and orders received.
[2020-06-06 18:39] LABS: BUN Creatinine Ratio 25.5 (6-22); Blood Urea Nitrogen 13 mg/dL (7-17); Calcium 8.6 mg/dL (8.4-10.2); Carbon Dioxide 22 mmol/L (22-32); Chloride 105 mmol/L (98-107); Estimated Glomerular Filt Rate > 60.0 mL/min (>60); Glucose 115 mg/dL (80-110); HEMOLYSIS < 15 (0-50); Potassium 3.7 mmol/L (3.4-5.1); Sodium 135 mmol/L (137-145)
[2020-06-06] MEDS: ENOXAPARIN 40 MG/0.4 ML SYRINGE SUBCUT (20:37)
[2020-06-06] MEDS: GABAPENTIN 300 MG CAPSULE PO (20:38)
[2020-06-06] MEDS: SENNOSIDES 8.6 MG TABLET 17.2 MG PO (20:39)
[2020-06-06] MEDS: MIRTAZAPINE 15 MG TABLET PO (20:39)
[2020-06-06] MEDS: LORazepam 0.5 MG TABLET PO (23:34)
[2020-06-07] VITALS (54 sets, daily range): BP systolic 105–137; BP diastolic 56–68; PULSE 87–130; RESP 10–42; TEMP 30.1–37.7; O2SAT 87–97
--- NOTE | 2020-06-07 00:12 | PC.NURSE ---
Addendum entered by Shauna Dillard R.N. 06/07/20 04:31: 0400- Patient assisted to her right side. Remains on Bipap and has tolerated it well. Saturations remain at or above 92%. Patient has increased work of breathing and is more SOB with movement. Patient states she feels SOB at rest. Resparations 26-32 while at rest. Remains very tachycardic at 118. Temp 98.0. Will monitor. Original Note: 0000- Patient states she has been lying on her back most of today. Patient is SOB, tachycardic, and has a low grade temp. Discussed proning with patient and she states that it is difficult for her to do so. Patient advised that her oxygen needs are increasing, her temperature is increasing and her heart rate is elevated. All of these are indicators that she needs to be off her back. Patient agrees to go on bipap. Respiratory called and patient placed on 18/6 at 50% Fi02. Saturations 93%. Respiratory rate ranging between 26-32. Will monitor closely.
[2020-06-07 04:50] LABS: Add Manual Diff / Slide Review NO; Basophils Absolute Auto 100 /uL (0-100); Basophils Percent Auto 0.7 % (0-2); Eosinophils Absolute Auto 300 /uL (0-450); Eosinophils Percent Auto 3.5 % (2-4); Hematocrit 36.6 % (36-46); Hemoglobin 12.6 g/dL (12.0-16.0); Lymphocytes Absolute Auto 1200 /uL (1100-4500); Lymphocytes Percent Auto 14.3 % (25-40); Mean Corpuscular HGB Conc 34.3 % (30-36); Mean Corpuscular Hemoglobin 31.3 PG (26-34); Mean Corpuscular Volume 91.3 fL (80-100); Monocytes Absolute Auto 800 /uL (0-900); Monocytes Percent Auto 9.1 % (3-14); Neutrophils Absolute Auto 6300 /uL (1500-7000); Neutrophils Percent Auto 72.4 % (50-75); Platelet Count 133 X10^3/uL (150-400); Red Blood Cell Count 4.01 X10^6/uL (4.0-5.2); Red Cell Distribution Width 14.4 % (11.6-14.8); White Blood Cell Count 8.7 X10^3/uL (4.5-11.0)
[2020-06-07 04:59] LABS: BUN Creatinine Ratio 22.4 (6-22); Blood Urea Nitrogen 11 mg/dL (7-17); Calcium 8.7 mg/dL (8.4-10.2); Carbon Dioxide 25 mmol/L (22-32); Chloride 105 mmol/L (98-107); Estimated Glomerular Filt Rate > 60.0 mL/min (>60); Glucose 107 mg/dL (80-110); HEMOLYSIS < 15 (0-50); Potassium 3.7 mmol/L (3.4-5.1); Sodium 137 mmol/L (137-145)
[2020-06-07] MEDS: MORPHINE 2 MG/ML INJ 1 MG IV ×2 (05:04→12:38)
--- NOTE | 2020-06-07 07:36 | DI.US.S_ITS ---
PROCEDURE: US PERIP VENOUS UP EXTREM MEGHAN INDICATIONS: severe COVID, eval for clot TECHNIQUE: Real-time imaging, as well as color and pulse Doppler interrogation, was performed of both upper extremity deep veins from the inferior neck to the antecubital fossa. COMPARISON: [facility], , [facility] VENOUS UP EXTREM MEGHAN, 05/30/2020, 12:27. FINDINGS: Right: There is suggestion of intraluminal filling defect involving distal right subclavian vein with poor compressibility. The internal jugular veins, axillary veins, and brachial veins are free of intraluminal thrombus. Where physically possible, the veins are normally compressible. Color and pulse Doppler demonstrate normal intraluminal flow, with expected phasicity and pulsatility. Additional scanning of the cephalic and basilic veins of the superficial system demonstrate normal compressibility, without thrombus. Left: The internal jugular veins, visualized portions of the subclavian veins, axillary veins, and brachial veins are free of intraluminal thrombus. Where physically possible, the veins are normally compressible. Color and pulse Doppler demonstrate normal intraluminal flow, with expected phasicity and pulsatility. Additional scanning of the cephalic and basilic veins of the superficial system demonstrate normal compressibility, without thrombus. IMPRESSION: 1. Finding is suggestive of venous thrombosis within distal right subclavian vein. 2. No evidence of deep venous thrombosis in rest of visualized right upper extremity veins . No evidence of deep venous thrombosis in visualized left upper extremity veins. Dictated by: Presley Calles M.D. on 06/07/2020 at 9:27 Approved by: Presley Calles M.D. on 06/07/2020 at 9:29
--- NOTE | 2020-06-07 07:37 | DI.US.S_ITS ---
PROCEDURE: US [facility] VENOUS LOW EXTREM BI INDICATIONS: severe COVID, eval for clot TECHNIQUE: Real-time imaging, as well as color and pulse Doppler interrogation, were performed of the deep veins of both legs from the inguinal ligament to the popliteal fossa. COMPARISON: [facility], , [facility] VENOUS LOW EXTREM BI, 05/30/2020, 12:03. FINDINGS: Right: The common femoral, femoral and popliteal veins are normally compressible, and free of intraluminal thrombus. Color and pulse Doppler demonstrate normal phasic intravascular flow. There is normal augmentation response to distal compression maneuver. Left: The common femoral, femoral and popliteal veins are normally compressible, and free of intraluminal thrombus. Color and pulse Doppler demonstrate normal phasic intravascular flow. There is normal augmentation response to distal compression maneuver. IMPRESSION: No evidence of DVT in visualized bilateral lower extremity veins. Dictated by: Presley Calles M.D. on 06/07/2020 at 9:29 Approved by: Presley Calles M.D. on 06/07/2020 at 9:38
--- NOTE | 2020-06-07 08:05 | RT ---
Addendum entered by [place] Mireles, RT 06/07/20 11:05: ABG drawn at nurses's request and Dr Lo's order. ABG drawn without complications Original Note: Called to room (pt wore Bipap 18//50% all night, per report). I placed patient to nonrebreather mask for break at 0750. Lung sounds with coarse bibasilar crackles. When asked if pt has dyspnea, she states I dont know what the feels like.... I reassured her that if she was short of breath, she would know.
--- NOTE | 2020-06-07 08:35 | PM.PN.1 ---
Subjective Subjective Date Patient Seen: 06/07/20 Time Patient Seen: 07:50 Interval history: This morning the pt reports that she overall feels her breathing is stable. She felt more SOB yesterday, but feels improved this morning. She was not able to tolerate getting up to the chair yesterday. She denies any chest pain, abdominal pain. She did not have a BM yesterday. As per nursing, the pt was on BiPAP from 12am until this morning, tolerating it well. This morning they were able to place her on the nonrebreather at 15L, with good O2 sats and no increased work of breathing. Of note, she did have a temperature to 99F last night, and is more tachycardic this morning. Exam Vital Signs (past 8 hours): - 06/07/20 04:00 06/07/20 07:50 06/07/20 08:00 Temperature 98.0 F 97.7 F Pulse Rate 118 H 103 H 112 H Respiratory Rate 30 H 28 H 30 H Blood Pressure 115/58 L 113/59 L Pulse Oximetry 92 93 94 Fraction of Inspired Oxygen 100 Oxygen Delivery Method Non -Rebreather Oxygen Flow Rate 15 Narrative Exam Narrative: Gen: sitting comfortably in bed, breathing comfortably with oxymask in place, CV: RRR, grade 2/6 systolic murmur Resp: clear to auscultation bilaterally, no wheezes or crackles Abd: soft, nontender, nondistended, normoactive bowel sounds Ext: no edema Objective Labs Result Diagrams: 06/07/20 04:30 06/07/20 04:30 Labs: Laboratory Results - last 24 hr 06/06/20 06/07/20 06/07/20 18:21 04:30 04:30 WBC 8.7 RBC 4.01 Hgb 12.6 Hct 36.6 MCV 91.3 MCH 31.3 MCHC 34.3 RDW 14.4 Plt Count 133 L Neut % (Auto) 72.4 Lymph % (Auto) 14.3 L [place] % (Auto) 9.1 Eos % (Auto) 3.5 Baso % (Auto) 0.7 Neut # (Auto) 6300 Lymph # (Auto) 1200 [place] # (Auto) 800 Eos # (Auto) 300 Baso # (Auto) 100 Sodium 135 L 137 Potassium 3.7 3.7 Chloride 105 105 Carbon Dioxide 22 25 BUN 13 11 Creatinine 0.51 L 0.49 L Estimated GFR > 60.0 > 60.0 BUN/Creatinine Ratio 25.5 H 22.4 H Glucose 115 H 107 Calcium 8.6 8.7 PFSH Medical History Aortic stenosis B-cell lymphoma Cataract Chicken pox Fecal incontinence (2004) Frequent UTI GERD (gastroesophageal reflux disease) Hearing loss Heart murmur, systolic Hypertension Migraines Pelvic relaxation Polymyalgia rheumatica Urinary incontinence (2013) Surgical History History of dilation and curettage S/P implantation of urinary electronic stimulator device Family History Father Luigi's disease, pulmonary Mother Heart disease Sister No problems noted. Grandmother No problems noted. Social History marital status: number of children: 2 household members: spouse lives independently: Yes caregiver/support person: No housing: house pets and animals: Yes education level: college occupational status: employed current occupational exposures/hazards: No seatbelt use: always working smoke detector in home: Yes fire extinguisher in home: Yes carbon monox detector in home: Yes Smoking Status: Never smoker second hand exposure: No alcohol intake: current substance use type: does not use during the past year weight has: increased > 10 lbs well-balanced diet: daily or most days caffeine: Yes eating out: 1-3 times/week Assessment & Plan Assessment & Plan narrative: 80yo woman with PMR, aortic stenosis, HTN, urinary incontinence, B-cell lymphoma, CAD s/p cardiac stenting 03/2019 here with worsening SOB and fatigue in the setting of being COVID+. Pt with acute respiratory failure with hypoxia requiring oxygen supplementation. Hospital day #19. 1) COVID pneumonia: Meeting criteria for severe infection due to SaO2 < 94 on room air - currently maintaining around 94% on 15L nonrebreather after more prolonged BiPAP overnight. Pt is noted to be more tachycardic today. Lung sounds remain clear. - Continue daily CBC, BMP - Continue ICU care with negative pressure room and contact precautions - Discussed with risk management yesterday, cannot remove contact precautions while in the hospital regardless of how long since positive testing - Completed 10 days Remdesivir 05/30 - Completed 10 days Dexamethasone 05/30 - Continue oxygen, titrate as needed to keep saturations > 90% - Continue intermittent BiPAP as pt seems to benefit greatly from this - Proning as able -- highly encourage pt to do this today - Lidocaine patch to help with back pain with proning - Morphine PRN to help with pain and anxiety - On prophylactic Lovenox dosing due to platelets falling, transitioned 06/06. Previously on BID dosing. - Doppler u/s upper and lower extremities negative 05/30/20, repeat again today (not done yesterday) - Did not receive convalescent plasma - PICC line in place - Continue with as much emotional support as possible with ongoing isolation. 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 - Will have PT work with the pt formally again today. Believe getting the pt moving with deeper breathing will be very beneficial. Plan for up to chair for only 1-2 hours. - Encourage IS today 2) Bacterial pneumonia: Superimposed based on CXR from 05/23 and worsening symptoms at that time. Completed abx course for community-acquired pneumonia. Increasing oxygen demand 05/31, elevated WBC count, and CXR with increased infiltrates. Therefore, antibiotics initiated for hospital-acquired pneumonia. - Completed 7 days Ceftriaxone 05/30 - Completed 5 days Azithromycin 05/28 - D/C Levofloxacin, day 09/25 - D/C Zosyn, day 09/25 3) Bleeding diasthesis: Stable, no evidence of ongoing bleeding. Previously with bloody nose and bleeding from PICC site - Continue to hold daily Aspirin - Continue Lovenox and Plavix - Continue PPI due to addition of Lovenox as above and risk for bleed 4) CAD with recent stenting: - Hold Aspirin - Continue Plavix - Monitor closely for cardiac symptoms 3) Aortic stenosis: Recent echo stable 4) Hyperlipidemia: - Continue Rosuvastatin 5) HTN: Improved off Lisinopril - Hold Lisinopril 6) PMR: - Prednisone 2mg daily 8) Constipation: Resolved. No BM yesterday, however - Working to find balance. Mirtazapine can be constipating as well. Restart Docusate daily. 9) Anxiety/Depression: Pt overall with significant anxiety regarding taking care of basics from home such as paying bills, her 's health, and SOB she had with movement recently. Mood overall also declining, with depressive symptoms from isolation. - Ativan PRN to help with anxiety from SOB - Continue Mirtazapine 15mg nightly, initiated 06/03. Can decreased to 7.5mg if pt has adverse effects. This agent was chosen for slightly more rapid onset, and also hopefully with added benefit of appetite stimulation. 10) Nutritional status: Pt has been tolerated meals moderately well. Appetite continues to gradually improve. - Continue to monitor intake closely - Nursing will continue to work with pt to find foods she enjoys eating 11) Hypocalcemia: Improved. Corrected calcium with albumin 8.9 yesterday. - Continue to monitor 12) Tachycardia: Question if PE present - Dopplers ordered as above - CT PE as well today - EKG DVT PPX: Lovenox as above Diet: Regular Code: DNR. Pt does not desire intubation. Dispo: Pending improvement in respiratory status off high flow NC, stabilization. Pt will need stay in SNF at discharge due to severity of weakness, and likely will require oxygen at discharge as well. Considered [place], but do not believe pt will meet acuity requirements at this point. Plan for d/c to the same SNF as her , currently hospitalized at [facility]. UPDATE: Doppler u/s LE negative, UE shows likely clot in distal right subclavian. Negative CT PE. Will start Xarelto, hold Lovenox. Pt still tachycardic. EKG to be obtained. CT PE still showing pneumonia, while likely viral contributing, will also obtain procalcitonin to help determine if need to prolong antibiotic therapy. Will give single dose Metoprolol as well to help bring down HR. Quality [facility] - Admit Advanced Care Plan / Current Medications Measures: #47 ? Advanced Care Plan Clinician documentation instruction: document at admission. [] I confirmed that the patient's Advance Care Plan is present, code status is documented, or surrogate decision maker is listed in the patient?s medical record. [SATISFIES [facility] PERFORMANCE] If Yes, Stop Here [] The patient?s Advance Care plan is not present because: (select) [MIPS PERFORMANCE EXCEPTION/EXCLUSION] [] I confirmed today that the patient does not wish or was not able to name a surrogate decision maker or provide an Advance Care Plan. [] Hospice care is currently being provided or has been provided this calendar year [] I did NOT confirm today the presence of an Advance Care Plan or surrogate decision maker documented within the patient's medical record. [DOES NOT SATISFY MIPS PERFORMANCE] #130 - Documentation of Current Medications in the Medical Record Clinician documentation instruction: use macro the first time you see a patient. [] I have utilized all available immediate resources to obtain, update, or review the patient?s current medications. [SATISFIES MIPS PERFORMANCE] If Yes, Stop Here [] The patient is not eligible for medication reconciliation; the patient is in an emergent medical situation where delaying treatment would jeopardize the patient?s health. [MIPS PERFORMANCE EXCEPTION/EXCLUSION] [] I did NOT confirm, update or review the patient's current list of medications today. [DOES NOT SATISFY MIPS PERFORMANCE] MIPS - CL Central Venous Catheter Placement Measure: #76 ? Prevention of Central Venous Catheter (CVC) ? Related Bloodstream Infection Clinician documentation instruction: use macro every time you place a central line. [] All elements of Maximal Sterile Barrier Technique, including hand hygiene, skin prep, and sterile ultrasound technique (if used) were followed. [SATISFIES MIPS PERFORMANCE] If Yes, Stop Here [] If ?No?, the medical reason all elements were NOT used for medical reason [] (ex. emergent condition). [] Maximal Sterile Barrier Technique was not followed, no reason provided [DOES NOT SATISFY MIPS PERFORMANCE] MIPS - DC Heart Failure Measures: #5 - Heart Failure (HF): Angiotensin-Converting Enzyme (RUIZ) Inhibitor or Angiotensin Receptor Rita (ARB) Therapy for Left Ventricular Systolic Dysfunction (LVSD) and #8 - Heart Failure (HF): Beta-Rita Therapy for Left Ventricular Systolic Dysfunction (LVSD) Clinician documentation instruction: use macro at every CHF discharge. [] The patient has current or prior documentation of left ventricular ejection fraction (LVEF) less than 40%, or moderate or severely depressed left ventricular systolic function. Answer both: [SATISFIES MIPS PERFORMANCE] [] The patient was prescribed or already taking an Angiotensin-Converting Enzyme (RUIZ) Inhibitor, or Angiotensin Receptor Rita (ARB). [] The patient was prescribed or already taking a beta-rita. If Yes to Both, Stop Here [] Patient not prescribed/taking: [MIPS PERFORMANCE EXCEPTION/EXCLUSION] [] RUIZ or ARB for medical/patient/system reason(s) including [] (ex. allergy, intolerance, contraindication) [] Beta-rita for medical/patient/system reason(s) including [] (ex. allergy, intolerance, contraindication) [] Patient not prescribed/taking: [DOES NOT SATISFY MIPS PERFORMANCE] [] RUIZ or ARB, no reason given [] Beta-rita, no reason given
[2020-06-07] MEDS: LACTOBACILLUS ACIDOPHILUS TABLET 1 EACH PO ×3 (08:59→16:18)
[2020-06-07] MEDS: DOCUSATE 100 MG CAPSULE PO (08:59)
[2020-06-07] MEDS: predniSONE 1 MG TABLET 2 MG PO (08:59)
[2020-06-07] MEDS: PANTOPRAZOLE 40 MG TABLET PO (08:59)
[2020-06-07] MEDS: ROSUVASTATIN 10 MG TABLET 40 MG PO (08:59)
[2020-06-07] MEDS: LORazepam 0.5 MG TABLET PO (08:59)
[2020-06-07] MEDS: CLOPIDOGREL 75 MG TABLET PO (09:00)
[2020-06-07] MEDS: NYSTATIN OINTMENT 15 APPLIC/TUBE OINT...G. TOP ×2 (09:02→20:06)
[2020-06-07] MEDS: SODIUM CHLORIDE 0.9% FLUSH 10 ML IV ×2 (09:02→20:04)
--- NOTE | 2020-06-07 09:32 | PC.NURSE ---
Addendum entered by Caity Arceo R.N. 06/07/20 14:37: Start on xeralto, per roddy and pharmacy, too soon to d/c plavix for stents and very high risk for bleed. Will pass to nursing to monitor closely. Pt refused bath this shift. Pt was up to chair for 3 hours this shift. Given a one time dose of metoprolol for tachycardia. Original Note: Am shift Start of shift, Pt on bipap, removed and placed on 15L NRB while set up complete on heated hiflo NC. Pt tolerating this well, left on for about 1 hr. Switched over to heated hiflow 50L and 55%. Pt is doing well with this Spo2 >93% at all times. U/s done and + for clot. Call into Dr Sim. ABG obtained. CTA ordered. Pt taken down on 15L NRB tolerating very well Spo2 above 94% entire time. Resting comfortably in bed after, side laying. 13L NRB 96% Enc IS use.
--- NOTE | 2020-06-07 10:49 | PT-IP ANOTE ---
1049 off floor for testing will check back with pt later today.
--- NOTE | 2020-06-07 10:50 | DI.CT.S_ITS ---
PROCEDURE: CT ANGIO CHEST PE PROTOCOL INDICATIONS: persistent new tachycardia, COVID, subclavian clot TECHNIQUE: After the administration of intravenous contrast, 2 mm thick sections acquired from the pulmonary apices to the posterior costophrenic angles. 3-dimensional maximum intensity projection (MIP) coronal and sagittal reformats were then acquired through the thorax. For radiation dose reduction, the following was used: automated exposure control, adjustment of mA and/or kV according to patient size. COMPARISON: [facility], CR, XR CHEST 1V, 05/31/2020, 13:14. FINDINGS: Image quality: There is mild motion artifact. Pulmonary arteries: Pulmonary arteries demonstrate no intraluminal filling defects to suggest central pulmonary embolism. Evaluation of distal subsegmental branches is slightly limited by motion artifact. Lungs and pleura: There are patchy areas of ground-glass opacity and airspace consolidation bilaterally involving all lobes with confluence posteriorly in the lower lobes. Findings are compatible with pneumonia. There are trace bilateral pleural effusions. The trachea and central airways appear patent. Mediastinum: Heart size is mildly enlarged, without pericardial effusion. There is coronary arterial vascular calcification. There is a right upper extremity PICC line with the tip extending to the junction of the right subclavian vein and superior vena cava. Thoracic aorta is normal in caliber and enhancement. There are a few enlarged right hilar lymph nodes measuring up to approximately 1.4 cm in short axis. Enlarged mediastinal lymph nodes are also demonstrated including a node anterior to the right mainstem bronchus measuring up to 1.5 cm in short axis. As ago esophageal node measures up to 1.1 cm in short axis. A few prominent left hilar lymph nodes measure up to 0.9 cm. Esophagus is normal in caliber, without hiatal hernia. Bones and chest wall: No suspicious bony lesions. Ribs and thoracic spine appear intact throughout. No axillary or supraclavicular adenopathy. Abdomen: Visualized upper abdominal solid organs appear normal in the early arterial phase of enhancement. IMPRESSION: 1. No evidence of central pulmonary embolism. 2. Bilateral patchy ground-glass opacities and airspace consolidation with confluence in the lower lobes posteriorly. The findings are consistent with pneumonia including possible from atypical etiologies. 3. Right hilar and mediastinal lymphadenopathy which may be reactive but given the degree of margaux enlargement a follow-up CT is recommended to demonstrate resolution in 3-6 months if clinically indicated. Dictated by: Solitario Orozco M.D. on 06/07/2020 at 11:09 Approved by: Solitario Orozco M.D. on 06/07/2020 at 11:24
[2020-06-07 11:01] LABS: HCO3 ABG 23 mmol/L (22-26); PCO2 ABG 30.5 mmHg (35-45); PO2 ABG 60 mmHg (80-100); TCO2 ABG 24 mmol/L (21-31)
[2020-06-07 11:02] LABS: Fractionated Inspired Oxygen 55; Oxygen Saturation ABG 93 % (95-100)
[2020-06-07 11:29] LABS: INR 1.3 (0.9-1.3); Prothrombin Time 14.5 SECONDS (10.1-12.7)
[2020-06-07 11:32] LABS: PTT Partial Thromboplastin Tim 35 SECONDS (26.4-36.2)
[2020-06-07 12:48] LABS: Magnesium 2.1 mg/dL (1.6-2.3)
[2020-06-07 13:06] LABS: Procalcitonin 0.04 ng/mL (<0.5)
[2020-06-07] MEDS: RIVAROXABAN 10 MG TABLET 15 MG PO (16:18)
[2020-06-07] MEDS: SENNOSIDES 8.6 MG TABLET 17.2 MG PO (20:04)
[2020-06-07] MEDS: MIRTAZAPINE 15 MG TABLET PO (20:04)
[2020-06-07] MEDS: GABAPENTIN 300 MG CAPSULE PO (20:04)
--- NOTE | 2020-06-07 22:15 | PC.NURSE ---
Pt states she is breathing much better this evening as compared to yesterday, declined bipap and O2 Sats maintaining around 94% on 45L/50% HHF. Able to adjust her position independently side to side.
[2020-06-08] VITALS (21 sets, daily range): BP systolic 114–120; BP diastolic 52–59; PULSE 84–117; RESP 0–51; TEMP 35.9–37.4; O2SAT 86–96
[2020-06-08] MEDS: LORazepam 0.5 MG TABLET PO (02:24)
[2020-06-08 05:12] LABS: Add Manual Diff / Slide Review NO; Basophils Absolute Auto 0 /uL (0-100); Basophils Percent Auto 0.4 % (0-2); Eosinophils Absolute Auto 500 /uL (0-450); Eosinophils Percent Auto 6.3 % (2-4); Hematocrit 34.7 % (36-46); Hemoglobin 11.8 g/dL (12.0-16.0); Lymphocytes Absolute Auto 1300 /uL (1100-4500); Lymphocytes Percent Auto 17.3 % (25-40); Mean Corpuscular Hemoglobin 31.4 PG (26-34); Mean Corpuscular Volume 92.2 fL (80-100); Monocytes Absolute Auto 700 /uL (0-900); Monocytes Percent Auto 9.5 % (3-14); Neutrophils Absolute Auto 5200 /uL (1500-7000); Neutrophils Percent Auto 66.5 % (50-75); Platelet Count 140 X10^3/uL (150-400); Red Blood Cell Count 3.76 X10^6/uL (4.0-5.2); White Blood Cell Count 7.7 X10^3/uL (4.5-11.0)
[2020-06-08] MEDS: PANTOPRAZOLE 40 MG TABLET PO (05:14)
[2020-06-08 05:22] LABS: INR 1.4 (0.9-1.3); Prothrombin Time 15.7 SECONDS (10.1-12.7)
[2020-06-08 05:25] LABS: PTT Partial Thromboplastin Tim 38 SECONDS (26.4-36.2)
[2020-06-08 05:26] LABS: BUN Creatinine Ratio 24.4 (6-22); Blood Urea Nitrogen 10 mg/dL (7-17); Calcium 8.4 mg/dL (8.4-10.2); Carbon Dioxide 27 mmol/L (22-32); Chloride 102 mmol/L (98-107); Estimated Glomerular Filt Rate > 60.0 mL/min (>60); Glucose 101 mg/dL (80-110); HEMOLYSIS < 15 (0-50); Potassium 3.8 mmol/L (3.4-5.1); Sodium 134 mmol/L (137-145)
--- NOTE | 2020-06-08 05:40 | PC.NURSE ---
Upon shift change: Pt is sleeping and arouses easily to voice. Pt informed of plan to turn Q2 hrs and be placed into prone position at least once this shift. Pt instructed to drink water frequently. Pt verbalizes understanding. Pt A&Ox4, in pleasant mood. Waffle cushion under pt, pillows placed between knees, SCD on bilateral lower extremities. mullins cath intact and draining. Skin intact. Pt on high flow oxygen 45L and FiO2 48%. SpO2 94%, RR 26, HR 92 at rest. 0100: Pt turned from R laying to L with HOB at 30 degrees. Destated to 84% and RR 36 with quick recovery to 94%. RN provided minimal assist and pt moves self up in bed without difficultly. 0300: Pt placed prone. Pt was pre-medicated with ativan 30 min prior for claustraphobia and anxiety. 0515: Pt self repositions from prone to L laying (HOB at 25 degrees) resulting in SpO2 86%, RR 36, HR 103. Pt returns to baseline VS within 10 min. End of shift: Pt drank water Q2hrs and took large sips with each med administation. Pt slept the entire shift. No BM this shift. Pt denies feeling of constipation or bloating.
[2020-06-08] MEDS: DOCUSATE 100 MG CAPSULE PO (08:07)
[2020-06-08] MEDS: RIVAROXABAN 10 MG TABLET 15 MG PO ×2 (08:08→17:15)
[2020-06-08] MEDS: ROSUVASTATIN 10 MG TABLET 40 MG PO (08:08)
[2020-06-08] MEDS: predniSONE 1 MG TABLET 2 MG PO (08:08)
[2020-06-08] MEDS: CLOPIDOGREL 75 MG TABLET PO (08:08)
[2020-06-08] MEDS: polyethylene glycoL 3350 17 GM POWD.PACK PO (08:08)
[2020-06-08] MEDS: LACTOBACILLUS ACIDOPHILUS TABLET 1 EACH PO ×3 (08:08→17:15)
--- NOTE | 2020-06-08 10:15 | P.PN_ITS ---
Subjective Subjective Date Patient Seen: 06/08/20 Time Patient Seen: 10:15 Interval history: Patient is sleeping soundly at time of interview and does not arouse due to sedative. Nursing reports that she is about the same, oxygen saturations remain in the 90s. She continues to have transient tachycardia when she moves but returns to normal at rest. Telemetry showing sinus tachycardia with occasional PVCs. Exam Vital Signs (past 8 hours): - 06/08/20 03:00 06/08/20 04:00 06/08/20 05:30 Temperature 97.4 F L Pulse Rate 84 103 H 91 H Respiratory Rate 25 H 24 28 H Blood Pressure 120/58 L Pulse Oximetry 94 94 91 06/08/20 07:00 06/08/20 08:00 06/08/20 09:30 Temperature 98.4 F Pulse Rate 92 H 110 H Respiratory Rate 33 H 27 H Blood Pressure 117/58 L Pulse Oximetry 96 90 L 93 Fraction of Inspired Oxygen 49 Oxygen Delivery Method Heated High Flow Oxygen Flow Rate 45 Narrative Exam Narrative: GENERAL: Sleeping soundly, appearing stated age and in no acute distress. Breathing with oxygen in place. HEENT: Head normocephalic/atraumatic. LUNGS: Clear to ausculation bilaterally, no wheezes, rhonchi or rales. CV: Normal S1 and S2 with regular rate and rhythm, 2/5 systolic murmur, no rubs or gallops. ABDOMEN: Soft, non-tender, non-distended, no organomegaly. Positive bowel sounds. EXTREMITIES: No clubbing, cyanosis, or edema, SCDs in place. PSYCH: Alert and oriented x 3. SKIN: No concerning lesions. Objective Labs Result Diagrams: 06/08/20 05:00 06/08/20 05:00 Labs: Laboratory Results - last 24 hr 06/07/20 06/07/20 06/07/20 10:32 11:07 11:07 WBC RBC Hgb Hct MCV MCH MCHC RDW Plt Count Neut % (Auto) Lymph % (Auto) [place] % (Auto) Eos % (Auto) Baso % (Auto) Neut # (Auto) Lymph # (Auto) [place] # (Auto) Eos # (Auto) Baso # (Auto) PT 14.5 H INR 1.3 APTT 35 D ABG pH 7.49 H ABG pCO2 30.5 L ABG pO2 60 L ABG HCO3 23 ABG Total CO2 24 ABG O2 Saturation 93 L ABG Base Excess 0.0 FiO2 55 Sodium Potassium Chloride Carbon Dioxide BUN Creatinine Estimated GFR BUN/Creatinine Ratio Glucose Calcium Magnesium 2.1 Procalcitonin 06/07/20 06/08/20 06/08/20 11:07 05:00 05:00 WBC 7.7 RBC 3.76 L Hgb 11.8 L Hct 34.7 L MCV 92.2 MCH 31.4 MCHC 34.0 RDW 15.0 H Plt Count 140 L Neut % (Auto) 66.5 Lymph % (Auto) 17.3 L [place] % (Auto) 9.5 Eos % (Auto) 6.3 H Baso % (Auto) 0.4 Neut # (Auto) 5200 Lymph # (Auto) 1300 [place] # (Auto) 700 Eos # (Auto) 500 H Baso # (Auto) 0 PT 15.7 H INR 1.4 H APTT 38 H ABG pH ABG pCO2 ABG pO2 ABG HCO3 ABG Total CO2 ABG O2 Saturation ABG Base Excess FiO2 Sodium Potassium Chloride Carbon Dioxide BUN Creatinine Estimated GFR BUN/Creatinine Ratio Glucose Calcium Magnesium Procalcitonin 0.04 06/08/20 05:00 WBC RBC Hgb Hct MCV MCH MCHC RDW Plt Count Neut % (Auto) Lymph % (Auto) [place] % (Auto) Eos % (Auto) Baso % (Auto) Neut # (Auto) Lymph # (Auto) [place] # (Auto) Eos # (Auto) Baso # (Auto) PT INR APTT ABG pH ABG pCO2 ABG pO2 ABG HCO3 ABG Total CO2 ABG O2 Saturation ABG Base Excess FiO2 Sodium 134 L Potassium 3.8 Chloride 102 Carbon Dioxide 27 BUN 10 Creatinine 0.41 L Estimated GFR > 60.0 BUN/Creatinine Ratio 24.4 H Glucose 101 Calcium 8.4 Magnesium Procalcitonin [facility] Medical History Aortic stenosis B-cell lymphoma Cataract Chicken pox Fecal incontinence (2004) Frequent UTI GERD (gastroesophageal reflux disease) Hearing loss Heart murmur, systolic Hypertension Migraines Pelvic relaxation Polymyalgia rheumatica Urinary incontinence (2013) Surgical History History of dilation and curettage S/P implantation of urinary electronic stimulator device Family History Father Luigi's disease, pulmonary Mother Heart disease Sister No problems noted. Grandmother No problems noted. Social History marital status: number of children: 2 household members: spouse lives independently: Yes caregiver/support person: No housing: house pets and animals: Yes education level: college occupational status: employed current occupational exposures/hazards: No seatbelt use: always working smoke detector in home: Yes fire extinguisher in home: Yes carbon monox detector in home: Yes Smoking Status: Never smoker second hand exposure: No alcohol intake: current substance use type: does not use during the past year weight has: increased > 10 lbs well-balanced diet: daily or most days caffeine: Yes eating out: 1-3 times/week Assessment & Plan Assessment & Plan narrative: 80yo woman with PMR, aortic stenosis, HTN, urinary incontinence, B-cell lymphoma, CAD s/p cardiac stenting 03/2019 here with worsening SOB and fatigue in the setting of being COVID+. Pt with acute respiratory failure with hypoxia requiring oxygen supplementation. Hospital day #20. 1) COVID pneumonia: Meeting criteria for severe infection due to SaO2 < 94 on room air - currently maintaining around 93% on 45L nonrebreather after more prolonged BiPAP overnight. Heartrate labile today, 91-110, tachycardic with movement. Lung sounds remain clear. - Continue daily CBC, BMP - Continue ICU care with negative pressure room and contact precautions - Completed 10 days Remdesivir 05/30 - Completed 10 days Dexamethasone 05/30 - Continue oxygen, titrate as needed to keep saturations > 90% - Continue intermittent BiPAP as pt seems to benefit greatly from this - Proning as able -- will continue to encourage pt to do this today - Lidocaine patch to help with back pain with proning - Morphine PRN to help with pain and anxiety - Doppler u/s upper and lower extremities negative 05/30/20, repeat on 06/07/20 showed distal right subclavian DVT - Off prophylactic Lovenox dosing due to platelets falling, now on xarelto. - Did not receive convalescent plasma - PICC line in place, same site as DVT - Continue with as much emotional support as possible with ongoing isolation. 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 - Continue PT, plan for up to chair for 1-2 hours. - Continue IS. 2) DVT, right subclavian vein, distal, new -Xarelto as noted above. 3) Bacterial pneumonia: Superimposed based on CXR from 05/23 and worsening symptoms at that time. Completed abx course for community-acquired pneumonia. Increasing oxygen demand 05/31, elevated WBC count, and CXR with increased infiltrates. Therefore, antibiotics initiated for hospital-acquired pneumonia. - Completed 7 days Ceftriaxone 05/30 - Completed 5 days Azithromycin 05/28 - D/C Levofloxacin, day 09/25 - D/C Zosyn, day 09/25 -CTA 06/07/20 showed bilateral pneumonia. Procalcitonin on same date negative, 0.04. Will not restart antibiotics as patient has completed full course for both community-acquired and nosocomial acquired pneumonia; procalcitonin is negative. Imaging is likely lagging clinical symptoms. 4) Bleeding diasthesis: Stable, no evidence of ongoing bleeding. Previously with bloody nose and bleeding from PICC site - Continue to hold daily Aspirin - Continue xarelto and Plavix - Continue PPI due to risk for bleed 5) CAD with recent stenting: - Hold Aspirin - Continue Plavix - Monitor closely for cardiac symptoms 6) Aortic stenosis: Recent echo stable 7) Hyperlipidemia: - Continue Rosuvastatin 8) HTN: Improved off Lisinopril - Hold Lisinopril 9) PMR: - Prednisone 2mg daily 10) Constipation: No BM x 2 days - Mirtazapine possibly constipating. Docusate daily, may need miralax titration tomorrow. 11) Anxiety/Depression: Pt overall with significant anxiety regarding taking care of basics from home such as paying bills, her 's health, and SOB she had with movement recently. Mood overall also declining, with depressive symptoms from isolation. - Ativan PRN to help with anxiety from SOB - Continue Mirtazapine 15mg nightly, initiated 06/03. Can decreased to 7.5mg if pt has adverse effects. This agent was chosen for slightly more rapid onset, and also hopefully with added benefit of appetite stimulation. 12) Nutritional status: Appetite continues to gradually improve. - Continue to monitor intake closely - Nursing will continue to work with pt to find foods she enjoys eating 13) Hypocalcemia: resolved. - Continue to monitor 14) Tachycardia: labile - CTA negative for PE on 06/07/20 -Duplex US showed DVT at distal right subclavian vein -Will watch closely today, will give metoprolol 12.5 mg PO x 1 if tachy persists. DVT Treatment: Xarelto as above Diet: Regular Code: DNR/DNI Dispo: Pending improvement in respiratory status off high flow NC, stabilization. Pt will need stay in SNF at discharge due to severity of weakness, and likely will require oxygen at discharge as well. Considered [facility], but do not believe pt will meet acuity requirements at this point. Plan for d/c to the same SNF as her . Quality MIPS - Admit Advanced Care Plan / Current Medications Measures: #47 ? Advanced Care Plan Clinician documentation instruction: document at admission. [] I confirmed that the patient's Advance Care Plan is present, code status is documented, or surrogate decision maker is listed in the patient?s medical record. [SATISFIES MIPS PERFORMANCE] If Yes, Stop Here [] The patient?s Advance Care plan is not present because: (select) [MIPS PERFORMANCE EXCEPTION/EXCLUSION] [] I confirmed today that the patient does not wish or was not able to name a surrogate decision maker or provide an Advance Care Plan. [] Hospice care is currently being provided or has been provided this calendar year [] I did NOT confirm today the presence of an Advance Care Plan or surrogate decision maker documented within the patient's medical record. [DOES NOT SATISFY MIPS PERFORMANCE] #130 - Documentation of Current Medications in the Medical Record Clinician documentation instruction: use macro the first time you see a patient. [] I have utilized all available immediate resources to obtain, update, or review the patient?s current medications. [SATISFIES MIPS PERFORMANCE] If Yes, Stop Here [] The patient is not eligible for medication reconciliation; the patient is in an emergent medical situation where delaying treatment would jeopardize the patient?s health. [MIPS PERFORMANCE EXCEPTION/EXCLUSION] [] I did NOT confirm, update or review the patient's current list of medications today. [DOES NOT SATISFY MIPS PERFORMANCE] MIPS - CL Central Venous Catheter Placement Measure: #76 ? Prevention of Central Venous Catheter (CVC) ? Related Bloodstream Infection Clinician documentation instruction: use macro every time you place a central line. [] All elements of Maximal Sterile Barrier Technique, including hand hygiene, skin prep, and sterile ultrasound technique (if used) were followed. [SATISFIES MIPS PERFORMANCE] If Yes, Stop Here [] If ?No?, the medical reason all elements were NOT used for medical reason [] (ex. emergent condition). [] Maximal Sterile Barrier Technique was not followed, no reason provided [DOES NOT SATISFY MIPS PERFORMANCE] MIPS - DC Heart Failure Measures: #5 - Heart Failure (HF): Angiotensin-Converting Enzyme (RUIZ) Inhibitor or Angiotensin Receptor Rita (ARB) Therapy for Left Rian tricular Systolic Dysfunction (LVSD) and #8 - Heart Failure (HF): Beta-Rita Therapy for Left Ventricular Systolic Dysfunction (LVSD) Clinician documentation instruction: use macro at every CHF discharge. [] The patient has current or prior documentation of left ventricular ejection fraction (LVEF) less than 40%, or moderate or severely depressed left ventricular systolic function. Answer both: [SATISFIES MIPS PERFORMANCE] [] The patient was prescribed or already taking an Angiotensin-Converting Enzyme (RUIZ) Inhibitor, or Angiotensin Receptor Rita (ARB). [] The patient was prescribed or already taking a beta-rita. If Yes to Both, Stop Here [] Patient not prescribed/taking: [MIPS PERFORMANCE EXCEPTION/EXCLUSION] [] RUIZ or ARB for medical/patient/system reason(s) including [] (ex. allergy, intolerance, contraindication) [] Beta-rita for medical/patient/system reason(s) including [] (ex. allergy, intolerance, contraindication) [] Patient not prescribed/taking: [DOES NOT SATISFY MIPS PERFORMANCE] [] RUIZ or ARB, no reason given [] Beta-rita, no reason given
[2020-06-08] MEDS: MORPHINE 2 MG/ML INJ 1 MG IV (12:01)
--- NOTE | 2020-06-08 12:18 | PT-IP ANOTE ---
attempted to see pt but nurse informed that she will pre-medicate pt first and will let PT know when pt is ready. will f/u.
--- NOTE | 2020-06-08 13:08 | PT.IPTN ---
Current Diagnoses COVID-19 (05/20/20) Physical Therapy Treatment Note M2 PT-IP Current Condition Start: 05/26/20 08:28 Freq: NEEDED Status: Active Protocol: Document 06/04/20 11:36 AB (Rec: 06/04/20 13:07 AB [id number]) Physical Therapy Current Condition Current Condition Evaluation Date 06/04/20 Treatment Diagnosis Covid (+); generalized weakness Onset Date 05/20/20 Precautions Other Precautions covid (+) precautions M3 PT-IP Subjective Start: 05/26/20 08:28 Freq: NEEDED Status: Active Protocol: Document 06/08/20 13:08 AB (Rec: 06/08/20 15:16 AB [id number]) Subjective Physical Therapy Visit Type Type Treatment Note Visit Start Time 13:08 Visit Stop Time 13:51 Total Visit Minutes 43 Number of FINANCIAL SALES ASSISTANT Visits 0 Physical Therapy Visit Comments Patient Comments pt sitting on chair and agreeable to do PT M4 PT-IP Mobility and Gait Start: 05/26/20 08:28 Freq: NEEDED Status: Active Protocol: Document 06/08/20 13:08 AB (Rec: 06/08/20 15:16 AB [id number]) PT-Bed Mobility Assessment Rolling Level of Assist Standby Assistance Sit to Supine Sit to Supine Standby Assistance PT-Transfer Assessment Sit to and From Stand Sit to and from Stand Contact Guard Assistance, Minimal Assistance,Moderate Assistance,1 Person Assistance ,Use of Upper Extremities Equipment Transfer Assistive Device Gait Belt,Front Wheeled Walker Orthotic/Prosthetic Devices or Brace: No Transfers Transfer Destination Bed Transfer Technique ambulated using FWW Transfer Ability Level of Assist Contact Guard Assistance,1 Person Assistance,Use of Upper Extremities Comments Mobility Comments pt sitting on chair and agreed to do PT. nurse wanted pt to do some hygiene care by the sink. positioned pt on chair by the sink. completed sit to stand from the chair min to mod A and cues for steadiness. pt required min A to maintain standing balance by the sink while brushing her teeth. only tolerated ~ 1 min of standing and has to sit down. pt was not able to tolerate standing long enough to finish task. pt had to complete task in sitting position. was able to wash her face and brush her hair with rest breaks in between. pt completed sit to stand from chair CGA to min A and ambulated from chair to bed ~ 6 ft CGA and cues using FWW. needed another rest break before proceeding to next task . completed sit to supine SBA . pt agreed to go to prone position. completed prone position with min A for positioning. left pt with nurse in room. Gait Assessment Gait Gait Assistance Required: Contact Guard Assist Distance (Feet) 6 Able to Maintain Weight Bearing Status Yes During Gait Assistive Devices Assistive Device Gait Belt,Front Wheeled Walker Orthotic/Prosthetic Devices or Brace: No Gait Deviations General Gait Pattern Decreased Stride Length, Decreased Feet Clearance Factors Limiting Gait Function Factors Limiting Gait Function Decreased Activity Tolerance, Decreased Strength,Poor Balance,Respiratory Distress M5 PT-IP Objective Assessments Start: 05/26/20 08:28 Freq: NEEDED Status: Active Protocol: Document 06/04/20 11:36 AB (Rec: 06/04/20 13:07 AB [id number]) Orientation Orientation/Cognition Level of Alertness Alert Orientation Name,Place,Situation Safety Awareness Decreased Safety Awareness Gross Range of Motion Lower Extremity ROM Assessment Within Functional Limits Strength Lower Extremity Strength Assessment Within Functional Limits Muscle Tone Muscle Tone WNL Yes M6 PT-IP Treatment Start: 05/26/20 08:28 Freq: NEEDED Status: Active Protocol: Document 06/08/20 13:08 AB (Rec: 06/08/20 15:16 AB [id number]) Physical Therapy Treatment Education Education Provided Safety M7 PT-IP Assessment and Plan Start: 05/26/20 08:28 Freq: NEEDED Status: Active Protocol: Document 06/08/20 13:08 AB (Rec: 06/08/20 15:16 AB [id number]) PT Summary Assessment and Plan Potential Rehabilitation Potential Fair Summary Impairments Pain,Strength,Balance,Tone, Cognition,Bed Mobility, Transfers,Gait,Activity Tolerance Progress Towards Goals Slow Progress due to Activity Tolerance Assessment Summary pt improving slowly but continues to have decrease activity tolerance and needs encouragement to complete tasks. pt has increase anxiety limiting movement and participation. pt will require SNF rehab to improve mobility and independence. Goals Bed Mobility Goal Independent Transfer Goal Independent,Front Wheeled Walker Gait Goal Contact Guard Assistance,Front Wheel Walker Gait Distance 50 Other Goals improve transfter without AD SBA improve ambulation using FWW/ without AD 200 ft SBA Days to Meet Goals 10 Frequency of Treatment Frequency Of Treatment Once a Day Treatment Plan Physical Therapy Treatment Plan Bed Mobility Training,Transfer Training,Gait Training, Therapeutic Exercise,Balance Retraining,Discharge Planning, Neuromuscular Re-ed, Coordination Retraining Other Recommendations and Next Treatment coordinate with RN for ativan Focus and morphine admin prior to tx Precautions Other Precautions Covid (+) precautions Recommendations To Nursing Amount of Assist Needed 1 Person Assist Discharge Recommendations PT Discharge Recommendations SNF Rehab Transportation Needs at Discharge Wheelchair/Cabulance
[2020-06-08] MEDS: GABAPENTIN 300 MG CAPSULE PO (20:59)
[2020-06-08] MEDS: MIRTAZAPINE 15 MG TABLET PO (20:59)
[2020-06-08] MEDS: SENNOSIDES 8.6 MG TABLET 17.2 MG PO (20:59)
[2020-06-09] VITALS (26 sets, daily range): BP systolic 105–125; BP diastolic 58–66; PULSE 65–114; RESP 0–33; TEMP 36.2–36.8; O2SAT 90–99
[2020-06-09] MEDS: PANTOPRAZOLE 40 MG TABLET PO (05:24)
[2020-06-09] MEDS: predniSONE 1 MG TABLET 2 MG PO (08:01)
[2020-06-09] MEDS: SODIUM CHLORIDE 0.9% FLUSH 10 ML IV ×2 (08:01→20:23)
[2020-06-09] MEDS: polyethylene glycoL 3350 17 GM POWD.PACK PO (08:01)
[2020-06-09] MEDS: CLOPIDOGREL 75 MG TABLET PO (08:01)
[2020-06-09] MEDS: ROSUVASTATIN 10 MG TABLET 40 MG PO (08:01)
[2020-06-09] MEDS: LACTOBACILLUS ACIDOPHILUS TABLET 1 EACH PO ×3 (08:01→16:38)
[2020-06-09] MEDS: RIVAROXABAN 10 MG TABLET 15 MG PO ×2 (08:01→16:39)
[2020-06-09] MEDS: DOCUSATE 100 MG CAPSULE PO (08:01)
--- NOTE | 2020-06-09 09:56 | RT ---
Pt up in bed eating and Talking on her phone, mild sob noted and looks in good spirits
[2020-06-09] MEDS: LORazepam 0.5 MG TABLET PO (10:06)
--- NOTE | 2020-06-09 12:14 | P.PN_ITS ---
Subjective Subjective Date Patient Seen: 06/09/20 Time Patient Seen: 12:14 Interval history: Patient is up in her chair this morning, just had a bowel movement so is feeling slightly out of breath and heart rate is above 100. However, she is calming down and feels better now that she had a bowel movement. Appetite remains poor but it is because ?the food is not very good.? She did have manning and potatoes this morning. Restful night. Nursing reports no concer ns. Oxygen remains at 45 L. Exam Vital Signs (past 8 hours): - 06/09/20 04:30 06/09/20 05:00 06/09/20 05:10 Temperature Pulse Rate 106 H 101 H 103 H Respiratory Rate 0 L 0 L 6 L Blood Pressure 122/64 Pulse Oximetry 91 94 95 06/09/20 05:20 06/09/20 08:00 06/09/20 09:54 Temperature 98.3 F Pulse Rate 92 H 110 H Respiratory Rate 31 H 30 H Blood Pressure 125/61 Pulse Oximetry 92 95 90 L Fraction of Inspired Oxygen 56 Oxygen Delivery Method Heated High Flow Oxygen Flow Rate 45 Narrative Exam Narrative: GENERAL: Alert and oriented, appearing stated age and in no acute distress. Breathing with oxygen in place, still on 45 L. HEENT: Head normocephalic/atraumatic. LUNGS: Now that she is awake and able to take a full breath, I do appreciate bilateral crackles. No wheezes. CV: Normal S1 and S2 with regular rate and rhythm, 2/5 systolic murmur, no rubs or gallops. ABDOMEN: Soft, non-tender, non-distended, no organomegaly. Positive bowel sounds. EXTREMITIES: No clubbing, cyanosis, or edema, SCDs in place. PSYCH: Alert and oriented x 3. SKIN: No concerning lesions. Objective Labs Result Diagrams: 06/08/20 05:00 06/08/20 05:00 [facility] Medical History Aortic stenosis B-cell lymphoma Cataract Chicken pox Fecal incontinence (2004) Frequent UTI GERD (gastroesophageal reflux disease) Hearing loss Heart murmur, systolic Hypertension Migraines Pelvic relaxation Polymyalgia rheumatica Urinary incontinence (2013) Surgical History History of dilation and curettage S/P implantation of urinary electronic stimulator device Family History Father Luigi's disease, pulmonary Mother Heart disease Sister No problems noted. Grandmother No problems noted. Social History marital status: number of children: 2 household members: spouse lives independently: Yes caregiver/support person: No housing: house pets and animals: Yes education level: college occupational status: employed current occupational exposures/hazards: No seatbelt use: always working smoke detector in home: Yes fire extinguisher in home: Yes carbon monox detector in home: Yes Smoking Status: Never smoker second hand exposure: No alcohol intake: current substance use type: does not use during the past year weight has: increased > 10 lbs well-balanced diet: daily or most days caffeine: Yes eating out: 1-3 times/week Assessment & Plan Assessment & Plan narrative: 80yo woman with PMR, aortic stenosis, HTN, urinary incontinence, B-cell lymphoma, CAD s/p cardiac stenting 03/2019 here with worsening SOB and fatigue in the setting of being COVID+. Pt with acute respiratory failure with hypoxia requiring oxygen supplementation. Hospital day #21. 1) COVID pneumonia: Meeting criteria for severe infection due to SaO2 < 94 on room air - currently maintaining around 93% on 45L nonrebreather after more prolonged BiPAP overnight. Heartrate labile again today, 65-110, tachycardic with movement. Lung sounds show crackles today, afebrile, proclacitonin negative. - Continue daily CBC, BMP - Continue ICU care with negative pressure room and contact precautions - Completed 10 days Remdesivir 05/30 - Completed 10 days Dexamethasone 05/30 - Continue oxygen, titrate as needed to keep saturations > 90% - Continue intermittent BiPAP as pt seems to benefit greatly from this - Proning as able -- will continue to encourage pt to do this today - Lidocaine patch to help with back pain with proning - Morphine PRN to help with pain and anxiety - Doppler u/s upper and lower extremities negative 05/30/20, repeat on 06/07/20 showed distal right subclavian DVT - Off prophylactic Lovenox dosing due to platelets falling, now on xarelto. - Did not receive convalescent plasma - PICC line in place, same site as DVT - Continue with as much emotional support as possible with ongoing isolation. Pt has number for optometric coordinator. - Continue PT, plan for up to chair for 1-2 hours. -Will continue to hold off on antibiotics. Patient has had a full course of antibiotics x 2 and is afebrile with negative procalcitonin. Not requiring more oxygen. Plan will be to focus on IS and ongoing RT support. If WBC spikes, will plan on starting antibiotics, lab still pending this morning. 2) DVT, right subclavian vein, distal, new -Xarelto as noted above. 3) Bacterial pneumonia: Superimposed based on CXR from 05/23 and worsening symptoms at that time. Completed abx course for community-acquired pneumonia. Increasing oxygen demand 05/31, elevated WBC count, and CXR with increased infiltrates. Therefore, antibiotics initiated for hospital-acquired pneumonia. - Completed 7 days Ceftriaxone 05/30 - Completed 5 days Azithromycin 05/28 - D/C Levofloxacin, day 09/25 - D/C Zosyn, day 09/25 -CTA 06/07/20 showed bilateral pneumonia. Procalcitonin on same date negative, 0.04. Will not restart antibiotics as noted in #1. 4) Bleeding diasthesis: Stable, no evidence of ongoing bleeding. Previously with bloody nose and bleeding from PICC site - Continue to hold daily Aspirin - Continue xarelto and Plavix - Continue PPI due to risk for bleed 5) CAD with recent stenting: - Hold Aspirin - Continue Plavix - Monitor closely for cardiac symptoms 6) Aortic stenosis: Recent echo stable 7) Hyperlipidemia: - Continue Rosuvastatin 8) HTN: Improved off Lisinopril - Hold Lisinopril 9) PMR: - Prednisone 2mg daily 10) Constipation: No BM x 2 days - Mirtazapine possibly constipating. Docusate daily, may need miralax titration tomorrow. 11) Anxiety/Depression: Pt overall with significant anxiety regarding taking care of basics from home such as paying bills, her 's health, and SOB she had with movement recently. Mood overall also declining, with depressive symptoms from isolation. - Ativan PRN to help with anxiety from SOB - Continue Mirtazapine 15mg nightly, initiated 3/15. 12) Nutritional status: Appetite continues to gradually improve. - Continue to monitor intake closely - Nursing will continue to work with pt to find foods she enjoys eating 13) Hypocalcemia: resolved. - Continue to monitor 14) Tachycardia: labile - CTA negative for PE on 06/07/20 -Duplex US showed DVT at distal right subclavian vein -Will watch closely, plan for metoprolol 12.5 mg PO x 1 if tachy persists. DVT Treatment: Xarelto as above Diet: Regular Code: DNR/DNI Dispo: Pending improvement in respiratory status off high flow NC, stabilization. Pt will need stay in SNF at discharge due to severity of weakness, and likely will require oxygen at discharge as well. Considered [facility], but do not believe pt will meet acuity requirements at this point. Plan for d/c to the same SNF as her . Quality MIPS - Admit Advanced Care Plan / Current Medications Measures: #47 ? Advanced Care Plan Clinician documentation instruction: document at admission. [] I confirmed that the patient's Advance Care Plan is present, code status is documented, or surrogate decision maker is listed in the patient?s medical record. [SATISFIES MIPS PERFORMANCE] If Yes, Stop Here [] The patient?s Advance Care plan is not present because: (select) [MIPS PERFORMANCE EXCEPTION/EXCLUSION] [] I confirmed today that the patient does not wish or was not able to name a surrogate decision maker or provide an Advance Care Plan. [] Hospice care is currently being provided or has been provided this calendar year [] I did NOT confirm today the presence of an Advance Care Plan or surrogate decision maker documented within the patient's medical record. [DOES NOT SATISFY MIPS PERFORMANCE] #130 - Documentation of Current Medications in the Medical Record Clinician documentation instruction: use macro the first time you see a patient. [] I have utilized all available immediate resources to obtain, update, or review the patient?s current medications. [SATISFIES MIPS PERFORMANCE] If Yes, Stop Here [] The patient is not eligible for medication reconciliation; the patient is in an emergent medical situation where delaying treatment would jeopardize the patient?s health. [MIPS PERFORMANCE EXCEPTION/EXCLUSION] [] I did NOT confirm, update or review the patient's current list of medications today. [DOES NOT SATISFY MIPS PERFORMANCE] MIPS - CL Central Venous Catheter Placement Measure: #76 ? Prevention of Central Venous Catheter (CVC) ? Related Bloodstream Infection Clinician documentation instruction: use macro every time you place a central l ine. [] All elements of Maximal Sterile Barrier Technique, including hand hygiene, skin prep, and sterile ultrasound technique (if used) were followed. [SATISFIES MIPS PERFORMANCE] If Yes, Stop Here [] If ?No?, the medical reason all elements were NOT used for medical reason [] (ex. emergent condition). [] Maximal Sterile Barrier Technique was not followed, no reason provided [DOES NOT SATISFY MIPS PERFORMANCE] MIPS - DC Heart Failure Measures: #5 - Heart Failure (HF): Angiotensin-Converting Enzyme (RUIZ) Inhibitor or Angiotensin Receptor Rtia (ARB) Therapy for Left Ventricular Systolic Dysfunction (LVSD) and #8 - Heart Failure (HF): Beta-Rita Therapy for Left Ventricular Systolic Dysfunction (LVSD) Clinician documentation instruction: use macro at every CHF discharge. [] The patient has current or prior documentation of left ventricular ejection fraction (LVEF) less than 40%, or moderate or severely depressed left ventricular systolic function. Answer both: [SATISFIES MIPS PERFORMANCE] [] The patient was prescribed or already taking an Angiotensin-Converting Enzyme (RUIZ) Inhibitor, or Angiotensin Receptor Rita (ARB). [] The patient was prescribed or already taking a beta-rita. If Yes to Both, Stop Here [] Patient not prescribed/taking: [MIPS PERFORMANCE EXCEPTION/EXCLUSION] [] RUIZ or ARB for medical/patient/system reason(s) including [] (ex. allergy, intolerance, contraindication) [] Beta-rita for medical/patient/system reason(s) including [] (ex. allergy, intolerance, contraindication) [] Patient not prescribed/taking: [DOES NOT SATISFY MIPS PERFORMANCE] [] RUIZ or ARB, no reason given [] Beta-rita, no reason given
[2020-06-09] MEDS: MORPHINE 2 MG/ML INJ 1 MG IV (13:33)
--- NOTE | 2020-06-09 13:39 | CM.DPC ---
DCP Cont: Per MD, pt has remained stable through the weekend on 45L heated high flow O2 and monitoring new DVT. Per PT, pt was only able to tolerate 1 min standing at sink for personal care then needed to sit to complete. Pt very anxious at baseline and requiring medication prior to working with therapy for best endurance/ability to participate. [facility] has accepted pt for SNF at d/c but did not update this weekend as admissions staff was not reachable over the weekend. Timeline for discharge unclear at this time as pt will need to be weaned off heated highflow and tolerate 5L Oxygen per minute. Unclear if referral last week to [facility] was declined based on LTAC criteria or MD decision that pt not appropriate for that level of care. SW to follow up this week to determine any other d/c options if pt does not begin showing improvements. PASRR completed in anticipation of SNF at d/c. Plan: SW to follow closely this week with [facility] updated on potential timeline for discharge and follow up with MD on [facility] again if pt does not improve. EMMA [place]
[2020-06-09 13:58] LABS: Add Manual Diff / Slide Review NO; Basophils Absolute Auto 100 /uL (0-100); Basophils Percent Auto 0.9 % (0-2); Eosinophils Absolute Auto 400 /uL (0-450); Eosinophils Percent Auto 4.4 % (2-4); Hematocrit 34.5 % (36-46); Hemoglobin 11.8 g/dL (12.0-16.0); Lymphocytes Absolute Auto 900 /uL (1100-4500); Mean Corpuscular Hemoglobin 31.6 PG (26-34); Mean Corpuscular Volume 92.7 fL (80-100); Monocytes Absolute Auto 500 /uL (0-900); Monocytes Percent Auto 5.2 % (3-14); Neutrophils Absolute Auto 7000 /uL (1500-7000); Neutrophils Percent Auto 79.5 % (50-75); Platelet Count 140 X10^3/uL (150-400); Red Blood Cell Count 3.73 X10^6/uL (4.0-5.2); Red Cell Distribution Width 14.9 % (11.6-14.8); White Blood Cell Count 8.8 X10^3/uL (4.5-11.0)
[2020-06-09 14:08] LABS: BUN Creatinine Ratio 24.5 (6-22); Blood Urea Nitrogen 12 mg/dL (7-17); Calcium 8.6 mg/dL (8.4-10.2); Carbon Dioxide 25 mmol/L (22-32); Chloride 104 mmol/L (98-107); Estimated Glomerular Filt Rate > 60.0 mL/min (>60); Glucose 122 mg/dL (80-110); HEMOLYSIS < 15 (0-50); Sodium 136 mmol/L (137-145)
--- NOTE | 2020-06-09 14:20 | PT.IPTN ---
Current Diagnoses COVID-19 (05/20/20) Physical Therapy Treatment Note M2 PT-IP Current Condition Start: 05/26/20 08:28 Freq: NEEDED Status: Active Protocol: Document 06/04/20 11:36 AB (Rec: 06/04/20 13:07 AB [id number]) Physical Therapy Current Condition Current Condition Evaluation Date 06/04/20 Treatment Diagnosis Covid (+); generalized weakness Onset Date 05/20/20 Precautions Other Precautions covid (+) precautions M3 PT-IP Subjective Start: 05/26/20 08:28 Freq: NEEDED Status: Active Protocol: Document 06/09/20 14:20 AW (Rec: 06/09/20 15:36 AW [id number]) Subjective Physical Therapy Visit Type Type Treatment Note Visit Start Time 13:46 Visit Stop Time 14:20 Total Visit Minutes 34 Notes JUNIOR Joya assisted with shower Number of EMERGENCY RESPONSE TECHNICIAN Visits 0 Physical Therapy Visit Comments Patient Comments Pt preparing for shower, in good spirits. Therapy Pain Assessment Pain When Pain Assessed During Mobility Pain Present Pain Present Denied Pain M4 PT-IP Mobility and Gait Start: 05/26/20 08:28 Freq: NEEDED Status: Active Protocol: Document 06/09/20 14:20 AW (Rec: 06/09/20 15:36 AW [id number]) PT-Transfer Assessment Sit to and From Stand Sit to and from Stand Minimal Assistance,Moderate Assistance,1 Person Assistance ,Use of Upper Extremities Equipment Transfer Assistive Device Gait Belt,Front Wheeled Walker Orthotic/Prosthetic Devices or Brace: No Transfers Transfer Destination Bedside Commode Transfer Technique ambulated using FWW Transfer Ability Level of Assist Contact Guard Assistance,1 Person Assistance,Use of Upper Extremities Comments Mobility Comments Pt sitting up in the chair and preparing for shower as PT arrived. She was on 50 L/min HHFNC and 55% FiO2. RN transferred O2 to NRB mask/ portable tank with flow at 15L /min. Sats were stable 97-99% at rest. Pt remained in the chair as PT and MEDICAL INFORMATION OFFICER pushed the chair to the bathroom door. PT provided min assist to stand and pt used the FWW to walk 4 feet to the [facility] set up as a shower chair. Pt sat and SpO2 was 95% on portable monitor. Pt responded well to verbal cues for breathing as MEDICAL INFORMATION OFFICER provided shower assist. During the course of showering , pt stood from the chair 3 times min to mod A x 1. SpO2 was 92% in standing and RR increased. Once finished showering, pt stood from the shower chair and used FWW to ambulate back to the chair - including a turn - CGA. Pt was positioned on the chair and O2 was switched back to wall source. SpO2 was 97% on 15L/ min NRB. Pt was left with MEDICAL INFORMATION OFFICER. Gait Assessment Gait Gait Assistance Required: Contact Guard Assist Distance (Feet) 4 Able to Maintain Weight Bearing Status Yes During Gait Assistive Devices Assistive Device Gait Belt,Front Wheeled Walker Orthotic/Prosthetic Devices or Brace: No Gait Deviations General Gait Pattern Decreased Stride Length, Decreased Feet Clearance Factors Limiting Gait Function Factors Limiting Gait Function Decreased Activity Tolerance, Decreased Strength,Poor Balance,Respiratory Distress Comments Gait Comments Pt able to take steps during transfer chair <> shower chair . M5 PT-IP Objective Assessments Start: 05/26/20 08:28 Freq: NEEDED Status: Active Protocol: Document 06/04/20 11:36 AB (Rec: 06/04/20 13:07 AB [id number]) Orientation Orientation/Cognition Level of Alertness Alert Orientation Name,Place,Situation Safety Awareness Decreased Safety Awareness Gross Range of Motion Lower Extremity ROM Assessment Within Functional Limits Strength Lower Extremity Strength Assessment Within Functional Limits Muscle Tone Muscle Tone WNL Yes M6 PT-IP Treatment Start: 05/26/20 08:28 Freq: NEEDED Status: Active Protocol: Document 06/09/20 14:20 AW (Rec: 06/09/20 15:36 AW [id number]) Physical Therapy Treatment Education Education Provided Safety M7 PT-IP Assessment and Plan Start: 05/26/20 08:28 Freq: NEEDED Status: Active Protocol: Document 06/09/20 14:20 AW (Rec: 06/09/20 15:36 AW [id number]) PT Summary Assessment and Plan Potential Rehabilitation Potential Fair Summary Impairments Pain,Strength,Balance,Tone, Cognition,Bed Mobility, Transfers,Gait,Activity Tolerance Progress Towards Goals Slow Progress due to Medical Issues,Slow Progress due to Activity Tolerance Assessment Summary Pt is slowly gaining in activity tolerance and able to maintain SpO2 >91% during shower activity this date. Pt is slightly more relaxed at this encounter. She will need SNF rehab to improve conditioning, strength, and mobility. Goals Bed Mobility Goal Independent Transfer Goal Independent,Front Wheeled Walker Gait Goal Contact Guard Assistance,Front Wheel Walker Gait Distance 50 Other Goals improve transfter without AD SBA improve ambulation using FWW/ without AD 200 ft SBA Days to Meet Goals 10 Frequency of Treatment Frequency Of Treatment Once a Day Treatment Plan Physical Therapy Treatment Plan Bed Mobility Training,Transfer Training,Gait Training, Therapeutic Exercise,Balance Retraining,Discharge Planning, Neuromuscular Re-ed, Coordination Retraining Other Recommendations and Next Treatment coordinate with RN for ativan Focus and morphine admin prior to tx Precautions Other Precautions Covid (+) precautions Recommendations To Nursing Amount of Assist Needed 2 Person Assist Discharge Recommendations PT Discharge Recommendations SNF Rehab Transportation Needs at Discharge Wheelchair/Cabulance
--- NOTE | 2020-06-09 14:57 | RT ---
Pt up in chair on 15 lpm nrb mask and vee well. Sao2 @100% Fio2 and pt request to keep mask on for awhile. Pt looks comfortable, Rn aware
--- NOTE | 2020-06-09 15:11 | PC.NURSE ---
Pt in good spirits this shift. Was able to get OOB to bsc and then to chair most of this shift. Pt was able to work with PT and take a shower with assistance. Placed pt on 15L NRB for shower. Pt's sats were noted to be 96% on NRB upon completion of hygiene care. Pt wants to remain up to chair for now. Call light in easy reach.
[2020-06-09] MEDS: METOPROLOL IR 25 MG TABLET 12.5 MG PO (16:38)
--- NOTE | 2020-06-09 17:01 | RT ---
pt on nrb mask up in chair, no distress noted and HFNC on at bedside .
--- NOTE | 2020-06-09 19:46 | RT ---
Checked on pt at 1918. RN placed pt on Venturi mask earlier. Pt on 15 LPM, 55% Venturi mask, SpO2 94%. Pt is in better spirits, no respiratory distress noted. HHFNC on standby at bedside. Will continue to monitor.
[2020-06-09] MEDS: SENNOSIDES 8.6 MG TABLET 17.2 MG PO (20:22)
[2020-06-09] MEDS: MIRTAZAPINE 15 MG TABLET PO (20:23)
[2020-06-09] MEDS: GABAPENTIN 300 MG CAPSULE PO (20:23)
--- NOTE | 2020-06-09 22:16 | PC.NURSE ---
pt spent several hours up in the chair until after dinner then ambulated to the bed with minimal assistance. Placed on Venturi mask 55%, 15L, has tolerated this well the remainder of the shift with O2 sats 90 - 94%. Denies pain or discomfort.
[2020-06-10] VITALS (12 sets, daily range): BP systolic 92–134; BP diastolic 48–65; PULSE 78–114; RESP 18–35; TEMP 36.1–36.6; O2SAT 90–96
[2020-06-10] MEDS: SODIUM CHLORIDE 0.9% FLUSH 10 ML IV (05:59)
[2020-06-10] MEDS: PANTOPRAZOLE 40 MG TABLET PO (05:59)
--- NOTE | 2020-06-10 06:41 | PC.NURSE ---
News Department Intern Note- At midnight patient had been on venturi mask 50%/15L for approximately 5 hours, SpO2 90-93%, changed to HHFNC for sleep, FIO2 55%/45L, SpO2 the same. Patient slept side to side. RR 20s-30s, crackles posterior bases, denies dyspnea, intermittent dry cough continues during movement. Denies pain or anxiety.
[2020-06-10 06:46] LABS: Add Manual Diff / Slide Review NO; Basophils Absolute Auto 100 /uL (0-100); Basophils Percent Auto 0.9 % (0-2); Eosinophils Absolute Auto 500 /uL (0-450); Eosinophils Percent Auto 6.8 % (2-4); Hemoglobin 11.3 g/dL (12.0-16.0); Lymphocytes Absolute Auto 1100 /uL (1100-4500); Mean Corpuscular HGB Conc 34.1 % (30-36); Mean Corpuscular Hemoglobin 31.3 PG (26-34); Mean Corpuscular Volume 91.9 fL (80-100); Monocytes Absolute Auto 600 /uL (0-900); Monocytes Percent Auto 8.8 % (3-14); Neutrophils Absolute Auto 4800 /uL (1500-7000); Neutrophils Percent Auto 67.5 % (50-75); Platelet Count 141 X10^3/uL (150-400); Red Blood Cell Count 3.59 X10^6/uL (4.0-5.2); White Blood Cell Count 7.1 X10^3/uL (4.5-11.0)
[2020-06-10 06:53] LABS: BUN Creatinine Ratio 29.5 (6-22); Blood Urea Nitrogen 13 mg/dL (7-17); Calcium 8.8 mg/dL (8.4-10.2); Carbon Dioxide 28 mmol/L (22-32); Chloride 103 mmol/L (98-107); Estimated Glomerular Filt Rate > 60.0 mL/min (>60); Glucose 90 mg/dL (80-110); HEMOLYSIS < 15 (0-50); Potassium 3.7 mmol/L (3.4-5.1); Sodium 137 mmol/L (137-145)
--- NOTE | 2020-06-10 08:05 | P.PN_ITS ---
Subjective Subjective Date Patient Seen: 06/10/20 Time Patient Seen: 07:50 Interval history: This morning the pt was resting peacefully, and did not wish to converse. She denied any specific complaints. As per nursing, the pt did very well yesterday. She was able to shower, and was up to the chair for a longer period of time. She tolerated the Venturi mask for around 5 hours last night, maintaining her saturations, and was transitioned back to [facility] for sleep. Exam Vital Signs (past 8 hours): - 06/10/20 01:34 06/10/20 03:24 06/10/20 04:00 Pulse Rate 87 88 90 Respiratory Rate 27 H 19 23 Blood Pressure 97/48 L Pulse Oximetry 92 91 90 L 06/10/20 05:27 06/10/20 07:31 Pulse Rate 88 78 Respiratory Rate 30 H 18 Blood Pressure 92/48 L Pulse Oximetry 94 95 Fraction of Inspired Oxygen 55 Oxygen Delivery Method Heated High Flow Oxygen Flow Rate 45 Narrative Exam Narrative: Gen: sitting comfortably in bed, breathing comfortably with oxymask in place, CV: RRR, grade 2/6 systolic murmur Resp: clear to auscultation bilaterally, no wheezes or crackles but poor effort on exam Abd: soft, nontender, nondistended, normoactive bowel sounds Ext: no edema Objective Labs Result Diagrams: 06/10/20 06:00 06/10/20 06:00 Labs: Laboratory Results - last 24 hr 06/09/20 06/09/20 06/10/20 13:50 13:50 06:00 WBC 8.8 7.1 RBC 3.73 L 3.59 L Hgb 11.8 L 11.3 L Hct 34.5 L 33.0 L MCV 92.7 91.9 MCH 31.6 31.3 MCHC 34.0 34.1 RDW 14.9 H 15.0 H Plt Count 140 L 141 L Neut % (Auto) 79.5 H 67.5 Lymph % (Auto) 10.[address] [place] % (Auto) 5.2 8.8 Eos % (Auto) 4.4 H 6.8 H Baso % (Auto) 0.9 0.9 Neut # (Auto) 7000 4800 Lymph # (Auto) [address] [place] # (Auto) 500 600 Eos # (Auto) 400 500 H Baso # (Auto) 100 100 Sodium 136 L Potassium 4.0 Chloride 104 Carbon Dioxide 25 BUN 12 Creatinine 0.49 L Estimated GFR > 60.0 BUN/Creatinine Ratio 24.5 H Glucose 122 H Calcium 8.6 06/10/20 06:00 WBC RBC Hgb Hct MCV MCH MCHC RDW Plt Count Neut % (Auto) Lymph % (Auto) [place] % (Auto) Eos % (Auto) Baso % (Auto) Neut # (Auto) Lymph # (Auto) [place] # (Auto) Eos # (Auto) Baso # (Auto) Sodium 137 Potassium 3.7 Chloride 103 Carbon Dioxide 28 BUN 13 Creatinine 0.44 L Estimated GFR > 60.0 BUN/Creatinine Ratio 29.5 H Glucose 90 Calcium 8.8 PFSH Medical History Aortic stenosis B-cell lymphoma Cataract Chicken pox Fecal incontinence (2004) Frequent UTI GERD (gastroesophageal reflux disease) Hearing loss Heart murmur, systolic Hypertension Migraines Pelvic relaxation Polymyalgia rheumatica Urinary incontinence (2013) Surgical History History of dilation and curettage S/P implantation of urinary electronic stimulator device Family History Father Luigi's disease, pulmonary Mother Heart disease Sister No problems noted. Grandmother No problems noted. Social History marital status: number of children: 2 household members: spouse lives independently: Yes caregiver/support person: No housing: house pets and animals: Yes education level: college occupational status: employed current occupational exposures/hazards: No seatbelt use: always working smoke detector in home: Yes fire extinguisher in home: Yes carbon monox detector in home: Yes Smoking Status: Never smoker second hand exposure: No alcohol intake: current substance use type: does not use during the past year weight has: increased > 10 lbs well-balanced diet: daily or most days caffeine: Yes eating out: 1-3 times/week Assessment & Plan Assessment & Plan narrative: 80yo woman with PMR, aortic stenosis, HTN, urinary incontinence, B-cell lymphoma, CAD s/p cardiac stenting 03/2019 here with worsening SOB and fatigue in the setting of being COVID+. Pt with acute res piratory failure with hypoxia requiring oxygen supplementation. Hospital day #22. 1) COVID pneumonia: Meeting criteria for severe infection due to SaO2 < 94 on room air - currently maintaining around 95% on 15L Venturi mask after being on heated high flow 45L at 55% overnight. Respiratory status gradually improving. - Continue daily CBC, BMP - Continue ICU care with negative pressure room and contact precautions - Completed 10 days Remdesivir 05/30 - Completed 10 days Dexamethasone 05/30 - Continue oxygen, titrate as needed to keep saturations > 90% - Proning as able -- will continue to encourage pt to do this today - Lidocaine patch to help with back pain with proning - Morphine PRN to help with pain and anxiety - Doppler u/s upper and lower extremities negative 05/30/20, repeat on 06/07/20 showed distal right subclavian DVT - Off prophylactic Lovenox dosing due to platelets falling, now on Xarelto. - Did not receive convalescent plasma - PICC line in place, same site as DVT - Continue with as much emotional support as possible with ongoing isolation. Pt has number for seam rubber. - Continue PT - Plan will be to focus on IS and ongoing RT support 2) DVT: Right subclavian vein, distal, new -Xarelto as noted above 3) Bacterial pneumonia: Superimposed based on CXR from 05/23 and worsening symptoms at that time. Completed abx course for community-acquired pneumonia. Increasing oxygen demand 05/31, elevated WBC count, and CXR with increased infiltrates. Therefore, antibiotics initiated for hospital-acquired pneumonia that completed 06/06. CTA 06/07 completed for DVT and tachycardia showed bilateral pneumonia, however pt with negative procalcitonin, normal WBC count, stable respiratory symptoms so abx not restarted. Will continue to monitor closely. - Completed 7 days Ceftriaxone 05/30 - Completed 5 days Azithromycin 05/28 - Completed 7 days Levofloxacin 06/06 - Completed 7 days Zosyn 06/06 4) Bleeding diasthesis: Stable, no evidence of ongoing bleeding. Previously w ith bloody nose and bleeding from PICC site - Continue to hold daily Aspirin - Continue Xarelto and Plavix - Continue PPI due to risk for bleed 5) CAD with recent stenting: - Hold Aspirin - Continue Plavix - Monitor closely for cardiac symptoms 6) Aortic stenosis: Recent echo stable 7) Hyperlipidemia: - Continue Rosuvastatin 8) HTN: Improved off Lisinopril - Hold Lisinopril 9) PMR: - Prednisone 2mg daily 10) Constipation: No BM x 2 days - Mirtazapine possibly constipating. Docusate daily. 11) Anxiety/Depression: Pt overall with significant anxiety regarding taking care of basics from home such as paying bills, her 's health, and SOB she had with movement recently. Mood overall also declining, with depressive symptoms from isolation. - Ativan PRN to help with anxiety from SOB - Continue Mirtazapine 15mg nightly, initiated 06/03. 12) Nutritional status: Appetite continues to gradually improve. - Continue to monitor intake closely - Nursing will continue to work with pt to find foods she enjoys eating 13) Hypocalcemia: resolved. - Continue to monitor 14) Tachycardia: Labile but stable now. CTA negative for PE 06/07. Received 12.5 mg Metoprolol 06/07 and 06/09. - Will watch closely, plan for metoprolol 12.5 mg PO x 1 if tachy persists. DVT Treatment: Xarelto as above Diet: Regular Code: DNR/DNI Dispo: Pending improvement in respiratory status off high flow NC, stabilization. Pt will need stay in SNF at discharge due to severity of weakn ess, and likely will require oxygen at discharge as well. Discussed pts current status with physician from [place] today for consideration of placement there. He will discuss further with his team. Pts has already been discharged home. Quality [facility] - Admit Advanced Care Plan / Current Medications Measures: #47 ? Advanced Care Plan Clinician documentation instruction: document at admission. [] I confirmed that the patient's Advance Care Plan is present, code status is d ocumented, or surrogate decision maker is listed in the patient?s medical record. [SATISFIES [facility] PERFORMANCE] If Yes, Stop Here [] The patient?s Advance Care plan is not present because: (select) [[facility] PERFORMANCE EXCEPTION/EXCLUSION] [] I confirmed today that the patient does not wish or was not able to name a surrogate decision maker or provide an Advance Care Plan. [] Hospice care is currently being provided or has been provided this calendar year [] I did NOT confirm today the presence of an Advance Care Plan or surrogate decision maker documented within the patient's medical record. [DOES NOT SATISFY [facility] PERFORMANCE] #130 - Documentation of Current Medications in the Medical Record Clinician documentation instruction: use macro the first time you see a patient. [] I have utilized all available immediate resources to obtain, update, or review the patient?s current medications. [SATISFIES [facility] PERFORMANCE] If Yes, Stop Here [] The patient is not eligible for medication reconciliation; the patient is in an emergent medical situation where delaying treatment would jeopardize the patient?s health. [MIPS PERFORMANCE EXCEPTION/EXCLUSION] [] I did NOT confirm, update or review the patient's current list of medications today. [DOES NOT SATISFY MIPS PERFORMANCE] MIPS - CL Central Venous Catheter Placement Measure: #76 ? Prevention of Central Venous Catheter (CVC) ? Related Bloodstream Infection Clinician documentation instruction: use macro every time you place a central line. [] All elements of Maximal Sterile Barrier Technique, including hand hygiene, sk in prep, and sterile ultrasound technique (if used) were followed. [SATISFIES MIPS PERFORMANCE] If Yes, Stop Here [] If ?No?, the medical reason all elements were NOT used for medical reason [] (ex. emergent condition). [] Maximal Sterile Barrier Technique was not followed, no reason provided [DOES NOT SATISFY MIPS PERFORMANCE] MIPS - DC Heart Failure Measures: #5 - Heart Failure (HF): Angiotensin-Converting Enzyme ( RUIZ) Inhibitor or Angiotensin Receptor Rita (ARB) Therapy for Left Ventricular Systolic Dysfunction (LVSD) and #8 - Heart Failure (HF): Beta-Rita Therapy for Left Ventricular Systolic Dysfunction (LVSD) Clinician documentation instruction: use macro at every CHF discharge. [] The patient has current or prior documentation of left ventricular ejection fraction (LVEF) less than 40%, or moderate or severely depressed left ventricular systolic function. Answer both: [SATISFIES MIPS PERFORMANCE] [] The patient was prescribed or already taking an Angiotensin-Converting Enzyme (RUIZ) Inhibitor, or Angiotensin Receptor Rita (ARB). [] The patient was prescribed or already taking a beta-rita. If Yes to Both, Stop Here [] Patient not prescribed/taking: [MIPS PERFORMANCE EXCEPTION/EXCLUSION] [] RUIZ or ARB for medical/patient/system reason(s) including [] (ex. allergy, intolerance, contraindication) [] Beta-rita for medical/patient/system reason(s) including [] (ex. allergy, intolerance, contraindication) [] Patient not prescribed/taking: [DOES NOT SATISFY MIPS PERFORMANCE] [] RUIZ or ARB, no reason given [] Beta-rita, no reason given
--- NOTE | 2020-06-10 08:56 | CM.DPNOTE ---
Faxed PN 06/07-06/09, Med list, Resp. notes per Komal to [facility] [phone] on 06/10/20. Received fax confirmation. Christine Jerome CM Asst.
--- NOTE | 2020-06-10 10:00 | CM.DPC ---
DCP/Continued: Reviewed chart. Spoke with Dr. Sim this AM re: d/c planning. Dr. Smi requesting that [facility] re-evaluate for admit. Patient progressing slowly and still requires high flow 02. LINE TENDER placed call to Yvrose at [facility] ph# [phone]. Yvrose in agreement for facility to re-evaluate. Asked IVA/Christine to fax updated clinical. Dr. Sim provided with [facility] provider cell phone number. Dr. Sim plans to call this afternoon and discuss potential d/c to [facility] this week? [facility] at [facility] aware and will notify provider prior to call. P: Pending. EMMA Patel
[2020-06-10] MEDS: ROSUVASTATIN 10 MG TABLET 40 MG PO (10:06)
[2020-06-10] MEDS: RIVAROXABAN 10 MG TABLET 15 MG PO ×2 (10:06→18:17)
[2020-06-10] MEDS: LACTOBACILLUS ACIDOPHILUS TABLET 1 EACH PO ×3 (10:06→18:17)
[2020-06-10] MEDS: CLOPIDOGREL 75 MG TABLET PO (10:07)
[2020-06-10] MEDS: predniSONE 1 MG TABLET 2 MG PO (10:07)
[2020-06-10] MEDS: LORazepam 0.5 MG TABLET PO (11:21)
--- NOTE | 2020-06-10 11:37 | RT ---
Patient switched from heated high flow at 45 liters and 55% FIO2 to 15 liter high flow nasal cannula. Patients sats stayed between 94 and 96%. RR and WOB remained the same. Patient not able to tolerate IS as it puts her into a coughing fit. Stayed with patient and had her do 10 deep breaths with a breath hold at the top. Instructed patient to do this every commercial break while she watches TV and to do at least 10. Explained atelectasis and how it causes increased oxygen needs. Patient verbalizes understanding. BBS are positive for fine crackles in the bases, clear in ULs. Pao Valderrama, BOAT RENTAL CLERK
--- NOTE | 2020-06-10 12:15 | PT.IPTN ---
Current Diagnoses COVID-19 (05/20/20) Physical Therapy Treatment Note M2 PT-IP Current Condition Start: 05/26/20 08:28 Freq: NEEDED Status: Active Protocol: Document 06/04/20 11:36 AB (Rec: 06/04/20 13:07 AB [id number]) Physical Therapy Current Condition Current Condition Evaluation Date 06/04/20 Treatment Diagnosis Covid (+); generalized weakness Onset Date 05/20/20 Precautions Other Precautions covid (+) precautions M3 PT-IP Subjective Start: 05/26/20 08:28 Freq: NEEDED Status: Active Protocol: Document 06/10/20 12:04 AW (Rec: 06/10/20 12:15 AW [id number]) Subjective Physical Therapy Visit Type Type Treatment Note Visit Start Time 11:33 Visit Stop Time 12:00 Total Visit Minutes 27 Notes Coordinated with RN for Ativan 30 min prior to tx for management of mobility-induced anxiety. Number of PARTS REMOVER Visits 0 Physical Therapy Visit Comments Patient Comments Pt is willing to participate with PT M4 PT-IP Mobility and Gait Start: 05/26/20 08:28 Freq: NEEDED Status: Active Protocol: Document 06/10/20 12:04 AW (Rec: 06/10/20 12:15 AW [id number]) PT-Bed Mobility Assessment Supine to Sit Supine to Sit Minimal Assistance,Head of Bed Elevated Scooting Scooting to Edge of Bed Contact Guard Assistance PT-Transfer Assessment Sit to and From Stand Sit to and from Stand Minimal Assistance,1 Person Assistance,Use of Upper Extremities Equipment Transfer Assistive Device Gait Belt,Front Wheeled Walker Orthotic/Prosthetic Devices or Brace: No Transfers Transfer Destination Chair Transfer Technique ambulated using FWW Transfer Ability Level of Assist Contact Guard Assistance,1 Person Assistance,Use of Upper Extremities Comments Mobility Comments RT had just switched pt from HHF to high flow via NC with flow rate of 15 L/min. Pt participated in supine ther ex prior to mobilizing and held her SpO2 ~96%. She used momentum to work toward sitting EOB but needed min assist. She was able to scoot herself toward EOB CGA. SpO2 began to drop to 91% as respiratory rate increased up to high 30's/low 40's. Pt sat EOB several minutes with slight uptick in SpO2. She then stood from the bed min A x 1 and used the FWW to ambulate 5 feet to the chair. RR rate edith again and pt was in distress as she lined up with the chair to sit. She was unable to maintain standing any longer so sat immediately. SpO2 dropped to 87% during transfer and took 5 minutes to recover to 92% and another 3 minutes to recover to 94% with RR high 20's. Pt was positioned on the chair with call light and all needs in reach. Gait Assessment Gait Gait Assistance Required: Contact Guard Assist Distance (Feet) 5 Able to Maintain Weight Bearing Status Yes During Gait Assistive Devices Assistive Device Gait Belt,Front Wheeled Walker Orthotic/Prosthetic Devices or Brace: No Gait Deviations General Gait Pattern Decreased Stride Length, Decreased Feet Clearance, Flexed Trunk Factors Limiting Gait Function Factors Limiting Gait Function Decreased Activity Tolerance, Decreased Strength,Poor Balance,Respiratory Distress Comments Gait Comments See mobility comments for details. M5 PT-IP Objective Assessments Start: 05/26/20 08:28 Freq: NEEDED Status: Active Protocol: Document 06/04/20 11:36 AB (Rec: 06/04/20 13:07 AB [id number]) Orientation Orientation/Cognition Level of Alertness Alert Orientation Name,Place,Situation Safety Awareness Decreased Safety Awareness Gross Range of Motion Lower Extremity ROM Assessment Within Functional Limits Strength Lower Extremity Strength Assessment Within Functional Limits Muscle Tone Muscle Tone WNL Yes M6 PT-IP Treatment Start: 05/26/20 08:28 Freq: NEEDED Status: Active Protocol: Document 06/10/20 12:04 AW (Rec: 06/10/20 12:15 AW [id number]) Physical Therapy Treatment Exercises Exercises Ankle Pumps,Gluteal Sets,Quad Sets Education Education Provided Safety M7 PT-IP Assessment and Plan Start: 05/26/20 08:28 Freq: NEEDED Status: Active Protocol: Document 06/10/20 12:04 AW (Rec: 06/10/20 12:15 AW [id number]) PT Summary Assessment and Plan Potential Rehabilitation Potential Fair Summary Impairments Pain,Strength,Balance,Tone, Cognition,Bed Mobility, Transfers,Gait,Activity Tolerance Progress Towards Goals Slow Progress due to Medical Issues,Slow Progress due to Activity Tolerance Assessment Summary Pt on 15 L/min HF (not heated) at this encounter and maintained SpO2 87-95% during limited activity including bed mobility and transfer to chair with five feet ambulation. Pt recovered SpO2 to 94% but required 7 min rest . Pt will need SNF or LTAC to improve conditioning, strength , and mobility independence. Goals Bed Mobility Goal Independent Transfer Goal Independent,Front Wheeled Walker Gait Goal Contact Guard Assistance,Front Wheel Walker Gait Distance 50 Other Goals improve transfter without AD SBA improve ambulation using FWW/ without AD 200 ft SBA Days to Meet Goals 10 Frequency of Treatment Frequency Of Treatment Once a Day Treatment Plan Physical Therapy Treatment Plan Bed Mobility Training,Transfer Training,Gait Training, Therapeutic Exercise,Balance Retraining,Discharge Planning, Neuromuscular Re-ed, Coordination Retraining Other Recommendations and Next Treatment coordinate with RN for ativan Focus and morphine admin prior to tx Precautions Other Precautions Covid (+) precautions Recommendations To Nursing Amount of Assist Needed 1 Person Assist Discharge Recommendations PT Discharge Recommendations SNF Rehab,LTAC Transportation Needs at Discharge Wheelchair/Cabulance
--- NOTE | 2020-06-10 17:13 | RT ---
Patient has done well today on 15 liter high flow nasal cannula. May consider going to heated high flow for night time/sleep. Sats have been steadily around 95% throughout day. Pao Valderrama, HEEL TRIMMER
[2020-06-10] MEDS: MIRTAZAPINE 15 MG TABLET PO (21:51)
[2020-06-10] MEDS: GABAPENTIN 300 MG CAPSULE PO (21:51)
--- NOTE | 2020-06-10 22:50 | PC.NURSE ---
Patient is A/Ox4, no complaints of pain. Patient sat in chair from beginning of shift until 22:15 on 15L HFNC, spO2 >92%. On transfer back to bed patient's spO2 decreased to 84% and patient was working hard to breathe. After a few minutes, spO2 came up to 90% and 30mins later is 96%. HHF is on at 45L 55% at bedside just incase. HR maintaining 100-110's throughout shift. At time of transfer to bed patient also mentioned that her back was itchy and she did have two non-raised bilateral patches of redness. Patient declined wanting to take anything for the itching and said she thought it was from sitting against the pillows in the chair. Patient was instructed to report if the itching continues after she is in bed and information will be passed on to chassis inspector RN. Niki remains in place, patient did have 1 BM at start of shift using bedside commode. Discussed with Sara and Bri Pinon about retesting the patient for COVID, they recommended asking the provider tomorrow. Will pass information on.
[2020-06-11] VITALS: BP 136/72; PULSE 106; RESP 30; TEMP 36.3; O2SAT 95
[2020-06-11 04:20] VITALS: BP 127/60; PULSE 100; RESP 27; TEMP 36; O2SAT 94
[2020-06-11] MEDS: PANTOPRAZOLE 40 MG TABLET PO (05:44)
--- NOTE | 2020-06-11 06:43 | PC.NURSE ---
Monotype Mechanic Note-Patient slept with HFNC 15L throughout night, SpO2 >90% at rest, will desat to 87% while turning, recovers fairly quickly. RR 20s-30s, crackles posteriorly are more prominent then previous night, denies dyspnea. SR/ST, trace edema bilateral ankles.
--- NOTE | 2020-06-11 07:37 | P.PN_ITS ---
Subjective Subjective Date Patient Seen: 06/11/20 Exam Vital Signs (past 8 hours): - 06/11/20 00:00 06/11/20 04:20 Temperature 97.3 F L 96.8 F L Pulse Rate 106 H 100 H Respiratory Rate 30 H 27 H Blood Pressure 136/72 127/60 Pulse Oximetry 95 94 Fraction of Inspired Oxygen 0.55 Oxygen Delivery Method High Flow Nasal Cannula Oxygen Flow Rate 15 Objective Labs Result Diagrams: 06/10/20 06:00 06/10/20 06:00 [facility] Medical History Aortic stenosis B-cell lymphoma Cataract Chicken pox Fecal incontinence (2004) Frequent UTI GERD (gastroesophageal reflux disease) Hearing loss Heart murmur, systolic Hypertension Migraines Pelvic relaxation Polymyalgia rheumatica Urinary incontinence (2013) Surgical History History of dilation and curettage S/P implantation of urinary electronic stimulator device Family History Father Luigi's disease, pulmonary Mother Heart disease Sister No problems noted. Grandmother No problems noted. Social History marital status: number of children: 2 household members: spouse lives independently: Yes caregiver/support person: No housing: house pets and animals: Yes education level: college occupational status: employed current occupational exposures/hazards: No seatbelt use: always working smoke detector in home: Yes fire extinguisher in home: Yes carbon monox detector in home: Yes Smoking Status: Never smoker second hand exposure: No alcohol intake: current substance use type: does not use during the past year weight has: increased > 10 lbs well-balanced diet: daily or most days caffeine: Yes eating out: 1-3 times/week Quality MIPS - Admit Advanced Care Plan / Current Medications Measures: #47 ? Advanced Care Plan Clinician documentation instruction: document at admission. [] I confirmed that the patient's Advance Care Plan is present, code status is documented, or surrogate decision maker is listed in the patient?s medical record. [SATISFIES MIPS PERFORMANCE] If Yes, Stop Here [] The patient?s Advance Care plan is not present because: (select) [MIPS PERFORMANCE EXCEPTION/EXCLUSION] [] I confirmed today that the patient does not wish or was not able to name a surrogate decision maker or provide an Advance Care Plan. [] Hospice care is currently being provided or has been provided this calendar year [] I did NOT confirm today the presence of an Advance Care Plan or surrogate decision maker documented within the patient's medical record. [DOES NOT SATISFY MIPS PERFORMANCE] #130 - Documentation of Current Medications in the Medical Record Clinician documentation instruction: use macro the first time you see a patient. [] I have utilized all available immediate resources to obtain, update, or review the patient?s current medications. [SATISFIES MIPS PERFORMANCE] If Yes, Stop Here [] The patient is not eligible for medication reconciliation; the patient is in an emergent medical situation where delaying treatment would jeopardize the patient?s health. [MIPS PERFORMANCE EXCEPTION/EXCLUSION] [] I did NOT confirm, update or review the patient's current list of medications today. [DOES NOT SATISFY MIPS PERFORMANCE] MIPS - CL Central Venous Catheter Placement Measure: #76 ? Prevention of Central Venous Catheter (CVC) ? Related Bloodstream Infection Clinician documentation instruction: use macro every time you place a central line. [] All elements of Maximal Sterile Barrier Technique, including hand hygiene, skin prep, and sterile ultrasound technique (if used) were followed. [SATISFIES MIPS PERFORMANCE] If Yes, Stop Here [] If ?No?, the medical reason all elements were NOT used for medical reason [] (ex. emergent condition). [] Maximal Sterile Barrier Technique was not followed, no reason provided [DOES NOT SATISFY MIPS PERFORMANCE] MIPS - DC Heart Failure Measures: #5 - Heart Failure (HF): Angiotensin-Converting Enzyme (RUIZ) Inhibitor or Angiotensin Receptor Rita (ARB) Therapy for Left Rian tricular Systolic Dysfunction (LVSD) and #8 - Heart Failure (HF): Beta-Rita Therapy for Left Ventricular Systolic Dysfunction (LVSD) Clinician documentation instruction: use macro at every CHF discharge. [] The patient has current or prior documentation of left ventricular ejection fraction (LVEF) less than 40%, or moderate or severely depressed left ventricular systolic function. Answer both: [SATISFIES MIPS PERFORMANCE] [] The patient was prescribed or already taking an Angiotensin-Converting Enzyme (RUIZ) Inhibitor, or Angiotensin Receptor Rita (ARB). [] The patient was prescribed or already taking a beta-rita. If Yes to Both, Stop Here [] Patient not prescribed/taking: [MIPS PERFORMANCE EXCEPTION/EXCLUSION] [] RUIZ or ARB for medical/patient/system reason(s) including [] (ex. allergy, intolerance, contraindication) [] Beta-rita for medical/patient/system reason(s) including [] (ex. allergy, intolerance, contraindication) [] Patient not prescribed/taking: [DOES NOT SATISFY MIPS PERFORMANCE] [] RUIZ or ARB, no reason given [] Beta-rita, no reason given
[2020-06-11 08:00] VITALS: BP 108/54; PULSE 95; RESP 20; TEMP 36.1; O2SAT 93
--- NOTE | 2020-06-11 08:22 | CM.DPNOTE ---
DCP: Assisted EMMA Sauceda, with case. Dr. Sim called this urban planner yesterday and indicated that she had spoken to Dr. Louis at [facility], and gave him information on patient. Later in the day, this urban planner left a message with Yvrose at [facility], in admissions, to inquire if patient would be accepted. Yesterday pm, after this casey saw operator left for the day, Yvrose from [facility] indicated in a message that they can accept patient today. Updated EMMA Sauceda, since this is her case. Dr. Sim came by the office and was updated as well. She will discuss with family. Candy Johnson RN/[employer]
[2020-06-11] MEDS: LACTOBACILLUS ACIDOPHILUS TABLET 1 EACH PO (08:25)
[2020-06-11] MEDS: RIVAROXABAN 10 MG TABLET 15 MG PO (08:25)
[2020-06-11] MEDS: ROSUVASTATIN 10 MG TABLET 40 MG PO (08:26)
[2020-06-11] MEDS: CLOPIDOGREL 75 MG TABLET PO (08:26)
[2020-06-11] MEDS: predniSONE 1 MG TABLET 2 MG PO (08:26)
[2020-06-11 09:00] VITALS: O2SAT 93
--- NOTE | 2020-06-11 09:04 | PM.DS.1 ---
History of Present Illness History of Present Illness Date Patient Seen: 06/11/20 Time Patient Seen: 07:50 Chief complaint: COVID+ Narrative: 80-year-old female with a history of coronary artery disease aortic stenosis hypertension B-cell lymphoma and hyperlipidemia presents to the hospital with shortness of breath and COVID positive. Patient states she got her COVID vaccine on Wednesday last week. On Wednesday she began to feel little bit ill with achiness in flu like symptoms such as fatigue tiredness. She was not sure why she was feeling so crummy. As she did not expect to have much of a reaction with her 1st vaccine. Patient's symptom progressed worse and then she began to have increasing weakness. Lack of appetite had a number of days of diarrhea chills achiness and began to have a cough and shortness of breath. Patient was seen and evaluated in the emergency department on the patient workup included laboratory testing x-ray testing and COVID testing. Patient was COVID positive within normal x-ray normal oxygenation and was discharged home and encouraged to follow-up symptoms worsened. Patient presented again to the emergency department today. Patient states she has not had anything to eat or drink for 48 hours. She is weak and tired. She is having shortness of breath and cough. She is no longer having diarrhea. She says she is so weak she has a hard time getting out of bed. She feels chills. She is not sure she has had fevers. She says it has been a number of days that she has had any of her home medication. Patient denies any acute chest pain. Patient denies any lower extremity edema. In the emergency department she had a reward cup and evaluation. She had normal laboratory testing as far as cardiac enzymes go electrolyte panel liver panel. Patient had procalcitonin negative was elevated CRP which was elevated elevated LDH. Ferritin is normal COVID test is positive. Chest x-ray was change from previous chest x-ray which shows bilateral pulmonary infiltrates scattered. Patient was hypoxic and had saturations of 86-88% on room air. ABG was done which will showed a slightly elevated pH which is 7.47 pCO2 28.7 and PO2 56. Patient was admitted to the hospital for further workup and management of her COVID infection. Discharge Providers Provider Date of admission: 05/20/20 14:45 Discharge Date: 06/11/20 Primary care physician: Maine Sim MD Consults: 05/22/20 08:38 Consult to Respiratory Therapy Evaluate & Treat Comment: Physician Instructions: Evaluate and treat 05/25/20 09:16 Consult to Pastoral Services Routine Comment: Pt very concerned about spouse at home without her 05/25/20 14:38 Consult to Occupational Therapy Evaluate & Treat Comment: covid + deconditioning Physician Instructions: Evaluate and treat Consult to Physical Therapy Evaluate & Treat Comment: covid + deconditioning Physician Instructions: Evaluate and Treat 06/01/20 07:50 Consult to Physical Therapy Evaluate & Treat Comment: bed exercises only, instructions for nursing Physician Instructions: Evaluate and Treat 06/04/20 09:33 Consult to Physical Therapy Evaluate & Treat Comment: Physician Instructions: Evaluate and Treat Discharge provider: Maine Sim MD Summary Hospital Course Discharge Diagnosis: COVID pneumonia Bacterial pneumonia DVT Bleeding diasthesis Hypertension Anxiety/Depression Tachycardia Constipation Hypocalcemia CAD s/p stenting PMR Aortic stenosis Hyperlipidemia Hospital Course: 80yo woman with PMR, aortic stenosis, HTN, urinary incontinence, B-cell lymphoma, CAD s/p cardiac stenting 03/2019 here with worsening SOB and fatigue in the setting of being COVID+. Pt with acute respiratory failure with hypoxia requiring oxygen supplementation. Hospital day #23. 1) COVID pneumonia: The pt was treated with Remdesivir and Dexamethasone for 10 days, completed on 05/30. She never received convalescent plasma. Her oxygen requirements initially increased, with severe SOB with any movement. She was titrated up to heated high flow nasal canula, with intermittent BiPAP support. The pt never tolerated proning all that well, due to anxiety and back pain. Lidocaine patches, morphine, and ativan were utilized to help alleviate these, and the pt would tolerate brief periods of proning. The pt was kept in a negative pressure room with full precautions her entire hospitalization. The pts oxygen was very gradually weaned back down. She was able to tolerate transfer to a chair with minimal desaturation by the time of discharge. The pt never had evidence of any end-organ damage. The day of discharge, it was noted that she has slightly increase LE swelling, crackles on lung exam, and decreased urine output. She received 20mg IV Lasix due to concern for fluid overload. Her respiratory status was very gradually improving at the time of discharge. She was on 15L high flow NC at the time of discharge. Due to the very slow progress, it was determined appropriate for her to transfer to [place] for ongoing care. 2) Bacterial pneumonia: Superimposed based on CXR from 05/23 and worsening symptoms at that time. Completed abx course for CAP with 7 days of Ceftriaxone on 05/30 and 5 days of Azithromycin on 05/28. Increasing oxygen demand 05/31, elevated WBC count, and CXR with increased infiltrates. Therefore, antibiotics initiated for hospital-acquired pneumonia with IV Levofloxacin and Zosyn that completed 06/06. CTA 06/07 completed for DVT and tachycardia showed bilateral pneumonia, however pt with negative procalcitonin, normal WBC count, stable respiratory symptoms so antibiotics were not restarted. 3) DVT: On surveillance dopplers 06/07, pt was noted to have a right distal subclavian DVT. CT PE the same day was negative. She was started on Xarelto for treatment. She has previously been on Lovenox BID for DVT prophylaxis, however her platelets were trending down so this was transitioned to once/day dosing the day prior to the DVT being found. High risk of bleeding was noted with the pt being of Plavix as well, however due to how recently the stents were placed and the new DVT, it was not felt that either the Plavix or Xarelto could be held. 4) Bleeding diasthesis: At admission, the pts was continued on Aspirin and Plavix due to recent cardiac stenting, and started on BID Lovenox for high risk DVT prophylaxis due to COVID. She did have a small bloody nose, and was noted to have bleeding around her PICC site. The aspirin was held, and no further bleeding has been noted during her hospitalization. 5) Hypertension: Pt was initially continued on her Lisinopril. This was then held due to blood pressures in lower range. Her BPs have remained stable since then. 6) Anxiety/Depression: Pt overall with significant anxiety regarding taking care of basics from home such as paying bills, her 's health, and SOB she has had with movement recently. Prior to transfers, the pt has been pre-medicated with Ativan due to severe anxiety, which helps improve her SOB significantly. The pt has also been experiencing a declining mood with depressive symptoms from isolation. She was encouraged to speak with her family throughout the hospitalization. Pastoral support was offered but not pursued. She was started on Mirtazapine 15mg nightly on 06/03 to help with her mood and appetite as well. There have been no negative side effects noted. 7) Tachycardia: The evening of 06/06 the pt was noted to be more tachycardic. This persisted into 06/07. She was diagnosed with a DVT 06/07, but no PE. EKG showed sinus rhythm. CT PE showed possible pneumonia, however without elevated procalcitonin or WBC count, and respiratory status actually gradually improving, infection was not thought to be the cause. She was treated with 12.5mg Metoprolol with good response. This was repeated again 06/09. Since then, she has been intermittently tachycardic primarily with exertion, but this improves with rest. 8) Constipation: The pt had significant constipation initially with admission, not having a BM in a week. This improved with stool softeners and laxatives. She is now maintained on docusate daily. 9) Hypocalcemia: Overall mild, and resolved after oral supplementation. This has not been continued. 10) CAD with stenting in March: The pt was continued on Plavix throughout her hospitalization. Her Aspirin was held as above. She never had any cardiac symptoms. 11) PMR: Her Prednisone was initially held when the pt was on Dexamethasone, and then restarted once the Dexamethasone was stopped. She denied any significant symptoms. Code status: DNR/DNI Status at Discharge Cognitive/behavioral status at discharge: oriented Functional status at discharge: bed bound (needs assistance with transfers) Overall status at discharge: patient is progressing back to baseline Time Spent with Patient Time spent: Greater than 30 minutes Exam Vital Signs (past 8 hours): - 06/11/20 04:20 06/11/20 08:00 Temperature 96.8 F L 97.0 F L Pulse Rate 100 H 95 H Respiratory Rate 27 H 20 Blood Pressure 127/60 108/54 L Pulse Oximetry 94 93 Fraction of Inspired Oxygen 0.55 Oxygen Delivery Method High Flow Nasal Cannula Oxygen Flow Rate 15 Narrative Exam Narrative: Gen: laying comfortably in bed, breathing comfortably with NC in place CV: RRR, grade 2/6 systolic murmur Resp: bilateral bases with wet crackles, no wheezing Abd: soft, nontender, nondistended, normoactive bowel sounds Ext: 1+ edema bilateral LE Objective Labs Result Diagrams: 06/11/20 10:15 06/10/20 06:00 [facility] Medical History Aortic stenosis B-cell lymphoma Cataract Chicken pox Fecal incontinence (2004) Frequent UTI GERD (gastroesophageal reflux disease) Hearing loss Heart murmur, systolic Hypertension Migraines Pelvic relaxation Polymyalgia rheumatica Urinary incontinence (2013) Surgical History History of dilation and curettage S/P implantation of urinary electronic stimulator device Family History Father Luigi's disease, pulmonary Mother Heart disease Sister No problems noted. Grandmother No problems noted. Social History marital status: number of children: 2 household members: spouse lives independently: Yes caregiver/support person: No housing: house pets and animals: Yes education level: college occupational status: employed current occupational exposures/hazards: No seatbelt use: always working smoke detector in home: Yes fire extinguisher in home: Yes carbon monox detector in home: Yes Smoking Status: Never smoker second hand exposure: No alcohol intake: current substance use type: does not use during the past year weight has: increased > 10 lbs well-balanced diet: daily or most days caffeine: Yes eating out: 1-3 times/week Discharge Plan [facility] Discharge orders & Medications Follow up/Referrals: Maine Sim MD [Primary Care Provider] - Discharge Data Primary Care Provider: Maine Sim Quality [facility] [place] Advanced Care Plan / Current Medications Measures: #47 ? Advanced Care Plan Clinician documentation instruction: document at admission. [] I confirmed that the patient's Advance Care Plan is present, code status is documented, or surrogate decision maker is listed in the patient?s medical record. [SATISFIES [facility] [place] PERFORMANCE] If Yes, Stop Here [] The patient?s Advance Care plan is not present because: (select) [[facility] [place] [facility] EXCEPTION/EXCLUSION] [] I confirmed today that the patient does not wish or was not able to name a surrogate decision maker or provide an Advance Care Plan. [] Hospice care is currently being provided or has been provided this calendar year [] I did NOT confirm today the presence of an Advance Care Plan or surrogate decision maker documented within the patient's medical record. [DOES NOT SATISFY MIPS PERFORMANCE] #130 - Documentation of Current Medications in the Medical Record Clinician documentation instruction: use macro the first time you see a patient. [] I have utilized all available immediate resources to obtain, update, or review the patient?s current medications. [SATISFIES MIPS PERFORMANCE] If Yes, Stop Here [] The patient is not eligible for medication reconciliation; the patient is in an emergent medical situation where delaying treatment would jeopardize the patient?s health. [MIPS PERFORMANCE EXCEPTION/EXCLUSION] [] I did NOT confirm, update or review the patient's current list of medications today. [DOES NOT SATISFY MIPS PERFORMANCE] MIPS - CL Central Venous Catheter Placement Measure: #76 ? Prevention of Central Venous Catheter (CVC) ? Related Bloodstream Infection Clinician documentation instruction: use macro every time you place a central line. [] All elements of Maximal Sterile Barrier Technique, including hand hygiene, skin prep, and sterile ultrasound technique (if used) were followed. [SATISFIES MIPS PERFORMANCE] If Yes, Stop Here [] If ?No?, the medical reason all elements were NOT used for medical reason [] (ex. emergent condition). [] Maximal Sterile Barrier Technique was not followed, no reason provided [DOES NOT SATISFY MIPS PERFORMANCE] MIPS - DC Heart Failure Measures: #5 - Heart Failure (HF): Angiotensin-Converting Enzyme (RUIZ) Inhibitor or Angiotensin Receptor Rita (ARB) Therapy for Left Ventricular Systolic Dysfunction (LVSD) and #8 - Heart Failure (HF): Beta-Rita Therapy for Left Ventricular Systolic Dysfunction (LVSD) Clinician documentation instruction: use macro at every CHF discharge. [] The patient has current or prior documentation of left ventricular ejection fraction (LVEF) less than 40%, or moderate or severely depressed left ventricular systolic function. Answer both: [SATISFIES MIPS PERFORMANCE] [] The patient was prescribed or already taking an Angiotensin-Converting Enzyme (RUIZ) Inhibitor, or Angiotensin Receptor Rita (ARB). [] The patient was prescribed or already taking a beta-rita. If Yes to Both, Stop Here [] Patient not prescribed/taking: [MIPS PERFORMANCE EXCEPTION/EXCLUSION] [] RUIZ or ARB for medical/patient/system reason(s) including [] (ex. allergy, intolerance, contraindication) [] Beta-rita for medical/patient/system reason(s) including [] (ex. allergy, intolerance, contraindication) [] Patient not prescribed/taking: [DOES NOT SATISFY MIPS PERFORMANCE] [] RUIZ or ARB, no reason given [] Beta-rita, no reason given
[2020-06-11 09:46] LABS: COVID19 - ADMIT (NP swab/PCR) POSITIVE (Negative)
[2020-06-11] MEDS: FUROSEMIDE 20 MG/2 ML VIAL IV (10:03)
[2020-06-11 10:38] LABS: Add Manual Diff / Slide Review NO; Basophils Absolute Auto 0 /uL (0-100); Basophils Percent Auto 0.7 % (0-2); Eosinophils Absolute Auto 500 /uL (0-450); Eosinophils Percent Auto 7.7 % (2-4); Hematocrit 34.5 % (36-46); Hemoglobin 11.6 g/dL (12.0-16.0); Lymphocytes Absolute Auto 1000 /uL (1100-4500); Lymphocytes Percent Auto 15.1 % (25-40); Mean Corpuscular HGB Conc 33.7 % (30-36); Mean Corpuscular Hemoglobin 31.4 PG (26-34); Mean Corpuscular Volume 93.1 fL (80-100); Monocytes Absolute Auto 500 /uL (0-900); Monocytes Percent Auto 8.5 % (3-14); Neutrophils Absolute Auto 4400 /uL (1500-7000); Platelet Count 172 X10^3/uL (150-400); Red Cell Distribution Width 15.2 % (11.6-14.8); White Blood Cell Count 6.4 X10^3/uL (4.5-11.0)
[2020-06-11 11:19] LABS: pH ABG 7.49 (7.35-7.45)
[2020-06-11 11:42] LABS: BUN Creatinine Ratio 28.3 (6-22); Blood Urea Nitrogen 13 mg/dL (7-17); Calcium 9.1 mg/dL (8.4-10.2); Carbon Dioxide 27 mmol/L (22-32); Chloride 104 mmol/L (98-107); Estimated Glomerular Filt Rate > 60.0 mL/min (>60); Glucose 124 mg/dL (80-110); HEMOLYSIS < 15 (0-50); Potassium 3.6 mmol/L (3.4-5.1); Sodium 138 mmol/L (137-145)
[2020-06-11 12:00] VITALS: BP 133/64; PULSE 122; RESP 20; TEMP 36.9; O2SAT 90
--- NOTE | 2020-06-11 13:01 | PT-IP ANOTE ---
checked with nurse and stated that pt will be discharging ~ 2 pm today and that pt stated that she does not want to do PT since she is discharging and does not want to get too tired.
--- NOTE | 2020-06-11 15:08 | PC.NURSE ---
Discharge Note Pt transferred to [facility] at 1420 on 15L nonrebreather, SpO2 92-93%. Report given to receiving RN and all questions answered. 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 Daughter Marilynn updated.
--- NOTE | 2020-06-11 16:40 | CM.DPC ---
DCP/continued: Received verbal referral from Dr. Sim that patient medically stable to transfer to [facility] today. Dr. Sim reports that she spoke with [facility] provider yesterday. RN/Melia reports that Yvrose called department yesterday informing her that patient has been accepted. INSPECTOR RUBBER STAMP DIE placed call to Yvrose this AM. She confirms acceptance. Accepting provider is Dr. Baker. Dr. Smi asked to call provider to give report. RN given number to call nursing unit at [facility]. Dr. Sim reports family and patient in agreement to transfer today. Important Message From Medicare provided with patient's transfer packet. INSPECTOR RUBBER STAMP DIE requested that Yvrose from [facility] call patient's daughter/Marilynn with facility information and to answer any questions family might have re: facility. INSPECTOR RUBBER STAMP DIE completed medical need form for non-urgent ALS transport. insulation cupola charger arranged transport through [facility]. Patient scheduled to be picked up around 2:00pm. P: [facility] today for continued halfway acute care treatment. EMMA Patel
== END 2020-06-11 14:20 | disposition short-term general hospital (02) | DRG 177 ==
LOC: ED 13:12 → ICU 15:01
PROVIDERS: Family Medicine; Internal Medicine; Student in an Organized Health Care Education/Training Program; Admitting Provider Family Medicine; Emergency Provider Emergency Medicine; PCP Family Medicine; Referring Provider Emergency Medicine; Visit Provider Family Medicine
DX: U07.1 COVID-19 (principal); J12.82 Pneumonia due to coronavirus disease 2019; J96.01 Acute respiratory failure with hypoxia; J15.9 Unspecified bacterial pneumonia; I82.B11 Acute embolism and thrombosis of right subclavian vein; M35.3 Polymyalgia rheumatica; Z79.52 Long term (current) use of systemic steroids; R51.9 Headache, unspecified; D69.9 Hemorrhagic condition, unspecified; E87.70 Fluid overload, unspecified; I25.10 Atherosclerotic heart disease of native coronary artery without angina pectoris; E78.5 Hyperlipidemia, unspecified; Z66 Do not resuscitate; I10 Essential (primary) hypertension; F41.9 Anxiety disorder, unspecified; K59.00 Constipation, unspecified; Z95.818 Presence of other cardiac implants and grafts; E83.51 Hypocalcemia; F32.9 Major depressive disorder, single episode, unspecified; R00.0 Tachycardia, unspecified
CPT/HCPCS: 36415; 36569; 36592; 36600; 71045; 71275; 80048; 80053; 80076; 81003; 81015; 82550; 82728; 82805; 82962; 83605; 83615; 83690; 83735; 83880; 84145; 84484; 85007; 85025; 85379; 85610; 85730; 86140; 87070; 87205; 87635; 87797; 93005; 93010; 93970; 94660; 94762; 97110; 97162; 97530; 99223; 99233; 99239; 99283; 99284; 99285; C9803; C9113; J1100; J1642; J1650; J1940; J1956; J2270; J2405; J2543; J2997; J3480; Q9967

== ENCOUNTER → 2020-07-20 15:59 | Outpatient (ROUT) | payer MEDICARE, OTHER, SELFPAY ==
[2020-05-20 15:10] VITALS: BMI 27.6
[2020-06-07 00:10] VITALS: PULSE 110; RESP 24; O2SAT 91
[2020-07-20 16:38] LABS: Appearance Urine UA CLOUDY; Bilirubin Urine UA NEGATIVE (NEGATIVE); Color Urine UA YELLOW; Glucose Urine UA NEGATIVE (Negative); Ketones Urine UA NEGATIVE (NEGATIVE); Leukocyte Esterase Urine UA 2+ (NEGATIVE); Nitrite Urine UA POSITIVE (Negative); Occult Blood Urine UA 2+ (Negative); Protein Urine UA 2+ (Negative); Specific Gravity Urine UA 1.025 (1.000-1.035); Urobilinogen Urine UA 0.2 E.U./dL (0.2)
[2020-07-20 16:53] LABS: Bacteria Urine Many (>30); RBC Urine 5-10/HPF (0-5/HPF); Squamous Epithelial Cell Urine 1-5 /HPF (0-5/HPF); WBC Urine 30-100/HPF (0-5/HPF)
[2020-07-21 13:07] LABS: Culture Indicated Urine Specimen Cultured
== END ==
PROVIDERS: Hospitalist; PCP Family Medicine; Visit Provider Family Medicine
DX: R35.0 Frequency of micturition (principal)
CPT/HCPCS: 81001; 87077; 87086; 87186

== ENCOUNTER → 2020-08-06 14:37 | Outpatient (CLI) | payer MEDICARE, OTHER, SELFPAY ==
[2020-05-20 15:10] VITALS: BMI 27.6
[2020-06-07 00:10] VITALS: PULSE 110; RESP 24; O2SAT 91
== END ==
PROVIDERS: PCP Family Medicine; Visit Provider Family Medicine
DX: N39.0 Urinary tract infection, site not specified (principal)
CPT/HCPCS: 87077; 87086; 87186

== ENCOUNTER → 2020-08-10 12:07 | Outpatient (CLI) | payer MEDICARE, OTHER, SELFPAY ==
[2020-05-20 15:10] VITALS: BMI 27.6
[2020-06-07 00:10] VITALS: PULSE 110; RESP 24; O2SAT 91
[2020-08-10 13:28] LABS: BUN Creatinine Ratio 19.2 (6-22); Blood Urea Nitrogen 10 mg/dL (7-17); Estimated Glomerular Filt Rate > 60.0 mL/min (>60)
== END ==
PROVIDERS: Family Medicine; PCP Family Medicine; Referring Provider Family Medicine; Visit Provider Family Medicine
DX: Z01.812 Encounter for preprocedural laboratory examination (principal); N39.0 Urinary tract infection, site not specified
CPT/HCPCS: 36415; 82565; 84520

== ENCOUNTER → 2020-08-12 07:57 | Outpatient (CLI) | payer MEDICARE, OTHER, SELFPAY ==
[2020-05-20 15:10] VITALS: BMI 27.6
[2020-06-07 00:10] VITALS: PULSE 110; RESP 24; O2SAT 91
--- NOTE | 2020-08-12 07:58 | DI.CT.S_ITS ---
PROCEDURE: CT ANGIO CHEST PE PROTOCOL INDICATIONS: f/u COVID, persistent significant tachycardia TECHNIQUE: After the administration of intravenous contrast, 2 mm thick sections acquired from the pulmonary apices to the posterior costophrenic angles. 3-dimensional maximum intensity projection (MIP) coronal and sagittal reformats were then acquired through the thorax. For radiation dose reduction, the following was used: automated exposure control, adjustment of mA and/or kV according to patient size. COMPARISON: [facility], CT, CT ANGIO CHEST PE PROTOCOL, 06/07/2020, 10:32. FINDINGS: Image quality: Excellent. Pulmonary arteries: Pulmonary arteries are normal in size, and demonstrate no intraluminal filling defects to suggest pulmonary embolism. Lungs and pleura: Mild predominantly dependent and subpleural airspace opacity, improving compared to 06/07/2020. Left upper lobe subpleural calcified granuloma. Central airways are clear. Suspect mild bronchiectasis. Essentially resolved pleural effusions. No pneumothorax. Mediastinum: Heart size is normal, without pericardial effusion. Coronary artery calcifications. Aortic valvular calcifications. Moderate to severe aortic calcifications. Right subcarinal node measuring 1.5 cm, (4/56), previously 1.6 cm. Additional shotty mediastinal lymph nodes. Suspect reactive etiology. Thoracic aorta is normal in caliber and enhancement. Esophagus is normal in caliber, without hiatal hernia. Bones and chest wall: Right breast clips. No suspicious bony lesions. Ribs and thoracic spine appear intact throughout. Thyroid gland is unremarkable. No axillary or supraclavicular adenopathy. Abdomen: Visualized upper abdominal solid organs appear normal in the early arterial phase of enhancement. IMPRESSION: 1. No pulmonary embolism. 2. Mild predominantly subpleural residual airspace opacity. Improving compared to May 2020. 3. Enlarged mediastinal lymph node. Additional shotty mediastinal lymph nodes. Suspect reactive etiology. Dictated by: Florencio Meier M.D. on 08/12/2020 at 9:43 Approved by: Florencio Meier M.D. on 08/12/2020 at 9:58
== END ==
PROVIDERS: PCP Family Medicine; Referring Provider Family Medicine; Visit Provider Family Medicine
DX: U07.1 COVID-19 (principal); R00.0 Tachycardia, unspecified; R09.02 Hypoxemia; R59.0 Localized enlarged lymph nodes
CPT/HCPCS: 71275; Q9967

== ENCOUNTER → 2020-08-17 11:37 | Outpatient (CLI) | payer MEDICARE, OTHER, SELFPAY ==
[2020-05-20 15:10] VITALS: BMI 27.6
[2020-06-07 00:10] VITALS: PULSE 110; RESP 24; O2SAT 91
[2020-08-17 11:52] LABS: Bacteria Urine None Seen; RBC Urine None Seen (0-5/HPF)
[2020-08-17 14:13] LABS: Appearance Urine UA CLEAR; Bilirubin Urine UA NEGATIVE (NEGATIVE); Color Urine UA YELLOW; Glucose Urine UA NEGATIVE (Negative); Ketones Urine UA NEGATIVE (NEGATIVE); Leukocyte Esterase Urine UA NEGATIVE (NEGATIVE); Nitrite Urine UA NEGATIVE (Negative); Occult Blood Urine UA TRACE-INTACT (Negative); Protein Urine UA TRACE (Negative); Urobilinogen Urine UA 0.2 E.U./dL (0.2)
[2020-08-17 14:34] LABS: pH Urine UA 6.5 (4.5-8.0)
[2020-08-17 14:35] LABS: Culture Indicated Urine Cult Not Indicated; Mucus Urine 1+ (Negative); Squamous Epithelial Cell Urine 0-1 /HPF (0-5/HPF); WBC Urine 0-1/HPF (0-5/HPF)
== END ==
PROVIDERS: PCP Family Medicine; Referring Provider Family Medicine; Visit Provider Family Medicine
DX: N39.0 Urinary tract infection, site not specified (principal)
CPT/HCPCS: 81001

== ENCOUNTER → 2020-08-21 12:29 | Outpatient (CLI) | payer MEDICARE, OTHER, SELFPAY ==
[2020-05-20 15:10] VITALS: BMI 27.6
[2020-06-07 00:10] VITALS: PULSE 110; RESP 24; O2SAT 91
[2020-08-21 13:39] LABS: Add Manual Diff / Slide Review NO; Basophils Absolute Auto 100 /uL (0-100); Basophils Percent Auto 0.8 % (0-2); Eosinophils Absolute Auto 300 /uL (0-450); Hemoglobin 11.5 g/dL (12.0-16.0); Lymphocytes Absolute Auto 1300 /uL (1100-4500); Lymphocytes Percent Auto 15.1 % (25-40); Mean Corpuscular HGB Conc 32.8 % (30-36); Mean Corpuscular Hemoglobin 32.3 PG (26-34); Mean Corpuscular Volume 98.4 fL (80-100); Monocytes Absolute Auto 700 /uL (0-900); Monocytes Percent Auto 8.1 % (3-14); Neutrophils Absolute Auto 6500 /uL (1500-7000); Platelet Count 234 X10^3/uL (150-400); Red Blood Cell Count 3.56 X10^6/uL (4.0-5.2); Red Cell Distribution Width 16.1 % (11.6-14.8); White Blood Cell Count 8.9 X10^3/uL (4.5-11.0)
[2020-08-21 14:23] LABS: Alanine Aminotransferase 21 IU/L (<35); Albumin 4.2 g/dL (3.5-5.0); Albumin Globulin Ratio 1.9 (1.0-2.8); Alkaline Phosphatase 65 U/L (38-126); Aspartate Aminotransferase 39 IU/L (14-36); BUN Creatinine Ratio 22.2 (6-22); Bilirubin Total 1.6 mg/dL (0.2-1.3); Blood Urea Nitrogen 12 mg/dL (7-17); Calcium 9.8 mg/dL (8.4-10.2); Carbon Dioxide 22 mmol/L (22-32); Chloride 106 mmol/L (98-107); Estimated Glomerular Filt Rate > 60.0 mL/min (>60); Globulin 2.2 g/dL (1.7-4.1); Glucose 84 mg/dL (80-110); HEMOLYSIS < 15 (0-50); Potassium 3.8 mmol/L (3.4-5.1); Sodium 139 mmol/L (137-145); Total Protein 6.4 g/dL (6.3-8.2)
[2020-08-21 14:31] LABS: NT-proBNP (BNP-Adult 18+) 683 pg/mL (<450)
== END ==
PROVIDERS: PCP Family Medicine; Referring Provider Family Medicine; Visit Provider Family Medicine
DX: R60.0 Localized edema (principal); R30.0 Dysuria
CPT/HCPCS: 36415; 80053; 83880; 84443; 85025; 87077; 87086; 87186

== ENCOUNTER → 2020-09-03 10:56 | Outpatient (CLI) | payer MEDICARE, OTHER, SELFPAY ==
[2020-05-20 15:10] VITALS: BMI 27.6
[2020-06-07 00:10] VITALS: PULSE 110; RESP 24; O2SAT 91
[2020-09-03 12:55] LABS: Appearance Urine UA CLOUDY; Bilirubin Urine UA NEGATIVE (NEGATIVE); Color Urine UA YELLOW; Glucose Urine UA NEGATIVE (Negative); Ketones Urine UA TRACE (NEGATIVE); Leukocyte Esterase Urine UA 2+ (NEGATIVE); Nitrite Urine UA POSITIVE (Negative); Occult Blood Urine UA 1+ (Negative); Protein Urine UA TRACE (Negative); Urobilinogen Urine UA 0.2 E.U./dL (0.2)
[2020-09-03 13:03] LABS: Amorphous Sediment Urine 1+; Bacteria Urine Many (>30); Culture Indicated Urine Specimen Cultured; Mucus Urine 1+ (Negative); RBC Urine 1-5/HPF (0-5/HPF); Squamous Epithelial Cell Urine 0-1 /HPF (0-5/HPF); WBC Urine >100/HPF (0-5/HPF); pH Urine UA 6.5 (4.5-8.0)
== END ==
PROVIDERS: PCP Family Medicine; Referring Provider Family Medicine; Visit Provider Family Medicine
DX: N39.0 Urinary tract infection, site not specified (principal)
CPT/HCPCS: 81001; 87077; 87086; 87186

== ENCOUNTER → 2020-09-06 12:04 | Outpatient (CLI) | payer MEDICARE, OTHER, SELFPAY ==
[2020-05-20 15:10] VITALS: BMI 27.6
[2020-06-07 00:10] VITALS: PULSE 110; RESP 24; O2SAT 91
--- NOTE | 2020-09-06 12:05 | DI.US.S_ITS ---
PROCEDURE: US PERIP VENOUS LOW EXTREM BI INDICATIONS: EDEMA; RECENT COVID TECHNIQUE: Real-time imaging, as well as color and pulse Doppler interrogation, were performed of the deep veins of both legs from the inguinal ligament to the popliteal fossa. COMPARISON: [facility], US, US PERIP VENOUS LOW EXTREM BI, 06/07/2020, 8:57. [facility], CR, XR CHEST 1V, 05/23/2020, 9:01. FINDINGS: Right: The common femoral, femoral and popliteal veins are normally compressible, and free of intraluminal thrombus. Color and pulse Doppler demonstrate normal phasic intravascular flow. There is normal augmentation response to distal compression maneuver. Left: The common femoral, femoral and popliteal veins are normally compressible, and free of intraluminal thrombus. Color and pulse Doppler demonstrate normal phasic intravascular flow. There is normal augmentation response to distal compression maneuver. Left Macias's cyst. IMPRESSION: No deep venous thrombosis identified within either the left or right lower extremities. Left Macias's cyst measuring up to 3.7 cm. Dictated by: Marcos Hutson [facility] Interpreted: Presley Calles MD on 09/06/2020 at 13:23 Approved by: Presley Calles M.D. on 09/06/2020 at 13:45
== END ==
PROVIDERS: PCP Family Medicine; Referring Provider Family Medicine; Visit Provider Family Medicine
DX: R60.0 Localized edema (principal); U07.1 COVID-19; M71.22 Synovial cyst of popliteal space [Baker], left knee
CPT/HCPCS: 93970

== ENCOUNTER → 2020-09-10 08:08 | Outpatient (CLI) | payer MEDICARE, OTHER, SELFPAY ==
[2020-05-20 15:10] VITALS: BMI 27.6
[2020-06-07 00:10] VITALS: PULSE 110; RESP 24; O2SAT 91
[2020-09-10 09:01] LABS: Add Manual Diff / Slide Review NO; Basophils Absolute Auto 100 /uL (0-100); Basophils Percent Auto 1.2 % (0-2); Eosinophils Absolute Auto 400 /uL (0-450); Eosinophils Percent Auto 5.5 % (2-4); Hematocrit 36.4 % (36-46); Hemoglobin 12.1 g/dL (12.0-16.0); Lymphocytes Absolute Auto 1800 /uL (1100-4500); Lymphocytes Percent Auto 25.5 % (25-40); Mean Corpuscular HGB Conc 33.3 % (30-36); Mean Corpuscular Hemoglobin 32.1 PG (26-34); Mean Corpuscular Volume 96.4 fL (80-100); Monocytes Absolute Auto 700 /uL (0-900); Monocytes Percent Auto 9.4 % (3-14); Neutrophils Absolute Auto 4000 /uL (1500-7000); Neutrophils Percent Auto 58.4 % (50-75); Platelet Count 186 X10^3/uL (150-400); Red Blood Cell Count 3.78 X10^6/uL (4.0-5.2); Red Cell Distribution Width 14.2 % (11.6-14.8); White Blood Cell Count 6.9 X10^3/uL (4.5-11.0)
[2020-09-10 09:36] LABS: BUN Creatinine Ratio 25.5 (6-22); Blood Urea Nitrogen 14 mg/dL (7-17); Calcium 9.1 mg/dL (8.4-10.2); Carbon Dioxide 25 mmol/L (22-32); Chloride 109 mmol/L (98-107); Cholesterol 159 mg/dL (140-199); Estimated Glomerular Filt Rate > 60.0 mL/min (>60); Glucose 97 mg/dL (80-110); HDL Cholesterol 38 mg/dL (40-60); HEMOLYSIS < 15 (0-50); LDL Cholesterol Calculated 94 mg/dL (<100); Potassium 3.8 mmol/L (3.4-5.1); Sodium 143 mmol/L (137-145); Triglycerides 135 mg/dL (35-150)
== END ==
PROVIDERS: PCP Family Medicine; Referring Provider Internal Medicine Cardiovascular Disease; Visit Provider Internal Medicine Cardiovascular Disease
DX: I25.10 Atherosclerotic heart disease of native coronary artery without angina pectoris (principal); E78.5 Hyperlipidemia, unspecified
CPT/HCPCS: 36415; 80048; 80061; 85025

== ENCOUNTER → 2020-09-17 09:34 | Outpatient (CLI) | payer MEDICARE, OTHER, SELFPAY ==
[2020-05-20 15:10] VITALS: BMI 27.6
[2020-06-07 00:10] VITALS: PULSE 110; RESP 24; O2SAT 91
--- NOTE | 2020-09-17 09:36 | DI.ECHO.S_ITS ---
[place] [facility]---------[facility] +---------+ : : [address] : : : : [id number] : : : : Phone: [phone] : : [phone] +---------+ Echocardiogram Report + + :Name: SHERIN PACHECO Study Date: 09/17/2020 Height: 65.5 in: :[facility] ReadingLocation: Weight: 163 lb : : Gender: Female BSA: 1.8 m2 : :: 1940 Age: 80 yrs BP: 131/77 mmHg: :Reason For Study: LE EDEMA, RECENT COVID : :Ordering Physician: GABRIELLE, : :KINGS Performed By: Dania Salazar : :Referring: KINGS ANTHONY : + + Interpretation Summary 1) Normal left ventricular size, wall motion, and systolic function (EF 60- 65%). 2) Normal right ventricular size and function. 3) There is severe aortic stenosis (valve area 0.6cm2, mean gradient 41mmHg, severity ratio 0.17). 4) There is mild aortic regurgitation. 5) There is mild to moderate mitral regurgitation. 6) There is mild luminal irregularity and echogenicity in the abdominal aorta, suggestive of aortic atherosclerotic disease. 7) Compared to the Echo done `, aortic stenosis has progresed from moderate to severe on this study. Procedure: A two-dimensional transthoracic echocardiogram with color flow and Doppler was performed. The study quality was technically adequate. Comparison is made with the echocardiogram of 12/26/2019. The patient was in sinus rhythm with heart rates between 64-68 bpm during the exam. Left Ventricle: The left ventricle is normal in size. Proximal septal thickening is noted. The ejection fraction is estimated to be 60-65%. Left ventricular systolic function appears normal without focal wall motion abnormalities. Right Ventricle: The right ventricle is normal in size and function. Atria: The left atrium is moderately dilated. Right atrial size is normal. There is no Doppler evidence for an interatrial shunt. Mitral Valve: The mitral valve leaflets appear mildly thickened, but open well. There is mild mitral annular calcification. There is mild to moderate mitral regurgitation. Aortic Valve: There is moderate aortic valve sclerosis. There is moderate to severely reduced leaflet mobility. The peak aortic velocity is 4.1 m/sec. The aortic valve mean gradient is 41 mmHg. The calculated aortic valve area is .58 cm2. There is mild aortic regurgitation. Tricuspid Valve: The tricuspid valve is normal in structure and function. There is mild tricuspid regurgitation. The right ventricular systolic pressure is estimated to be at least 33 mmHg based on an estimated right atrial pressure of 8 mm Hg. Pulmonic Valve: The pulmonic valve is not well seen, but is grossly normal. There is no pulmonic valvular regurgitation. Great Vessels: The aortic root is normal size. The dimensions of the ascending aorta are normal. There is mild luminal irregularity and echogenicity in the abdominal aorta, suggestive of aortic atherosclerotic disease. The IVC is dilated (diameter is greater than 2.1 cm) yet it collapses greater than 50% with a sniff. This suggests a right atrial pressure of 8 mm Hg. Pericardium/ Pleura There is no pericardial effusion. There is no pleural effusion. MMode/2D Measurements & Calculations LVIDd: 4.8 cm LVOT diam: 2.1 cm LVIDs: 3.3 cm Ao root diam: 2.6 cm FS: 31.0 % asc Aorta Diam: 2.7 cm IVSd: 0.82 cm Ao Arch Diam (Prox Trans): 2.2 cm LVPWd: 0.88 cm LV beasley. diameter/BSA (cm/m^2): 2.6 LV sys. diameter/BSA (cm/m^2): 1.8 LA A2 area: 23.2 cm2 RA long axis: 5.5 cm LA A4 area: 18.8 cm2 RA area: 14.1 cm2 LA length (vol): 5.6 cm RA vol: 31.1 ml LA vol: 66.3 ml RA : 17.1 ml/m2 LA vol index: 36.3 ml/m2 IVC diam: 2.3 cm RVD1 (basal): 3.1 cm TAPSE: 2.6 cm Doppler Measurements & Calculations Ao V2 max: 410.6 cm/sec LVOT Max Cuate: 77.2 cm/sec Ao V2 mean: 306.4 cm/sec LV V1 max P.4 mmHg Ao max P.4 mmHg LV V1 VTI: 17.4 cm Ao mean P.3 mmHg AGUILAR(I,D): 0.58 cm2 Ao V2 VTI: 104.6 cm AGUILAR(V,D): 0.66 cm2 sev ratio: 0.17 AGUILAR indexed to BSA (cm^2/m^2): 0.32 AI P1/2t: 760.5 msec AI dec slope: 137.7 cm/sec2 MV E max cuate: 74.7 cm/sec TR max cuate: 259.0 cm/sec MV A max cuate: 116.3 cm/sec TR max P.8 mmHg MV E/A: 0.64 PA pr(Accel): 41.3 mmHg Med Peak E' Cuate: 5.0 cm/sec E/E' med: 14.8 Lat Peak E' Cuate: 5.6 cm/sec E/E' lat: 13.4 E/e' average: 14.1 MV dec time: 0.25 sec MR ERO: 0.12 cm2 MR PISA: 1.7 cm2 SV(LVOT): 60.8 ml MR flow rate: 73.4 cm3/sec MR PISA radius: 0.53 cm Reading Physician:01:39 PM
== END ==
PROVIDERS: PCP Family Medicine; Referring Provider Internal Medicine Cardiovascular Disease; Visit Provider Internal Medicine Cardiovascular Disease
DX: I08.3 Combined rheumatic disorders of mitral, aortic and tricuspid valves (principal); R60.0 Localized edema
CPT/HCPCS: 93306

== ENCOUNTER → 2020-09-18 14:32 | Outpatient (CLI) | payer MEDICARE, OTHER, SELFPAY ==
[2020-05-20 15:10] VITALS: BMI 27.6
[2020-06-07 00:10] VITALS: PULSE 110; RESP 24; O2SAT 91
[2020-09-18 18:56] LABS: Appearance Urine UA CLOUDY; Bilirubin Urine UA NEGATIVE (NEGATIVE); Color Urine UA YELLOW; Glucose Urine UA NEGATIVE (Negative); Ketones Urine UA NEGATIVE (NEGATIVE); Leukocyte Esterase Urine UA 2+ (NEGATIVE); Nitrite Urine UA POSITIVE (Negative); Occult Blood Urine UA 1+ (Negative); Protein Urine UA 1+ (Negative); Urobilinogen Urine UA 0.2 E.U./dL (0.2)
[2020-09-18 19:33] LABS: Bacteria Urine Many (>30); Culture Indicated Urine Specimen Cultured; RBC Urine 1-5/HPF (0-5/HPF); Squamous Epithelial Cell Urine 0-1 /HPF (0-5/HPF); WBC Urine 5-10/HPF (0-5/HPF)
== END ==
PROVIDERS: PCP Family Medicine; Visit Provider Family Medicine
DX: N39.0 Urinary tract infection, site not specified (principal)
CPT/HCPCS: 81001; 87077; 87086; 87186

== ENCOUNTER → 2020-11-16 11:51 | Outpatient (CLI) | payer MEDICARE, OTHER, SELFPAY ==
[2020-05-20 15:10] VITALS: BMI 27.6
[2020-06-07 00:10] VITALS: PULSE 110; RESP 24; O2SAT 91
[2020-11-16 14:43] LABS: COVID19 -Nasal RAPID Negative (Negative)
== END ==
PROVIDERS: PCP Family Medicine; Visit Provider Nurse Practitioner
DX: Z01.812 Encounter for preprocedural laboratory examination (principal); Z20.822 Contact with and (suspected) exposure to COVID-19
CPT/HCPCS: 87635; C9803

== ENCOUNTER → 2020-12-19 15:01 | Outpatient (CLI) | payer MEDICARE, OTHER, SELFPAY ==
[2020-05-20 15:10] VITALS: BMI 27.6
[2020-06-07 00:10] VITALS: PULSE 110; RESP 24; O2SAT 91
--- NOTE | 2020-12-19 | DI.ECHO.S_ITS ---
[place] [facility]---------+ Hospital +---------+ : : [address] : : : : [phone] : : : : Phone: [phone] : : [phone] +---------+ Echocardiogram Report + + :Name: SHERIN PACHECO Study Date: 12/19/2020 Height: 65.5 in: :[facility] ReadingLocation: Weight: 157 lb : : Gender: Female BSA: 1.8 m2 : :: 1940 Age: 80 yrs BP: 109/60 mmHg: :Reason For Study: AORTIC STENOSIS : :Ordering Physician: MEGAN, : :ABDIRASHID Performed By: Dania Salazar : :Referring: ABDIRASHID OLSEN : + + Interpretation Summary 1) Normal left ventricular size, wall motion, and systolic function (EF 60- 65%). 2) Normal right ventricular size and function 3) There is a bioprosthetic aortic valve that is well seated and opens well. Expected mean gradient of 13mmHg is present. 4) There is mild to moderate perivalvular regurgitation around the prosthetic aortic valve. 5) Compared to the Echo done 09/17/2020, severely stenotic aortic valve has been replaced with well functioning bioprosthetic aortic valve. Procedure: A two-dimensional transthoracic echocardiogram with color flow and Doppler was performed. The study quality was technically adequate. Comparison is made with the echocardiogram of 09/17/2020. The patient was in sinus rhythm with heart rates between 67-70 bpm during the exam. Left Ventricle: The left ventricle is normal in size and wall thickness. Proximal septal thickening is noted. The ejection fraction is estimated to be 60-65%. Right Ventricle: The right ventricle is normal in size and function. Atria: Both atria are normal in size. There is no Doppler evidence for an interatrial shunt. Mitral Valve: The mitral valve is normal in structure and function. There is mild mitral annular calcification. There is mild mitral regurgitation. Aortic Valve: There is a bioprosthetic aortic valve. There is mild to moderate perivalvular regurgitation around the prosthetic aortic valve. The peak aortic velocity is 2.46 m/sec. The aortic valve mean gradient is 13 mmHg. No aortic regurgitation is present. Tricuspid Valve: The tricuspid valve is normal in structure and function. There is mild tricuspid regurgitation. The right ventricular systolic pressure is estimated to be at least 38 mmHg based on an estimated right atrial pressure of 3 mm Hg. Pulmonic Valve: The pulmonic valve is not well visualized. There is no pulmonic valvular regurgitation. Great Vessels: The aortic root is not well visualized. The dimensions of the ascending aorta are normal. The IVC is of normal diameter and collapses less than 50% with a sniff. This suggests a right atrial pressure of 8 mm Hg. Pericardium/ Pleura There is no pericardial effusion. There is no pleural effusion. MMode/2D Measurements & Calculations LVIDd: 4.6 cm LVOT diam: 2.0 cm LVIDs: 2.8 cm asc Aorta Diam: 3.1 cm FS: 38.8 % Ao Arch Diam (Prox Trans): 2.7 cm IVSd: 0.78 cm LVPWd: 0.96 cm LV beasley. diameter/BSA (cm/m^2): 2.5 LV sys. diameter/BSA (cm/m^2): 1.6 LA A2 area: 19.5 cm2 RA long axis: 5.5 cm LA A4 area: 16.0 cm2 RA area: 15.1 cm2 LA length (vol): 5.6 cm RA vol: 35.5 ml LA vol: 47.4 ml RA : 19.8 ml/m2 LA vol index: 26.4 ml/m2 IVC diam: 2.0 cm RVD1 (basal): 3.4 cm TAPSE: 1.8 cm Doppler Measurements & Calculations Ao V2 max: 246.0 cm/sec LVOT Max Cuate: 107.7 cm/sec Ao V2 mean: 172.1 cm/sec LV V1 max P.6 mmHg Ao max P.2 mmHg LV V1 VTI: 21.4 cm Ao mean P.3 mmHg AGUILAR(I,D): 1.5 cm2 Ao V2 VTI: 45.7 cm AGUILAR(V,D): 1.4 cm2 sev ratio: 0.47 AGUILAR indexed to BSA (cm^2/m^2): 0.81 MV E max cuate: 55.8 cm/sec TR max cuate: 271.6 cm/sec MV A max cuate: 101.0 cm/sec TR max P.5 mmHg MV E/A: 0.55 PA V2 max: 122.2 cm/sec Med Peak E' Cuate: 3.9 cm/sec PA V2 mean: 80.9 cm/sec E/E' med: 14.4 PA mean P.0 mmHg Lat Peak E' Cuate: 7.5 cm/sec PA pr(Accel): 29.3 mmHg E/E' lat: 7.4 E/e' average: 10.9 MV dec time: 0.26 sec SV(JEOVANNY): 66.4 ml Reading Physician:12:31 PM
== END ==
PROVIDERS: PCP Family Medicine; Referring Provider Internal Medicine Cardiovascular Disease; Visit Provider Internal Medicine Cardiovascular Disease
DX: I08.3 Combined rheumatic disorders of mitral, aortic and tricuspid valves (principal); Z95.2 Presence of prosthetic heart valve
CPT/HCPCS: 93306

== ENCOUNTER → 2020-12-23 11:18 | Outpatient (CLI) | payer MEDICARE, OTHER, SELFPAY ==
[2020-05-20 15:10] VITALS: BMI 27.6
[2020-06-07 00:10] VITALS: PULSE 110; RESP 24; O2SAT 91
[2020-12-23 12:31] LABS: Add Manual Diff / Slide Review NO; Basophils Absolute Auto 100 /uL (0-100); Basophils Percent Auto 0.8 % (0-2); Eosinophils Absolute Auto 500 /uL (0-450); Eosinophils Percent Auto 4.9 % (2-4); Hematocrit 36.6 % (36-46); Hemoglobin 12.3 g/dL (12.0-16.0); Lymphocytes Absolute Auto 1000 /uL (1100-4500); Mean Corpuscular HGB Conc 33.6 % (30-36); Mean Corpuscular Hemoglobin 31.3 PG (26-34); Monocytes Absolute Auto 900 /uL (0-900); Monocytes Percent Auto 9.6 % (3-14); Neutrophils Absolute Auto 7000 /uL (1500-7000); Neutrophils Percent Auto 73.7 % (50-75); Platelet Count 185 X10^3/uL (150-400); Red Blood Cell Count 3.94 X10^6/uL (4.0-5.2); Red Cell Distribution Width 15.4 % (11.6-14.8); White Blood Cell Count 9.5 X10^3/uL (4.5-11.0)
[2020-12-23 13:31] LABS: TSH w/ Reflex to FT4 1.36 uIU/mL (0.47-4.68)
== END ==
PROVIDERS: PCP Family Medicine; Referring Provider Internal Medicine Cardiovascular Disease; Visit Provider Internal Medicine Cardiovascular Disease
DX: R06.00 Dyspnea, unspecified (principal); R53.83 Other fatigue
CPT/HCPCS: 36415; 84443; 85025

== ENCOUNTER → 2020-12-31 12:27 | Outpatient (CLI) | payer MEDICARE, OTHER, SELFPAY ==
[2020-05-20 15:10] VITALS: BMI 27.6
[2020-06-07 00:10] VITALS: PULSE 110; RESP 24; O2SAT 91
--- NOTE | 2020-12-31 12:28 | DI.RAD.S_ITS ---
PROCEDURE: XR CHEST 2V INDICATIONS: shortness of breath, hx COVID, recent aortic valve replacement TECHNIQUE: 2 views of the chest were acquired. COMPARISON: [facility], CR, XR CHEST 1V, 05/31/2020, 13:14. FINDINGS: Surgical changes and devices: None. Lungs and pleura: Coarsened interstitial markings. No consolidation, pleural effusions or pneumothorax. Mediastinum: Mediastinal contours are normal. Heart size is normal. An aortic valve prosthesis is noted. Bones and chest wall: No suspicious bony abnormalities. Soft tissues appear unremarkable. IMPRESSION: No acute cardiopulmonary abnormality. Dictated by: Manolo Wilcox M.D. on 12/31/2020 at 12:48 Approved by: Manolo Wilcox M.D. on 12/31/2020 at 12:49
== END ==
PROVIDERS: PCP Family Medicine; Referring Provider Family Medicine; Visit Provider Family Medicine
DX: R06.02 Shortness of breath (principal); Z86.16 Personal history of COVID-19; Z95.2 Presence of prosthetic heart valve
CPT/HCPCS: 71046; 93798

== ENCOUNTER → 2021-01-16 09:45 | Outpatient (CLI) | payer MEDICARE, OTHER, SELFPAY ==
[2020-05-20 15:10] VITALS: BMI 27.6
[2020-06-07 00:10] VITALS: PULSE 110; RESP 24; O2SAT 91
[2021-01-16 11:00] LABS: COVID19 -Nasal RAPID Negative (Negative)
== END ==
PROVIDERS: PCP Family Medicine; Referring Provider Internal Medicine; Visit Provider Internal Medicine
DX: Z20.822 Contact with and (suspected) exposure to COVID-19 (principal)
CPT/HCPCS: 87635; C9803

== ENCOUNTER → 2021-01-17 08:49 | Outpatient (CLI) | payer MEDICARE, OTHER, SELFPAY ==
[2020-05-20 15:10] VITALS: BMI 27.6
[2020-06-07 00:10] VITALS: PULSE 110; RESP 24; O2SAT 91
--- NOTE | 2021-01-22 08:26 | PM.PFT.1 ---
Pulmonary Function Test Referral & Results Date Patient Seen: 01/17/21 Requesting provider: [place] Sim Indication: Shortness of breath, post COVID Results: The spirometry demonstrates an FVC of 2.57 Lwhich is 92% of predicted. The FEV1 was measured at 2.23 L which is 107% of predicted. The FEV1/FVC ratio was 87 which is 118% of predicted. Following the administration of bronchodilator there was a 22% improvement in FEF 25-75% Lung volumes show an SVC of 3.06 L which is 108% of predicted. The diffusing capacity was measured at 11.93 which is 44% of predicted. No hemoglobin value was provided, so no correction for potential anemia could be made, if appropriate. The maximum voluntary ventilation was normal Interpretation: This study demonstrates normal spirometry but significant reduction diffusing capacity suggests significant disease at the capillary alveolar level.
== END ==
PROVIDERS: PCP Family Medicine; Referring Provider Family Medicine; Visit Provider Family Medicine
DX: R06.02 Shortness of breath (principal); Z86.16 Personal history of COVID-19; J98.8 Other specified respiratory disorders
CPT/HCPCS: 94060; 94726; 94729

== ENCOUNTER → 2021-03-25 11:29 | Outpatient (CLI) | payer MEDICARE, OTHER, SELFPAY ==
[2020-05-20 15:10] VITALS: BMI 27.6
[2020-06-07 00:10] VITALS: PULSE 110; RESP 24; O2SAT 91
--- NOTE | 2021-03-25 | DI.MG.S_ITS ---
BILATERAL DIGITAL SCREENING MAMMOGRAM 3D/2D WITH CAD: 03/25/2021 CLINICAL: Routine screening. Family history of breast cancer. Comparison is made to exams dated: 02/20/2020 mammogram, 02/09/2019 mammogram, and 01/29/2018 mammogram - [facility]. There are scattered fibroglandular elements in both breasts. Current study was also evaluated with a Computer Aided Detection (CAD) system. There are benign post operative findings in the right breast. There are mole markers on both breasts. No significant masses, calcifications, or other findings are seen in either breast. There has been no significant interval change. IMPRESSION: BENIGN There is no mammographic evidence of malignancy. A 1 year screening mammogram is recommended. This exam was interpreted at Station ID: [id number]. NOTE: For mammograms, a report in lay terms will be sent to the patient. Approximately 15% of breast malignancies will not be visualized mammographically. In the management of a palpable breast mass, a negative mammogram must not discourage biopsy of a clinically suspicious lesion. Electronically Signed By: Domo Vaca acr/penrad:03/25/2021 12:13:21 copy to: SANDRO FERRARA letter sent: Normal Exam ACR BI-RADS Category 2: Benign Finding(s) 3342F
== END ==
PROVIDERS: PCP Family Medicine; Referring Provider Family Medicine; Visit Provider Family Medicine
DX: Z12.31 Encounter for screening mammogram for malignant neoplasm of breast (principal); Z80.3 Family history of malignant neoplasm of breast
CPT/HCPCS: 77063; 77067

== ENCOUNTER 2021-05-08 08:30 | Outpatient (RCR) | payer MEDICARE, OTHER, SELFPAY ==
[2020-05-20 15:10] VITALS: BMI 27.6
[2020-06-07 00:10] VITALS: PULSE 110; RESP 24; O2SAT 91
== END 2021-05-08 10:30 ==
LOC: CAR 08:30
PROVIDERS: PCP Family Medicine; Referring Provider Internal Medicine Cardiovascular Disease; Visit Provider Internal Medicine Cardiovascular Disease
DX: Z95.5 Presence of coronary angioplasty implant and graft (principal)
CPT/HCPCS: 93798

== ENCOUNTER 2021-09-04 08:30 | Outpatient (RCR) | payer MEDICARE, OTHER, SELFPAY ==
[2020-05-20 15:10] VITALS: BMI 27.6
[2020-06-07 00:10] VITALS: PULSE 110; RESP 24; O2SAT 91
== END 2021-09-04 10:30 ==
LOC: PUL 08:30
PROVIDERS: PCP Family Medicine; Referring Provider Specialist; Visit Provider Specialist
DX: U09.9 Post COVID-19 condition, unspecified (principal); R06.02 Shortness of breath
CPT/HCPCS: 94625; 94626

== ENCOUNTER → 2021-11-20 08:37 | Outpatient (CLI) | payer MEDICARE, OTHER, SELFPAY ==
[2020-05-20 15:10] VITALS: BMI 27.6
[2020-06-07 00:10] VITALS: PULSE 110; RESP 24; O2SAT 91
--- NOTE | 2021-11-20 | DI.ECHO.S_ITS ---
[place] +---------+ Hospital +---------+ : : [address] : : : : [id number] : : : : Phone: [phone] : : [phone] +---------+ Echocardiogram Report + + :Name: SHERIN PACHECO Study Date: 11/20/2021 Height: 65 in : :[facility] ReadingLocation: Weight: 164 lb : : Gender: Female BSA: 1.8 m2 : :: 1940 Age: 81 yrs BP: 143/64 mmHg: :Reason For Study: Aortic valve replacement - bioprosthetic : :Ordering Physician: MEGAN, : :ABDIRASHID Performed By: Cipriano Bojorquez : :Referring: ABDIRASHID OLSEN : + + Interpretation Summary 1) Normal left ventricular size, wall motion, and systolic function (EF 60- 65%). 2) Normal right ventricular size and function 3) There is a bioprosthetic aortic valve that is well seated and opens well. Expected mean gradient of 15mmHg is present. 4) There is mild perivalvular regurgitation around the prosthetic aortic valve. 5) Compared to the Echo done 12/19/2020, perivalvular aortic regurgitation has decreased from mild-moderate to mild on this study. Procedure: A two-dimensional transthoracic echocardiogram with color flow and Doppler was performed. The study quality was technically adequate. Comparison is made with the echocardiogram of 12/19/2020. The patient was in normal sinus rhythm during the exam. Left Ventricle: The left ventricle is normal in size and wall thickness. Proximal septal thickening is noted. Left ventricular systolic function is normal. The ejection fraction is estimated to be 60-65%. There are no focal wall motion abnormalities. Diastolic parameters suggest probable normal left ventricular diastolic function and normal filling pressures. Right Ventricle: The right ventricle is normal in size and function. Atria: Both atria are normal in size. The interatrial septum grossly appears intact with no obvious evidence for an atrial septal defect. Mitral Valve: The mitral valve is normal in structure and function. There is mild mitral regurgitation. 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 The prosthetic aortic valve is well-seated. There is probable normal prosthetic aortic valve function. There is mild perivalvular regurgitation around the prosthetic aortic valve. Tricuspid Valve: The tricuspid valve is normal in structure and function. There is mild tricuspid regurgitation. The right ventricular systolic pressure is estimated to be at least 31 mmHg based on an estimated right atrial pressure of 8 mm Hg. Pulmonic Valve: The pulmonic valve is normal in structure and function. There is no pulmonic valvular regurgitation. Great Vessels: The aortic root is not well visualized. The dimensions of the ascending aorta are normal. The IVC is of normal diameter and collapses less than 50% with a sniff. This suggests a right atrial pressure of 8 mm Hg. Pericardium/ Pleura There is no pericardial effusion. There is no pleural effusion. MMode/2D Measurements & Calculations LVIDd: 5.3 cm asc Aorta Diam: 3.1 cm LVIDs: 3.6 cm FS: 32.1 % IVSd: 0.90 cm LVPWd: 1.0 cm LV beasley. diameter/BSA (cm/m^2): 2.9 LV sys. diameter/BSA (cm/m^2): 2.0 LA dimension: 4.1 cm RA long axis: 5.3 cm LA A2 area: 20.2 cm2 IVC diam: 2.0 cm LA A4 area: 15.8 cm2 LA length (vol): 5.6 cm LA vol: 48.4 ml LA vol index: 26.6 ml/m2 TAPSE_phl: 2.4 cm Doppler Measurements & Calculations Ao V2 max: 267.0 cm/sec LVOT Max Cuate: 94.6 cm/sec Ao V2 mean: 181.0 cm/sec LV V1 max P.6 mmHg Ao max P.0 mmHg LV V1 VTI: 24.7 cm Ao mean P.0 mmHg sev ratio: 0.38 Ao V2 VTI: 64.2 cm AI P1/2t: 656.4 msec AI dec slope: 141.0 cm/sec2 MV E max cuate: 68.6 cm/sec TR max cuate: 239.0 cm/sec MV A max cuate: 98.1 cm/sec TR max P.8 mmHg MV E/A: 0.70 Med Peak E' Cuate: 5.7 cm/sec E/E' med: 12.0 Lat Peak E' Cuate: 7.6 cm/sec E/E' lat: 9.0 E/e' average: 10.5 MV dec time: 0.32 sec AV P1/2t-pr_phl: 655.0 msec MV P1/2t-pr_phl: 92.0 msec AV VR_phl: 0.35 Reading Physician:02:34 PM
[2021-11-20 10:24] LABS: Add Manual Diff / Slide Review NO; Basophils Absolute Auto 0 /uL (0-100); Basophils Percent Auto 0.6 % (0-2); Eosinophils Absolute Auto 400 /uL (0-450); Eosinophils Percent Auto 5.3 % (2-4); Hematocrit 36.6 % (36-46); Hemoglobin 12.6 g/dL (12.0-16.0); Lymphocytes Absolute Auto 1400 /uL (1100-4500); Lymphocytes Percent Auto 18.1 % (25-40); Mean Corpuscular HGB Conc 34.4 % (30-36); Mean Corpuscular Hemoglobin 32.6 PG (26-34); Mean Corpuscular Volume 94.8 fL (80-100); Monocytes Absolute Auto 500 /uL (0-900); Monocytes Percent Auto 6.5 % (3-14); Neutrophils Absolute Auto 5400 /uL (1500-7000); Neutrophils Percent Auto 69.5 % (50-75); Platelet Count 145 X10^3/uL (150-400); Red Blood Cell Count 3.86 X10^6/uL (4.0-5.2); Red Cell Distribution Width 13.3 % (11.6-14.8); White Blood Cell Count 7.8 X10^3/uL (4.5-11.0)
[2021-11-20 11:14] LABS: BUN Creatinine Ratio 27.4 (6-22); Blood Urea Nitrogen 26 mg/dL (7-17); Calcium 9.3 mg/dL (8.4-10.2); Carbon Dioxide 21 mmol/L (22-32); Chloride 109 mmol/L (98-107); Cholesterol 175 mg/dL (140-199); Estimated Glomerular Filt Rate 60 mL/min (>60); Glucose 95 mg/dL (80-110); HDL Cholesterol 38 mg/dL (40-60); HEMOLYSIS < 15 (0-50); LDL Cholesterol Calculated 104 mg/dL (<100); Potassium 4.1 mmol/L (3.4-5.1); Sodium 141 mmol/L (137-145); Triglycerides 166 mg/dL (35-150)
[2021-11-20 12:17] LABS: TSH w/ Reflex to FT4 1.44 uIU/mL (0.47-4.68)
== END ==
PROVIDERS: PCP Family Medicine; Referring Provider Internal Medicine Cardiovascular Disease; Visit Provider Internal Medicine Cardiovascular Disease
DX: I25.10 Atherosclerotic heart disease of native coronary artery without angina pectoris (principal); R06.00 Dyspnea, unspecified; R53.83 Other fatigue; Z95.2 Presence of prosthetic heart valve; I35.1 Nonrheumatic aortic (valve) insufficiency
CPT/HCPCS: 36415; 80048; 80061; 84443; 85025; 93306

== ENCOUNTER → 2022-01-01 12:16 | Outpatient (CLI) | payer MEDICARE, OTHER, SELFPAY ==
[2020-05-20 15:10] VITALS: BMI 27.6
[2020-06-07 00:10] VITALS: PULSE 110; RESP 24; O2SAT 91
--- NOTE | 2022-01-01 12:17 | DI.MRI.S_ITS ---
PROCEDURE: MR LUMBAR SPINE WO CON INDICATIONS: Lumbago with sciatica, left side TECHNIQUE: Noncontrast sagittal T1 spin echo and T2 fast echo, sagittal STIR, and T2 fast spin echo through the lumbar spine. In cases with scoliosis, additional coronal T2 fast spin echo may be performed. COMPARISON: [facility], CR, XR LUMBAR SPINE WITH OBLIQUES, 12/08/2021, 11:48. FINDINGS: Image quality: Excellent Alignment: Trace levoconvex spinal curvature. Trace retrolisthesis of L3 on L4 and L2 on L3. Overall straightening of normal lumbar lordosis. Marrow: Scattered Modic changes and endplate degenerative changes, particularly at L4-L5. Cord: Normal position of the conus. Normal appearance of the cauda equina nerve roots. Soft tissues: Asymmetrically atrophy left kidney. Metallic artifact, likely medication pump in the right lower back. Specific levels: T12-L1: No stenosis. L1-L2: Minimal facet arthropathy. No stenosis. L2-L3: Small diffuse disc bulge. No central narrowing. No neural foraminal stenosis. Mildly narrowed subarticular recesses bilaterally. L3-L4: There is a diffuse disc bulge and a right foraminal protrusion. Mild facet arthropathy. Mild narrowing of the right subarticular recess. Mild right neural foraminal narrowing. There might be displacement of the right exiting L3 nerve root in the infra foraminal/extraforaminal zone. L4-L5: Diffuse disc bulge. Mild facet arthropathy. The thecal sac appears patent. Moderate right and mild left neural foraminal narrowing. L5-S1: Vyiq-gt-stnzzdtm facet arthropathy and a small diffuse disc bulge. No stenosis. IMPRESSION: Mild overall spondylosis as above, characterized primarily by disc disease at L3-L4 and L4-L5. This is worse on the right side, affecting primarily the exiting L3 and L4 nerve roots. Dictated by: Reji Camarillo M.D. on 01/01/2022 at 16:17 Approved by: Reji Camarillo M.D. on 01/01/2022 at 16:24
== END ==
PROVIDERS: PCP Family Medicine; Referring Provider Internal Medicine Rheumatology; Visit Provider Internal Medicine Rheumatology
DX: M47.26 Other spondylosis with radiculopathy, lumbar region (principal); M81.0 Age-related osteoporosis without current pathological fracture; M35.3 Polymyalgia rheumatica; M15.9 Polyosteoarthritis, unspecified; M51.16 Intervertebral disc disorders with radiculopathy, lumbar region; G89.29 Other chronic pain; Z79.52 Long term (current) use of systemic steroids
CPT/HCPCS: 72148

== ENCOUNTER → 2022-03-30 10:30 | Outpatient (CLI) | payer MEDICARE, OTHER, SELFPAY ==
[2020-05-20 15:10] VITALS: BMI 27.6
[2020-06-07 00:10] VITALS: PULSE 110; RESP 24; O2SAT 91
--- NOTE | 2022-03-30 | DI.MG.S_ITS ---
BILATERAL DIGITAL SCREENING MAMMOGRAM 3D/2D WITH CAD: 03/30/2022 CLINICAL: Routine screening. Comparison is made to exams dated: 03/25/2021 mammogram, 02/20/2020 mammogram, and 02/09/2019 mammogram - [facility]. There are scattered areas of fibroglandular density in both breasts (category b / 25%-50% glandular tissue). Current study was also evaluated with a Computer Aided Detection (CAD) system. There are benign post operative findings in the right breast. There are mole markers on both breasts. No significant masses, calcifications, or other findings are seen in either breast. There has been no significant interval change. IMPRESSION: BENIGN There is no mammographic evidence of malignancy. A 1 year screening mammogram is recommended. This exam was interpreted at Station ID: [id number]. NOTE: For mammograms, a report in lay terms will be sent to the patient. Approximately 15% of breast malignancies will not be visualized mammographically. In the management of a palpable breast mass, a negative mammogram must not discourage biopsy of a clinically suspicious lesion. Electronically Signed By: Vinny maxwell/linda:03/30/2022 15:12:24 copy to: SANDRO FERRARA letter sent: Normal Exam ACR BI-RADS Category 2: Benign Finding(s) 3342F
== END ==
PROVIDERS: PCP Family Medicine; Referring Provider Family Medicine; Visit Provider Family Medicine
DX: Z12.31 Encounter for screening mammogram for malignant neoplasm of breast (principal)
CPT/HCPCS: 77063; 77067

== ENCOUNTER → 2023-04-06 12:48 | Outpatient (CLI) | payer MEDICARE, OTHER, SELFPAY ==
[2020-05-20 15:10] VITALS: BMI 27.6
[2020-06-07 00:10] VITALS: PULSE 110; RESP 24; O2SAT 91
--- NOTE | 2023-04-06 | DI.MG.S_ITS ---
BILATERAL DIGITAL SCREENING MAMMOGRAM 3D/2D WITH CAD: 04/06/2023 CLINICAL: Routine screening. Family history of breast cancer. Comparison is made to exams dated: 03/30/2022 mammogram, 03/25/2021 mammogram, and 02/20/2020 mammogram - [facility]. There are scattered areas of fibroglandular density in both breasts (category b / 25%-50% glandular tissue). Current study was also evaluated with a Computer Aided Detection (CAD) system. There are benign post operative findings in the right breast. There are mole markers on both breasts. No significant masses, calcifications, or other findings are seen in either breast. There has been no significant interval change. IMPRESSION: BENIGN There is no mammographic evidence of malignancy. A 1 year screening mammogram is recommended. This exam was interpreted at Station ID: [id number]. NOTE: For mammograms, a report in lay terms will be sent to the patient. Approximately 15% of breast malignancies will not be visualized mammographically. In the management of a palpable breast mass, a negative mammogram must not discourage biopsy of a clinically suspicious lesion. Electronically Signed By: Vinny maxwell/linda:04/06/2023 17:31:33 copy to: SANDRO FERRARA letter sent: Normal Exam ACR BI-RADS Category 2: Benign Finding(s) 3342F
== END ==
LOC: MAMMO 12:50
PROVIDERS: PCP Family Medicine; Referring Provider Family Medicine; Visit Provider Family Medicine
DX: Z12.31 Encounter for screening mammogram for malignant neoplasm of breast (principal); Z80.3 Family history of malignant neoplasm of breast; R92.323 Mammographic fibroglandular density, bilateral breasts
CPT/HCPCS: 77063; 77067

== ENCOUNTER 2023-08-03 11:15 | Outpatient (RCR) | payer MEDICARE, OTHER, SELFPAY ==
[2020-05-20 15:10] VITALS: BMI 27.6
[2020-06-07 00:10] VITALS: PULSE 110; RESP 24; O2SAT 91
--- NOTE | 2023-06-14 13:25 | PT.OIE ---
Current Diagnoses Polyosteoarthritis, unspecified (06/14/23) Stiffness of right shoulder, not elsewhere classified (06/14/23) Stiffness of left hip, not elsewhere classified (06/14/23) Polymyalgia rheumatica (06/14/23) Muscle weakness (generalized) (06/14/23) Age-related osteoporosis without current pathological fracture (06/14/23) Past Medical History (Last Updated 08/21/22 @ 11:27 by Maine Sim MD) Aortic stenosis B-cell lymphoma CAD (coronary artery disease) Cataract Chicken pox Deep vein thrombosis (DVT) of upper extremity Fecal incontinence (2004) Frequent UTI GERD (gastroesophageal reflux disease) Hearing loss Heart murmur, systolic Hypertension Migraines Pelvic relaxation Polymyalgia rheumatica Urinary incontinence (2013) Past Surgical History (Last Updated 12/25/20 @ 07:56 by Maine Sim MD) H/O heart artery stent History of dilation and curettage S/P aortic valve replacement S/P implantation of urinary electronic stimulator device Visit Care Team Role Provider Type Maine Sim MD Family Provider Physician Primary Care Provider Specialty: Family Practice Address: [address] [place] [address], [id number] Email: [email or web address] Jaja Ch MD Attending Provider Non-Staff Referring Provider Specialty: Rheumatology Address: [address] [place] [address], [id number] Email: Physical Therapy Initial Evaluation PT-OP-A Visit Information Start: 06/14/23 14:20 Freq: Status: Active Protocol: Document 06/14/23 10:35 DCW (Rec: 06/14/23 14:23 DCW [id number]) Out-Patient Physical Therapy Visit Information Visit Information Visit Type Initial Evaluation Visit Start Time 10:30 Visit Stop Time 11:15 Visit Number 1 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 Pt reports that she has been having general body pain for a couple years, but more specifically, her right shoulder has been worsening over the last 2.5 months. Reports no specific injury, just a gradual decline in function. Struggles to lift arm overhead or reach back, notes she is unable to use her right arm to drive, has to use her left arm to place her right arm on the steering wheel. Reports it very often limits her ability to get a full night's sleep. Has not found anything that has helped control her pain. PT-OP-C Subjective Start: 06/14/23 14:20 Freq: Status: Active Protocol: Document 06/14/23 10:35 DCW (Rec: 06/14/23 14:23 DCW [id number]) OP-PT Subjective Patient Comments Patient Comments I'm having pain everywhere, if you really want to know the truth. PT-OP-F Manual Assessment Start: 06/14/23 14:20 Freq: Status: Active Protocol: Document 06/14/23 10:35 DCW (Rec: 06/14/23 14:29 DCW [id number]) Manual Assessments Soft Tissue Assessment Soft Tissue Mobility Assessment Tenderness to palpation 3/4: Wincing and withdraw along R subscapularis, supraspinatus, infraspinatus, LH biceps Joint Mobility Assessment Joint Mobility Assessment Limited mobility with both passive and active ROM, grinding and popping in bilateral GH with passive motion PT-OP-K Range of Motion Start: 06/14/23 14:20 Freq: Status: Active Protocol: Document 06/14/23 10:35 DCW (Rec: 06/14/23 14:29 DCW [id number]) Shoulder Goniometric Range of Motion Shoulder Right Passive Testing Position Supine Flexion 119 Abduction 100 Left Passive Testing Position Supine Flexion 160 Abduction 180 Right Active Testing Position Sitting Flexion 62 Abduction 74 External Rotation at 0 degrees Abduction 39 Internal Rotation Behind Back (text) T8 Left Active Shoulder ROM WFL No Testing Position Sitting Flexion 126 Abduction 98 External Rotation at 0 degrees Abduction 58 Internal Rotation Behind Back (text) T4 PT-OP-L Special Tests Start: 06/14/23 14:20 Freq: Status: Active Protocol: Document 06/14/23 10:35 DCW (Rec: 06/14/23 14:29 DCW [id number]) Special Tests Shoulder Special Tests Passive ER Rotator Cuff Test Results Positive R Painful Arc Test Results Positive R Shannon Tariq Impingement Test Results Positive R Grind Labrum Test Results Positive R Belly Press Test Results Negative AC Joint Compression Test Results Positive R Hip Special Tests Piriformis Test Results Positive L PT-OP-M Strength Start: 06/14/23 14:20 Freq: Status: Active Protocol: Document 06/14/23 10:35 DCW (Rec: 06/14/23 14:29 DCW [id number]) Shoulder Strength Shoulder Manual Muscle Testing Right Flexion 3- Fair- Abduction (C5) 3- Fair- External Rotation 3- Fair- Internal Rotation 3- Fair- Left Flexion 4- Good- Abduction (C5) 4 Good External Rotation 4- Good- Internal Rotation 4- Good- PT-OP-Q Treatments Start: 06/14/23 14:20 Freq: Status: Active Protocol: Document 06/14/23 10:35 DCW (Rec: 06/14/23 14:23 DCW [id number]) Therapeutic Exercises Sitting Exercises Piriformis Sitting Exercise Name Seated figure-4 Side bilateral Standing Exercises Wall slides Standing Exercise Name Wall slides - flexion, abduction Side right PT-OP-T Assessment and Plan Start: 06/14/23 14:20 Freq: Status: Active Protocol: Document 06/14/23 10:35 DCW (Rec: 06/15/23 13:25 DCW [id number]) Physical Therapy Assessment Rehab Potential Rehabilitation Potential Fair Evaluation Complexity Number of Personal Factors/Comorbidities 3 or More Number of Body Systems Impaired 3 Clinical Presentation at Evaluation Evolving Impairments Impairments Activity Tolerance,Functional Activities,Functional Mobility ,Pain,ROM,Soft Tissue Mobility ,Strength,Tone Goals Two Impairment Pt unable to use her right arm to steer her car due to poor AROM with flexion (62?) and abduction (74?) Fpc Goal (LTG) Pt to increase right shoulder flexion and abduction to 120? each in order to improve ability to use right arm for steering her car and lifting objects in her house. LTG Duration 08/14/23 One Impairment Pt does not have an appropriate home exercise program Short Term Goal (STG) Pt to be independent and compliant with an appropriate HEP STG Duration 07/15/23 Assessment Summary Assessment Pt presents with signs and symptoms consistent with degenerative changes in her shoulder and hips. Significantly worse in her right shoulder and left hip, but bilaterally limited with most ROM and strength. 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 Shoulder special testing largely all positive today, so difficult to accurately DDx underlying structural damage, but if pt does not respond to therapy as expected, may benefit from further advanced imaging. Pt tolerated well hip stretching as well as wall slides to attempt to improve P/AROM of shoulders. Physical Therapy Plan Frequency and Duration Frequency of Treatment 2x/Week Plan of Care Start Date 06/14/23 Plan of Care End Date 08/14/23 Therapeutic Interventions Therapeutic Interventions Home Exercise Program,Joint Mobilizations,Manual Therapy, Neuromuscular Re-education, Patient/Caregiver Education, Self-Care/Home Management,Soft Tissue Mobilization, Therapeutic Activities, Therapeutic Exercises Next Visit Focus/Plan Next Note Type Treatment Note Next Visit Plan STM, hip strengthening, shoulder strengthening, P/AROM of shoulders, flexibility
--- NOTE | 2023-06-14 13:26 | PT.OPPOC ---
Physical, Occupational & Speech Therapy At [facility] Current Diagnoses Polyosteoarthritis, unspecified (06/14/23) Stiffness of right shoulder, not elsewhere classified (06/14/23) Stiffness of left hip, not elsewhere classified (06/14/23) Polymyalgia rheumatica (06/14/23) Muscle weakness (generalized) (06/14/23) Age-related osteoporosis without current pathological fracture (06/14/23) Visit Care Team Role Provider Type Maine Sim MD Family Provider Physician Primary Care Provider Specialty: Family Practice Address: [address] [place] [address], [place], [address] Email: [email or web address] Jaja Ch MD Attending Provider Non-Staff Referring Provider Specialty: Rheumatology Address: [address] [place] [address], [id number] Email: Plan Of Care PT-OP-T Assessment and Plan Start: 06/14/23 14:20 Freq: Status: Active Protocol: Document 06/14/23 10:35 DCW (Rec: 06/15/23 13:25 DCW [id number]) Physical Therapy Assessment Rehab Potential Rehabilitation Potential Fair Evaluation Complexity Number of Personal Factors/Comorbidities 3 or More Number of Body Systems Impaired 3 Clinical Presentation at Evaluation Evolving Impairments Impairments Activity Tolerance,Functional Activities,Functional Mobility ,Pain,ROM,Soft Tissue Mobility ,Strength,Tone Goals Two Impairment Pt unable to use her right arm to steer her car due to poor AROM with flexion (62?) and abduction (74?) Warp Tier Goal (LTG) Pt to increase right shoulder flexion and abduction to 120? each in order to improve ability to use right arm for steering her car and lifting objects in her house. LTG Duration 08/14/23 One Impairment Pt does not have an appropriate home exercise program Short Term Goal (STG) Pt to be independent and compliant with an appropriate HEP STG Duration 07/15/23 Assessment Summary Assessment Pt presents with signs and symptoms consistent with degenerative changes in her shoulder and hips. Significantly worse in her right shoulder and left hip, but bilaterally limited with most ROM and strength. 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 Shoulder special testing largely all positive today, so difficult to accurately DDx underlying structural damage, but if pt does not respond to therapy as expected, may benefit from further advanced imaging. Pt tolerated well hip stretching as well as wall slides to attempt to improve P/AROM of shoulders. Physical Therapy Plan Frequency and Duration Frequency of Treatment 2x/Week Plan of Care Start Date 06/14/23 Plan of Care End Date 08/14/23 Therapeutic Interventions Therapeutic Interventions Home Exercise Program,Joint Mobilizations,Manual Therapy, Neuromuscular Re-education, Patient/Caregiver Education, Self-Care/Home Management,Soft Tissue Mobilization, Therapeutic Activities, Therapeutic Exercises Next Visit Focus/Plan Next Note Type Treatment Note Next Visit Plan STM, hip strengthening, shoulder strengthening, P/AROM of shoulders, flexibility Plan of Care Dates Plan of Care Start Date 06/14/23 Plan of Care End Date 08/14/23 Electronically Signed by: Homero Giraldo, PT 06/15/23 [id number] If you are in agreement with this Plan of Care, please return a signed and dated copy. I have reviewed this Plan of Care and certify that the skilled therapy services above are required to meet the patient?s needs. Physician Signature Date Printed Name and Credentials Clinical Instructor Signature Printed Name and Credentials
--- NOTE | 2023-06-16 11:16 | PT.OTN ---
Current Diagnoses Polyosteoarthritis, unspecified (06/16/23) Stiffness of right shoulder, not elsewhere classified (06/16/23) Stiffness of left hip, not elsewhere classified (06/16/23) Polymyalgia rheumatica (06/16/23) Muscle weakness (generalized) (06/16/23) Age-related osteoporosis without current pathological fracture (06/16/23) Physical Therapy Treatment Note PT-OP-A Visit Information Start: 06/14/23 14:20 Freq: Status: Active Protocol: Document 06/16/23 10:30 DCW (Rec: 06/16/23 11:16 DCW [id number]) Out-Patient Physical Therapy Visit Information Visit Information Visit Type Treatment Note Visit Start Time 10:30 Visit Stop Time 11:15 Visit Number 2 Number of SERVICE CENTER SPECIALIST Visits 0 Evaluation Information Evaluation Date 06/14/23 PT-OP-B Current Condition Start: 06/14/23 14:20 Freq: Status: Active Protocol: Document 06/14/23 10:35 DCW (Rec: 06/15/23 09:40 DCW [id number]) Current Condition History of Current Condition Onset Date 2.5 month history Current Complaints Shoulder pain (R>L), hip pain (L>R) History of Current Condition Pt is an 83 year old female presenting with a long- standing history of general pain and stiffness, reportedly due to osteoarthritis. Pt reports that she has been having general body pain for a couple years, but more specifically, her right shoulder has been worsening over the last 2.5 months. Reports no specific injury, just a gradual decline in function. Struggles to lift arm overhead or reach back, notes she is unable to use her right arm to drive, has to use her left arm to place her right arm on the steering wheel. Reports it very often limits her ability to get a full night's sleep. Has not found anything that has helped control her pain. PT-OP-C Subjective Start: 06/14/23 14:20 Freq: Status: Active Protocol: Document 06/16/23 10:30 DCW (Rec: 06/16/23 11:16 DCW [id number]) OP-PT Subjective Patient Comments Patient Comments Doing the wall slides, I've found that I can go up pretty high with no problem, but coming down really bothers it. PT-OP-F Manual Assessment Start: 06/14/23 14:20 Freq: Status: Active Protocol: Document 06/14/23 10:35 DCW (Rec: 06/14/23 14:29 DCW [id number]) Manual Assessments Soft Tissue Assessment Soft Tissue Mobility Assessment Tenderness to palpation 3/4: Wincing and withdraw along R subscapularis, supraspinatus, infraspinatus, LH biceps Joint Mobility Assessment Joint Mobility Assessment Limited mobility with both passive and active ROM, grinding and popping in bilateral GH with passive motion PT-OP-K Range of Motion Start: 06/14/23 14:20 Freq: Status: Active Protocol: Document 06/14/23 10:35 DCW (Rec: 06/14/23 14:29 DCW [id number]) Shoulder Goniometric Range of Motion Shoulder Right Passive Testing Position Supine Flexion 119 Abduction 100 Left Passive Testing Position Supine Flexion 160 Abduction 180 Right Active Testing Position Sitting Flexion 62 Abduction 74 External Rotation at 0 degrees Abduction 39 Internal Rotation Behind Back (text) T8 Left Active Shoulder ROM WFL No Testing Position Sitting Flexion 126 Abduction 98 External Rotation at 0 degrees Abduction 58 Internal Rotation Behind Back (text) T4 PT-OP-L Special Tests Start: 06/14/23 14:20 Freq: Status: Active Protocol: Document 06/14/23 10:35 DCW (Rec: 06/14/23 14:29 DCW [id number]) Special Tests Shoulder Special Tests Passive ER Rotator Cuff Test Results Positive R Painful Arc Test Results Positive R Shannon Tariq Impingement Test Results Positive R Grind Labrum Test Results Positive R Belly Press Test Results Negative AC Joint Compression Test Results Positive R Hip Special Tests Piriformis Test Results Positive L PT-OP-M Strength Start: 06/14/23 14:20 Freq: Status: Active Protocol: Document 06/14/23 10:35 DCW (Rec: 06/14/23 14:29 DCW [id number]) Shoulder Strength Shoulder Manual Muscle Testing Right Flexion 3- Fair- Abduction (C5) 3- Fair- External Rotation 3- Fair- Internal Rotation 3- Fair- Left Flexion 4- Good- Abduction (C5) 4 Good External Rotation 4- Good- Internal Rotation 4- Good- PT-OP-Q Treatments Start: 06/14/23 14:20 Freq: Status: Active Protocol: Document 06/16/23 10:30 DCW (Rec: 06/16/23 11:16 [facility] [id number]) Cardio Equipment Upper Body Ergometer (UBE) Duration (Minutes) 5 Seat Position 10 Height 2 Other 2.5 fwd, 2.5 bkwd Therapeutic Exercises Supine Exercises Flexion Supine Exercise Name Shoulder flexion /c PVC Side bilateral Sidelying Exercises Reverse Clamshell Sidelying Exercise Name Reverse Clamshell Side bilateral Clamshell Sidelying Exercise Name Clamshell Side bilateral Standing Exercises Adduction Standing Exercise Name Shoulder Adduction Side bilateral Resistance Green Rows Standing Exercise Name Rows Side bilateral Resistance Green Extension Standing Exercise Name Shoulder Extension Side bilateral Resistance Green Other Exercises Resisted Ambulation Other Exercise Name Resisted side-stepping Resistance Green loop Equipment Used @ rail Manual Therapy Treatment Soft Tissue Mobilization Upper Trap Body Location R Upper Trap Mobilization Type Sustained Pressure,Trigger Point Release Intensity/Depth Moderate Body Position Supine Joint Mobilizations GH Joint R GH Direction Inferior Grade III Body Position Supine PT-OP-T Assessment and Plan Start: 06/14/23 14:20 Freq: Status: Active Protocol: Document 06/16/23 10:30 [facility] (Rec: 06/16/23 11:16 [facility] [id number]) Physical Therapy Assessment Impairments Impairments Activity Tolerance,Functional Activities,Functional Mobility ,Pain,ROM,Soft Tissue Mobility ,Strength,Tone Goals Two Impairment Pt unable to use her right arm to steer her car due to poor AROM with flexion (62?) and abduction (74?) Compensation And Hris Analyst Goal (LTG) Pt to increase right shoulder flexion and abduction to 120? each in order to improve ability to use right arm for steering her car and lifting objects in her house. LTG Duration 08/14/23 One Impairment Pt does not have an appropriate home exercise program Short Term Goal (STG) Pt to be independent and compliant with an appropriate HEP STG Duration 07/15/23 Assessment Summary Assessment Increase in specifics in regards to subjective symptoms and movements that cause pain helpful today to help narrow down DDx, sounding much more like supraspinatus impingement with notes of +Painful arc with exercise. Tolerated new exercise well, agreeable to add shoulder extension and adduction to HEP. Continue to focus on improving mobility of shoulders and hips. Physical Therapy Plan Frequency and Duration Frequency of Treatment 2x/Week Plan of Care Start Date 06/14/23 Plan of Care End Date 08/14/23 Therapeutic Interventions Therapeutic Interventions Home Exercise Program,Joint Mobilizations,Manual Therapy, Neuromuscular Re-education, Patient/Caregiver Education, Self-Care/Home Management,Soft Tissue Mobilization, Therapeutic Activities, Therapeutic Exercises Next Visit Focus/Plan Next Note Type Treatment Note Next Visit Plan STM, hip strengthening, shoulder strengthening, P/AROM of shoulders, flexibility
--- NOTE | 2023-06-21 12:35 | PT.OTN ---
Current Diagnoses Polyosteoarthritis, unspecified (06/21/23) Stiffness of right shoulder, not elsewhere classified (06/21/23) Stiffness of left hip, not elsewhere classified (06/21/23) Polymyalgia rheumatica (06/21/23) Muscle weakness (generalized) (06/21/23) Age-related osteoporosis without current pathological fracture (06/21/23) Physical Therapy Treatment Note PT-OP-A Visit Information Start: 06/14/23 14:20 Freq: Status: Active Protocol: Document 06/21/23 10:33 AB (Rec: 06/21/23 12:35 AB [id number]) Out-Patient Physical Therapy Visit Information Visit Information Visit Type Treatment Note Visit Note Access code [email or web address] Visit Start Time 10:35 Visit Stop Time 11:15 Visit Number 3 Number of WARPING MILL OPERATOR Visits 1 Evaluation Information Evaluation Date 06/14/23 PT-OP-B Current Condition Start: 06/14/23 14:20 Freq: Status: Active Protocol: Document 06/14/23 10:35 DCW (Rec: 06/15/23 09:40 DCW [id number]) Current Condition History of Current Condition Onset Date 2.5 month history Current Complaints Shoulder pain (R>L), hip pain (L>R) History of Current Condition Pt is an 83 year old female presenting with a long- standing history of general pain and stiffness, reportedly due to osteoarthritis. Pt reports that she has been having general body pain for a couple years, but more specifically, her right shoulder has been worsening over the last 2.5 months. Reports no specific injury, just a gradual decline in function. Struggles to lift arm overhead or reach back, notes she is unable to use her right arm to drive, has to use her left arm to place her right arm on the steering wheel. Reports it very often limits her ability to get a full night's sleep. Has not found anything that has helped control her pain. PT-OP-C Subjective Start: 06/14/23 14:20 Freq: Status: Active Protocol: Document 06/21/23 10:33 AB (Rec: 06/21/23 12:35 AB [id number]) OP-PT Subjective Patient Comments Patient Comments Patient reports she is the same, she had a busy weekend and wasn't able to do the exercises as much as she should have. AROM right shoulder flexion 74 deg start of session PT-OP-F Manual Assessment Start: 06/14/23 14:20 Freq: Status: Active Protocol: Document 06/14/23 10:35 DCW (Rec: 06/14/23 14:29 DCW [id number]) Manual Assessments Soft Tissue Assessment Soft Tissue Mobility Assessment Tenderness to palpation 3/4: Wincing and withdraw along R subscapularis, supraspinatus, infraspinatus, LH biceps Joint Mobility Assessment Joint Mobility Assessment Limited mobility with both passive and active ROM, grinding and popping in bilateral GH with passive motion PT-OP-K Range of Motion Start: 06/14/23 14:20 Freq: Status: Active Protocol: Document 06/14/23 10:35 DCW (Rec: 06/14/23 14:29 DCW [id number]) Shoulder Goniometric Range of Motion Shoulder Right Passive Testing Position Supine Flexion 119 Abduction 100 Left Passive Testing Position Supine Flexion 160 Abduction 180 Right Active Testing Position Sitting Flexion 62 Abduction 74 External Rotation at 0 degrees Abduction 39 Internal Rotation Behind Back (text) T8 Left Active Shoulder ROM WFL No Testing Position Sitting Flexion 126 Abduction 98 External Rotation at 0 degrees Abduction 58 Internal Rotation Behind Back (text) T4 PT-OP-L Special Tests Start: 06/14/23 14:20 Freq: Status: Active Protocol: Document 06/14/23 10:35 DCW (Rec: 06/14/23 14:29 DCW [id number]) Special Tests Shoulder Special Tests Passive ER Rotator Cuff Test Results Positive R Painful Arc Test Results Positive R Shannon Tariq Impingement Test Results Positive R Grind Labrum Test Results Positive R Belly Press Test Results Negative AC Joint Compression Test Results Positive R Hip Special Tests Piriformis Test Results Positive L PT-OP-M Strength Start: 06/14/23 14:20 Freq: Status: Active Protocol: Document 06/14/23 10:35 DCW (Rec: 06/14/23 14:29 DCW [id number]) Shoulder Strength Shoulder Manual Muscle Testing Right Flexion 3- Fair- Abduction (C5) 3- Fair- External Rotation 3- Fair- Internal Rotation 3- Fair- Left Flexion 4- Good- Abduction (C5) 4 Good External Rotation 4- Good- Internal Rotation 4- Good- PT-OP-Q Treatments Start: 06/14/23 14:20 Freq: Status: Active Protocol: Document 06/21/23 10:33 AB (Rec: 06/21/23 12:35 AB [id number]) Therapeutic Exercises Supine Exercises Flexion Supine Exercise Name with hands clasped Side bilateral Comments verbal cues to allow UE's to relax 10 seconds end AROM Sidelying Exercises sielying shoulder ER Side bilateral Reps/Minutes X10 Comments Verbal cues Standing Exercises sit to stand Standing Exercise Name with and without band, from a raised seat height Equipment Used level one light blue band Reps/Minutes X4 and X 10 X3 with band Comments pt ed self tactile cues for hip hinge Rows Standing Exercise Name Rows Side bilateral Resistance light blue band Reps/Minutes 2X15 Manual Therapy Treatment Soft Tissue Mobilization bilateral shoulders Body Location pec, periscapular, post cuff Mobilization Type Cross-Friction,Rolling Intensity/Depth Moderate Body Position Sidelying Comments and hooklying, monitored for pain Joint Mobilizations scapular mobilization Joint bilateral Direction depression and adduction Grade III Body Position Sidelying Reps/Duration X12 GH Joint R GH Direction Inferior Grade III Body Position Supine Reps/Duration 3X6 Self-Care/Home Management Treatment Activities Self-Care/Home Management Activities sit to stand with band, row with band, supine flexion and sidelying ER added to HEP. PT-OP-T Assessment and Plan Start: 06/14/23 14:20 Freq: Status: Active Protocol: Document 06/21/23 10:33 AB (Rec: 06/21/23 12:35 [id number]) Physical Therapy Assessment Goals Two Impairment Pt unable to use her right arm to steer her car due to poor AROM with flexion (62?) and abduction (74?) Knotter Goal (LTG) Pt to increase right shoulder flexion and abduction to 120? each in order to improve ability to use right arm for steering her car and lifting objects in her house. LTG Duration 08/14/23 One Impairment Pt does not have an appropriate home exercise program Short Term Goal (STG) Pt to be independent and compliant with an appropriate HEP STG Duration 07/15/23 Assessment Summary Assessment AROM right shoulder flexion to 90 deg end of session, which should allopw Ami to reach items placed at higher positions in the home, but is not yet WNL. Physical Therapy Plan Frequency and Duration Frequency of Treatment 2x/Week Plan of Care Start Date 06/14/23 Plan of Care End Date 08/14/23 Next Visit Focus/Plan Next Note Type Treatment Note Next Visit Plan STM, hip strengthening, shoulder strengthening, P/AROM of shoulders, flexibility
--- NOTE | 2023-06-23 11:17 | PT.OTN ---
Current Diagnoses Polyosteoarthritis, unspecified (06/23/23) Stiffness of right shoulder, not elsewhere classified (06/23/23) Stiffness of left hip, not elsewhere classified (06/23/23) Polymyalgia rheumatica (06/23/23) Muscle weakness (generalized) (06/23/23) Age-related osteoporosis without current pathological fracture (06/23/23) Physical Therapy Treatment Note PT-OP-A Visit Information Start: 06/14/23 14:20 Freq: Status: Active Protocol: Document 06/23/23 10:34 DCW (Rec: 06/23/23 11:17 DCW [id number]) Out-Patient Physical Therapy Visit Information Visit Information Visit Type Treatment Note Visit Start Time 10:34 Visit Stop Time 11:15 Visit Number 4 Number of AIRCRAFT HYDRA[employer]IC EQUIPMENT MECHANIC Visits 0 Evaluation Information Evaluation Date 06/14/23 PT-OP-B Current Condition Start: 06/14/23 14:20 Freq: Status: Active Protocol: Document 06/14/23 10:35 DCW (Rec: 06/15/23 09:40 DCW [id number]) Current Condition History of Current Condition Onset Date 2.5 month history Current Complaints Shoulder pain (R>L), hip pain (L>R) History of Current Condition Pt is an 83 year old female presenting with a long- standing history of general pain and stiffness, reportedly due to osteoarthritis. Pt reports that she has been having general body pain for a couple years, but more specifically, her right shoulder has been worsening over the last 2.5 months. Reports no specific injury, just a gradual decline in function. Struggles to lift arm overhead or reach back, notes she is unable to use her right arm to drive, has to use her left arm to place her right arm on the steering wheel. Reports it very often limits her ability to get a full night's sleep. Has not found anything that has helped control her pain. PT-OP-C Subjective Start: 06/14/23 14:20 Freq: Status: Active Protocol: Document 06/23/23 10:34 DCW (Rec: 06/23/23 11:17 DCW [id number]) OP-PT Subjective Patient Comments Patient Comments Maybe some things are a little better, but everything else hurts. It seems like the more I exercise, everything starts bothering me. PT-OP-F Manual Assessment Start: 06/14/23 14:20 Freq: Status: Active Protocol: Document 06/14/23 10:35 DCW (Rec: 06/14/23 14:29 DCW [id number]) Manual Assessments Soft Tissue Assessment Soft Tissue Mobility Assessment Tenderness to palpation 3/4: Wincing and withdraw along R subscapularis, supraspinatus, infraspinatus, LH biceps Joint Mobility Assessment Joint Mobility Assessment Limited mobility with both passive and active ROM, grinding and popping in bilateral GH with passive motion PT-OP-K Range of Motion Start: 06/14/23 14:20 Freq: Status: Active Protocol: Document 06/14/23 10:35 DCW (Rec: 06/14/23 14:29 DCW [id number]) Shoulder Goniometric Range of Motion Shoulder Right Passive Testing Position Supine Flexion 119 Abduction 100 Left Passive Testing Position Supine Flexion 160 Abduction 180 Right Active Testing Position Sitting Flexion 62 Abduction 74 External Rotation at 0 degrees Abduction 39 Internal Rotation Behind Back (text) T8 Left Active Shoulder ROM WFL No Testing Position Sitting Flexion 126 Abduction 98 External Rotation at 0 degrees Abduction 58 Internal Rotation Behind Back (text) T4 PT-OP-L Special Tests Start: 06/14/23 14:20 Freq: Status: Active Protocol: Document 06/14/23 10:35 DCW (Rec: 06/14/23 14:29 DCW [id number]) Special Tests Shoulder Special Tests Passive ER Rotator Cuff Test Results Positive R Painful Arc Test Results Positive R Shannon Tariq Impingement Test Results Positive R Grind Labrum Test Results Positive R Belly Press Test Results Negative AC Joint Compression Test Results Positive R Hip Special Tests Piriformis Test Results Positive L PT-OP-M Strength Start: 06/14/23 14:20 Freq: Status: Active Protocol: Document 06/14/23 10:35 DCW (Rec: 06/14/23 14:29 DCW [id number]) Shoulder Strength Shoulder Manual Muscle Testing Right Flexion 3- Fair- Abduction (C5) 3- Fair- External Rotation 3- Fair- Internal Rotation 3- Fair- Left Flexion 4- Good- Abduction (C5) 4 Good External Rotation 4- Good- Internal Rotation 4- Good- PT-OP-Q Treatments Start: 06/14/23 14:20 Freq: Status: Active Protocol: Document 06/23/23 10:34 DCW (Rec: 06/23/23 11:17 [facility] [id number]) Cardio Equipment Upper Body Ergometer (UBE) Duration (Minutes) 5 Seat Position 10 Height 2 Other 2.5 fwd, 2.5 bkwd Therapeutic Exercises Supine Exercises Flexion Supine Exercise Name Shoulder flexion /c PVC Side bilateral Sitting Exercises PROM Sitting Exercise Name Pulleyes - Flexion, Abduction Standing Exercises ER Standing Exercise Name ER Side bilateral Resistance Lv 2 Comments Isometric R resisting L pull Abduction Standing Exercise Name Shoulder Abduction Side bilateral Resistance 1# Flexion Standing Exercise Name Shoulder Flexion Side bilateral Resistance 1# Comments Pain-free Manual Therapy Treatment Soft Tissue Mobilization bilateral shoulders Body Location R pec, periscapular, post cuff Mobilization Type Cross-Friction,Rolling Intensity/Depth Moderate Body Position Sidelying Upper Trap Body Location R Upper Trap Mobilization Type Sustained Pressure,Trigger Point Release Intensity/Depth Moderate Body Position Supine Joint Mobilizations GH Joint R GH Direction Inferior Grade III Body Position Supine PT-OP-T Assessment and Plan Start: 06/14/23 14:20 Freq: Status: Active Protocol: Document 06/23/23 10:34 [facility] (Rec: 06/23/23 11:17 [facility] [id number]) Physical Therapy Assessment Impairments Impairments Activity Tolerance,Functional Activities,Functional Mobility ,Pain,ROM,Soft Tissue Mobility ,Strength,Tone Goals Two Impairment Pt unable to use her right arm to steer her car due to poor AROM with flexion (62?) and abduction (74?) Senior Care Goal (LTG) Pt to increase right shoulder flexion and abduction to 120? each in order to improve ability to use right arm for steering her car and lifting objects in her house. LTG Duration 08/14/23 One Impairment Pt does not have an appropriate home exercise program Short Term Goal (STG) Pt to be independent and compliant with an appropriate HEP STG Duration 07/15/23 Assessment Summary Assessment Due to complaints of recent full-body flare-ups, attempted to take it easy with pt today . Pt is showing some really good improvement with both passive and active ROM in right shoulder, good response to new strengthening exercises . Physical Therapy Plan Frequency and Duration Frequency of Treatment 2x/Week Plan of Care Start Date 06/14/23 Plan of Care End Date 08/14/23 Therapeutic Interventions Therapeutic Interventions Home Exercise Program,Joint Mobilizations,Manual Therapy, Neuromuscular Re-education, Patient/Caregiver Education, Self-Care/Home Management,Soft Tissue Mobilization, Therapeutic Activities, Therapeutic Exercises Next Visit Focus/Plan Next Note Type Treatment Note Next Visit Plan STM, hip strengthening, shoulder strengthening, P/AROM of shoulders, flexibility
--- NOTE | 2023-06-29 12:59 | PT.OTN ---
Current Diagnoses Polyosteoarthritis, unspecified (06/29/23) Stiffness of right shoulder, not elsewhere classified (06/29/23) Stiffness of left hip, not elsewhere classified (06/29/23) Polymyalgia rheumatica (06/29/23) Muscle weakness (generalized) (06/29/23) Age-related osteoporosis without current pathological fracture (06/29/23) Physical Therapy Treatment Note PT-OP-A Visit Information Start: 06/14/23 14:20 Freq: Status: Active Protocol: Document 06/29/23 09:45 SW (Rec: 06/29/23 10:42 [id number]) Out-Patient Physical Therapy Visit Information Visit Information Visit Type Treatment Note Visit Start Time 09:45 Visit Stop Time 10:25 Visit Number 5 Number of TELEPHONIC NURSE Visits 1 PT-OP-B Current Condition Start: 06/14/23 14:20 Freq: Status: Active Protocol: Document 06/14/23 10:35 DCW (Rec: 06/15/23 09:40 DCW [id number]) Current Condition History of Current Condition Onset Date 2.5 month history Current Complaints Shoulder pain (R>L), hip pain (L>R) History of Current Condition Pt is an 83 year old female presenting with a long- standing history of general pain and stiffness, reportedly due to osteoarthritis. Pt reports that she has been having general body pain for a couple years, but more specifically, her right shoulder has been worsening over the last 2.5 months. Reports no specific injury, just a gradual decline in function. Struggles to lift arm overhead or reach back, notes she is unable to use her right arm to drive, has to use her left arm to place her right arm on the steering wheel. Reports it very often limits her ability to get a full night's sleep. Has not found anything that has helped control her pain. PT-OP-C Subjective Start: 06/14/23 14:20 Freq: Status: Active Protocol: Document 06/29/23 09:45 SW (Rec: 06/29/23 10:42 SW [id number]) OP-PT Subjective Patient Comments Patient Comments Pt reports sleeping disturbance, waking up with arm numbness in first 3 digits . PT-OP-F Manual Assessment Start: 06/14/23 14:20 Freq: Status: Active Protocol: Document 06/14/23 10:35 DCW (Rec: 06/14/23 14:29 DCW [id number]) Manual Assessments Soft Tissue Assessment Soft Tissue Mobility Assessment Tenderness to palpation 3/4: Wincing and withdraw along R subscapularis, supraspinatus, infraspinatus, LH biceps Joint Mobility Assessment Joint Mobility Assessment Limited mobility with both passive and active ROM, grinding and popping in bilateral GH with passive motion PT-OP-K Range of Motion Start: 06/14/23 14:20 Freq: Status: Active Protocol: Document 06/14/23 10:35 DCW (Rec: 06/14/23 14:29 DCW [id number]) Shoulder Goniometric Range of Motion Shoulder Right Passive Testing Position Supine Flexion 119 Abduction 100 Left Passive Testing Position Supine Flexion 160 Abduction 180 Right Active Testing Position Sitting Flexion 62 Abduction 74 External Rotation at 0 degrees Abduction 39 Internal Rotation Behind Back (text) T8 Left Active Shoulder ROM WFL No Testing Position Sitting Flexion 126 Abduction 98 External Rotation at 0 degrees Abduction 58 Internal Rotation Behind Back (text) T4 PT-OP-L Special Tests Start: 06/14/23 14:20 Freq: Status: Active Protocol: Document 06/14/23 10:35 DCW (Rec: 06/14/23 14:29 DCW [id number]) Special Tests Shoulder Special Tests Passive ER Rotator Cuff Test Results Positive R Painful Arc Test Results Positive R Shannon Tariq Impingement Test Results Positive R Grind Labrum Test Results Positive R Belly Press Test Results Negative AC Joint Compression Test Results Positive R Hip Special Tests Piriformis Test Results Positive L PT-OP-M Strength Start: 06/14/23 14:20 Freq: Status: Active Protocol: Document 06/14/23 10:35 DCW (Rec: 06/14/23 14:29 DCW [id number]) Shoulder Strength Shoulder Manual Muscle Testing Right Flexion 3- Fair- Abduction (C5) 3- Fair- External Rotation 3- Fair- Internal Rotation 3- Fair- Left Flexion 4- Good- Abduction (C5) 4 Good External Rotation 4- Good- Internal Rotation 4- Good- PT-OP-Q Treatments Start: 06/14/23 14:20 Freq: Status: Active Protocol: Document 06/29/23 09:45 SW (Rec: 06/29/23 10:42 SW [id number]) Cardio Equipment Upper Body Ergometer (UBE) Duration (Minutes) 5 Seat Position 10 Height 2 Other 2.5 fwd, 2.5 bkwd Therapeutic Exercises Standing Exercises ER Standing Exercise Name ER Side bilateral Resistance Lv 2 Comments Isometric R resisting L pull Abduction Standing Exercise Name Shoulder Abduction Side bilateral Resistance 1# Flexion Standing Exercise Name Shoulder Flexion Side bilateral Resistance 1# Comments Pain-free Rows Standing Exercise Name Reviewed Manual Therapy Treatment Soft Tissue Mobilization bilateral shoulders Body Location R pec, periscapular, post cuff Mobilization Type Cross-Friction,Rolling Intensity/Depth Moderate Body Position Sidelying Upper Trap Body Location R Upper Trap Mobilization Type Sustained Pressure,Trigger Point Release Intensity/Depth Moderate Body Position Supine Self-Care/Home Management Treatment Education Patient Education Home Exercise Program,Joint Protection,Pain Management, Posture Other Education Pt education on sleep positioning to assist with pain and sleep at night. Pt education on HEP, self monitoring pain and not pushing into increasing symptoms. PT-OP-T Assessment and Plan Start: 06/14/23 14:20 Freq: Status: Active Protocol: Document 06/29/23 09:45 SW (Rec: 06/29/23 10:42 [id number]) Physical Therapy Assessment Goals Two Impairment Pt unable to use her right arm to steer her car due to poor AROM with flexion (62?) and abduction (74?) Mud Worker Goal (LTG) Pt to increase right shoulder flexion and abduction to 120? each in order to improve ability to use right arm for steering her car and lifting objects in her house. LTG Duration 08/14/23 One Impairment Pt does not have an appropriate home exercise program Short Term Goal (STG) Pt to be independent and compliant with an appropriate HEP STG Duration 07/15/23 Assessment Summary Assessment Pt experiencing frequent sleep disturbance from R arm pain and numbness down R arm to first 3 digits, pt education on proper sleep positioning for postural alignment, instructed pt to assess response and report tolerance next session. Continued gentle pain free AAROM. Educated pt on self mointoring during HEP to tolerance, no pushing into increased pain. Pt demonstrated overactivation of UT during shoulder flexion ROM this session, improved with verbal/tactile cueing. Physical Therapy Plan Frequency and Duration Frequency of Treatment 2x/Week Plan of Care Start Date 06/14/23 Plan of Care End Date 08/14/23 Therapeutic Interventions Therapeutic Interventions Home Exercise Program,Joint Mobilizations,Manual Therapy, Neuromuscular Re-education, Patient/Caregiver Education, Self-Care/Home Management,Soft Tissue Mobilization, Therapeutic Activities, Therapeutic Exercises Next Visit Focus/Plan Next Note Type Treatment Note Next Visit Plan STM, hip strengthening, shoulder strengthening, P/AROM of shoulders, flexibility
--- NOTE | 2023-07-01 12:21 | PT.OTN ---
Current Diagnoses Polyosteoarthritis, unspecified (07/01/23) Stiffness of right shoulder, not elsewhere classified (07/01/23) Stiffness of left hip, not elsewhere classified (07/01/23) Polymyalgia rheumatica (07/01/23) Muscle weakness (generalized) (07/01/23) Age-related osteoporosis without current pathological fracture (07/01/23) Physical Therapy Treatment Note PT-OP-A Visit Information Start: 06/14/23 14:20 Freq: Status: Active Protocol: Document 07/01/23 10:57 SW (Rec: 07/01/23 12:18 SW [id number]) Out-Patient Physical Therapy Visit Information Visit Information Visit Type Treatment Note Visit Start Time 11:15 Visit Stop Time 11:55 Visit Number 6 Number of ADMISSION NURSE COORDINATOR Visits 2 PT-OP-B Current Condition Start: 06/14/23 14:20 Freq: Status: Active Protocol: Document 06/14/23 10:35 DCW (Rec: 06/15/23 09:40 DCW [id number]) Current Condition History of Current Condition Onset Date 2.5 month history Current Complaints Shoulder pain (R>L), hip pain (L>R) History of Current Condition Pt is an 83 year old female presenting with a long- standing history of general pain and stiffness, reportedly due to osteoarthritis. Pt reports that she has been having general body pain for a couple years, but more specifically, her right shoulder has been worsening over the last 2.5 months. Reports no specific injury, just a gradual decline in function. Struggles to lift arm overhead or reach back, notes she is unable to use her right arm to drive, has to use her left arm to place her right arm on the steering wheel. Reports it very often limits her ability to get a full night's sleep. Has not found anything that has helped control her pain. PT-OP-C Subjective Start: 06/14/23 14:20 Freq: Status: Active Protocol: Document 07/01/23 09:45 SW (Rec: 07/01/23 12:21 SW [id number]) OP-PT Subjective Patient Comments Patient Comments Pt reports some improvement with lifting arm, still painful though feels like can lift more before it feels stuck. PT-OP-F Manual Assessment Start: 06/14/23 14:20 Freq: Status: Active Protocol: Document 06/14/23 10:35 DCW (Rec: 06/14/23 14:29 DCW [id number]) Manual Assessments Soft Tissue Assessment Soft Tissue Mobility Assessment Tenderness to palpation 3/4: Wincing and withdraw along R subscapularis, supraspinatus, infraspinatus, LH biceps Joint Mobility Assessment Joint Mobility Assessment Limited mobility with both passive and active ROM, grinding and popping in bilateral GH with passive motion PT-OP-K Range of Motion Start: 06/14/23 14:20 Freq: Status: Active Protocol: Document 06/14/23 10:35 DCW (Rec: 06/14/23 14:29 DCW [id number]) Shoulder Goniometric Range of Motion Shoulder Right Passive Testing Position Supine Flexion 119 Abduction 100 Left Passive Testing Position Supine Flexion 160 Abduction 180 Right Active Testing Position Sitting Flexion 62 Abduction 74 External Rotation at 0 degrees Abduction 39 Internal Rotation Behind Back (text) T8 Left Active Shoulder ROM WFL No Testing Position Sitting Flexion 126 Abduction 98 External Rotation at 0 degrees Abduction 58 Internal Rotation Behind Back (text) T4 PT-OP-L Special Tests Start: 06/14/23 14:20 Freq: Status: Active Protocol: Document 06/14/23 10:35 DCW (Rec: 06/14/23 14:29 DCW [id number]) Special Tests Shoulder Special Tests Passive ER Rotator Cuff Test Results Positive R Painful Arc Test Results Positive R Shannon Tariq Impingement Test Results Positive R Grind Labrum Test Results Positive R Belly Press Test Results Negative AC Joint Compression Test Results Positive R Hip Special Tests Piriformis Test Results Positive L PT-OP-M Strength Start: 06/14/23 14:20 Freq: Status: Active Protocol: Document 06/14/23 10:35 DCW (Rec: 06/14/23 14:29 DCW [id number]) Shoulder Strength Shoulder Manual Muscle Testing Right Flexion 3- Fair- Abduction (C5) 3- Fair- External Rotation 3- Fair- Internal Rotation 3- Fair- Left Flexion 4- Good- Abduction (C5) 4 Good External Rotation 4- Good- Internal Rotation 4- Good- PT-OP-Q Treatments Start: 06/14/23 14:20 Freq: Status: Active Protocol: Document 07/01/23 10:57 SW (Rec: 07/01/23 12:18 SW [id number]) Therapeutic Exercises Sitting Exercises PROM Sitting Exercise Name Pulleyes - Flexion, Abduction Piriformis Sitting Exercise Name Seated figure-4 Side bilateral Standing Exercises Hip Abd Standing Exercise Name Hip Abd Side bilateral Resistance AROM Reps/Minutes 3x10 Comments cues for stabilization, fatigueing on stance leg ER Standing Exercise Name ER Side bilateral Resistance Lv 2 Comments Isometric R resisting L pull Abduction Standing Exercise Name Shoulder Abduction Side bilateral Resistance 1# Flexion Standing Exercise Name Shoulder Flexion Side bilateral Resistance AAROM>AROM>1# Comments Pain-free Adduction Standing Exercise Name Shoulder Adduction Side bilateral Resistance Green Comments cues for trunk compensation Rows Standing Exercise Name Rows Resistance Green band (issued new band) Reps/Minutes 3 x 10 Extension Standing Exercise Name Shoulder Extension Side bilateral Resistance Green PT-OP-T Assessment and Plan Start: 06/14/23 14:20 Freq: Status: Active Protocol: Document 07/01/23 10:57 SW (Rec: 07/01/23 12:18 SW [id number]) Physical Therapy Assessment Goals Two Impairment Pt unable to use her right arm to steer her car due to poor AROM with flexion (62?) and abduction (74?) Environmental Advisor Goal (LTG) Pt to increase right shoulder flexion and abduction to 120? each in order to improve ability to use right arm for steering her car and lifting objects in her house. LTG Duration 08/14/23 One Impairment Pt does not have an appropriate home exercise program Short Term Goal (STG) Pt to be independent and compliant with an appropriate HEP STG Duration 07/15/23 Assessment Summary Assessment Progressed pt resistance with rows this session, pt tolerated well, denies pain, issued new band for HEP. Pt reported increased pain with minimal lift during shoulder forward flexion strengthening, cued pt for shoulder setting prior to initiating exercise, improved pn though still feeling increase, cued pt to stay within pain free range. Pt demonstrated improved AAROM forward flex with decreased shoulder hiking, requiring only x1 cue this session for form compared to minimal cueing required last session. Physical Therapy Plan Frequency and Duration Frequency of Treatment 2x/Week Plan of Care Start Date 06/14/23 Plan of Care End Date 08/14/23 Therapeutic Interventions Therapeutic Interventions Home Exercise Program,Joint Mobilizations,Manual Therapy, Neuromuscular Re-education, Patient/Caregiver Education, Self-Care/Home Management,Soft Tissue Mobilization, Therapeutic Activities, Therapeutic Exercises Next Visit Focus/Plan Next Note Type Treatment Note Next Visit Plan STM, hip strengthening, shoulder strengthening, P/AROM of shoulders, flexibility
--- NOTE | 2023-07-07 08:16 | PT.OTN ---
Current Diagnoses Polyosteoarthritis, unspecified (07/07/23) Stiffness of right shoulder, not elsewhere classified (07/07/23) Stiffness of left hip, not elsewhere classified (07/07/23) Polymyalgia rheumatica (07/07/23) Muscle weakness (generalized) (07/07/23) Age-related osteoporosis without current pathological fracture (07/07/23) Physical Therapy Treatment Note PT-OP-A Visit Information Start: 06/14/23 14:20 Freq: Status: Active Protocol: Document 07/07/23 07:34 SP (Rec: 07/07/23 08:19 SP [id number]) Out-Patient Physical Therapy Visit Information Visit Information Visit Type Treatment Note Visit Start Time 07:34 Visit Stop Time 08:16 Visit Number 7 Number of PREMISES TECHNICIAN Visits 3 Evaluation Information Evaluation Date 06/14/23 PT-OP-B Current Condition Start: 06/14/23 14:20 Freq: Status: Active Protocol: Document 06/14/23 10:35 DCW (Rec: 06/15/23 09:40 DCW [id number]) Current Condition History of Current Condition Onset Date 2.5 month history Current Complaints Shoulder pain (R>L), hip pain (L>R) History of Current Condition Pt is an 83 year old female presenting with a long- standing history of general pain and stiffness, reportedly due to osteoarthritis. Pt reports that she has been having general body pain for a couple years, but more specifically, her right shoulder has been worsening over the last 2.5 months. Reports no specific injury, just a gradual decline in function. Struggles to lift arm overhead or reach back, notes she is unable to use her right arm to drive, has to use her left arm to place her right arm on the steering wheel. Reports it very often limits her ability to get a full night's sleep. Has not found anything that has helped control her pain. PT-OP-C Subjective Start: 06/14/23 14:20 Freq: Status: Active Protocol: Document 07/07/23 07:34 SP (Rec: 07/07/23 08:19 SP [id number]) OP-PT Subjective Patient Comments Patient Comments Pt reports woke up stiff neck R UE 1-3 and and LUE 3-4 fingers tingly. Pain when sleeping R >L shlds. Still hard to lift arm away from body jelly reaching over head and top steering wheel with RUE. PT-OP-F Manual Assessment Start: 06/14/23 14:20 Freq: Status: Active Protocol: Document 06/14/23 10:35 DCW (Rec: 06/14/23 14:29 DCW [id number]) Manual Assessments Soft Tissue Assessment Soft Tissue Mobility Assessment Tenderness to palpation 3/4: Wincing and withdraw along R subscapularis, supraspinatus, infraspinatus, LH biceps Joint Mobility Assessment Joint Mobility Assessment Limited mobility with both passive and active ROM, grinding and popping in bilateral GH with passive motion PT-OP-K Range of Motion Start: 06/14/23 14:20 Freq: Status: Active Protocol: Document 06/14/23 10:35 DCW (Rec: 06/14/23 14:29 DCW [id number]) Shoulder Goniometric Range of Motion Shoulder Right Passive Testing Position Supine Flexion 119 Abduction 100 Left Passive Testing Position Supine Flexion 160 Abduction 180 Right Active Testing Position Sitting Flexion 62 Abduction 74 External Rotation at 0 degrees Abduction 39 Internal Rotation Behind Back (text) T8 Left Active Shoulder ROM WFL No Testing Position Sitting Flexion 126 Abduction 98 External Rotation at 0 degrees Abduction 58 Internal Rotation Behind Back (text) T4 PT-OP-L Special Tests Start: 06/14/23 14:20 Freq: Status: Active Protocol: Document 06/14/23 10:35 DCW (Rec: 06/14/23 14:29 DCW [id number]) Special Tests Shoulder Special Tests Passive ER Rotator Cuff Test Results Positive R Painful Arc Test Results Positive R Shannon Tariq Impingement Test Results Positive R Grind Labrum Test Results Positive R Belly Press Test Results Negative AC Joint Compression Test Results Positive R Hip Special Tests Piriformis Test Results Positive L PT-OP-M Strength Start: 06/14/23 14:20 Freq: Status: Active Protocol: Document 06/14/23 10:35 DCW (Rec: 06/14/23 14:29 DCW [id number]) Shoulder Strength Shoulder Manual Muscle Testing Right Flexion 3- Fair- Abduction (C5) 3- Fair- External Rotation 3- Fair- Internal Rotation 3- Fair- Left Flexion 4- Good- Abduction (C5) 4 Good External Rotation 4- Good- Internal Rotation 4- Good- PT-OP-Q Treatments Start: 06/14/23 14:20 Freq: Status: Active Protocol: Document 07/07/23 07:34 SP (Rec: 07/07/23 08:19 SP [id number]) Therapeutic Exercises Sidelying Exercises Shld ABD Sidelying Exercise Name trialed to 90 deg- hold 07/06 Side right Resistance AAROM Reps/Minutes 5 reps Comments tactile cues for scapular glide retraction, UR- discomfort distal deltoid open book Sidelying Exercise Name Trialed, added to HEP /c HO Equipment Used hand on head Reps/Minutes 5 reps Comments tactile and cuing scapular glide- improved ROM, pnfree sielying shoulder ER Side right Equipment Used towel under arm Reps/Minutes X10 Comments Verbal cues scap back set positioning, wrist straight neutral, pnfree range Manual Therapy Treatment Joint Mobilizations scapular mobilization Joint bilateral Direction depression and adduction Grade II Body Position Sidelying Comments much time spent scapular ROM, ABD HABD, better understanding post added open book for self carryover when wakes up, improved mobility post manual fac. Self-Care/Home Management Treatment Education Patient Education Body Mechanics,Home Exercise Program,Joint Protection,Pain Management,Posture Other Education 12 min time spent on support / c pillow for side sleeping: between BLEs, lateral ribcage if unweight shld comfort, under R arm on L SL and behind back keep from rolling but allow not rounded/curled up in ball. added open book- better scapular ROM when wakes up less shld discomfort hand on head. PT-OP-T Assessment and Plan Start: 06/14/23 14:20 Freq: Status: Active Protocol: Document 07/07/23 07:34 SP (Rec: 07/07/23 08:19 SP [id number]) Physical Therapy Assessment Goals Two Impairment Pt unable to use her right arm to steer her car due to poor AROM with flexion (62?) and abduction (74?) Magistrate Judge Goal (LTG) Pt to increase right shoulder flexion and abduction to 120? each in order to improve ability to use right arm for steering her car and lifting objects in her house. LTG Duration 08/14/23 One Impairment Pt does not have an appropriate home exercise program Short Term Goal (STG) Pt to be independent and compliant with an appropriate HEP STG Duration 07/15/23 Assessment Summary Assessment Pt good R scapular mobility post manual and added open book to HEP with HO. Pt reported more comfortable sideling with ed use pillows. Physical Therapy Plan Frequency and Duration Frequency of Treatment 2x/Week Plan of Care Start Date 06/14/23 Plan of Care End Date 08/14/23 Therapeutic Interventions Therapeutic Interventions Home Exercise Program,Joint Mobilizations,Manual Therapy, Neuromuscular Re-education, Patient/Caregiver Education, Self-Care/Home Management,Soft Tissue Mobilization, Therapeutic Activities, Therapeutic Exercises Next Visit Focus/Plan Next Note Type Treatment Note Next Visit Plan Assess R shld scap ROM, recheck open book and HEP. POC: STM, hip strengthening, shoulder strengthening, P/AROM of shoulders, flexibility
--- NOTE | 2023-07-09 09:48 | PT.OTN ---
Current Diagnoses Polyosteoarthritis, unspecified (07/09/23) Stiffness of right shoulder, not elsewhere classified (07/09/23) Stiffness of left hip, not elsewhere classified (07/09/23) Polymyalgia rheumatica (07/09/23) Muscle weakness (generalized) (07/09/23) Age-related osteoporosis without current pathological fracture (07/09/23) Physical Therapy Treatment Note PT-OP-A Visit Information Start: 06/14/23 14:20 Freq: Status: Active Protocol: Document 07/09/23 09:04 DCW (Rec: 07/09/23 09:48 DCW [id number]) Out-Patient Physical Therapy Visit Information Visit Information Visit Type Treatment Note Visit Start Time 09:04 Visit Stop Time 09:45 Visit Number 8 Number of ASSISTED LIVING HOUSEKEEPER Visits 0 Evaluation Information Evaluation Date 06/14/23 PT-OP-B Current Condition Start: 06/14/23 14:20 Freq: Status: Active Protocol: Document 06/14/23 10:35 DCW (Rec: 06/15/23 09:40 DCW [id number]) Current Condition History of Current Condition Onset Date 2.5 month history Current Complaints Shoulder pain (R>L), hip pain (L>R) History of Current Condition Pt is an 83 year old female presenting with a long- standing history of general pain and stiffness, reportedly due to osteoarthritis. Pt reports that she has been having general body pain for a couple years, but more specifically, her right shoulder has been worsening over the last 2.5 months. Reports no specific injury, just a gradual decline in function. Struggles to lift arm overhead or reach back, notes she is unable to use her right arm to drive, has to use her left arm to place her right arm on the steering wheel. Reports it very often limits her ability to get a full night's sleep. Has not found anything that has helped control her pain. PT-OP-C Subjective Start: 06/14/23 14:20 Freq: Status: Active Protocol: Document 07/09/23 09:04 DCW (Rec: 07/09/23 09:48 DCW [id number]) OP-PT Subjective Patient Comments Patient Comments It's doing better, but not as much better as I'd hope. Still has a hitch lifting arm up, but able to put hand on steering wheel without using other arm. PT-OP-F Manual Assessment Start: 06/14/23 14:20 Freq: Status: Active Protocol: Document 06/14/23 10:35 DCW (Rec: 06/14/23 14:29 DCW [id number]) Manual Assessments Soft Tissue Assessment Soft Tissue Mobility Assessment Tenderness to palpation 3/4: Wincing and withdraw along R subscapularis, supraspinatus, infraspinatus, LH biceps Joint Mobility Assessment Joint Mobility Assessment Limited mobility with both passive and active ROM, grinding and popping in bilateral GH with passive motion PT-OP-K Range of Motion Start: 06/14/23 14:20 Freq: Status: Active Protocol: Document 06/14/23 10:35 DCW (Rec: 06/14/23 14:29 DCW [id number]) Shoulder Goniometric Range of Motion Shoulder Right Passive Testing Position Supine Flexion 119 Abduction 100 Left Passive Testing Position Supine Flexion 160 Abduction 180 Right Active Testing Position Sitting Flexion 62 Abduction 74 External Rotation at 0 degrees Abduction 39 Internal Rotation Behind Back (text) T8 Left Active Shoulder ROM WFL No Testing Position Sitting Flexion 126 Abduction 98 External Rotation at 0 degrees Abduction 58 Internal Rotation Behind Back (text) T4 PT-OP-L Special Tests Start: 06/14/23 14:20 Freq: Status: Active Protocol: Document 06/14/23 10:35 DCW (Rec: 06/14/23 14:29 DCW [id number]) Special Tests Shoulder Special Tests Passive ER Rotator Cuff Test Results Positive R Painful Arc Test Results Positive R Shannon Tariq Impingement Test Results Positive R Grind Labrum Test Results Positive R Belly Press Test Results Negative AC Joint Compression Test Results Positive R Hip Special Tests Piriformis Test Results Positive L PT-OP-M Strength Start: 06/14/23 14:20 Freq: Status: Active Protocol: Document 06/14/23 10:35 DCW (Rec: 06/14/23 14:29 DCW [id number]) Shoulder Strength Shoulder Manual Muscle Testing Right Flexion 3- Fair- Abduction (C5) 3- Fair- External Rotation 3- Fair- Internal Rotation 3- Fair- Left Flexion 4- Good- Abduction (C5) 4 Good External Rotation 4- Good- Internal Rotation 4- Good- PT-OP-Q Treatments Start: 06/14/23 14:20 Freq: Status: Active Protocol: Document 07/09/23 09:04 [facility] (Rec: 07/09/23 09:48 [facility] [id number]) Cardio Equipment Upper Body Ergometer (UBE) Duration (Minutes) 6 Seat Position 10 Height 2 Other 3' fwd, 3' bkwd Therapeutic Exercises Sidelying Exercises Hip Abd Sidelying Exercise Name Hip Abduction Side bilateral open book Sidelying Exercise Name Open Book Equipment Used hand on head Reps/Minutes 5 reps Comments tactile and cuing scapular glide- improved ROM, pnfree Reverse Clamshell Sidelying Exercise Name Reverse Clamshell Side bilateral Clamshell Sidelying Exercise Name Clamshell Side bilateral Other Exercises Wall push-ups Other Exercise Name Wall push-ups Comments <> and W hand positions Manual Therapy Treatment Soft Tissue Mobilization bilateral shoulders Body Location R pec, periscapular, post cuff Mobilization Type Cross-Friction,Rolling Intensity/Depth Moderate Body Position Sitting Upper Trap Body Location R Upper Trap Mobilization Type Sustained Pressure,Trigger Point Release Intensity/Depth Moderate Body Position Sitting PT-OP-T Assessment and Plan Start: 06/14/23 14:20 Freq: Status: Active Protocol: Document 07/09/23 09:04 [facility] (Rec: 07/09/23 09:48 [facility] [id number]) Physical Therapy Assessment Goals Two Impairment Pt unable to use her right arm to steer her car due to poor AROM with flexion (62?) and abduction (74?) Intermediate Goal (LTG) Pt to increase right shoulder flexion and abduction to 120? each in order to improve ability to use right arm for steering her car and lifting objects in her house. LTG Duration 08/14/23 - improving One Impairment Pt does not have an appropriate home exercise program Short Term Goal (STG) Pt to be independent and compliant with an appropriate HEP STG Duration 07/15/23 Assessment Summary Assessment R shoulder ROM measured today, flexion at 128?, abduction at 98?. Continues to progress well with shoulder mobility. Hip pain also improving somewhat, but is now becoming more bilateral vs just left- sided. Continue to focus on strengthening, ROM, and functional mobility Physical Therapy Plan Frequency and Duration Frequency of Treatment 2x/Week Plan of Care Start Date 06/14/23 Plan of Care End Date 08/14/23 Therapeutic Interventions Therapeutic Interventions Home Exercise Program,Joint Mobilizations,Manual Therapy, Neuromuscular Re-education, Patient/Caregiver Education, Self-Care/Home Management,Soft Tissue Mobilization, Therapeutic Activities, Therapeutic Exercises Next Visit Focus/Plan Next Note Type Treatment Note Next Visit Plan Assess R shld scap ROM, recheck open book and HEP. POC: STM, hip strengthening, shoulder strengthening, P/AROM of shoulders, flexibility
--- NOTE | 2023-07-13 11:15 | PT.OTN ---
Current Diagnoses Polyosteoarthritis, unspecified (07/13/23) Stiffness of right shoulder, not elsewhere classified (07/13/23) Stiffness of left hip, not elsewhere classified (07/13/23) Polymyalgia rheumatica (07/13/23) Muscle weakness (generalized) (07/13/23) Age-related osteoporosis without current pathological fracture (07/13/23) Physical Therapy Treatment Note PT-OP-A Visit Information Start: 06/14/23 14:20 Freq: Status: Active Protocol: Document 07/13/23 08:10 AB (Rec: 07/13/23 11:15 AB [id number]) Out-Patient Physical Therapy Visit Information Visit Information Visit Type Treatment Note Visit Note Access code [email or web address] Visit Start Time 09:02 Visit Stop Time 09:47 Visit Number 9 Number of TRICK RODEO RIDER Visits 1 Evaluation Information Evaluation Date 06/14/23 PT-OP-B Current Condition Start: 06/14/23 14:20 Freq: Status: Active Protocol: Document 06/14/23 10:35 DCW (Rec: 06/15/23 09:40 DCW [id number]) Current Condition History of Current Condition Onset Date 2.5 month history Current Complaints Shoulder pain (R>L), hip pain (L>R) History of Current Condition Pt is an 83 year old female presenting with a long- standing history of general pain and stiffness, reportedly due to osteoarthritis. Pt reports that she has been having general body pain for a couple years, but more specifically, her right shoulder has been worsening over the last 2.5 months. Reports no specific injury, just a gradual decline in function. Struggles to lift arm overhead or reach back, notes she is unable to use her right arm to drive, has to use her left arm to place her right arm on the steering wheel. Reports it very often limits her ability to get a full night's sleep. Has not found anything that has helped control her pain. PT-OP-C Subjective Start: 06/14/23 14:20 Freq: Status: Active Protocol: Document 07/13/23 08:10 AB (Rec: 07/13/23 11:15 AB [id number]) OP-PT Subjective Patient Comments Patient Comments Patient reports she has bad nights, wakes up stiff and sore all over, but after she is up a while she does better. 115 deg AROM right shoulder flexion start of session. PT-OP-F Manual Assessment Start: 06/14/23 14:20 Freq: Status: Active Protocol: Document 06/14/23 10:35 DCW (Rec: 06/14/23 14:29 DCW [id number]) Manual Assessments Soft Tissue Assessment Soft Tissue Mobility Assessment Tenderness to palpation 3/4: Wincing and withdraw along R subscapularis, supraspinatus, infraspinatus, LH biceps Joint Mobility Assessment Joint Mobility Assessment Limited mobility with both passive and active ROM, grinding and popping in bilateral GH with passive motion PT-OP-K Range of Motion Start: 06/14/23 14:20 Freq: Status: Active Protocol: Document 06/14/23 10:35 DCW (Rec: 06/14/23 14:29 DCW [id number]) Shoulder Goniometric Range of Motion Shoulder Right Passive Testing Position Supine Flexion 119 Abduction 100 Left Passive Testing Position Supine Flexion 160 Abduction 180 Right Active Testing Position Sitting Flexion 62 Abduction 74 External Rotation at 0 degrees Abduction 39 Internal Rotation Behind Back (text) T8 Left Active Shoulder ROM WFL No Testing Position Sitting Flexion 126 Abduction 98 External Rotation at 0 degrees Abduction 58 Internal Rotation Behind Back (text) T4 PT-OP-L Special Tests Start: 06/14/23 14:20 Freq: Status: Active Protocol: Document 06/14/23 10:35 DCW (Rec: 06/14/23 14:29 DCW [id number]) Special Tests Shoulder Special Tests Passive ER Rotator Cuff Test Results Positive R Painful Arc Test Results Positive R Shannon Tariq Impingement Test Results Positive R Grind Labrum Test Results Positive R Belly Press Test Results Negative AC Joint Compression Test Results Positive R Hip Special Tests Piriformis Test Results Positive L PT-OP-M Strength Start: 06/14/23 14:20 Freq: Status: Active Protocol: Document 06/14/23 10:35 DCW (Rec: 06/14/23 14:29 DCW [id number]) Shoulder Strength Shoulder Manual Muscle Testing Right Flexion 3- Fair- Abduction (C5) 3- Fair- External Rotation 3- Fair- Internal Rotation 3- Fair- Left Flexion 4- Good- Abduction (C5) 4 Good External Rotation 4- Good- Internal Rotation 4- Good- PT-OP-Q Treatments Start: 06/14/23 14:20 Freq: Status: Active Protocol: Document 07/13/23 08:10 AB (Rec: 07/13/23 11:15 AB [id number]) Therapeutic Exercises Supine Exercises Flexion Side bilateral Reps/Minutes X10 for 10 second hold Sidelying Exercises sielying shoulder ER Side right Equipment Used towel under arm Reps/Minutes X15 Standing Exercises isometric reactive shoulder IR Side right Equipment Used level one light blue band Reps/Minutes X15 Comments monitored for pain isometric reactive shoulder ER Side right Equipment Used level one light blue band Reps/Minutes X15 Comments verbal cues, monitored for pain sit to stand Standing Exercise Name with and without band, from a raised seat height Equipment Used Teal band Reps/Minutes 2X10 Comments review of self tactile cues for hip hinge Therapeutic Activity Therapeutic Activity sidelying sleep positioning left and right side Comments positioned with pillows under UE, between knees and when lying on right side with right GH area shifted fwd. Also, discussed and performed breathing from diaphragm in modified restorative pose with patient ed to perform for 10- 15 minutes prior to sleep. Manual Therapy Treatment Soft Tissue Mobilization bilateral shoulders Body Location R pec, periscapular, post cuff Mobilization Type Cross-Friction,Rolling Intensity/Depth Moderate Body Position Sitting Upper Trap Body Location R Upper Trap Mobilization Type Sustained Pressure,Trigger Point Release Intensity/Depth Moderate Body Position Sitting Joint Mobilizations scapular mobilization Joint bilateral Direction depression and adduction Grade III Body Position Sidelying Comments much time spent scapular PT-OP-T Assessment and Plan Start: 06/14/23 14:20 Freq: Status: Active Protocol: Document 07/13/23 08:10 AB (Rec: 07/13/23 11:15 AB [id number]) Physical Therapy Assessment Goals Two Impairment Pt unable to use her right arm to steer her car due to poor AROM with flexion (62?) and abduction (74?) Custodial Goal (LTG) Pt to increase right shoulder flexion and abduction to 120? each in order to improve ability to use right arm for steering her car and lifting objects in her house. LTG Duration 08/14/23 - improving One Impairment Pt does not have an appropriate home exercise program Short Term Goal (STG) Pt to be independent and compliant with an appropriate HEP STG Duration 07/15/23 Assessment Summary Assessment Patient reports she feels good end of session, AROM right shoulder flexion 135 deg end of session. Physical Therapy Plan Frequency and Duration Frequency of Treatment 2x/Week Plan of Care Start Date 06/14/23 Plan of Care End Date 08/14/23 Next Visit Focus/Plan Next Visit Plan Assess R shld scap ROM, recheck open book and HEP. POC: STM, hip strengthening, shoulder strengthening, P/AROM of shoulders, flexibility, assess vee to isometric reactive, review and then progress scapular strengthening.
--- NOTE | 2023-07-16 09:47 | PT.OTN ---
Current Diagnoses Polyosteoarthritis, unspecified (07/16/23) Stiffness of right shoulder, not elsewhere classified (07/16/23) Stiffness of left hip, not elsewhere classified (07/16/23) Polymyalgia rheumatica (07/16/23) Muscle weakness (generalized) (07/16/23) Age-related osteoporosis without current pathological fracture (07/16/23) Physical Therapy Treatment Note PT-OP-A Visit Information Start: 06/14/23 14:20 Freq: Status: Active Protocol: Document 07/16/23 09:00 DCW (Rec: 07/16/23 09:47 DCW [id number]) Out-Patient Physical Therapy Visit Information Visit Information Visit Type Treatment Note Visit Start Time 09:00 Visit Stop Time 09:45 Visit Number 10 Number of BUTCHER APPRENTICE Visits 0 Evaluation Information Evaluation Date 06/14/23 PT-OP-B Current Condition Start: 06/14/23 14:20 Freq: Status: Active Protocol: Document 06/14/23 10:35 DCW (Rec: 06/15/23 09:40 DCW [id number]) Current Condition History of Current Condition Onset Date 2.5 month history Current Complaints Shoulder pain (R>L), hip pain (L>R) History of Current Condition Pt is an 83 year old female presenting with a long- standing history of general pain and stiffness, reportedly due to osteoarthritis. Pt reports that she has been having general body pain for a couple years, but more specifically, her right shoulder has been worsening over the last 2.5 months. Reports no specific injury, just a gradual decline in function. Struggles to lift arm overhead or reach back, notes she is unable to use her right arm to drive, has to use her left arm to place her right arm on the steering wheel. Reports it very often limits her ability to get a full night's sleep. Has not found anything that has helped control her pain. PT-OP-C Subjective Start: 06/14/23 14:20 Freq: Status: Active Protocol: Document 07/16/23 09:00 DCW (Rec: 07/16/23 09:47 DCW [id number]) OP-PT Subjective Patient Comments Patient Comments Some days it's better, some day's it's not. I'm just falling apart. PT-OP-F Manual Assessment Start: 06/14/23 14:20 Freq: Status: Active Protocol: Document 06/14/23 10:35 DCW (Rec: 06/14/23 14:29 DCW [id number]) Manual Assessments Soft Tissue Assessment Soft Tissue Mobility Assessment Tenderness to palpation 3/4: Wincing and withdraw along R subscapularis, supraspinatus, infraspinatus, LH biceps Joint Mobility Assessment Joint Mobility Assessment Limited mobility with both passive and active ROM, grinding and popping in bilateral GH with passive motion PT-OP-K Range of Motion Start: 06/14/23 14:20 Freq: Status: Active Protocol: Document 06/14/23 10:35 DCW (Rec: 06/14/23 14:29 DCW [id number]) Shoulder Goniometric Range of Motion Shoulder Right Passive Testing Position Supine Flexion 119 Abduction 100 Left Passive Testing Position Supine Flexion 160 Abduction 180 Right Active Testing Position Sitting Flexion 62 Abduction 74 External Rotation at 0 degrees Abduction 39 Internal Rotation Behind Back (text) T8 Left Active Shoulder ROM WFL No Testing Position Sitting Flexion 126 Abduction 98 External Rotation at 0 degrees Abduction 58 Internal Rotation Behind Back (text) T4 PT-OP-L Special Tests Start: 06/14/23 14:20 Freq: Status: Active Protocol: Document 06/14/23 10:35 DCW (Rec: 06/14/23 14:29 DCW [id number]) Special Tests Shoulder Special Tests Passive ER Rotator Cuff Test Results Positive R Painful Arc Test Results Positive R Shannon Tariq Impingement Test Results Positive R Grind Labrum Test Results Positive R Belly Press Test Results Negative AC Joint Compression Test Results Positive R Hip Special Tests Piriformis Test Results Positive L PT-OP-M Strength Start: 06/14/23 14:20 Freq: Status: Active Protocol: Document 06/14/23 10:35 DCW (Rec: 06/14/23 14:29 DCW [id number]) Shoulder Strength Shoulder Manual Muscle Testing Right Flexion 3- Fair- Abduction (C5) 3- Fair- External Rotation 3- Fair- Internal Rotation 3- Fair- Left Flexion 4- Good- Abduction (C5) 4 Good External Rotation 4- Good- Internal Rotation 4- Good- PT-OP-Q Treatments Start: 06/14/23 14:20 Freq: Status: Active Protocol: Document 07/16/23 09:00 DCW (Rec: 07/16/23 09:47 DCW [id number]) Cardio Equipment Upper Body Ergometer (UBE) Duration (Minutes) 6 Seat Position 10 Height 2 Other 3' fwd, 3' bkwd Therapeutic Exercises Standing Exercises Chest press Standing Exercise Name Overhead press /c PVC Side bilateral Resistance 4# Abduction Standing Exercise Name Shoulder Abduction Side bilateral Resistance 1# Flexion Standing Exercise Name Shoulder Flexion Side bilateral Resistance 1# Comments Pain-free Other Exercises Step-ups Other Exercise Name Step-ups Side bilateral Equipment Used 6 step Wall push-ups Other Exercise Name Wall push-ups Resisted Ambulation Other Exercise Name Resisted side-stepping Resistance Green loop Equipment Used @ rail Manual Therapy Treatment Soft Tissue Mobilization Lumbar Body Location L Lumbar paraspinals Mobilization Type Sustained Pressure,Trigger Point Release Body Position Sitting bilateral shoulders Body Location R pec, periscapular, post cuff Mobilization Type Cross-Friction,Rolling Intensity/Depth Moderate Body Position Supine Upper Trap Body Location R Upper Trap Mobilization Type Sustained Pressure,Trigger Point Release Intensity/Depth Moderate Body Position Supine PT-OP-T Assessment and Plan Start: 06/14/23 14:20 Freq: Status: Active Protocol: Document 07/16/23 09:00 [facility] (Rec: 07/16/23 09:47 [facility] [id number]) Physical Therapy Assessment Goals Two Impairment Pt unable to use her right arm to steer her car due to poor AROM with flexion (62?) and abduction (74?) [employer] Teacher Goal (LTG) Pt to increase right shoulder flexion and abduction to 120? each in order to improve ability to use right arm for steering her car and lifting objects in her house. LTG Duration 08/14/23 - improving One Impairment Pt does not have an appropriate home exercise program Short Term Goal (STG) Pt to be independent and compliant with an appropriate HEP STG Duration 07/15/23 Assessment Summary Assessment Pt overall showing some improvement with shoulder ROM, but does seem to vary day to day. C/o increased stiffness this morning, admits it is typically worse in the morning . Physical Therapy Plan Frequency and Duration Frequency of Treatment 2x/Week Plan of Care Start Date 06/14/23 Plan of Care End Date 08/14/23 Therapeutic Interventions Therapeutic Interventions Home Exercise Program,Joint Mobilizations,Manual Therapy, Neuromuscular Re-education, Patient/Caregiver Education, Self-Care/Home Management,Soft Tissue Mobilization, Therapeutic Activities, Therapeutic Exercises Next Visit Focus/Plan Next Visit Plan Assess R shld scap ROM, recheck open book and HEP. POC: STM, hip strengthening, shoulder strengthening, P/AROM of shoulders, flexibility, assess vee to isometric reactive, review and then progress scapular strengthening.
--- NOTE | 2023-07-20 12:11 | PT.OTN ---
Current Diagnoses Polyosteoarthritis, unspecified (07/20/23) Stiffness of right shoulder, not elsewhere classified (07/20/23) Stiffness of left hip, not elsewhere classified (07/20/23) Polymyalgia rheumatica (07/20/23) Muscle weakness (generalized) (07/20/23) Age-related osteoporosis without current pathological fracture (07/20/23) Physical Therapy Treatment Note PT-OP-A Visit Information Start: 06/14/23 14:20 Freq: Status: Active Protocol: Document 07/20/23 11:18 SW (Rec: 07/20/23 12:11 SW [id number]) Out-Patient Physical Therapy Visit Information Visit Information Visit Type Treatment Note Visit Note pt late 05/29 PN Visit Start Time 11:20 Visit Stop Time 11:55 Visit Number 11 PT-OP-B Current Condition Start: 06/14/23 14:20 Freq: Status: Active Protocol: Document 06/14/23 10:35 DCW (Rec: 06/15/23 09:40 DCW [id number]) Current Condition History of Current Condition Onset Date 2.5 month history Current Complaints Shoulder pain (R>L), hip pain (L>R) History of Current Condition Pt is an 83 year old female presenting with a long- standing history of general pain and stiffness, reportedly due to osteoarthritis. Pt reports that she has been having general body pain for a couple years, but more specifically, her right shoulder has been worsening over the last 2.5 months. Reports no specific injury, just a gradual decline in function. Struggles to lift arm overhead or reach back, notes she is unable to use her right arm to drive, has to use her left arm to place her right arm on the steering wheel. Reports it very often limits her ability to get a full night's sleep. Has not found anything that has helped control her pain. PT-OP-C Subjective Start: 06/14/23 14:20 Freq: Status: Active Protocol: Document 07/20/23 11:18 SW (Rec: 07/20/23 12:11 SW [id number]) OP-PT Subjective Patient Comments Patient Comments Pt reports bed time is not fun anymore, wakes up with pain all over in the morning, improves throughout the day. Last month R arm has been going to sleep more First 3 digits. PT-OP-F Manual Assessment Start: 06/14/23 14:20 Freq: Status: Active Protocol: Document 06/14/23 10:35 DCW (Rec: 06/14/23 14:29 DCW [id number]) Manual Assessments Soft Tissue Assessment Soft Tissue Mobility Assessment Tenderness to palpation 3/4: Wincing and withdraw along R subscapularis, supraspinatus, infraspinatus, LH biceps Joint Mobility Assessment Joint Mobility Assessment Limited mobility with both passive and active ROM, grinding and popping in bilateral GH with passive motion PT-OP-K Range of Motion Start: 06/14/23 14:20 Freq: Status: Active Protocol: Document 06/14/23 10:35 DCW (Rec: 06/14/23 14:29 DCW [id number]) Shoulder Goniometric Range of Motion Shoulder Right Passive Testing Position Supine Flexion 119 Abduction 100 Left Passive Testing Position Supine Flexion 160 Abduction 180 Right Active Testing Position Sitting Flexion 62 Abduction 74 External Rotation at 0 degrees Abduction 39 Internal Rotation Behind Back (text) T8 Left Active Shoulder ROM WFL No Testing Position Sitting Flexion 126 Abduction 98 External Rotation at 0 degrees Abduction 58 Internal Rotation Behind Back (text) T4 PT-OP-L Special Tests Start: 06/14/23 14:20 Freq: Status: Active Protocol: Document 06/14/23 10:35 DCW (Rec: 06/14/23 14:29 DCW [id number]) Special Tests Shoulder Special Tests Passive ER Rotator Cuff Test Results Positive R Painful Arc Test Results Positive R Shannon Tariq Impingement Test Results Positive R Grind Labrum Test Results Positive R Belly Press Test Results Negative AC Joint Compression Test Results Positive R Hip Special Tests Piriformis Test Results Positive L PT-OP-M Strength Start: 06/14/23 14:20 Freq: Status: Active Protocol: Document 06/14/23 10:35 DCW (Rec: 06/14/23 14:29 DCW [id number]) Shoulder Strength Shoulder Manual Muscle Testing Right Flexion 3- Fair- Abduction (C5) 3- Fair- External Rotation 3- Fair- Internal Rotation 3- Fair- Left Flexion 4- Good- Abduction (C5) 4 Good External Rotation 4- Good- Internal Rotation 4- Good- PT-OP-Q Treatments Start: 06/14/23 14:20 Freq: Status: Active Protocol: Document 07/20/23 11:18 SW (Rec: 07/20/23 12:11 [id number]) Cardio Equipment Upper Body Ergometer (UBE) Duration (Minutes) 6 Seat Position 10 Height 2 Other 3' fwd, 3' bkwd pt reports feels good Therapeutic Exercises Standing Exercises Ball on wall Standing Exercise Name reactive IR/ER Side right Resistance small ball Equipment Used @ wall Comments stretching feeling Abduction Standing Exercise Name Shoulder Abduction Side bilateral Resistance 1# Flexion Standing Exercise Name Shoulder Flexion Side bilateral Resistance 1# Comments Pain-free Other Exercises lateral Step-ups Other Exercise Name Lateral step-ups Side bilateral Resistance AROM Equipment Used 6 step Comments no increase in pain, cued for alignment and correct mm activation Step-ups Other Exercise Name Step-ups Side bilateral Resistance AROM Equipment Used 6 step Wall push-ups Other Exercise Name Wall push-ups Side bilateral Reps/Minutes x10 Comments Hands shoulder width apart Resisted Ambulation Other Exercise Name Resisted side-stepping Resistance Green loop Equipment Used @ rail Reps/Minutes 2 x 20 ft ea Comments no pain, fatigue Manual Therapy Treatment Soft Tissue Mobilization Lumbar Body Location Lumbar paraspinals Mobilization Type Sustained Pressure,Trigger Point Release Body Position Sitting bilateral shoulders Body Location R pec, periscapular, post cuff Mobilization Type Cross-Friction,Rolling Intensity/Depth Moderate Body Position Supine Upper Trap Body Location R Upper Trap Mobilization Type Sustained Pressure,Trigger Point Release Intensity/Depth Moderate Body Position Supine PT-OP-T Assessment and Plan Start: 06/14/23 14:20 Freq: Status: Active Protocol: Document 07/20/23 11:18 (Rec: 07/20/23 12:11 [id number]) Physical Therapy Assessment Goals Two Impairment Pt unable to use her right arm to steer her car due to poor AROM with flexion (62?) and abduction (74?) Fpc Goal (LTG) Pt to increase right shoulder flexion and abduction to 120? each in order to improve ability to use right arm for steering her car and lifting objects in her house. LTG Duration 08/14/23 - improving One Impairment Pt does not have an appropriate home exercise program Short Term Goal (STG) Pt to be independent and compliant with an appropriate HEP STG Duration 07/15/23 Assessment Summary Assessment Pt reports improved range, though still feeling pain when bringing RUE down. Initiated lateral step ups this session for hip strength, verbal cues for hip alignment and hold at top, pt tolerated well with no increase in symptoms. Plan to assess pt tolerance next session and progress as able next session. Physical Therapy Plan Frequency and Duration Frequency of Treatment 2x/Week Plan of Care Start Date 06/14/23 Plan of Care End Date 08/14/23 Therapeutic Interventions Therapeutic Interventions Home Exercise Program,Joint Mobilizations,Manual Therapy, Neuromuscular Re-education, Patient/Caregiver Education, Self-Care/Home Management,Soft Tissue Mobilization, Therapeutic Activities, Therapeutic Exercises Next Visit Focus/Plan Next Visit Plan Assess R shld scap ROM, recheck open book and HEP. POC: STM, hip strengthening, shoulder strengthening, P/AROM of shoulders, flexibility, assess vee to isometric reactive, review and then progress scapular strengthening.
--- NOTE | 2023-07-22 12:59 | PT.OTN ---
Current Diagnoses Polyosteoarthritis, unspecified (07/22/23) Stiffness of right shoulder, not elsewhere classified (07/22/23) Stiffness of left hip, not elsewhere classified (07/22/23) Polymyalgia rheumatica (07/22/23) Muscle weakness (generalized) (07/22/23) Age-related osteoporosis without current pathological fracture (07/22/23) Physical Therapy Treatment Note PT-OP-A Visit Information Start: 06/14/23 14:20 Freq: Status: Active Protocol: Document 07/22/23 09:50 SW (Rec: 07/22/23 10:35 SW [id number]) Out-Patient Physical Therapy Visit Information Visit Information Visit Type Treatment Note Visit Note 06/29 PN Visit Start Time 09:47 Visit Stop Time 10:25 Visit Number 12 Number of APPLICATIONS ADMINISTRATOR Visits 1 PT-OP-B Current Condition Start: 06/14/23 14:20 Freq: Status: Active Protocol: Document 06/14/23 10:35 DCW (Rec: 06/15/23 09:40 DCW [id number]) Current Condition History of Current Condition Onset Date 2.5 month history Current Complaints Shoulder pain (R>L), hip pain (L>R) History of Current Condition Pt is an 83 year old female presenting with a long- standing history of general pain and stiffness, reportedly due to osteoarthritis. Pt reports that she has been having general body pain for a couple years, but more specifically, her right shoulder has been worsening over the last 2.5 months. Reports no specific injury, just a gradual decline in function. Struggles to lift arm overhead or reach back, notes she is unable to use her right arm to drive, has to use her left arm to place her right arm on the steering wheel. Reports it very often limits her ability to get a full night's sleep. Has not found anything that has helped control her pain. PT-OP-C Subjective Start: 06/14/23 14:20 Freq: Status: Active Protocol: Document 07/22/23 09:50 SW (Rec: 07/22/23 10:35 SW [id number]) OP-PT Subjective Patient Comments Patient Comments Pt reports R lower back/bottom >L has been bothering more recently. Pt reports dizziness with head, position changes, noticing it more recently it is back. PT-OP-F Manual Assessment Start: 06/14/23 14:20 Freq: Status: Active Protocol: Document 06/14/23 10:35 DCW (Rec: 06/14/23 14:29 DCW [id number]) Manual Assessments Soft Tissue Assessment Soft Tissue Mobility Assessment Tenderness to palpation 3/4: Wincing and withdraw along R subscapularis, supraspinatus, infraspinatus, LH biceps Joint Mobility Assessment Joint Mobility Assessment Limited mobility with both passive and active ROM, grinding and popping in bilateral GH with passive motion PT-OP-K Range of Motion Start: 06/14/23 14:20 Freq: Status: Active Protocol: Document 06/14/23 10:35 DCW (Rec: 06/14/23 14:29 DCW [id number]) Shoulder Goniometric Range of Motion Shoulder Right Passive Testing Position Supine Flexion 119 Abduction 100 Left Passive Testing Position Supine Flexion 160 Abduction 180 Right Active Testing Position Sitting Flexion 62 Abduction 74 External Rotation at 0 degrees Abduction 39 Internal Rotation Behind Back (text) T8 Left Active Shoulder ROM WFL No Testing Position Sitting Flexion 126 Abduction 98 External Rotation at 0 degrees Abduction 58 Internal Rotation Behind Back (text) T4 PT-OP-L Special Tests Start: 06/14/23 14:20 Freq: Status: Active Protocol: Document 06/14/23 10:35 DCW (Rec: 06/14/23 14:29 DCW [id number]) Special Tests Shoulder Special Tests Passive ER Rotator Cuff Test Results Positive R Painful Arc Test Results Positive R Shannon Tariq Impingement Test Results Positive R Grind Labrum Test Results Positive R Belly Press Test Results Negative AC Joint Compression Test Results Positive R Hip Special Tests Piriformis Test Results Positive L PT-OP-M Strength Start: 06/14/23 14:20 Freq: Status: Active Protocol: Document 06/14/23 10:35 DCW (Rec: 06/14/23 14:29 DCW [id number]) Shoulder Strength Shoulder Manual Muscle Testing Right Flexion 3- Fair- Abduction (C5) 3- Fair- External Rotation 3- Fair- Internal Rotation 3- Fair- Left Flexion 4- Good- Abduction (C5) 4 Good External Rotation 4- Good- Internal Rotation 4- Good- PT-OP-Q Treatments Start: 06/14/23 14:20 Freq: Status: Active Protocol: Document 07/22/23 09:50 SW (Rec: 07/22/23 10:35 [id number]) Cardio Equipment Upper Body Ergometer (UBE) Duration (Minutes) 6 Seat Position 10 Height 2 Other 3' fwd, 3' bkwd pt reports feels good Therapeutic Exercises Standing Exercises Flexion Standing Exercise Name Shoulder Flexion Side bilateral Resistance 1#>2# Comments Pain-free Adduction Standing Exercise Name Shoulder Adduction Side bilateral Resistance Green>[place] TB Comments cues for trunk compensation Rows Standing Exercise Name Rows Side bilateral Resistance Green>Blue TB Reps/Minutes 3 x 10 Extension Standing Exercise Name Shoulder Extension Side bilateral Resistance Green (Progressed HEP resistance) Comments cues for cervical alignment Manual Therapy Treatment Soft Tissue Mobilization Lumbar Body Location Lumbar paraspinals, glutes Mobilization Type Sustained Pressure,Trigger Point Release Body Position Sidelying Comments Piriformis palpable trigger points, tender to touch bilateral shoulders Body Location R pec, periscapular, post cuff Mobilization Type Cross-Friction,Rolling, Sustained Pressure,Trigger Point Release Intensity/Depth Moderate Body Position Sidelying PT-OP-T Assessment and Plan Start: 06/14/23 14:20 Freq: Status: Active Protocol: Document 07/22/23 09:50 (Rec: 07/22/23 10:35 [id number]) Physical Therapy Assessment Goals Two Impairment Pt unable to use her right arm to steer her car due to poor AROM with flexion (62?) and abduction (74?) [employer] Goal (LTG) Pt to increase right shoulder flexion and abduction to 120? each in order to improve ability to use right arm for steering her car and lifting objects in her house. LTG Duration 08/14/23 - improving One Impairment Pt does not have an appropriate home exercise program Short Term Goal (STG) Pt to be independent and compliant with an appropriate HEP STG Duration 07/15/23 Assessment Summary Assessment Pt reports dizziness post manual therapy upon position change, pt reported that happened this morning when getting out of bed too, goes away shortly after sitting up, pt reports history of vertigo . Initiated manual therapy to start session today d/t pt discomfort. Pt required cues for overactivation of UT during shoulder flexion, pt only tolerates minimal range d /t pain and increased compensation with greater flexion. Discussed with pt HEP this session asked pt to bring in next session, may benefit pt to review HEP exercises and modify/progress, pt isn't doing all but consistantly doing some everyday, pt admits more compliant to standing exercises that can be done between aquatics coordinator. Physical Therapy Plan Frequency and Duration Frequency of Treatment 2x/Week Plan of Care Start Date 06/14/23 Plan of Care End Date 08/14/23 Therapeutic Interventions Therapeutic Interventions Home Exercise Program,Joint Mobilizations,Manual Therapy, Neuromuscular Re-education, Patient/Caregiver Education, Self-Care/Home Management,Soft Tissue Mobilization, Therapeutic Activities, Therapeutic Exercises Next Visit Focus/Plan Next Visit Plan Assess R shld scap ROM, recheck open book and HEP. POC: STM, hip strengthening, shoulder strengthening, P/AROM of shoulders, flexibility, assess vee to isometric reactive, review and then progress scapular strengthening.
--- NOTE | 2023-08-03 11:57 | PT.OTN ---
Current Diagnoses Polyosteoarthritis, unspecified (08/03/23) Stiffness of right shoulder, not elsewhere classified (08/03/23) Stiffness of left hip, not elsewhere classified (08/03/23) Polymyalgia rheumatica (08/03/23) Muscle weakness (generalized) (08/03/23) Age-related osteoporosis without current pathological fracture (08/03/23) Physical Therapy Treatment Note PT-OP-A Visit Information Start: 06/14/23 14:20 Freq: Status: Active Protocol: Document 08/03/23 11:20 DCW (Rec: 08/03/23 11:57 DCW [id number]) Out-Patient Physical Therapy Visit Information Visit Information Visit Type Discharge Summary Visit Start Time 11:20 Visit Stop Time 11:46 Visit Number 13 Evaluation Information Evaluation Date 06/14/23 PT-OP-B Current Condition Start: 06/14/23 14:20 Freq: Status: Active Protocol: Document 06/14/23 10:35 DCW (Rec: 06/15/23 09:40 DCW [id number]) Current Condition History of Current Condition Onset Date 2.5 month history Current Complaints Shoulder pain (R>L), hip pain (L>R) History of Current Condition Pt is an 83 year old female presenting with a long- standing history of general pain and stiffness, reportedly due to osteoarthritis. Pt reports that she has been having general body pain for a couple years, but more specifically, her right shoulder has been worsening over the last 2.5 months. Reports no specific injury, just a gradual decline in function. Struggles to lift arm overhead or reach back, notes she is unable to use her right arm to drive, has to use her left arm to place her right arm on the steering wheel. Reports it very often limits her ability to get a full night's sleep. Has not found anything that has helped control her pain. PT-OP-C Subjective Start: 06/14/23 14:20 Freq: Status: Active Protocol: Document 08/03/23 11:20 DCW (Rec: 08/03/23 11:57 DCW [id number]) OP-PT Subjective Patient Comments Patient Comments I feel like it's just still the original problem of hurting all over. PT-OP-F Manual Assessment Start: 06/14/23 14:20 Freq: Status: Active Protocol: Document 06/14/23 10:35 DCW (Rec: 06/14/23 14:29 DCW [id number]) Manual Assessments Soft Tissue Assessment Soft Tissue Mobility Assessment Tenderness to palpation 3/4: Wincing and withdraw along R subscapularis, supraspinatus, infraspinatus, LH biceps Joint Mobility Assessment Joint Mobility Assessment Limited mobility with both passive and active ROM, grinding and popping in bilateral GH with passive motion PT-OP-K Range of Motion Start: 06/14/23 14:20 Freq: Status: Active Protocol: Document 06/14/23 10:35 DCW (Rec: 06/14/23 14:29 DCW [id number]) Shoulder Goniometric Range of Motion Shoulder Right Passive Testing Position Supine Flexion 119 Abduction 100 Left Passive Testing Position Supine Flexion 160 Abduction 180 Right Active Testing Position Sitting Flexion 62 Abduction 74 External Rotation at 0 degrees Abduction 39 Internal Rotation Behind Back (text) T8 Left Active Shoulder ROM WFL No Testing Position Sitting Flexion 126 Abduction 98 External Rotation at 0 degrees Abduction 58 Internal Rotation Behind Back (text) T4 PT-OP-L Special Tests Start: 06/14/23 14:20 Freq: Status: Active Protocol: Document 06/14/23 10:35 DCW (Rec: 06/14/23 14:29 DCW [id number]) Special Tests Shoulder Special Tests Passive ER Rotator Cuff Test Results Positive R Painful Arc Test Results Positive R Shannon Tariq Impingement Test Results Positive R Grind Labrum Test Results Positive R Belly Press Test Results Negative AC Joint Compression Test Results Positive R Hip Special Tests Piriformis Test Results Positive L PT-OP-M Strength Start: 06/14/23 14:20 Freq: Status: Active Protocol: Document 06/14/23 10:35 DCW (Rec: 06/14/23 14:29 DCW [id number]) Shoulder Strength Shoulder Manual Muscle Testing Right Flexion 3- Fair- Abduction (C5) 3- Fair- External Rotation 3- Fair- Internal Rotation 3- Fair- Left Flexion 4- Good- Abduction (C5) 4 Good External Rotation 4- Good- Internal Rotation 4- Good- PT-OP-Q Treatments Start: 06/14/23 14:20 Freq: Status: Active Protocol: Document 08/03/23 11:20 DCW (Rec: 08/03/23 11:57 DCW [id number]) Cardio Equipment Upper Body Ergometer (UBE) Duration (Minutes) 6 Seat Position 10 Height 2 Other 3' fwd, 3' bkwd Self-Care/Home Management Treatment Education Other Education Next steps for treatment, edu regarding arthritis PT-OP-T Assessment and Plan Start: 06/14/23 14:20 Freq: Status: Active Protocol: Document 08/03/23 11:20 DCW (Rec: 08/03/23 11:57 DCW [id number]) Physical Therapy Assessment Impairments Impairments Activity Tolerance,Functional Activities,Functional Mobility ,Pain,ROM,Soft Tissue Mobility ,Strength,Tone Goals Two Impairment Pt unable to use her right arm to steer her car due to poor AROM with flexion (62?) and abduction (74?) [facility] Goal (LTG) Pt to increase right shoulder flexion and abduction to 120? each in order to improve ability to use right arm for steering her car and lifting objects in her house. LTG Duration 08/14/23 - improving One Impairment Pt does not have an appropriate home exercise program Short Term Goal (STG) Pt to be independent and compliant with an appropriate HEP STG Duration 07/15/23 Assessment Summary Assessment Pt largely feels that although her right shoulder is moving slightly better, she overall appears to be worsening with increased systemic joint pain, especially bilateral hips and shoulders. After discussion of potential next steps, at this time, patient and therapist are in agreement for pt to return to referring physician to inquire about other possible treatments. Pt will be discharged from skilled PT at this time. Physical Therapy Plan Frequency and Duration Frequency of Treatment 2x/Week Plan of Care Start Date 06/14/23 Plan of Care End Date 08/14/23 Therapeutic Interventions Therapeutic Interventions Home Exercise Program,Joint Mobilizations,Manual Therapy, Neuromuscular Re-education, Patient/Caregiver Education, Self-Care/Home Management,Soft Tissue Mobilization, Therapeutic Activities, Therapeutic Exercises Discharge Physical Therapy Discharge Reasons Plateau in Progress
--- NOTE | 2023-08-03 11:59 | PT.OTN ---
Current Diagnoses Polyosteoarthritis, unspecified (08/03/23) Stiffness of right shoulder, not elsewhere classified (08/03/23) Stiffness of left hip, not elsewhere classified (08/03/23) Polymyalgia rheumatica (08/03/23) Muscle weakness (generalized) (08/03/23) Age-related osteoporosis without current pathological fracture (08/03/23) Physical Therapy Treatment Note PT-OP-A Visit Information Start: 06/14/23 14:20 Freq: Status: Active Protocol: Document 08/03/23 11:20 DCW (Rec: 08/03/23 11:57 DCW [id number]) Out-Patient Physical Therapy Visit Information Visit Information Visit Type Discharge Summary Visit Start Time 11:20 Visit Stop Time 11:46 Visit Number 13 Evaluation Information Evaluation Date 06/14/23 PT-OP-B Current Condition Start: 06/14/23 14:20 Freq: Status: Active Protocol: Document 06/14/23 10:35 DCW (Rec: 06/15/23 09:40 DCW [id number]) Current Condition History of Current Condition Onset Date 2.5 month history Current Complaints Shoulder pain (R>L), hip pain (L>R) History of Current Condition Pt is an 83 year old female presenting with a long- standing history of general pain and stiffness, reportedly due to osteoarthritis. Pt reports that she has been having general body pain for a couple years, but more specifically, her right shoulder has been worsening over the last 2.5 months. Reports no specific injury, just a gradual decline in function. Struggles to lift arm overhead or reach back, notes she is unable to use her right arm to drive, has to use her left arm to place her right arm on the steering wheel. Reports it very often limits her ability to get a full night's sleep. Has not found anything that has helped control her pain. PT-OP-C Subjective Start: 06/14/23 14:20 Freq: Status: Active Protocol: Document 08/03/23 11:20 DCW (Rec: 08/03/23 11:57 DCW [id number]) OP-PT Subjective Patient Comments Patient Comments I feel like it's just still the original problem of hurting all over. PT-OP-F Manual Assessment Start: 06/14/23 14:20 Freq: Status: Active Protocol: Document 06/14/23 10:35 DCW (Rec: 06/14/23 14:29 DCW [id number]) Manual Assessments Soft Tissue Assessment Soft Tissue Mobility Assessment Tenderness to palpation 3/4: Wincing and withdraw along R subscapularis, supraspinatus, infraspinatus, LH biceps Joint Mobility Assessment Joint Mobility Assessment Limited mobility with both passive and active ROM, grinding and popping in bilateral GH with passive motion PT-OP-K Range of Motion Start: 06/14/23 14:20 Freq: Status: Active Protocol: Document 08/03/23 11:20 DCW (Rec: 08/03/23 11:59 DCW [id number]) Shoulder Goniometric Range of Motion Shoulder Right Active Testing Position Sitting Flexion 92 Abduction 100 External Rotation at 0 degrees Abduction 49 Internal Rotation Behind Back (text) T8 Left Active Shoulder ROM WFL No Testing Position Sitting Flexion 130 Abduction 97 External Rotation at 0 degrees Abduction 62 Internal Rotation Behind Back (text) T4 PT-OP-L Special Tests Start: 06/14/23 14:20 Freq: Status: Active Protocol: Document 06/14/23 10:35 DCW (Rec: 06/14/23 14:29 DCW [id number]) Special Tests Shoulder Special Tests Passive ER Rotator Cuff Test Results Positive R Painful Arc Test Results Positive R Shannon Tariq Impingement Test Results Positive R Grind Labrum Test Results Positive R Belly Press Test Results Negative AC Joint Compression Test Results Positive R Hip Special Tests Piriformis Test Results Positive L PT-OP-M Strength Start: 06/14/23 14:20 Freq: Status: Active Protocol: Document 06/14/23 10:35 DCW (Rec: 06/14/23 14:29 DCW [id number]) Shoulder Strength Shoulder Manual Muscle Testing Right Flexion 3- Fair- Abduction (C5) 3- Fair- External Rotation 3- Fair- Internal Rotation 3- Fair- Left Flexion 4- Good- Abduction (C5) 4 Good External Rotation 4- Good- Internal Rotation 4- Good- PT-OP-Q Treatments Start: 06/14/23 14:20 Freq: Status: Active Protocol: Document 08/03/23 11:20 DCW (Rec: 08/03/23 11:57 DCW [id number]) Cardio Equipment Upper Body Ergometer (UBE) Duration (Minutes) 6 Seat Position 10 Height 2 Other 3' fwd, 3' bkwd Self-Care/Home Management Treatment Education Other Education Next steps for treatment, [facility] regarding arthritis PT-OP-T Assessment and Plan Start: 06/14/23 14:20 Freq: Status: Active Protocol: Document 08/03/23 11:20 DCW (Rec: 08/03/23 11:57 DCW [id number]) Physical Therapy Assessment Impairments Impairments Activity Tolerance,Functional Activities,Functional Mobility ,Pain,ROM,Soft Tissue Mobility ,Strength,Tone Goals Two Impairment Pt unable to use her right arm to steer her car due to poor AROM with flexion (62?) and abduction (74?) Correction Goal (LTG) Pt to increase right shoulder flexion and abduction to 120? each in order to improve ability to use right arm for steering her car and lifting objects in her house. LTG Duration 08/14/23 - improving One Impairment Pt does not have an appropriate home exercise program Short Term Goal (STG) Pt to be independent and compliant with an appropriate HEP STG Duration 07/15/23 Assessment Summary Assessment Pt largely feels that although her right shoulder is moving slightly better, she overall appears to be worsening with increased systemic joint pain, especially bilateral hips and shoulders. After discussion of potential next steps, at this time, patient and therapist are in agreement for pt to return to referring physician to inquire about other possible treatments. Pt will be discharged from skilled PT at this time. Physical Therapy Plan Frequency and Duration Frequency of Treatment 2x/Week Plan of Care Start Date 06/14/23 Plan of Care End Date 08/14/23 Therapeutic Interventions Therapeutic Interventions Home Exercise Program,Joint Mobilizations,Manual Therapy, Neuromuscular Re-education, Patient/Caregiver Education, Self-Care/Home Management,Soft Tissue Mobilization, Therapeutic Activities, Therapeutic Exercises Discharge Physical Therapy Discharge Reasons Plateau in Progress
== END 2024-01-11 09:41 | disposition home or self-care (01) ==
LOC: PHYS 11:15
PROVIDERS: Family Provider Family Medicine; PCP Family Medicine; Referring Provider Internal Medicine Rheumatology; Visit Provider Internal Medicine Rheumatology
DX: M35.3 Polymyalgia rheumatica (principal); M15.9 Polyosteoarthritis, unspecified; M81.0 Age-related osteoporosis without current pathological fracture; M25.611 Stiffness of right shoulder, not elsewhere classified; M25.652 Stiffness of left hip, not elsewhere classified; M62.81 Muscle weakness (generalized)
CPT/HCPCS: 97110; 97140; 97162; 97530; 97535

== ENCOUNTER → 2024-05-04 13:21 | Outpatient (CLI) | payer MEDICARE, OTHER, SELFPAY ==
[2020-05-20 15:10] VITALS: BMI 27.6
[2020-06-07 00:10] VITALS: PULSE 110; RESP 24; O2SAT 91
--- NOTE | 2024-05-04 13:23 | DI.MG.S_ITS ---
BILATERAL DIGITAL SCREENING MAMMOGRAM 3D/2D WITH CAD: 05/04/2024 CLINICAL: Routine screening. Family history of breast cancer. Comparison is made to exams dated: 04/06/2023 mammogram, 03/30/2022 mammogram, and 03/25/2021 mammogram - [facility]. There are scattered areas of fibroglandular density (category b / 25%-50% glandular tissue). Current study was also evaluated with a Computer Aided Detection (CAD) system. There are benign post operative findings in the right breast. There are mole markers on both breasts. No significant masses, calcifications, or other findings are seen in either breast. There has been no significant interval change. IMPRESSION: BENIGN There is no mammographic evidence of malignancy. A 1 year screening mammogram is recommended. This exam was interpreted at Station ID: [id number]. NOTE: For mammograms, a report in lay terms will be sent to the patient. Approximately 15% of breast malignancies will not be visualized mammographically. In the management of a palpable breast mass, a negative mammogram must not discourage biopsy of a clinically suspicious lesion. Electronically Signed By: Vinny maxwell/linda:05/04/2024 18:39:24 copy to: SANDRO FERRARA letter sent: Normal Exam ACR BI-RADS Category 2: Benign
== END ==
PROVIDERS: PCP Family Medicine; Referring Provider Family Medicine; Visit Provider Family Medicine
DX: Z12.31 Encounter for screening mammogram for malignant neoplasm of breast (principal); Z80.3 Family history of malignant neoplasm of breast
CPT/HCPCS: 77063; 77067